=== PATIENT | female | born 1955 | race Caucasian/White ===

== ENCOUNTER 2023-12-05 14:00 | Inpatient (IN) | payer MEDICARE, MEDICAID ==
[~2023-12-05] VITALS: Ht 149.9 cm; Wt 54.0 kg
[~2023-12-05 14:00] MED LIST: ALBUAER3 IN; APIX5TAB4 PO; CHOL500023 PO; FLUC200T50 PO; MET25T PO; PANT40TA2 PO
[2023-12-05] MEDS ORDERED: DexAMETHasone SOD PHOS 10MG/1ML VIAL INJ IM ONE (14:30)
[2023-12-05] MEDS ORDERED: ALBUTEROL SULF 2.5 MG/0.5ML(0.5%) NEB SOLN NEB ONE (14:30)
[2023-12-05] MEDS ORDERED: IPRATROPIUM BROM 0.5 MG/2.5ML INH SOL NEB ONE (14:30)
[2023-12-05 14:49] VITALS: RESP 16; O2SAT 96
[2023-12-05 14:54] LABS: Basophils # (auto) 0.1 10 ^3/uL (0-0.2); Basophils % (auto) 1.4 % (0.0-2.0); Eosinophils # (auto) 0 10 ^3/uL (0-0.8); Eosinophils % (auto) 0.5 % (0.0-7.0); Hematocrit 49.9 % (36.0-46.0); Hemoglobin 16.2 g/dL (12.2-16.2); Lymphocytes # (auto) 1.2 10 ^3/uL (0.4-5.4); Mean Corpuscular Hemoglobin 30.7 pg (28.0-32.0); Mean Corpuscular Hgb Conc. 32.4 g/dL (32.0-36.0); Mean Corpuscular Volume 94.7 fL (80.0-100.0); Monocytes # (auto) 1.4 10 ^3/uL (0-1.3); Monocytes % (auto) 16.9 % (0.0-12.0); Neutrophils # (auto) 5.3 10 ^3/uL (1.6-8.6); Neutrophils % (auto) 66.2 % (37.0-80.0); Red Blood Cells 5.27 10^6/uL (4.0-5.20); Red Cell Distribution Width 13.5 % (11.8-14.3)
[2023-12-05 15:26] LABS: Alanine Aminotransferase 27 U/L (7-40); Albumin 4.6 g/dL (3.2-4.8); Alkaline Phosphatase 77 U/L (46-116); Anion Gap 8 (5-15); Aspartate Aminotransferase 40 U/L (13-40); Bilirubin, Total 0.2 mg/dL (0.2-1.0); Blood Urea Nitrogen 15 mg/dL (9-23); Calcium 9.2 mg/dL (8.7-10.4); Carbon Dioxide 27 mmol/L (20-30); Chloride 102 mmol/L (98-107); Glucose 114 mg/dL (74-106); Lipase 55 U/L (12-53); Potassium 4.3 mmol/L (3.5-5.1); Sodium 137 mmol/L (136-145); Total Protein 7.3 g/dL (5.7-8.2)
[2023-12-05 15:27] LABS: Urine Bacteria FEW /hpf (None Seen); Urine Blood 1+ /uL (Negative); Urine Clarity Clear (Clear); Urine Color Yellow (Yellow); Urine Protein, UAD 1+ (Negative); Urine Specific Gravity 1.023 (1.001-1.035); Urine Urobilinogen Normal (Negative); Urine WBC 2 /hpf (0 - 5); Urine pH 5.5 (5.0-8.0)
[2023-12-05 15:37] LABS: Rapid Influenza A Negative (Negative); Rapid Influenza B Negative (Negative)
[2023-12-05 15:40] LABS: COVID19 ANTIGEN SOFIA FIA POSITIVE (NEGATIVE)
[2023-12-05] MEDS ORDERED: ACETAMINOPHEN 325 MG TAB PO PRN (16:15)
[2023-12-05] MEDS ORDERED: ALBUTEROL SULF 2.5 MG/0.5ML(0.5%) NEB SOLN NEB PRN (16:15)
[2023-12-05] MEDS ORDERED: ACETAMINOPHEN 500 MG TAB PO PRN (16:30)
[2023-12-05 16:36] VITALS: BP 122/48; PULSE 102; RESP 26; TEMP 98
[2023-12-05 16:58] LABS: Magnesium 1.9 mg/dL (1.6-2.6)
[2023-12-05 17:25] LABS: Thyroid Stimulating Hormone 0.44 uIU/mL (0.55-4.78)
[2023-12-05 17:29] LABS: CRP High Sensitivity 3.31 mg/dL (<1.0)
[2023-12-05] MEDS ORDERED: IPRATROPIUM BROM 0.5 MG/2.5ML INH SOL NEB SCH (18:00)
[2023-12-05] MEDS ORDERED: ALBUTEROL SULF 2.5 MG/0.5ML(0.5%) NEB SOLN NEB SCH (18:00)
[2023-12-05] MEDS: SODIUM CHLORIDE 0.9% 1,000 ML IV SCH (20:10)
[2023-12-05] MEDS: BUDESONIDE (INHALATION) 180 MCG IH IN SCH (22:00)
[2023-12-05] MEDS ORDERED: methylPREDNISolone SOD SUCC 40 MG/ML VL IV SCH (22:00)
[2023-12-05] MEDS: ACETAMINOPHEN 325 MG TAB PO PRN (22:11)
[2023-12-05] MEDS: METOPROLOL TARTRATE 25 MG TAB PO SCH (22:12)
[2023-12-05 22:18] VITALS: O2SAT 94
[2023-12-05] MEDS: ALBUTEROL SULF HFA 90MCG INH 200DOSE IN PRN (22:34)
[2023-12-06 00:44] VITALS: PULSE 69; RESP 18; O2SAT 93
[2023-12-06 04:56] LABS: Basophils # (auto) 0 10 ^3/uL (0-0.2); Basophils % (auto) 0.3 % (0.0-2.0); Eosinophils # (auto) 0 10 ^3/uL (0-0.8); Hematocrit 46.9 % (36.0-46.0); Hemoglobin 15.3 g/dL (12.2-16.2); Lymphocytes # (auto) 0.9 10 ^3/uL (0.4-5.4); Lymphocytes % (auto) 17.8 % (10.0-50.0); Mean Corpuscular Hemoglobin 31.1 pg (28.0-32.0); Mean Corpuscular Hgb Conc. 32.7 g/dL (32.0-36.0); Mean Corpuscular Volume 95.3 fL (80.0-100.0); Monocytes # (auto) 0.6 10 ^3/uL (0-1.3); Monocytes % (auto) 11.8 % (0.0-12.0); Neutrophils # (auto) 3.7 10 ^3/uL (1.6-8.6); Neutrophils % (auto) 70.1 % (37.0-80.0); Nucleated Red Blood Cells % 0.1 %; Red Blood Cells 4.93 10^6/uL (4.0-5.20); Red Cell Distribution Width 13.6 % (11.8-14.3); White Blood Cell 5.3 10^3/uL (4.4-10.8)
[2023-12-06 05:15] LABS: Alanine Aminotransferase 28 U/L (7-40); Albumin 4.1 g/dL (3.2-4.8); Alkaline Phosphatase 79 U/L (46-116); Anion Gap 8 (5-15); Aspartate Aminotransferase 31 U/L (13-40); BUN/Creatinine Ratio 18.2 (10.0-20.0); Blood Urea Nitrogen 20 mg/dL (9-23); Calcium 8.7 mg/dL (8.7-10.4); Carbon Dioxide 25 mmol/L (20-30); Chloride 104 mmol/L (98-107); Glucose 315 mg/dL (74-106); Potassium 3.9 mmol/L (3.5-5.1); Sodium 137 mmol/L (136-145)
[2023-12-06 05:16] LABS: Bilirubin, Total < 0.2 mg/dL (0.2-1.0); Total Protein 6.6 g/dL (5.7-8.2)
[2023-12-06 05:31] VITALS: PULSE 67; RESP 18; O2SAT 95
[2023-12-06] MEDS: BUDESONIDE (INHALATION) 180 MCG IH IN SCH ×2 (05:31→22:28)
[2023-12-06] MEDS: ALBUTEROL SULF HFA 90MCG INH 200DOSE IN PRN ×2 (05:31→22:28)
[2023-12-06 06:00] VITALS: PULSE 67
[2023-12-06] MEDS: SODIUM CHLORIDE 0.9% 1,000 ML IV SCH ×2 (06:03→19:47)
[2023-12-06 08:00] VITALS: PULSE 68; RESP 18; O2SAT 91
[2023-12-06] MEDS: DexAMETHasone SOD PHOS 10MG/1ML VIAL INJ IV SCH (10:04)
[2023-12-06] MEDS: ENOXAPARIN SOD 40 MG/0.4 ML SYRINGE SC SCH (10:04)
[2023-12-06] MEDS: PANTOPRAZOLE 40 MG TAB PO SCH (10:04)
[2023-12-06] MEDS: METOPROLOL TARTRATE 25 MG TAB PO SCH ×2 (10:04→22:20)
[2023-12-06] MEDS: CHOLECALCIFEROL (VITD3) 2,000 UNIT CAP/TAB PO SCH (10:05)
[2023-12-06] MEDS: ZINC SULFATE 220mg CAP or TAB PO SCH (10:05)
[2023-12-06] MEDS: AZITHROMYCIN 500MG/ 250ML 250 ML IV SCH (10:05)
[2023-12-06] MEDS: ASCORBIC ACID 1,000 MG TAB PO SCH (10:05)
[2023-12-06] MEDS ORDERED: NICOTINE 21MG/24 HR TOPICAL PATCH TD ONE (13:00)
[2023-12-06 19:25] VITALS: PULSE 81; RESP 24; O2SAT 93
[2023-12-06 22:28] VITALS: O2SAT 94
[2023-12-07] VITALS (9 sets, daily range): BP systolic 111–142; BP diastolic 58–85; PULSE 72–80; RESP 16–20; TEMP 37; O2SAT 92–95
[2023-12-07] MEDS ORDERED: HYDROcodone-ACET 5/325MG TAB PO PRN (04:00)
[2023-12-07] MEDS: SODIUM CHLORIDE 0.9% 1,000 ML IV SCH ×2 (09:03→22:05)
[2023-12-07] MEDS: DexAMETHasone SOD PHOS 10MG/1ML VIAL INJ IV SCH (10:15)
[2023-12-07] MEDS: ASCORBIC ACID 1,000 MG TAB PO SCH (10:15)
[2023-12-07] MEDS: CHOLECALCIFEROL (VITD3) 2,000 UNIT CAP/TAB PO SCH (10:15)
[2023-12-07] MEDS: AZITHROMYCIN 500MG/ 250ML 250 ML IV SCH (10:15)
[2023-12-07] MEDS: PANTOPRAZOLE 40 MG TAB PO SCH (10:15)
[2023-12-07] MEDS: METOPROLOL TARTRATE 25 MG TAB PO SCH ×2 (10:16→22:49)
[2023-12-07] MEDS: ZINC SULFATE 220mg CAP or TAB PO SCH (10:16)
[2023-12-07] MEDS: NICOTINE 21MG/24 HR TOPICAL PATCH TD SCH (10:18)
[2023-12-07] MEDS: ENOXAPARIN SOD 40 MG/0.4 ML SYRINGE SC SCH (10:18)
[2023-12-07] MEDS ORDERED: ONDANSETRON HCL 4 MG/2 ML VIAL IV PRN (11:45)
[2023-12-07] MEDS: LORazepam 0.5 MG TAB PO PRN ×2 (14:09→22:49)
[2023-12-07] MEDS: BUDESONIDE (INHALATION) 180 MCG IH IN SCH (22:30)
[2023-12-08] VITALS (10 sets, daily range): BP systolic 147–151; BP diastolic 73–87; PULSE 75–86; RESP 17–22; TEMP 97.4–98.8; O2SAT 90–95
[2023-12-08] MEDS: BUDESONIDE (INHALATION) 180 MCG IH IN SCH ×3 (00:28→21:41)
[2023-12-08] MEDS: ALBUTEROL SULF HFA 90MCG INH 200DOSE IN PRN ×2 (07:56→21:44)
[2023-12-08] MEDS: ASCORBIC ACID 1,000 MG TAB PO SCH (10:15)
[2023-12-08] MEDS: PANTOPRAZOLE 40 MG TAB PO SCH (10:15)
[2023-12-08] MEDS: AZITHROMYCIN 500MG/ 250ML 250 ML IV SCH (10:15)
[2023-12-08] MEDS: ZINC SULFATE 220mg CAP or TAB PO SCH (10:15)
[2023-12-08] MEDS: DexAMETHasone SOD PHOS 10MG/1ML VIAL INJ IV SCH (10:15)
[2023-12-08] MEDS: CHOLECALCIFEROL (VITD3) 2,000 UNIT CAP/TAB PO SCH (10:16)
[2023-12-08] MEDS: ENOXAPARIN SOD 40 MG/0.4 ML SYRINGE SC SCH (10:17)
[2023-12-08] MEDS: NICOTINE 21MG/24 HR TOPICAL PATCH TD SCH (10:17)
[2023-12-08] MEDS: SODIUM CHLORIDE 0.9% 1,000 ML IV SCH (10:19)
[2023-12-08] MEDS: METOPROLOL TARTRATE 25 MG TAB PO SCH ×2 (10:19→21:35)
[2023-12-08] MEDS: LORazepam 0.5 MG TAB PO PRN (21:28)
[2023-12-09] VITALS (9 sets, daily range): BP systolic 102–174; BP diastolic 56–92; PULSE 63–88; RESP 17–24; TEMP 98–98.5; O2SAT 93–100
[2023-12-09] MEDS: SODIUM CHLORIDE 0.9% 1,000 ML IV SCH ×2 (01:02→14:05)
[2023-12-09] MEDS ORDERED: hydrALAZINE HCL 20 MG/ML VL IV ONE (07:30)
[2023-12-09] MEDS: BUDESONIDE (INHALATION) 180 MCG IH IN SCH ×2 (07:41→22:00)
[2023-12-09] MEDS: ALBUTEROL SULF HFA 90MCG INH 200DOSE IN PRN ×2 (07:41→23:25)
[2023-12-09] MEDS: NICOTINE 21MG/24 HR TOPICAL PATCH TD SCH (10:31)
[2023-12-09] MEDS: DexAMETHasone SOD PHOS 10MG/1ML VIAL INJ IV SCH (10:31)
[2023-12-09] MEDS: PANTOPRAZOLE 40 MG TAB PO SCH (10:31)
[2023-12-09] MEDS: ZINC SULFATE 220mg CAP or TAB PO SCH (10:31)
[2023-12-09] MEDS: CHOLECALCIFEROL (VITD3) 2,000 UNIT CAP/TAB PO SCH (10:32)
[2023-12-09] MEDS: ENOXAPARIN SOD 40 MG/0.4 ML SYRINGE SC SCH (10:32)
[2023-12-09] MEDS: ASCORBIC ACID 1,000 MG TAB PO SCH (10:32)
[2023-12-09] MEDS: AZITHROMYCIN 250 MG TAB PO SCH (10:32)
[2023-12-09] MEDS: METOPROLOL TARTRATE 25 MG TAB PO SCH ×2 (11:00→21:34)
[2023-12-09] MEDS: ACETAMINOPHEN 325 MG TAB PO PRN (18:15)
[2023-12-09] MEDS: LORazepam 0.5 MG TAB PO PRN (21:29)
[2023-12-10] VITALS (8 sets, daily range): BP systolic 137–157; BP diastolic 71–80; PULSE 72–85; RESP 16–18; TEMP 98–98.5; O2SAT 92–100
[2023-12-10] MEDS: SODIUM CHLORIDE 0.9% 1,000 ML IV SCH ×2 (03:25→16:45)
[2023-12-10] MEDS: ASCORBIC ACID 1,000 MG TAB PO SCH (09:08)
[2023-12-10] MEDS: PANTOPRAZOLE 40 MG TAB PO SCH (09:08)
[2023-12-10] MEDS: AZITHROMYCIN 250 MG TAB PO SCH (09:08)
[2023-12-10] MEDS: ZINC SULFATE 220mg CAP or TAB PO SCH (09:08)
[2023-12-10] MEDS: DexAMETHasone SOD PHOS 10MG/1ML VIAL INJ IV SCH (09:09)
[2023-12-10] MEDS: ENOXAPARIN SOD 40 MG/0.4 ML SYRINGE SC SCH (09:09)
[2023-12-10] MEDS: CHOLECALCIFEROL (VITD3) 2,000 UNIT CAP/TAB PO SCH (09:09)
[2023-12-10] MEDS: NICOTINE 21MG/24 HR TOPICAL PATCH TD SCH (09:10)
[2023-12-10] MEDS: METOPROLOL TARTRATE 25 MG TAB PO SCH ×2 (09:34→21:40)
[2023-12-10] MEDS: BUDESONIDE (INHALATION) 180 MCG IH IN SCH ×2 (09:42→21:44)
[2023-12-10 16:39] LABS: COVID19 ANTIGEN SOFIA FIA POSITIVE (NEGATIVE)
[2023-12-10] MEDS: ACETAMINOPHEN 325 MG TAB PO PRN (18:26)
[2023-12-10] MEDS: LORazepam 0.5 MG TAB PO PRN (21:34)
[2023-12-10] MEDS: ALBUTEROL SULF HFA 90MCG INH 200DOSE IN PRN (21:44)
[2023-12-11 05:00] VITALS: BP 158/77; PULSE 89; RESP 18; TEMP 98; O2SAT 92
[2023-12-11] MEDS: SODIUM CHLORIDE 0.9% 1,000 ML IV SCH (05:26)
[2023-12-11 05:49] VITALS: PULSE 77; RESP 16; O2SAT 95
[2023-12-11] MEDS: BUDESONIDE (INHALATION) 180 MCG IH IN SCH (05:49)
[2023-12-11] MEDS: ALBUTEROL SULF HFA 90MCG INH 200DOSE IN PRN (05:49)
[2023-12-11 08:05] VITALS: PULSE 74; RESP 17; O2SAT 96
[2023-12-11 09:00] VITALS: BP 143/70; PULSE 74; RESP 17; TEMP 97.9; O2SAT 96
[2023-12-11] MEDS: PANTOPRAZOLE 40 MG TAB PO SCH (09:15)
[2023-12-11] MEDS: ASCORBIC ACID 1,000 MG TAB PO SCH (09:15)
[2023-12-11] MEDS: ENOXAPARIN SOD 40 MG/0.4 ML SYRINGE SC SCH (09:15)
[2023-12-11] MEDS: ZINC SULFATE 220mg CAP or TAB PO SCH (09:15)
[2023-12-11] MEDS: CHOLECALCIFEROL (VITD3) 2,000 UNIT CAP/TAB PO SCH (09:15)
[2023-12-11] MEDS: NICOTINE 21MG/24 HR TOPICAL PATCH TD SCH (09:16)
[2023-12-11] MEDS: DexAMETHasone SOD PHOS 10MG/1ML VIAL INJ IV SCH (09:16)
[2023-12-11] MEDS: METOPROLOL TARTRATE 25 MG TAB PO SCH (09:17)
[2023-12-11] MEDS ORDERED: AZITHROMYCIN 500MG/ 250ML 250 ML IV SCH (10:00)
[2023-12-11 11:28] VITALS: BP 127/77; PULSE 77; RESP 16; O2SAT 96
[2023-12-11] MEDS: ACETAMINOPHEN 325 MG TAB PO PRN (12:19)
[2023-12-11] MEDS: LORazepam 0.5 MG TAB PO PRN (12:19)
[2023-12-11 13:00] VITALS: BP 127/77; PULSE 65; RESP 18; TEMP 98.1; O2SAT 96
== END 2023-12-11 18:20 | DRG 137 ==
LOC: ER 14:00 → OVERFLOW 16:41 → CENTRAL 12-06 22:29
PROVIDERS: ADMIT Nurse Practitioner Family; ATTEND Family Medicine
DX: U07.1 COVID-19 (principal); J96.01 Acute respiratory failure with hypoxia; J12.82 Pneumonia due to coronavirus disease 2019; J44.0 Chronic obstructive pulmonary disease with (acute) lower respiratory infection; F17.210 Nicotine dependence, cigarettes, uncomplicated; E11.9 Type 2 diabetes mellitus without complications; Z20.822 Contact with and (suspected) exposure to COVID-19; F41.9 Anxiety disorder, unspecified; Z71.6 Tobacco abuse counseling; Z88.0 Allergy status to penicillin; Z98.51 Tubal ligation status
CPT/HCPCS: 36415; 71045; 80053; 81001; 82306; 82728; 83036; 83605; 83615; 83690; 83735; 83880; 84443; 84484; 85025; 85379; 86141; 87426; 87804; 93005; 94640; 97110; 97116; 97163; 97530; G0378; J1100; J2405

== ENCOUNTER 2024-01-18 11:13 | Inpatient (IN) | payer MEDICARE, MEDICAID ==
[~2024-01-18] VITALS: Ht 149.9 cm; Wt 56.3 kg
[2024-01-18] MEDS: ALBUTEROL SULF 2.5 MG/0.5ML(0.5%) NEB SOLN HHN ONE (12:03)
[2024-01-18] MEDS: IPRATROPIUM BROM 0.5 MG/2.5ML INH SOL HHN ONE (12:05)
[2024-01-18 12:15] LABS: Chloride 109 mmol/L (98-107); Potassium 4.2 mmol/L (3.5-5.1); Sodium 142 mmol/L (136-145)
[2024-01-18 12:16] LABS: Anion Gap 6 (5-15); Carbon Dioxide 27 mmol/L (20-30)
[2024-01-18 12:17] LABS: Calcium 9.7 mg/dL (8.5-10.1)
[2024-01-18 12:19] LABS: Basophils # (auto) 0.1 10 ^3/uL (0-0.2); Basophils % (auto) 0.8 % (0.0-2.0); Eosinophils # (auto) 0.1 10 ^3/uL (0-0.8); Eosinophils % (auto) 1.7 % (0.0-7.0); Hematocrit 47.5 % (36.0-46.0); Hemoglobin 15.6 g/dL (12.2-16.2); Lymphocytes # (auto) 2.1 10 ^3/uL (0.4-5.4); Mean Corpuscular Hemoglobin 30.8 pg (28.0-32.0); Mean Corpuscular Hgb Conc. 32.9 g/dL (32.0-36.0); Mean Corpuscular Volume 93.6 fL (80.0-100.0); Monocytes # (auto) 0.4 10 ^3/uL (0-1.3); Monocytes % (auto) 5.2 % (0.0-12.0); Neutrophils # (auto) 4.8 10 ^3/uL (1.6-8.6); Neutrophils % (auto) 64.3 % (37.0-80.0); Nucleated Red Blood Cells % 0.1 %; Red Blood Cells 5.07 10^6/uL (4.0-5.20); White Blood Cell 7.4 10^3/uL (4.4-10.8)
[2024-01-18 12:22] LABS: BUN/Creatinine Ratio 14.6 (10.0-20.0); Blood Urea Nitrogen 12 mg/dL (9-23); Glucose 103 mg/dL (74-106)
[2024-01-18] MEDS: methylPREDNISolone SOD SUCC 125 MG/2 ML VL IV ONE (12:52)
[2024-01-18] MEDS: LORazepam 2MG/ML-1ML VIAL IV ONE (12:53)
[2024-01-18 13:05] VITALS: PULSE 123; RESP 29; O2SAT 94
[2024-01-18] MEDS ORDERED: guaiFENesin 200 MG/10 ML UD GT PRN (16:00)
[2024-01-18] MEDS ORDERED: DOCUSATE SOD 100 MG CAP PO PRN (16:00)
[2024-01-18] MEDS ORDERED: DEXTROSE (50%) 50ML SYRG IV PRN (16:00)
[2024-01-18] MEDS ORDERED: ONDANSETRON HCL 4 MG/2 ML VIAL IV PRN (16:00)
[2024-01-18] MEDS: LEVALBUTEROL HCL 1.25 MG/3 ML NEB NEB SCH (18:00)
[2024-01-18] MEDS: IPRATROPIUM BROM 0.5 MG/2.5ML INH SOL NEB SCH (18:00)
[2024-01-18] MEDS: InsuLIN REG 1unit/0.01ml Soln (100units/ml) SC SCH (20:40)
[2024-01-18] MEDS: ACCU-CHEK COMFORT CURVE STRIP VI SCH (20:41)
[2024-01-19] VITALS (15 sets, daily range): BP systolic 165; BP diastolic 74; PULSE 82–102; RESP 14–24; TEMP 97.4; O2SAT 91–99
[2024-01-19 07:05] LABS: Basophils # (auto) 0 10 ^3/uL (0-0.2); Basophils % (auto) 0.2 % (0.0-2.0); Eosinophils # (auto) 0 10 ^3/uL (0-0.8); Hematocrit 44.3 % (36.0-46.0); Hemoglobin 14.5 g/dL (12.2-16.2); Lymphocytes # (auto) 1.6 10 ^3/uL (0.4-5.4); Lymphocytes % (auto) 9.9 % (10.0-50.0); Mean Corpuscular Hemoglobin 30.6 pg (28.0-32.0); Mean Corpuscular Hgb Conc. 32.8 g/dL (32.0-36.0); Mean Corpuscular Volume 93.2 fL (80.0-100.0); Monocytes % (auto) 6.1 % (0.0-12.0); Neutrophils # (auto) 13.6 10 ^3/uL (1.6-8.6); Neutrophils % (auto) 83.8 % (37.0-80.0); Red Blood Cells 4.75 10^6/uL (4.0-5.20); Red Cell Distribution Width 13.2 % (11.8-14.3); White Blood Cell 16.2 10^3/uL (4.4-10.8)
[2024-01-19 07:18] LABS: Alanine Aminotransferase 16 U/L (7-40); Albumin 4.4 g/dL (3.2-4.8); Alkaline Phosphatase 76 U/L (46-116); Anion Gap 7 (5-15); Aspartate Aminotransferase 19 U/L (13-40); BUN/Creatinine Ratio 20.7 (10.0-20.0); Blood Urea Nitrogen 18 mg/dL (9-23); Calcium 9.6 mg/dL (8.7-10.4); Carbon Dioxide 26 mmol/L (20-30); Chloride 108 mmol/L (98-107); Glucose 125 mg/dL (74-106); Potassium 4.1 mmol/L (3.5-5.1); Sodium 141 mmol/L (136-145)
[2024-01-19 07:19] LABS: Bilirubin, Total 0.2 mg/dL (0.2-1.0)
[2024-01-19] MEDS: LORazepam 0.5 MG TAB PO PRN (11:41)
[2024-01-19] MEDS: LEVALBUTEROL HCL 1.25 MG/3 ML NEB NEB SCH (18:37)
[2024-01-19] MEDS: HYDROcodone-ACET 5/325MG TAB PO PRN (19:04)
[2024-01-20] VITALS (15 sets, daily range): BP systolic 123–152; BP diastolic 54–82; PULSE 82–99; RESP 16–22; TEMP 97.5–98.3; O2SAT 90–100
[2024-01-20 08:44] LABS: Basophils # (auto) 0.1 10 ^3/uL (0-0.2); Basophils % (auto) 0.5 % (0.0-2.0); Eosinophils # (auto) 0.2 10 ^3/uL (0-0.8); Eosinophils % (auto) 1.2 % (0.0-7.0); Hematocrit 42.4 % (36.0-46.0); Hemoglobin 13.9 g/dL (12.2-16.2); Lymphocytes # (auto) 2.3 10 ^3/uL (0.4-5.4); Lymphocytes % (auto) 15.2 % (10.0-50.0); Mean Corpuscular Hemoglobin 30.8 pg (28.0-32.0); Mean Corpuscular Hgb Conc. 32.7 g/dL (32.0-36.0); Mean Corpuscular Volume 94.2 fL (80.0-100.0); Monocytes # (auto) 0.8 10 ^3/uL (0-1.3); Monocytes % (auto) 5.3 % (0.0-12.0); Neutrophils # (auto) 11.7 10 ^3/uL (1.6-8.6); Neutrophils % (auto) 77.8 % (37.0-80.0); Red Cell Distribution Width 13.4 % (11.8-14.3)
[2024-01-20 08:50] LABS: Chloride 107 mmol/L (98-107); Potassium 4.2 mmol/L (3.5-5.1); Sodium 141 mmol/L (136-145)
[2024-01-20 08:51] LABS: Anion Gap 5 (5-15); Carbon Dioxide 29 mmol/L (20-30)
[2024-01-20 08:52] LABS: Calcium 9.1 mg/dL (8.5-10.1)
[2024-01-20 08:56] LABS: BUN/Creatinine Ratio 19.8 (10.0-20.0); Blood Urea Nitrogen 16 mg/dL (9-23); Glucose 108 mg/dL (74-106)
[2024-01-20] MEDS: AZITHROMYCIN 500MG/ 250ML 250 ML IV SCH (08:57)
[2024-01-21] VITALS (15 sets, daily range): BP systolic 136–150; BP diastolic 64–89; PULSE 77–94; RESP 17–20; TEMP 97.6–98.3; O2SAT 91–100
[2024-01-21 06:08] LABS: Basophils # (auto) 0 10 ^3/uL (0-0.2); Basophils % (auto) 0.3 % (0.0-2.0); Eosinophils # (auto) 0.2 10 ^3/uL (0-0.8); Eosinophils % (auto) 1.8 % (0.0-7.0); Hematocrit 42.4 % (36.0-46.0); Hemoglobin 13.9 g/dL (12.2-16.2); Lymphocytes % (auto) 18.3 % (10.0-50.0); Mean Corpuscular Hemoglobin 30.8 pg (28.0-32.0); Mean Corpuscular Hgb Conc. 32.8 g/dL (32.0-36.0); Mean Corpuscular Volume 94.1 fL (80.0-100.0); Monocytes # (auto) 0.7 10 ^3/uL (0-1.3); Monocytes % (auto) 6.4 % (0.0-12.0); Neutrophils # (auto) 7.9 10 ^3/uL (1.6-8.6); Neutrophils % (auto) 73.2 % (37.0-80.0); Red Cell Distribution Width 13.3 % (11.8-14.3); White Blood Cell 10.8 10^3/uL (4.4-10.8)
[2024-01-21 06:22] LABS: Calcium 9.1 mg/dL (8.5-10.1); Chloride 106 mmol/L (98-107); Potassium 3.8 mmol/L (3.5-5.1); Sodium 141 mmol/L (136-145)
[2024-01-21 06:23] LABS: Anion Gap 4 (5-15); Carbon Dioxide 31 mmol/L (20-30)
[2024-01-21 06:28] LABS: BUN/Creatinine Ratio 19.4 (10.0-20.0); Blood Urea Nitrogen 14 mg/dL (9-23); Glucose 129 mg/dL (74-106)
[2024-01-22] VITALS (17 sets, daily range): BP systolic 125–161; BP diastolic 55–92; PULSE 65–91; RESP 16–20; TEMP 97.6–98.4; O2SAT 91–98
[2024-01-22 05:23] LABS: Basophils # (auto) 0 10 ^3/uL (0-0.2); Basophils % (auto) 0.4 % (0.0-2.0); Eosinophils # (auto) 0.2 10 ^3/uL (0-0.8); Eosinophils % (auto) 2.8 % (0.0-7.0); Hematocrit 42.2 % (36.0-46.0); Hemoglobin 13.8 g/dL (12.2-16.2); Lymphocytes # (auto) 2.3 10 ^3/uL (0.4-5.4); Lymphocytes % (auto) 26.2 % (10.0-50.0); Mean Corpuscular Hemoglobin 30.9 pg (28.0-32.0); Mean Corpuscular Hgb Conc. 32.8 g/dL (32.0-36.0); Mean Corpuscular Volume 94.3 fL (80.0-100.0); Monocytes # (auto) 0.6 10 ^3/uL (0-1.3); Monocytes % (auto) 6.4 % (0.0-12.0); Neutrophils # (auto) 5.5 10 ^3/uL (1.6-8.6); Neutrophils % (auto) 64.2 % (37.0-80.0); Red Blood Cells 4.47 10^6/uL (4.0-5.20); Red Cell Distribution Width 13.4 % (11.8-14.3); White Blood Cell 8.6 10^3/uL (4.4-10.8)
[2024-01-22 05:34] LABS: Chloride 108 mmol/L (98-107); Potassium 3.7 mmol/L (3.5-5.1); Sodium 142 mmol/L (136-145)
[2024-01-22 05:35] LABS: Anion Gap 4 (5-15); Calcium 8.5 mg/dL (8.7-10.4); Carbon Dioxide 30 mmol/L (20-30)
[2024-01-22 05:40] LABS: BUN/Creatinine Ratio 20.6 (10.0-20.0); Blood Urea Nitrogen 13 mg/dL (9-23); Glucose 105 mg/dL (74-106)
[2024-01-23] VITALS (18 sets, daily range): BP systolic 138–190; BP diastolic 68–87; PULSE 70–108; RESP 16–20; TEMP 97.7–98.6; O2SAT 90–100
[2024-01-23 06:47] LABS: Basophils # (auto) 0.1 10 ^3/uL (0-0.2); Basophils % (auto) 0.7 % (0.0-2.0); Eosinophils # (auto) 0.3 10 ^3/uL (0-0.8); Eosinophils % (auto) 3.3 % (0.0-7.0); Hematocrit 40.2 % (36.0-46.0); Hemoglobin 13.4 g/dL (12.2-16.2); Lymphocytes % (auto) 24.5 % (10.0-50.0); Mean Corpuscular Hgb Conc. 33.3 g/dL (32.0-36.0); Mean Corpuscular Volume 93.1 fL (80.0-100.0); Monocytes # (auto) 0.5 10 ^3/uL (0-1.3); Monocytes % (auto) 6.4 % (0.0-12.0); Neutrophils # (auto) 5.4 10 ^3/uL (1.6-8.6); Neutrophils % (auto) 65.1 % (37.0-80.0); Red Blood Cells 4.32 10^6/uL (4.0-5.20); Red Cell Distribution Width 13.2 % (11.8-14.3); White Blood Cell 8.3 10^3/uL (4.4-10.8)
[2024-01-23 06:48] LABS: Chloride 106 mmol/L (98-107); Potassium 3.7 mmol/L (3.5-5.1); Sodium 141 mmol/L (136-145)
[2024-01-23 06:49] LABS: Anion Gap 4 (5-15); Calcium 8.5 mg/dL (8.7-10.4); Carbon Dioxide 31 mmol/L (20-30)
[2024-01-23 06:54] LABS: BUN/Creatinine Ratio 21.2 (10.0-20.0); Blood Urea Nitrogen 14 mg/dL (9-23); Glucose 104 mg/dL (74-106)
[2024-01-23] MEDS: NICOTINE 21MG/24 HR TOPICAL PATCH TD SCH (09:04)
[2024-01-23] MEDS: ENOXAPARIN SOD 60 MG/0.6 ML SYRINGE SC ONE (10:00)
[2024-01-23] MEDS: methylPREDNISolone SOD SUCC 125 MG/2 ML VL IV ONE (11:30)
[2024-01-23] MEDS: PANTOPRAZOLE 40 MG TAB PO ONE (11:31)
[2024-01-23] MEDS: IOHEXOL 350 MG/ML 100ML IJ ONE (11:31)
[2024-01-23] MEDS: methylPREDNISolone SOD SUCC 40 MG/ML VL IV SCH (13:05)
[2024-01-23] MEDS: dilTIAZem HCL 60 MG TAB GT SCH (13:34)
[2024-01-23 17:34] LABS: COVID19 ANTIGEN SOFIA FIA NEGATIVE (NEGATIVE)
[2024-01-23] MEDS: ACETAMINOPHEN 325 MG TAB PO PRN (21:42)
[2024-01-23] MEDS: levoFLOXacin 500MG 100 ML IV SCH (23:35)
[2024-01-24] VITALS (16 sets, daily range): BP systolic 132–150; BP diastolic 60–79; PULSE 80–98; RESP 14–20; TEMP 97.1–98.6; O2SAT 92–99
[2024-01-24 07:14] LABS: Calcium 9.3 mg/dL (8.5-10.1); Chloride 105 mmol/L (98-107); Potassium 4.2 mmol/L (3.5-5.1); Sodium 137 mmol/L (136-145)
[2024-01-24 07:15] LABS: Anion Gap 4 (5-15); Carbon Dioxide 28 mmol/L (20-30)
[2024-01-24 07:20] LABS: BUN/Creatinine Ratio 21.3 (10.0-20.0); Blood Urea Nitrogen 16 mg/dL (9-23); Glucose 175 mg/dL (74-106)
[2024-01-24 08:00] LABS: Basophils # (auto) 0 10 ^3/uL (0-0.2); Eosinophils # (auto) 0 10 ^3/uL (0-0.8); Hematocrit 43.4 % (36.0-46.0); Hemoglobin 14.3 g/dL (12.2-16.2); Lymphocytes % (auto) 7.9 % (10.0-50.0); Mean Corpuscular Hemoglobin 30.9 pg (28.0-32.0); Mean Corpuscular Volume 93.5 fL (80.0-100.0); Monocytes # (auto) 0.2 10 ^3/uL (0-1.3); Monocytes % (auto) 1.2 % (0.0-12.0); Neutrophils # (auto) 11.3 10 ^3/uL (1.6-8.6); Neutrophils % (auto) 90.9 % (37.0-80.0); Red Blood Cells 4.64 10^6/uL (4.0-5.20); Red Cell Distribution Width 13.5 % (11.8-14.3); White Blood Cell 12.4 10^3/uL (4.4-10.8)
[2024-01-24] MEDS: PANTOPRAZOLE 40 MG TAB PO SCH (08:15)
[2024-01-24] MEDS: ENOXAPARIN SOD 30 MG/0.3 ML SYRINGE SC SCH (08:15)
[2024-01-24] MEDS: levoFLOXacin 250MG 50 ML IV SCH (20:14)
[2024-01-25] VITALS (15 sets, daily range): BP systolic 140–169; BP diastolic 65–92; PULSE 73–97; RESP 12–22; TEMP 97.5–98.6; O2SAT 92–100
[2024-01-25 06:21] LABS: Basophils # (auto) 0 10 ^3/uL (0-0.2); Eosinophils # (auto) 0 10 ^3/uL (0-0.8); Hematocrit 43.5 % (36.0-46.0); Hemoglobin 14.2 g/dL (12.2-16.2); Lymphocytes # (auto) 1.1 10 ^3/uL (0.4-5.4); Mean Corpuscular Hemoglobin 30.4 pg (28.0-32.0); Mean Corpuscular Hgb Conc. 32.6 g/dL (32.0-36.0); Mean Corpuscular Volume 93.3 fL (80.0-100.0); Monocytes # (auto) 0.5 10 ^3/uL (0-1.3); Monocytes % (auto) 2.8 % (0.0-12.0); Neutrophils # (auto) 17.1 10 ^3/uL (1.6-8.6); Neutrophils % (auto) 91.2 % (37.0-80.0); Red Blood Cells 4.66 10^6/uL (4.0-5.20); Red Cell Distribution Width 13.3 % (11.8-14.3); White Blood Cell 18.7 10^3/uL (4.4-10.8)
[2024-01-25 06:35] LABS: Chloride 105 mmol/L (98-107); Potassium 4.5 mmol/L (3.5-5.1); Sodium 138 mmol/L (136-145)
[2024-01-25 06:36] LABS: Anion Gap 4 (5-15); Carbon Dioxide 29 mmol/L (20-30)
[2024-01-25 06:37] LABS: Calcium 9.5 mg/dL (8.5-10.1)
[2024-01-25 06:41] LABS: BUN/Creatinine Ratio 24.4 (10.0-20.0); Blood Urea Nitrogen 22 mg/dL (9-23); Glucose 194 mg/dL (74-106)
[2024-01-25] MEDS: methylPREDNISolone SOD SUCC 40 MG/ML VL IV SCH (15:15)
[2024-01-25] MEDS ORDERED: dilTIAZem HCL 60 MG TAB GT SCH (22:00)
[2024-01-26] VITALS (10 sets, daily range): BP systolic 141–167; BP diastolic 65–97; PULSE 74–91; RESP 16–20; TEMP 97.1–98.9; O2SAT 91–98
[2024-01-26] LABS: Urine Bacteria NONE SEEN /hpf (None Seen); Urine Blood Negative /uL (Negative); Urine Clarity Clear (Clear); Urine Color Yellow (Yellow); Urine Protein, UAD TRACE (Negative); Urine Specific Gravity 1.021 (1.001-1.035); Urine Urobilinogen Normal (Negative); Urine WBC 1 /hpf (0 - 5); Urine pH 5.5 (5.0-8.0)
[2024-01-26 00:09] LABS: Amphetamine Screen, Urine Neg (NEGATIVE)
[2024-01-26 00:10] LABS: Barbiturate Scree,Urine Neg (NEGATIVE); Benzodiazephine Screen, Urine Neg (NEGATIVE); Cannabinoid Screen, Urine Neg (NEGATIVE); Cocaine Screen, Urine Neg (NEGATIVE); Opiate Scree,Urine Neg (NEGATIVE); Phencyclidine Screen, Urine Neg (NEGATIVE)
[2024-01-26] MEDS: KETOROLAC TROMETH 30 MG/ML 1ML VIAL IV ONE (03:23)
[2024-01-26 05:31] LABS: Basophils # (auto) 0.1 10 ^3/uL (0-0.2); Basophils % (auto) 0.3 % (0.0-2.0); Eosinophils # (auto) 0 10 ^3/uL (0-0.8); Hematocrit 42.3 % (36.0-46.0); Hemoglobin 13.9 g/dL (12.2-16.2); Lymphocytes % (auto) 5.3 % (10.0-50.0); Mean Corpuscular Hemoglobin 30.4 pg (28.0-32.0); Mean Corpuscular Hgb Conc. 32.9 g/dL (32.0-36.0); Mean Corpuscular Volume 92.2 fL (80.0-100.0); Monocytes # (auto) 1.1 10 ^3/uL (0-1.3); Monocytes % (auto) 5.7 % (0.0-12.0); Neutrophils # (auto) 17.2 10 ^3/uL (1.6-8.6); Neutrophils % (auto) 88.7 % (37.0-80.0); Red Blood Cells 4.58 10^6/uL (4.0-5.20); Red Cell Distribution Width 13.1 % (11.8-14.3); White Blood Cell 19.4 10^3/uL (4.4-10.8)
[2024-01-26 05:47] LABS: Alanine Aminotransferase 21 U/L (7-40); Albumin 3.7 g/dL (3.2-4.8); Alkaline Phosphatase 62 U/L (46-116); Anion Gap 4 (5-15); Aspartate Aminotransferase 19 U/L (13-40); BUN/Creatinine Ratio 32.9 (10.0-20.0); Bilirubin, Total 0.3 mg/dL (0.2-1.0); Blood Urea Nitrogen 27 mg/dL (9-23); Carbon Dioxide 29 mmol/L (20-30); Chloride 103 mmol/L (98-107); Glucose 199 mg/dL (74-106); Potassium 4.6 mmol/L (3.5-5.1); Sodium 136 mmol/L (136-145); Total Protein 5.2 g/dL (5.7-8.2)
[2024-01-26] MEDS: ENOXAPARIN SOD 40 MG/0.4 ML SYRINGE SC SCH (11:11)
[2024-01-26] MEDS: dilTIAZem HCL 60 MG TAB PO SCH (11:12)
[2024-01-26] MEDS ORDERED: LEVO750T8 PO (11:12)
[2024-01-26] MEDS ORDERED: PRED20TA2 PO (11:12)
== END 2024-01-26 17:40 | disposition home or self-care (01) | DRG 140 ==
LOC: ER 11:13 → OVERFLOW 15:50 → CENTRAL 01-20 02:55
PROVIDERS: ADMIT Nurse Practitioner Family; ATTEND Internal Medicine Pulmonary Disease
DX: J44.1 Chronic obstructive pulmonary disease with (acute) exacerbation (principal); J96.21 Acute and chronic respiratory failure with hypoxia; C34.90 Malignant neoplasm of unspecified part of unspecified bronchus or lung; F41.9 Anxiety disorder, unspecified; F17.210 Nicotine dependence, cigarettes, uncomplicated; Z20.822 Contact with and (suspected) exposure to COVID-19; R91.8 Other nonspecific abnormal finding of lung field; E11.65 Type 2 diabetes mellitus with hyperglycemia; Z82.49 Family history of ischemic heart disease and other diseases of the circulatory system; Z82.5 Family history of asthma and other chronic lower respiratory diseases; Z88.0 Allergy status to penicillin; Z86.19 Personal history of other infectious and parasitic diseases; Z86.718 Personal history of other venous thrombosis and embolism
CPT/HCPCS: 36415; 71045; 71046; 71275; 74176; 80048; 80053; 80307; 81001; 82962; 85025; 87081; 87426; 93005; 94640; G0378; J1815; J1885; J1956

== ENCOUNTER 2024-01-31 07:47 | Inpatient (IN) | payer MEDICARE, MEDICAID ==
[~2024-01-31] VITALS: Ht 149.9 cm; Wt 55.8 kg
[2024-01-31] VITALS (42 sets, daily range): BP systolic 78–177; BP diastolic 40–93; PULSE 94–131; RESP 12–37; TEMP 98.5–99.9; O2SAT 95–100
[~2024-01-31 07:47] MED LIST changes: -FLUC200T50 PO; +LEVO750T8 PO; +PRED20TA2 PO
[2024-01-31 08:42] LABS: Hematocrit 44.9 % (36.0-46.0); Hemoglobin 14.2 g/dL (12.2-16.2); Mean Corpuscular Hemoglobin 29.5 pg (28.0-32.0); Mean Corpuscular Hgb Conc. 31.6 g/dL (32.0-36.0); Mean Corpuscular Volume 93.3 fL (80.0-100.0); Red Blood Cells 4.81 10^6/uL (4.0-5.20); Red Cell Distribution Width 13.8 % (11.8-14.3); White Blood Cell 24.4 10^3/uL (4.4-10.8)
[2024-01-31 08:46] LABS: Basophils % (manual) 0 (0.0-2.0); Blast Cells 0; Eosinophils % (manual) 0 (0-7); Metamyelocytes % 0; Myelocytes % 0; Promyelocytes % 0; Reactive Lymphocytes 0
[2024-01-31] MEDS: ONDANSETRON HCL 4 MG/2 ML VIAL IV ONE (08:58)
[2024-01-31] MEDS: SODIUM CHLORIDE 0.9% 500 ML IVB ONE (08:58)
[2024-01-31 08:59] LABS: Band Neutrophils % (manual) 12; Monocytes % (manual) 6 (0-12)
[2024-01-31 09:00] LABS: Lymphocytes % (manual) 7 (10.0-50.0)
[2024-01-31 09:01] LABS: Hypochromia Slight; Platelet Estimate Adequate
[2024-01-31] MEDS: MORPHINE SULFATE 4 MG/ML SYR/VIAL IV ONE (09:03)
[2024-01-31 10:04] LABS: INR 1.16 (0.9-1.15); Partial Thromboplastin Time 27.1 SEC (24.5-34.5); Prothrombin Time 12.1 sec (9.3-11.8)
[2024-01-31] MEDS: SODIUM CHLORIDE 0.9% 500 ML IV ONE ×2 (10:12→23:00)
[2024-01-31] MEDS: cefTRIAXone 1GM/50ML D5W 50 ML IV ONE (10:12)
[2024-01-31] MEDS ORDERED: HYDROcodone-ACET 5/325MG TAB PO PRN (10:15)
[2024-01-31] MEDS ORDERED: ALBUTEROL SULF 2.5 MG/0.5ML(0.5%) NEB SOLN NEB PRN (10:15)
[2024-01-31] MEDS ORDERED: NITROGLYCERIN 0.4 MG SL TAB SL PRN (10:15)
[2024-01-31] MEDS: PIPERACILLIN-TAZOB 3.375GM 100 ML IV ONE (10:15)
[2024-01-31] MEDS ORDERED: MORPHINE SULFATE INJ 2 MG/ml SYRG IV PRN (10:15)
[2024-01-31] MEDS ORDERED: DEXTROSE (50%) 50ML SYRG IV PRN (10:15)
[2024-01-31] MEDS ORDERED: MIDAZOLAM HCL 2MG/2ML 2ml VIAL (1mg/ml) ONE (10:23)
[2024-01-31] MEDS ORDERED: fentaNYL CITRATE 5 ML ONE (10:25)
[2024-01-31 10:29] LABS: Alanine Aminotransferase 19 U/L (7-40); Albumin 3.5 g/dL (3.2-4.8); Alkaline Phosphatase 99 U/L (46-116); Anion Gap 8 (5-15); Aspartate Aminotransferase 22 U/L (13-40); BUN/Creatinine Ratio 17.3 (10.0-20.0); Blood Urea Nitrogen 17 mg/dL (9-23); Calcium 9.4 mg/dL (8.7-10.4); Carbon Dioxide 27 mmol/L (20-30); Chloride 101 mmol/L (98-107); Glucose 200 mg/dL (74-106); Lipase 24 U/L (12-53); Potassium 3.3 mmol/L (3.5-5.1); Sodium 136 mmol/L (136-145)
[2024-01-31 10:30] LABS: Bilirubin, Total 0.5 mg/dL (0.2-1.0); Total Protein 5.9 g/dL (5.7-8.2)
[2024-01-31] MEDS: PANTOPRAZOLE 40 MG/10 ML VIAL INJ IV ONE (10:30)
[2024-01-31] MEDS ORDERED: ROCURONIUM 10MG/ML 10ML VIAL IV ONE (13:58)
[2024-01-31] MEDS ORDERED: ETOMIDATE (2MG/ML) 20ML VIAL IV ONE (13:58)
[2024-01-31] MEDS ORDERED: ONDANSETRON HCL 4 MG/2 ML VIAL ONE (13:58)
[2024-01-31] MEDS ORDERED: PIPERACILLIN-TAZOB 3.375GM 100 ML IV SCH (14:00)
[2024-01-31] MEDS ORDERED: HYDROmorphone HCL 2 MG/ML VL/or syr IV PRN ×2 (14:15)
[2024-01-31] MEDS ORDERED: ONDANSETRON HCL 4 MG/2 ML VIAL IV PRN (14:15)
[2024-01-31] MEDS: fentaNYL Drip 2500mCg/250mlNS 250 ML IV SCH (14:31)
[2024-01-31] MEDS: IPRATROPIUM BROM 0.5 MG/2.5ML INH SOL NEB SCH (14:50)
[2024-01-31] MEDS: ALBUTEROL SULF 2.5 MG/0.5ML(0.5%) NEB SOLN NEB SCH (14:50)
[2024-01-31] MEDS: D5W/SOD CHL 0.45% 1,000 ML IV SCH (15:15)
[2024-01-31 15:27] LABS: Base Excess -2.4 mmol/L (-2.0-2.0)
[2024-01-31] MEDS: InsuLIN REG 1unit/0.01ml Soln (100units/ml) SC SCH (17:00)
[2024-01-31] MEDS: ACCU-CHEK COMFORT CURVE STRIP VI SCH (17:00)
[2024-01-31] MEDS: MIDAZOLAM DRIP 50 mg/50mL 50 ML IV SCH (17:18)
[2024-01-31] MEDS: SODIUM CHLORIDE 0.9% 1,000 ML IV SCH (17:21)
[2024-01-31] MEDS: ACCU-CHEK COMFORT CURVE STRIP VI ONE (20:02)
[2024-01-31] MEDS: ONDANSETRON HCL 4 MG/2 ML VIAL IV PRN (21:44)
[2024-01-31] MEDS: METOPROLOL TARTRATE 25 MG TAB PO SCH (22:00)
[2024-02-01] VITALS (106 sets, daily range): BP systolic 78–143; BP diastolic 37–62; PULSE 71–99; RESP 13–24; TEMP 98.6–99.1; O2SAT 91–100
[2024-02-01] MEDS: PHENYLEPHRINE IV 250 ML IV ONE (00:49)
[2024-02-01] MEDS: PHENYLEPHRINE IV 250 ML IV SCH (00:59)
[2024-02-01 04:22] LABS: Basophils # (auto) 0 10 ^3/uL (0-0.2); Eosinophils # (auto) 0 10 ^3/uL (0-0.8); Eosinophils % (auto) 0.2 % (0.0-7.0); Hematocrit 36.1 % (36.0-46.0); Hemoglobin 11.7 g/dL (12.2-16.2); Lymphocytes # (auto) 1.8 10 ^3/uL (0.4-5.4); Lymphocytes % (auto) 9.9 % (10.0-50.0); Mean Corpuscular Hemoglobin 30.5 pg (28.0-32.0); Mean Corpuscular Hgb Conc. 32.5 g/dL (32.0-36.0); Mean Corpuscular Volume 93.7 fL (80.0-100.0); Monocytes # (auto) 0.7 10 ^3/uL (0-1.3); Monocytes % (auto) 3.6 % (0.0-12.0); Neutrophils # (auto) 15.8 10 ^3/uL (1.6-8.6); Neutrophils % (auto) 86.3 % (37.0-80.0); Red Blood Cells 3.85 10^6/uL (4.0-5.20); Red Cell Distribution Width 14.1 % (11.8-14.3); White Blood Cell 18.4 10^3/uL (4.4-10.8)
[2024-02-01 04:35] LABS: Alanine Aminotransferase 13 U/L (7-40); Albumin 2.6 g/dL (3.2-4.8); Alkaline Phosphatase 65 U/L (46-116); Anion Gap 6 (5-15); Aspartate Aminotransferase 16 U/L (13-40); Bilirubin, Total 0.2 mg/dL (0.2-1.0); Blood Urea Nitrogen 18 mg/dL (9-23); Calcium 7.2 mg/dL (8.7-10.4); Carbon Dioxide 24 mmol/L (20-30); Chloride 107 mmol/L (98-107); Glucose 203 mg/dL (74-106); Potassium 3.3 mmol/L (3.5-5.1); Sodium 137 mmol/L (136-145); Total Protein 4.5 g/dL (5.7-8.2)
[2024-02-01 07:12] LABS: Base Excess -1.6 mmol/L (-2.0-2.0)
[2024-02-01] MEDS: CHOLECALCIFEROL (VITD3) 1,000UNIT=25mCg TAB PO SCH (10:37)
[2024-02-01] MEDS: PANTOPRAZOLE 40 MG/10 ML VIAL INJ IV SCH (10:37)
[2024-02-01] MEDS: SODIUM CHLORIDE 0.9% 1,000 ML IV SCH (12:53)
[2024-02-01] MEDS: MEROPENEM 1GM IVPB 50 ML IV ONE (13:00)
[2024-02-01] MEDS: POTASSIUM CHLORIDE 40 MEQ, LIDOCAINE 1% (LOCAL ANESTH.) 4 ML in SODIUM CHL 0.9% 250 ML IV ONE (13:14)
[2024-02-01] MEDS ORDERED: MEROPENEM 1GM IVPB 50 ML IV SCH (14:00)
[2024-02-01 14:10] LABS: Urine Bacteria NONE SEEN /hpf (None Seen); Urine Blood TRACE /uL (Negative); Urine Clarity Clear (Clear); Urine Color Yellow (Yellow); Urine Protein, UAD 1+ (Negative); Urine Specific Gravity 1.016 (1.001-1.035); Urine Urobilinogen Normal (Negative); Urine WBC 4 /hpf (0 - 5)
[2024-02-01] MEDS: LIDOCAINE 1% (LOCAL ANESTH.) PF 5ml SDV ID ONE (14:54)
[2024-02-01] MEDS: MEROPENEM 1GM IVPB 50 ML IV SCH (20:07)
[2024-02-01] MEDS: SODIUM CHLOR 0.9% PF (SALINE LOCK) 10ML VIAL/SYR IV SCH (22:15)
[2024-02-02] VITALS (70 sets, daily range): BP systolic 89–154; BP diastolic 45–107; PULSE 82–119; RESP 12–47; TEMP 98.2–99.9; O2SAT 75–100
[2024-02-02 05:18] LABS: Basophils # (auto) 0 10 ^3/uL (0-0.2); Basophils % (auto) 0.1 % (0.0-2.0); Eosinophils # (auto) 0.1 10 ^3/uL (0-0.8); Eosinophils % (auto) 0.4 % (0.0-7.0); Hematocrit 32.7 % (36.0-46.0); Hemoglobin 10.6 g/dL (12.2-16.2); Lymphocytes # (auto) 1.1 10 ^3/uL (0.4-5.4); Lymphocytes % (auto) 6.6 % (10.0-50.0); Mean Corpuscular Hemoglobin 30.5 pg (28.0-32.0); Mean Corpuscular Hgb Conc. 32.4 g/dL (32.0-36.0); Monocytes # (auto) 0.7 10 ^3/uL (0-1.3); Monocytes % (auto) 4.6 % (0.0-12.0); Neutrophils # (auto) 14.2 10 ^3/uL (1.6-8.6); Neutrophils % (auto) 88.3 % (37.0-80.0); Red Blood Cells 3.48 10^6/uL (4.0-5.20); Red Cell Distribution Width 14.2 % (11.8-14.3); White Blood Cell 16.1 10^3/uL (4.4-10.8)
[2024-02-02 05:35] LABS: Alanine Aminotransferase 11 U/L (7-40); Albumin 2.7 g/dL (3.2-4.8); Alkaline Phosphatase 69 U/L (46-116); Anion Gap 7 (5-15); Aspartate Aminotransferase 18 U/L (13-40); Bilirubin, Total 0.3 mg/dL (0.2-1.0); Blood Urea Nitrogen 13 mg/dL (9-23); Calcium 7.5 mg/dL (8.5-10.1); Carbon Dioxide 24 mmol/L (20-30); Chloride 109 mmol/L (98-107); Glucose 101 mg/dL (74-106); Potassium 3.8 mmol/L (3.5-5.1); Sodium 140 mmol/L (136-145); Total Protein 4.7 g/dL (5.7-8.2)
[2024-02-02] MEDS: MORPHINE SULFATE INJ 2 MG/ml SYRG IV PRN (09:38)
[2024-02-02 09:40] LABS: Base Excess -3.2 mmol/L (-2.0-2.0)
[2024-02-02] MEDS: D5W/SOD CHL 0.45% 1,000 ML IV SCH (19:09)
[2024-02-03] VITALS (37 sets, daily range): BP systolic 127–165; BP diastolic 59–85; PULSE 77–105; RESP 16–31; TEMP 97.7–99.6; O2SAT 91–100
[2024-02-03 05:03] LABS: Basophils # (auto) 0 10 ^3/uL (0-0.2); Basophils % (auto) 0.2 % (0.0-2.0); Eosinophils # (auto) 0.1 10 ^3/uL (0-0.8); Eosinophils % (auto) 0.7 % (0.0-7.0); Hemoglobin 11.3 g/dL (12.2-16.2); Lymphocytes # (auto) 1.1 10 ^3/uL (0.4-5.4); Lymphocytes % (auto) 7.6 % (10.0-50.0); Mean Corpuscular Hemoglobin 30.7 pg (28.0-32.0); Mean Corpuscular Hgb Conc. 32.4 g/dL (32.0-36.0); Mean Corpuscular Volume 94.6 fL (80.0-100.0); Monocytes # (auto) 0.8 10 ^3/uL (0-1.3); Neutrophils % (auto) 85.5 % (37.0-80.0); Red Cell Distribution Width 14.2 % (11.8-14.3); White Blood Cell 14.1 10^3/uL (4.4-10.8)
[2024-02-03 05:22] LABS: Anion Gap 6 (5-15); Carbon Dioxide 26 mmol/L (20-30); Chloride 107 mmol/L (98-107); Potassium 3.1 mmol/L (3.5-5.1); Sodium 139 mmol/L (136-145)
[2024-02-03 05:23] LABS: Calcium 7.7 mg/dL (8.5-10.1)
[2024-02-03 05:28] LABS: BUN/Creatinine Ratio 18.5 (10.0-20.0); Blood Urea Nitrogen 10 mg/dL (9-23); Glucose 143 mg/dL (74-106)
[2024-02-03] MEDS: POTASSIUM CHL 20MEQ/100ML 100 ML IV ONE (06:49)
[2024-02-03] MEDS ORDERED: CLINIMIX PER PHARMACY 0 ML IV SCH (08:15)
[2024-02-03] MEDS: POTASSIUM CHLORIDE 20 MEQ, LIDOCAINE 1% (LOCAL ANESTH.) 2 ML in SODIUM CHL 0.9% 100 ML IV ONE (09:15)
[2024-02-03] MEDS: KETOROLAC TROMETH 30 MG/ML 1ML VIAL IV PRN (09:40)
[2024-02-03] MEDS: D5W/SOD CHL 0.45% 1,000 ML IV SCH (12:00)
[2024-02-03] MEDS: SODIUM PHOSPHATES 20 MEQ in SODIUM CHL 0.9% 100 ML IV ONE (12:04)
[2024-02-03] MEDS: METOCLOPRAMIDE HCL 5MG/ml INJ 2ml VIAL IV SCH (14:24)
[2024-02-03] MEDS: LORazepam 2MG/ML-1ML VIAL IV PRN (14:58)
[2024-02-03] MEDS ORDERED: AMINO ACID INFUSION IN D10W 1,000 ML IV SCH (20:00)
[2024-02-03] MEDS: HYDROmorphone HCL 2 MG/ML VL/or syr IV PRN (20:00)
[2024-02-03] MEDS: NICOTINE 14 MG/24HR TOPICAL PATCH TD ONE (22:15)
[2024-02-04] VITALS (16 sets, daily range): BP systolic 158–199; BP diastolic 69–97; PULSE 78–104; RESP 16–81; TEMP 97.7–98.6; O2SAT 92–99
[2024-02-04] MEDS: MEROPENEM 1GM IVPB 50 ML IV SCH (00:06)
[2024-02-04] MEDS: dilTIAZem 25 MG/5 ML VIAL IV ONE (02:07)
[2024-02-04 04:56] LABS: Basophils # (auto) 0 10 ^3/uL (0-0.2); Basophils % (auto) 0.4 % (0.0-2.0); Eosinophils # (auto) 0.1 10 ^3/uL (0-0.8); Eosinophils % (auto) 0.8 % (0.0-7.0); Hematocrit 36.2 % (36.0-46.0); Lymphocytes # (auto) 0.8 10 ^3/uL (0.4-5.4); Lymphocytes % (auto) 6.6 % (10.0-50.0); Mean Corpuscular Hemoglobin 30.6 pg (28.0-32.0); Mean Corpuscular Volume 92.7 fL (80.0-100.0); Monocytes # (auto) 0.8 10 ^3/uL (0-1.3); Monocytes % (auto) 6.9 % (0.0-12.0); Neutrophils # (auto) 10.1 10 ^3/uL (1.6-8.6); Neutrophils % (auto) 85.3 % (37.0-80.0); Red Blood Cells 3.91 10^6/uL (4.0-5.20); White Blood Cell 11.9 10^3/uL (4.4-10.8)
[2024-02-04 05:08] LABS: Alanine Aminotransferase 11 U/L (7-40); Albumin 2.7 g/dL (3.2-4.8); Alkaline Phosphatase 67 U/L (46-116); Anion Gap 6 (5-15); Aspartate Aminotransferase 18 U/L (13-40); Blood Urea Nitrogen 8 mg/dL (9-23); Calcium 8.2 mg/dL (8.7-10.4); Carbon Dioxide 29 mmol/L (20-30); Chloride 104 mmol/L (98-107); Glucose 129 mg/dL (74-106); Potassium 3.4 mmol/L (3.5-5.1); Sodium 139 mmol/L (136-145)
[2024-02-04 05:09] LABS: Bilirubin, Total 0.5 mg/dL (0.2-1.0); Total Protein 4.9 g/dL (5.7-8.2)
[2024-02-04] MEDS: LISINOPRIL 5 MG TAB PO SCH (10:33)
[2024-02-04] MEDS: POTASSIUM EFFERVESENT TAB 25 MEQ PO ONE (10:33)
[2024-02-04] MEDS: NICOTINE 14 MG/24HR TOPICAL PATCH TD SCH (10:38)
[2024-02-04] MEDS: NICOTINE 21MG/24 HR TOPICAL PATCH TD ONE (15:15)
[2024-02-04] MEDS: hydrALAZINE HCL 20 MG/ML VL IV ONE (19:31)
[2024-02-04] MEDS: LORazepam 2MG/ML-1ML VIAL IV PRN (21:05)
[2024-02-05] VITALS (17 sets, daily range): BP systolic 118–180; BP diastolic 44–89; PULSE 78–112; RESP 16–20; TEMP 97.7–98.9; O2SAT 89–100
[2024-02-05] MEDS: dilTIAZem 25 MG/5 ML VIAL IV ONE (02:07)
[2024-02-05 06:37] LABS: Basophils # (auto) 0 10 ^3/uL (0-0.2); Basophils % (auto) 0.2 % (0.0-2.0); Eosinophils # (auto) 0 10 ^3/uL (0-0.8); Hematocrit 36.8 % (36.0-46.0); Hemoglobin 12.2 g/dL (12.2-16.2); Lymphocytes # (auto) 1.2 10 ^3/uL (0.4-5.4); Lymphocytes % (auto) 8.1 % (10.0-50.0); Mean Corpuscular Hemoglobin 30.6 pg (28.0-32.0); Mean Corpuscular Volume 92.5 fL (80.0-100.0); Monocytes # (auto) 0.8 10 ^3/uL (0-1.3); Monocytes % (auto) 5.5 % (0.0-12.0); Neutrophils # (auto) 12.8 10 ^3/uL (1.6-8.6); Neutrophils % (auto) 86.2 % (37.0-80.0); Red Blood Cells 3.98 10^6/uL (4.0-5.20); White Blood Cell 14.8 10^3/uL (4.4-10.8)
[2024-02-05 06:56] LABS: Alanine Aminotransferase 10 U/L (7-40); Albumin 2.7 g/dL (3.2-4.8); Alkaline Phosphatase 61 U/L (46-116); Anion Gap 8 (5-15); Aspartate Aminotransferase 16 U/L (13-40); Blood Urea Nitrogen 9 mg/dL (9-23); Calcium 8.2 mg/dL (8.7-10.4); Carbon Dioxide 28 mmol/L (20-30); Chloride 103 mmol/L (98-107); Glucose 121 mg/dL (74-106); Potassium 3.1 mmol/L (3.5-5.1); Sodium 139 mmol/L (136-145)
[2024-02-05 06:57] LABS: Bilirubin, Total 0.5 mg/dL (0.2-1.0); Phosphorus 2.1 mg/dL (2.4-5.1); Total Protein 4.7 g/dL (5.7-8.2)
[2024-02-05 07:00] LABS: Magnesium 1.6 mg/dL (1.6-2.6)
[2024-02-05] MEDS: VALSARTAN 80 MG TAB PO SCH (08:48)
[2024-02-05] MEDS: NICOTINE 21MG/24 HR TOPICAL PATCH TD SCH (08:49)
[2024-02-05] MEDS: POTASSIUM CHLORIDE 60 MEQ, LIDOCAINE 1% (LOCAL ANESTH.) 6 ML in SODIUM CHL 0.9% 500 ML IV ONE (09:16)
[2024-02-05] MEDS: POTASSIUM PHOSPHATE 22 MEQ in SODIUM CHL 0.9% 100 ML IV ONE (09:19)
[2024-02-05] MEDS ORDERED: IPRATROPIUM BROM 0.5 MG/2.5ML INH SOL NEB SCH (10:00)
[2024-02-05] MEDS ORDERED: LISINOPRIL 5 MG TAB PO SCH (10:00)
[2024-02-05] MEDS: BUDESONIDE (INHALATION) 0.5 MG/2 ML NEB NEB SCH (11:03)
[2024-02-05] MEDS: amLODIPine BESYLATE 5 MG TAB PO SCH (11:47)
[2024-02-05] MEDS: LEVALBUTEROL HCL 1.25 MG/3 ML NEB NEB SCH (12:23)
[2024-02-05] MEDS: IPRATROPIUM BROM 0.5 MG/2.5ML INH SOL NEB SCH (12:24)
[2024-02-05] MEDS: FUROSEMIDE 20 MG/2 ML VIAL IV SCH (17:19)
[2024-02-05] MEDS: hydrALAZINE HCL 20 MG/ML VL IV PRN (18:48)
[2024-02-06] VITALS (19 sets, daily range): BP systolic 124–157; BP diastolic 64–84; PULSE 5–91; RESP 15–22; TEMP 97.5–98.5; O2SAT 92–100
[2024-02-06 05:26] LABS: Basophils # (auto) 0.1 10 ^3/uL (0-0.2); Basophils % (auto) 0.4 % (0.0-2.0); Eosinophils # (auto) 0.1 10 ^3/uL (0-0.8); Hematocrit 35.9 % (36.0-46.0); Hemoglobin 11.9 g/dL (12.2-16.2); Lymphocytes % (auto) 14.2 % (10.0-50.0); Mean Corpuscular Hemoglobin 30.8 pg (28.0-32.0); Mean Corpuscular Hgb Conc. 33.1 g/dL (32.0-36.0); Mean Corpuscular Volume 92.8 fL (80.0-100.0); Monocytes # (auto) 0.9 10 ^3/uL (0-1.3); Monocytes % (auto) 6.6 % (0.0-12.0); Neutrophils # (auto) 10.8 10 ^3/uL (1.6-8.6); Neutrophils % (auto) 77.8 % (37.0-80.0); Red Blood Cells 3.86 10^6/uL (4.0-5.20); Red Cell Distribution Width 13.7 % (11.8-14.3); White Blood Cell 13.9 10^3/uL (4.4-10.8)
[2024-02-06 05:45] LABS: Albumin 2.6 g/dL (3.2-4.8); Alkaline Phosphatase 57 U/L (46-116); Anion Gap 4 (5-15); Aspartate Aminotransferase 16 U/L (13-40); BUN/Creatinine Ratio 23.9 (10.0-20.0); Blood Urea Nitrogen 11 mg/dL (9-23); Carbon Dioxide 34 mmol/L (20-30); Chloride 103 mmol/L (98-107); Glucose 89 mg/dL (74-106); Magnesium 1.6 mg/dL (1.6-2.6); Potassium 3.3 mmol/L (3.5-5.1); Sodium 141 mmol/L (136-145)
[2024-02-06 05:46] LABS: Bilirubin, Total 0.6 mg/dL (0.2-1.0); Total Protein 4.7 g/dL (5.7-8.2)
[2024-02-06 05:56] LABS: Alanine Aminotransferase < 9 U/L (7-40)
[2024-02-06] MEDS: ACETAMINOPHEN 325 MG TAB PO PRN (11:34)
[2024-02-06] MEDS: POTASSIUM EFFERVESENT TAB 25 MEQ PO ONE (13:41)
[2024-02-07] VITALS (14 sets, daily range): BP systolic 115–140; BP diastolic 60–74; PULSE 76–92; RESP 16–20; TEMP 97.8–98.2; O2SAT 91–100
[2024-02-07 06:14] LABS: Basophils # (auto) 0.1 10 ^3/uL (0-0.2); Basophils % (auto) 0.5 % (0.0-2.0); Eosinophils # (auto) 0.2 10 ^3/uL (0-0.8); Eosinophils % (auto) 1.3 % (0.0-7.0); Hematocrit 40.2 % (36.0-46.0); Hemoglobin 12.8 g/dL (12.2-16.2); Lymphocytes # (auto) 1.9 10 ^3/uL (0.4-5.4); Lymphocytes % (auto) 12.4 % (10.0-50.0); Mean Corpuscular Hemoglobin 30.2 pg (28.0-32.0); Mean Corpuscular Hgb Conc. 31.9 g/dL (32.0-36.0); Mean Corpuscular Volume 94.9 fL (80.0-100.0); Monocytes # (auto) 0.7 10 ^3/uL (0-1.3); Monocytes % (auto) 4.4 % (0.0-12.0); Neutrophils # (auto) 12.8 10 ^3/uL (1.6-8.6); Neutrophils % (auto) 81.4 % (37.0-80.0); Red Blood Cells 4.23 10^6/uL (4.0-5.20); Red Cell Distribution Width 14.4 % (11.8-14.3); White Blood Cell 15.7 10^3/uL (4.4-10.8)
[2024-02-07 07:12] LABS: Alanine Aminotransferase 12 U/L (7-40); Albumin 2.9 g/dL (3.2-4.8); Alkaline Phosphatase 67 U/L (46-116); Anion Gap 3 (5-15); Aspartate Aminotransferase 19 U/L (13-40); BUN/Creatinine Ratio 20.4 (10.0-20.0); Blood Urea Nitrogen 11 mg/dL (9-23); Calcium 8.7 mg/dL (8.5-10.1); Carbon Dioxide 36 mmol/L (20-30); Chloride 101 mmol/L (98-107); Glucose 106 mg/dL (74-106); Potassium 3.5 mmol/L (3.5-5.1); Sodium 140 mmol/L (136-145)
[2024-02-07 07:13] LABS: Bilirubin, Total 0.5 mg/dL (0.2-1.0)
[2024-02-07] MEDS: levoFLOXacin 500MG 100 ML IV ONE (15:23)
[2024-02-07] MEDS: CLINDAMYCIN 300MG IV 50 ML IV ONE (16:39)
[2024-02-07 20:08] LABS: Amphetamine Screen, Urine Neg (NEGATIVE); Barbiturate Scree,Urine Neg (NEGATIVE); Benzodiazephine Screen, Urine Pos (NEGATIVE); Cocaine Screen, Urine Neg (NEGATIVE)
[2024-02-07 20:09] LABS: Cannabinoid Screen, Urine Neg (NEGATIVE); Opiate Scree,Urine Neg (NEGATIVE); Phencyclidine Screen, Urine Neg (NEGATIVE)
[2024-02-07] MEDS: CLINDAMYCIN 300MG IV 50 ML IV SCH (21:03)
[2024-02-08] VITALS (16 sets, daily range): BP systolic 97–152; BP diastolic 59–77; PULSE 76–98; RESP 14–19; TEMP 98–98.5; O2SAT 72–100
[2024-02-08 05:24] LABS: Basophils # (auto) 0.1 10 ^3/uL (0-0.2); Basophils % (auto) 0.7 % (0.0-2.0); Eosinophils # (auto) 0.3 10 ^3/uL (0-0.8); Eosinophils % (auto) 2.4 % (0.0-7.0); Hematocrit 35.6 % (36.0-46.0); Hemoglobin 11.8 g/dL (12.2-16.2); Lymphocytes # (auto) 2.1 10 ^3/uL (0.4-5.4); Lymphocytes % (auto) 17.6 % (10.0-50.0); Mean Corpuscular Hemoglobin 30.9 pg (28.0-32.0); Mean Corpuscular Volume 93.6 fL (80.0-100.0); Monocytes # (auto) 0.7 10 ^3/uL (0-1.3); Monocytes % (auto) 5.6 % (0.0-12.0); Neutrophils # (auto) 8.7 10 ^3/uL (1.6-8.6); Neutrophils % (auto) 73.7 % (37.0-80.0); Nucleated Red Blood Cells % 0.1 %; White Blood Cell 11.9 10^3/uL (4.4-10.8)
[2024-02-08] MEDS: levoFLOXacin 500MG 100 ML IV SCH (09:45)
[2024-02-08] MEDS: METOPROLOL TARTRATE 25 MG TAB PO SCH (09:57)
[2024-02-08 13:56] LABS: Base Excess 11.8 mmol/L (-2.0-2.0)
[2024-02-08] MEDS: LACTULOSE 20Gm/30ML SOLN PO SCH (21:53)
[2024-02-09] VITALS (19 sets, daily range): BP systolic 104–124; BP diastolic 37–61; PULSE 76–106; RESP 12–20; TEMP 96–98.5; O2SAT 91–100
[2024-02-09 06:03] LABS: Basophils # (auto) 0.1 10 ^3/uL (0-0.2); Basophils % (auto) 0.9 % (0.0-2.0); Eosinophils # (auto) 0.2 10 ^3/uL (0-0.8); Eosinophils % (auto) 2.2 % (0.0-7.0); Hemoglobin 11.5 g/dL (12.2-16.2); Lymphocytes # (auto) 1.9 10 ^3/uL (0.4-5.4); Lymphocytes % (auto) 18.4 % (10.0-50.0); Mean Corpuscular Hemoglobin 30.4 pg (28.0-32.0); Mean Corpuscular Hgb Conc. 32.9 g/dL (32.0-36.0); Mean Corpuscular Volume 92.1 fL (80.0-100.0); Monocytes # (auto) 0.6 10 ^3/uL (0-1.3); Monocytes % (auto) 6.2 % (0.0-12.0); Neutrophils # (auto) 7.3 10 ^3/uL (1.6-8.6); Neutrophils % (auto) 72.3 % (37.0-80.0); Red Cell Distribution Width 13.6 % (11.8-14.3); White Blood Cell 10.1 10^3/uL (4.4-10.8)
[2024-02-09 06:11] LABS: Alanine Aminotransferase 13 U/L (7-40); Albumin 2.7 g/dL (3.2-4.8); Alkaline Phosphatase 64 U/L (46-116); Anion Gap 5 (5-15); Aspartate Aminotransferase 22 U/L (13-40); Bilirubin, Total 0.4 mg/dL (0.2-1.0); Blood Urea Nitrogen 12 mg/dL (9-23); Calcium 8.5 mg/dL (8.7-10.4); Carbon Dioxide 38 mmol/L (20-30); Chloride 96 mmol/L (98-107); Glucose 126 mg/dL (74-106); Potassium 2.9 mmol/L (3.5-5.1); Sodium 139 mmol/L (136-145)
[2024-02-09] MEDS: POTASSIUM CHL 10 Meq TABLET PO ONE (10:09)
[2024-02-09] MEDS: POTASSIUM CHLORIDE 40 MEQ, LIDOCAINE 1% (LOCAL ANESTH.) 4 ML in SODIUM CHL 0.9% 250 ML IV ONE (11:51)
[2024-02-09] MEDS: POTASSIUM CHLORIDE 20 MEQ, LIDOCAINE 1% (LOCAL ANESTH.) 2 ML in SODIUM CHL 0.9% 100 ML IV ONE (18:13)
[2024-02-10] VITALS (11 sets, daily range): BP systolic 101–123; BP diastolic 41–63; PULSE 71–103; RESP 14–20; TEMP 36.7; O2SAT 20–99
[2024-02-10 05:44] LABS: Basophils # (auto) 0.1 10 ^3/uL (0-0.2); Basophils % (auto) 0.9 % (0.0-2.0); Eosinophils # (auto) 0.2 10 ^3/uL (0-0.8); Eosinophils % (auto) 2.7 % (0.0-7.0); Hemoglobin 11.4 g/dL (12.2-16.2); Lymphocytes # (auto) 1.6 10 ^3/uL (0.4-5.4); Lymphocytes % (auto) 17.7 % (10.0-50.0); Mean Corpuscular Hemoglobin 30.3 pg (28.0-32.0); Mean Corpuscular Hgb Conc. 32.5 g/dL (32.0-36.0); Mean Corpuscular Volume 93.2 fL (80.0-100.0); Monocytes # (auto) 0.7 10 ^3/uL (0-1.3); Monocytes % (auto) 7.5 % (0.0-12.0); Neutrophils # (auto) 6.5 10 ^3/uL (1.6-8.6); Neutrophils % (auto) 71.2 % (37.0-80.0); Red Blood Cells 3.76 10^6/uL (4.0-5.20); Red Cell Distribution Width 13.9 % (11.8-14.3); White Blood Cell 9.1 10^3/uL (4.4-10.8)
[2024-02-10 06:12] LABS: Alanine Aminotransferase 15 U/L (7-40); Albumin 2.8 g/dL (3.2-4.8); Alkaline Phosphatase 64 U/L (46-116); Anion Gap 5 (5-15); Aspartate Aminotransferase 20 U/L (13-40); Bilirubin, Total 0.3 mg/dL (0.2-1.0); Blood Urea Nitrogen 11 mg/dL (9-23); Calcium 8.8 mg/dL (8.7-10.4); Carbon Dioxide 34 mmol/L (20-30); Chloride 99 mmol/L (98-107); Glucose 159 mg/dL (74-106); Magnesium 1.4 mg/dL (1.6-2.6); Potassium 3.6 mmol/L (3.5-5.1); Sodium 138 mmol/L (136-145)
[2024-02-10 06:13] LABS: Total Protein 4.9 g/dL (5.7-8.2)
[2024-02-10] MEDS ORDERED: AML5T PO (10:04)
[2024-02-10] MEDS ORDERED: NIC21P TD (10:04)
[2024-02-10] MEDS ORDERED: ACET-1882 PO (10:04)
[2024-02-10] MEDS ORDERED: VALS1TAB57 PO (10:04)
[2024-02-10] MEDS ORDERED: MET25T PO (10:04)
[2024-02-10] MEDS: levoFLOXacin 500 MG TAB PO SCH (11:13)
[2024-02-10] MEDS: POTASSIUM EFFERVESENT TAB 25 MEQ PO SCH (11:13)
[2024-02-10] MEDS: PANTOPRAZOLE 40 MG TAB PO SCH (11:14)
[2024-02-10] MEDS ORDERED: CLIN300C70 PO (11:19)
[2024-02-10] MEDS ORDERED: MET500T PO (11:58)
[2024-02-10] MEDS: MAGNESIUM SULFATE 1GM/100ML 100 ML IV ONE (12:17)
[2024-02-10] MEDS ORDERED: FLUC100T34 PO (13:19)
== END 2024-02-10 18:00 | disposition home or self-care (01) | DRG 710 ==
LOC: ER 07:47 → TELE 10:09 → ICU WEST 16:04 → DOU IN ICU 02-02 18:40 → EAST 02-03 17:00 → TELE-EAST 02-04 04:23
PROVIDERS: ADMIT Internal Medicine; ATTEND Internal Medicine
PROC: 5A1945Z Respiratory Ventilation, 24-96 Consecutive Hours (ICD-10-PCS; 2024-01-31)
PROC: 0DBN0ZZ Excision of Sigmoid Colon, Open Approach (ICD-10-PCS; 2024-01-31)
PROC: 0BH17EZ Insertion of Endotracheal Airway into Trachea, Via Natural or Artificial Opening (ICD-10-PCS; 2024-01-31)
PROC: 0W9G0ZZ Drainage of Peritoneal Cavity, Open Approach (ICD-10-PCS; 2024-01-31)
PROC: 0D1N0Z4 Bypass Sigmoid Colon to Cutaneous, Open Approach (ICD-10-PCS; principal; 2024-01-31 11:08)
PROC: 02HV33Z Insertion of Infusion Device into Superior Vena Cava, Percutaneous Approach (ICD-10-PCS; 2024-02-01)
PROC: B548ZZA Ultrasonography of Superior Vena Cava, Guidance (ICD-10-PCS; 2024-02-01)
DX: A41.9 Sepsis, unspecified organism (principal); R65.21 Severe sepsis with septic shock; J96.01 Acute respiratory failure with hypoxia; K65.1 Peritoneal abscess; J18.9 Pneumonia, unspecified organism; E46 Unspecified protein-calorie malnutrition; J44.0 Chronic obstructive pulmonary disease with (acute) lower respiratory infection; K57.20 Diverticulitis of large intestine with perforation and abscess without bleeding; N13.30 Unspecified hydronephrosis; E11.9 Type 2 diabetes mellitus without complications; I10 Essential (primary) hypertension; F17.210 Nicotine dependence, cigarettes, uncomplicated; F41.9 Anxiety disorder, unspecified; K59.00 Constipation, unspecified; N73.9 Female pelvic inflammatory disease, unspecified; R91.1 Solitary pulmonary nodule; Z88.0 Allergy status to penicillin; Z82.5 Family history of asthma and other chronic lower respiratory diseases; Z83.3 Family history of diabetes mellitus; Z82.49 Family history of ischemic heart disease and other diseases of the circulatory system; Z68.24 Body mass index [BMI] 24.0-24.9, adult; Z79.4 Long term (current) use of insulin
CPT/HCPCS: 36415; 36569; 36600; 71045; 71046; 74176; 80048; 80053; 80307; 81001; 82805; 82962; 83036; 83605; 83690; 83735; 84100; 85007; 85025; 85027; 85610; 85730; 86850; 86900; 86901; 87040; 87070; 87075; 87081; 87086; 87088; 87186; 87205; 92610; 94002; 94003; 94640; 96365; 96375; 97110; 97116; 97163; 97530; 99291; C9113; G0378; J1815; J1885; J1956; J2001; J2185; J2250; J2405; J3480; J3490

== ENCOUNTER 2024-03-07 18:06 | Inpatient (IN) | payer MEDICARE, MEDICAID ==
[~2024-03-07] VITALS: Ht 157.5 cm; Wt 50.1 kg
[~2024-03-07 18:06] MED LIST changes: +ACET-1882 PO; +AML5T PO; -APIX5TAB4 PO; +FLUC100T34 PO; +MET500T PO; +NIC21P TD; -PRED20TA2 PO; +VALS1TAB57 PO
[2024-03-07 20:28] VITALS: PULSE 85; RESP 20; O2SAT 93
[2024-03-07] MEDS: ONDANSETRON HCL 4 MG/2 ML VIAL IV ONE (20:34)
[2024-03-07] MEDS ORDERED: methylPREDNISolone SOD SUCC 125 MG/2 ML VL IV ONE (20:45)
[2024-03-07] MEDS: IPRATROPIUM BROM 0.5 MG/2.5ML INH SOL HHN ONE (21:27)
[2024-03-07] MEDS: ALBUTEROL SULF 2.5 MG/0.5ML(0.5%) NEB SOLN HHN ONE (21:28)
[2024-03-07 21:36] LABS: Basophils # (auto) 0.1 10 ^3/uL (0-0.2); Basophils % (auto) 0.5 % (0.0-2.0); Eosinophils # (auto) 0.2 10 ^3/uL (0-0.8); Eosinophils % (auto) 1.4 % (0.0-7.0); Hematocrit 41.4 % (36.0-46.0); Hemoglobin 13.5 g/dL (12.2-16.2); Lymphocytes # (auto) 1.8 10 ^3/uL (0.4-5.4); Mean Corpuscular Hemoglobin 30.2 pg (28.0-32.0); Mean Corpuscular Hgb Conc. 32.6 g/dL (32.0-36.0); Mean Corpuscular Volume 92.5 fL (80.0-100.0); Monocytes # (auto) 0.5 10 ^3/uL (0-1.3); Neutrophils % (auto) 80.1 % (37.0-80.0); Red Blood Cells 4.48 10^6/uL (4.0-5.20); Red Cell Distribution Width 14.6 % (11.8-14.3); White Blood Cell 12.5 10^3/uL (4.4-10.8)
[2024-03-07 21:54] LABS: Alanine Aminotransferase 15 U/L (7-40); Albumin 4.1 g/dL (3.2-4.8); Alkaline Phosphatase 72 U/L (46-116); Anion Gap 4 (5-15); Aspartate Aminotransferase 21 U/L (13-40); BUN/Creatinine Ratio 12.9 (10.0-20.0); Blood Urea Nitrogen 8 mg/dL (9-23); Calcium 9.5 mg/dL (8.7-10.4); Carbon Dioxide 29 mmol/L (20-30); Chloride 103 mmol/L (98-107); Glucose 132 mg/dL (74-106); INR 1.14 (0.9-1.15); Lipase 32 U/L (12-53); Magnesium 1.8 mg/dL (1.6-2.6); Potassium 3.6 mmol/L (3.5-5.1); Prothrombin Time 11.9 sec (9.3-11.8); Sodium 136 mmol/L (136-145)
[2024-03-07 21:55] LABS: Bilirubin, Total 0.5 mg/dL (0.2-1.0); Total Protein 7.1 g/dL (5.7-8.2)
[2024-03-07] MEDS: IOHEXOL 350 MG/ML 100ML IJ ONE (22:50)
[2024-03-08] VITALS (10 sets, daily range): BP systolic 140–180; BP diastolic 66–83; PULSE 81–104; RESP 16–22; TEMP 98–98.9; O2SAT 87–98
[2024-03-08] MEDS ORDERED: DEXTROSE (50%) 50ML SYRG IV PRN (00:30)
[2024-03-08] MEDS: METOCLOPRAMIDE HCL 5MG/ml INJ 2ml VIAL IV ONE (01:37)
[2024-03-08] MEDS: HYDROmorphone HCL 2 MG/ML VL/or syr IV ONE ×2 (01:38→01:58)
[2024-03-08] MEDS: IPRATROPIUM BROM 0.5 MG/2.5ML INH SOL NEB ONE (01:44)
[2024-03-08] MEDS: ALBUTEROL SULF 2.5 MG/0.5ML(0.5%) NEB SOLN NEB ONE (01:44)
[2024-03-08] MEDS: ONDANSETRON HCL 4 MG/2 ML VIAL IV ONE (01:58)
[2024-03-08] MEDS: levoFLOXacin 500MG 100 ML IV ONE (02:00)
[2024-03-08] MEDS: SODIUM CHLORIDE 0.9% 1,000 ML IV ONE (02:02)
[2024-03-08] MEDS: SODIUM CHLORIDE 0.9% 1,000 ML IVB ONE (02:02)
[2024-03-08] MEDS: SODIUM CHLORIDE 0.9% 1,000 ML IV SCH (02:05)
[2024-03-08] MEDS: PANTOPRAZOLE 40 MG/10 ML VIAL INJ IV ONE (02:21)
[2024-03-08] MEDS: metroNIDAZOLE 500MG/100ML 100 ML IV ONE (02:21)
[2024-03-08] MEDS: metroNIDAZOLE 500MG/100ML 100 ML IV SCH (05:45)
[2024-03-08] MEDS: InsuLIN REG 1unit/0.01ml Soln (100units/ml) SC SCH (06:00)
[2024-03-08] MEDS: ACCU-CHEK COMFORT CURVE STRIP VI SCH (06:14)
[2024-03-08 07:31] LABS: Urine Bacteria None Seen /hpf (None Seen)
[2024-03-08 07:56] LABS: Urine Blood Negative /uL (Negative); Urine Clarity Clear (Clear); Urine Color Light-Yellow (Yellow); Urine Protein, UAD 1+ (Negative); Urine Specific Gravity 1.047 (1.001-1.035); Urine Urobilinogen Normal (Negative); Urine WBC 1 /hpf (0 - 5)
[2024-03-08] MEDS: GASTROGRAFIN 120 ML SOL ONE (08:09)
[2024-03-08] MEDS: MORPHINE SULFATE INJ 2 MG/ml SYRG IV PRN ×2 (09:24→14:42)
[2024-03-08] MEDS: ONDANSETRON HCL 4 MG/2 ML VIAL IV PRN (09:25)
[2024-03-08] MEDS: PANTOPRAZOLE 40 MG/10 ML VIAL INJ IV SCH (12:26)
[2024-03-08] MEDS: hydrALAZINE HCL 20 MG/ML VL IV PRN (12:27)
[2024-03-08] MEDS: levoFLOXacin 500MG 100 ML IV SCH (21:42)
[2024-03-09] VITALS (9 sets, daily range): BP systolic 145–184; BP diastolic 64–99; PULSE 87–101; RESP 16–20; TEMP 97.8–99; O2SAT 90–95
[2024-03-09 07:07] LABS: Basophils # (auto) 0 10 ^3/uL (0-0.2); Basophils % (auto) 0.3 % (0.0-2.0); Eosinophils # (auto) 0 10 ^3/uL (0-0.8); Eosinophils % (auto) 0.2 % (0.0-7.0); Hematocrit 37.6 % (36.0-46.0); Hemoglobin 12.3 g/dL (12.2-16.2); Lymphocytes # (auto) 2.4 10 ^3/uL (0.4-5.4); Lymphocytes % (auto) 20.1 % (10.0-50.0); Mean Corpuscular Hemoglobin 30.4 pg (28.0-32.0); Mean Corpuscular Hgb Conc. 32.8 g/dL (32.0-36.0); Mean Corpuscular Volume 92.7 fL (80.0-100.0); Monocytes # (auto) 0.8 10 ^3/uL (0-1.3); Monocytes % (auto) 6.9 % (0.0-12.0); Neutrophils # (auto) 8.5 10 ^3/uL (1.6-8.6); Neutrophils % (auto) 72.5 % (37.0-80.0); Red Blood Cells 4.06 10^6/uL (4.0-5.20); Red Cell Distribution Width 14.4 % (11.8-14.3); White Blood Cell 11.8 10^3/uL (4.4-10.8)
[2024-03-09 07:14] LABS: Alanine Aminotransferase 13 U/L (7-40); Albumin 3.8 g/dL (3.2-4.8); Alkaline Phosphatase 61 U/L (46-116); Anion Gap 8 (5-15); Aspartate Aminotransferase 16 U/L (13-40); BUN/Creatinine Ratio 15.9 (10.0-20.0); Bilirubin, Total 0.5 mg/dL (0.2-1.0); Blood Urea Nitrogen 10 mg/dL (9-23); Calcium 9.7 mg/dL (8.7-10.4); Carbon Dioxide 28 mmol/L (20-30); Chloride 105 mmol/L (98-107); Glucose 91 mg/dL (74-106); Magnesium 1.8 mg/dL (1.6-2.6); Potassium 2.9 mmol/L (3.5-5.1); Sodium 141 mmol/L (136-145); Total Protein 6.4 g/dL (5.7-8.2)
[2024-03-09] MEDS ORDERED: METO25TA5 PO (13:54)
[2024-03-09] MEDS ORDERED: GABA-1250 PO (14:01)
[2024-03-09] MEDS: LORazepam 2MG/ML-1ML VIAL IV PRN (14:07)
[2024-03-09] MEDS: POTASSIUM CHL 20MEQ/100ML 100 ML IV ONE (14:33)
[2024-03-09] MEDS: D5W/ SOD CHL 0.9%/KCL 20MEQ 1,000 ML IV SCH (14:34)
[2024-03-09] MEDS: MAGNESIUM SULFATE 1GM/100ML 100 ML IV ONE (16:54)
[2024-03-09] MEDS: MAGNESIUM SULFATE 1GM/100ML 100 ML IV SCH (16:59)
[2024-03-10] VITALS (11 sets, daily range): BP systolic 162–195; BP diastolic 79–89; PULSE 74–104; RESP 16–20; TEMP 97.6–98.4; O2SAT 92–98
[2024-03-10 06:18] LABS: Basophils # (auto) 0.1 10 ^3/uL (0-0.2); Basophils % (auto) 0.6 % (0.0-2.0); Eosinophils # (auto) 0.1 10 ^3/uL (0-0.8); Eosinophils % (auto) 0.8 % (0.0-7.0); Hematocrit 36.8 % (36.0-46.0); Hemoglobin 12.3 g/dL (12.2-16.2); Lymphocytes # (auto) 2.1 10 ^3/uL (0.4-5.4); Lymphocytes % (auto) 19.7 % (10.0-50.0); Mean Corpuscular Hemoglobin 30.9 pg (28.0-32.0); Mean Corpuscular Hgb Conc. 33.5 g/dL (32.0-36.0); Mean Corpuscular Volume 92.1 fL (80.0-100.0); Monocytes # (auto) 0.8 10 ^3/uL (0-1.3); Monocytes % (auto) 7.1 % (0.0-12.0); Neutrophils # (auto) 7.8 10 ^3/uL (1.6-8.6); Neutrophils % (auto) 71.8 % (37.0-80.0); Red Blood Cells 3.99 10^6/uL (4.0-5.20); Red Cell Distribution Width 14.5 % (11.8-14.3); White Blood Cell 10.9 10^3/uL (4.4-10.8)
[2024-03-10 06:29] LABS: Alanine Aminotransferase 11 U/L (7-40); Alkaline Phosphatase 54 U/L (46-116); Anion Gap 5 (5-15); BUN/Creatinine Ratio 16.7 (10.0-20.0); Blood Urea Nitrogen 10 mg/dL (9-23); Calcium 8.7 mg/dL (8.7-10.4); Carbon Dioxide 29 mmol/L (20-30); Chloride 106 mmol/L (98-107); Glucose 135 mg/dL (74-106); Magnesium 2.1 mg/dL (1.6-2.6); Potassium 2.9 mmol/L (3.5-5.1); Sodium 140 mmol/L (136-145)
[2024-03-10 06:30] LABS: Albumin 3.5 g/dL (3.2-4.8); Aspartate Aminotransferase 15 U/L (13-40); Bilirubin, Total 0.5 mg/dL (0.2-1.0); Total Protein 5.8 g/dL (5.7-8.2)
[2024-03-10] MEDS: POTASSIUM CHL 20 Meq TABLET PO ONE (09:00)
[2024-03-10] MEDS: LORazepam 0.5 MG TAB PO PRN (14:29)
[2024-03-11] VITALS (11 sets, daily range): BP systolic 117–167; BP diastolic 58–94; PULSE 80–103; RESP 16–20; TEMP 36.7; O2SAT 93–98
[2024-03-11 06:31] LABS: Basophils # (auto) 0.1 10 ^3/uL (0-0.2); Basophils % (auto) 0.6 % (0.0-2.0); Eosinophils # (auto) 0.2 10 ^3/uL (0-0.8); Eosinophils % (auto) 1.9 % (0.0-7.0); Hematocrit 36.2 % (36.0-46.0); Hemoglobin 11.7 g/dL (12.2-16.2); Lymphocytes # (auto) 2.3 10 ^3/uL (0.4-5.4); Lymphocytes % (auto) 25.8 % (10.0-50.0); Mean Corpuscular Hgb Conc. 32.4 g/dL (32.0-36.0); Mean Corpuscular Volume 92.5 fL (80.0-100.0); Monocytes # (auto) 0.7 10 ^3/uL (0-1.3); Monocytes % (auto) 8.4 % (0.0-12.0); Neutrophils # (auto) 5.5 10 ^3/uL (1.6-8.6); Neutrophils % (auto) 63.3 % (37.0-80.0); Nucleated Red Blood Cells % 0.1 %; Red Blood Cells 3.91 10^6/uL (4.0-5.20); Red Cell Distribution Width 14.6 % (11.8-14.3); White Blood Cell 8.8 10^3/uL (4.4-10.8)
[2024-03-11 06:39] LABS: Chloride 106 mmol/L (98-107); Potassium 2.9 mmol/L (3.5-5.1); Sodium 139 mmol/L (136-145)
[2024-03-11 06:40] LABS: Anion Gap 6 (5-15); Calcium 8.6 mg/dL (8.7-10.4); Carbon Dioxide 27 mmol/L (20-30)
[2024-03-11 06:45] LABS: BUN/Creatinine Ratio 10.2 (10.0-20.0); Blood Urea Nitrogen 6 mg/dL (9-23); Glucose 108 mg/dL (74-106); Magnesium 1.7 mg/dL (1.6-2.6)
[2024-03-11] MEDS: MAGNESIUM SULFATE 1GM/100ML 100 ML IV SCH (09:00)
[2024-03-11] MEDS: POTASSIUM CHL 20 Meq TABLET PO ONE ×2 (09:38→12:25)
[2024-03-11] MEDS: MAGNESIUM OXIDE 400 MG TAB PO SCH (21:08)
[2024-03-11] MEDS: POTASSIUM CHL 20 Meq TABLET PO SCH (21:08)
[2024-03-12] VITALS (12 sets, daily range): BP systolic 144–166; BP diastolic 57–87; PULSE 72–93; RESP 17–22; TEMP 36.6; O2SAT 93–97
[2024-03-12] MEDS: ALBUTEROL SULF 2.5 MG/0.5ML(0.5%) NEB SOLN NEB PRN (02:58)
[2024-03-12] MEDS: IPRATROPIUM BROM 0.5 MG/2.5ML INH SOL NEB PRN (02:58)
[2024-03-12 05:14] LABS: Anion Gap 4 (5-15); Carbon Dioxide 27 mmol/L (20-30); Chloride 109 mmol/L (98-107); Potassium 4.1 mmol/L (3.5-5.1); Sodium 140 mmol/L (136-145)
[2024-03-12 05:15] LABS: Calcium 9.1 mg/dL (8.7-10.4)
[2024-03-12 05:20] LABS: Blood Urea Nitrogen 6 mg/dL (9-23); Glucose 127 mg/dL (74-106); Magnesium 1.9 mg/dL (1.6-2.6)
[2024-03-13 06:00] VITALS: BP 134/68; PULSE 85; RESP 19; TEMP 97.9; O2SAT 92
[2024-03-13 06:15] LABS: Basophils # (auto) 0 10 ^3/uL (0-0.2); Basophils % (auto) 0.6 % (0.0-2.0); Eosinophils # (auto) 0.3 10 ^3/uL (0-0.8); Eosinophils % (auto) 4.1 % (0.0-7.0); Hematocrit 33.5 % (36.0-46.0); Lymphocytes # (auto) 2.2 10 ^3/uL (0.4-5.4); Lymphocytes % (auto) 27.3 % (10.0-50.0); Mean Corpuscular Hemoglobin 30.6 pg (28.0-32.0); Mean Corpuscular Hgb Conc. 32.7 g/dL (32.0-36.0); Mean Corpuscular Volume 93.5 fL (80.0-100.0); Monocytes # (auto) 0.8 10 ^3/uL (0-1.3); Monocytes % (auto) 9.6 % (0.0-12.0); Neutrophils # (auto) 4.7 10 ^3/uL (1.6-8.6); Neutrophils % (auto) 58.4 % (37.0-80.0); Red Blood Cells 3.59 10^6/uL (4.0-5.20); Red Cell Distribution Width 14.8 % (11.8-14.3)
[2024-03-13 06:32] LABS: Chloride 109 mmol/L (98-107); Potassium 4.2 mmol/L (3.5-5.1); Sodium 141 mmol/L (136-145)
[2024-03-13 06:33] LABS: Anion Gap 7 (5-15); Carbon Dioxide 25 mmol/L (20-30)
[2024-03-13 06:34] LABS: Calcium 8.4 mg/dL (8.5-10.1)
[2024-03-13 06:39] LABS: BUN/Creatinine Ratio 8.3 (10.0-20.0); Blood Urea Nitrogen 5 mg/dL (9-23); Glucose 106 mg/dL (74-106)
[2024-03-13 06:58] LABS: Magnesium 1.7 mg/dL (1.6-2.6)
[2024-03-13 08:00] VITALS: PULSE 94; RESP 18; O2SAT 94
[2024-03-13 09:00] VITALS: BP 165/74; PULSE 94; RESP 18; TEMP 98.1; O2SAT 92
[2024-03-13 12:05] VITALS: O2SAT 98
[2024-03-14] MEDS ORDERED: LORA-1121 PO (17:39)
== END 2024-03-13 14:50 | disposition home or self-care (01) | DRG 243 ==
LOC: ER 18:06 → EDBD 18:06 → EDSEX 18:06 → OVERFLOW 03-08 00:34 → WEST WING 03-08 10:14
PROVIDERS: ADMIT Nurse Practitioner; ATTEND Internal Medicine Geriatric Medicine
DX: K21.9 Gastro-esophageal reflux disease without esophagitis (principal); R18.8 Other ascites; I10 Essential (primary) hypertension; J44.9 Chronic obstructive pulmonary disease, unspecified; E11.9 Type 2 diabetes mellitus without complications; F41.9 Anxiety disorder, unspecified; E87.6 Hypokalemia; E83.42 Hypomagnesemia; Z93.3 Colostomy status; Z82.5 Family history of asthma and other chronic lower respiratory diseases; Z90.49 Acquired absence of other specified parts of digestive tract; Z88.8 Allergy status to other drugs, medicaments and biological substances; Z79.899 Other long term (current) drug therapy; Z88.0 Allergy status to penicillin; Z91.018 Allergy to other foods; Z82.49 Family history of ischemic heart disease and other diseases of the circulatory system
CPT/HCPCS: 36415; 71045; 74018; 74177; 74250; 80048; 80053; 81001; 82962; 83605; 83690; 83735; 83880; 84484; 85025; 85610; 85730; 87040; 87081; 87086; 93005; 94640; 96365; 96368; 96375; 96376; C9113; G0378; J1815; J1956; J2405; J3480; J3490

== ENCOUNTER 2024-03-14 04:29 | Inpatient (IN) | payer MEDICARE, MEDICAID ==
[~2024-03-14] VITALS: Ht 149.9 cm; Wt 50.4 kg
[~2024-03-14 04:29] MED LIST changes: -FLUC100T34 PO; +GABA-1250 PO; -LEVO750T8 PO; -MET25T PO; +METO25TA5 PO; -NIC21P TD; -PANT40TA2 PO; -VALS1TAB57 PO
[2024-03-14] MEDS: MORPHINE SULFATE 4 MG/ML SYR/VIAL IM ONE (05:27)
[2024-03-14 06:08] LABS: Basophils # (auto) 0.1 10 ^3/uL (0-0.2); Basophils % (auto) 0.5 % (0.0-2.0); Eosinophils # (auto) 0.1 10 ^3/uL (0-0.8); Eosinophils % (auto) 0.7 % (0.0-7.0); Hematocrit 42.3 % (36.0-46.0); Hemoglobin 13.8 g/dL (12.2-16.2); Lymphocytes # (auto) 1.9 10 ^3/uL (0.4-5.4); Lymphocytes % (auto) 15.9 % (10.0-50.0); Mean Corpuscular Hemoglobin 30.1 pg (28.0-32.0); Mean Corpuscular Hgb Conc. 32.6 g/dL (32.0-36.0); Mean Corpuscular Volume 92.3 fL (80.0-100.0); Monocytes # (auto) 0.6 10 ^3/uL (0-1.3); Monocytes % (auto) 5.1 % (0.0-12.0); Neutrophils # (auto) 9.1 10 ^3/uL (1.6-8.6); Neutrophils % (auto) 77.8 % (37.0-80.0); Nucleated Red Blood Cells % 0.1 %; Red Blood Cells 4.58 10^6/uL (4.0-5.20); Red Cell Distribution Width 14.7 % (11.8-14.3); White Blood Cell 11.7 10^3/uL (4.4-10.8)
[2024-03-14 06:19] LABS: Alkaline Phosphatase 59 U/L (46-116); Anion Gap 6 (5-15); Aspartate Aminotransferase 17 U/L (13-40); Calcium 9.6 mg/dL (8.7-10.4); Carbon Dioxide 29 mmol/L (20-30); Chloride 104 mmol/L (98-107); Glucose 167 mg/dL (74-106); Lipase 40 U/L (12-53); Potassium 3.4 mmol/L (3.5-5.1); Sodium 139 mmol/L (136-145)
[2024-03-14 06:20] LABS: Bilirubin, Total 0.5 mg/dL (0.2-1.0); Total Protein 6.4 g/dL (5.7-8.2)
[2024-03-14 06:21] LABS: Alanine Aminotransferase 9 U/L (7-40); BUN/Creatinine Ratio 8.2 (10.0-20.0); Blood Urea Nitrogen < 5 mg/dL (9-23)
[2024-03-14] MEDS: SODIUM CHLORIDE 0.9% 1,000 ML IV ONE ×2 (07:30)
[2024-03-14] MEDS ORDERED: DOCUSATE SOD 100 MG CAP PO PRN (10:45)
[2024-03-14] MEDS ORDERED: ACETAMINOPHEN 325 MG TAB PO PRN (10:45)
[2024-03-14] MEDS ORDERED: DEXTROSE (50%) 50ML SYRG IV PRN (10:45)
[2024-03-14] MEDS: levoFLOXacin 500MG 100 ML IV ONE ×2 (11:15→11:34)
[2024-03-14] MEDS: ACCU-CHEK COMFORT CURVE STRIP VI SCH (11:30)
[2024-03-14] MEDS: SODIUM CHLORIDE 0.9% 1,000 ML IV SCH (11:30)
[2024-03-14] MEDS: KETOROLAC TROMETH 30 MG/ML 1ML VIAL IV ONE (11:33)
[2024-03-14] MEDS: POTASSIUM EFFERVESENT TAB 25 MEQ PO ONE (11:33)
[2024-03-14] MEDS: InsuLIN REG 1unit/0.01ml Soln (100units/ml) SC SCH (12:00)
[2024-03-14] MEDS: MORPHINE SULFATE INJ 2 MG/ml SYRG IV ONE (12:32)
[2024-03-14] MEDS: GABAPENTIN 300 MG CAP PO SCH ×2 (14:00→22:33)
[2024-03-14] MEDS: ALPRAZolam 0.5 MG TAB PO PRN (14:48)
[2024-03-14 17:20] VITALS: BP 186/89; PULSE 93; RESP 15; TEMP 98.2; O2SAT 89
[2024-03-14] MEDS ORDERED: LORA-1121 PO (17:39)
[2024-03-14] MEDS: hydrALAZINE HCL 20 MG/ML VL IV PRN (18:02)
[2024-03-14 21:00] VITALS: BP 160/70; PULSE 95; RESP 14; TEMP 98.1; O2SAT 94
[2024-03-14] MEDS: METOPROLOL TARTRATE 25 MG TAB PO SCH (21:49)
[2024-03-15 01:00] VITALS: BP 151/72; PULSE 90; RESP 18; TEMP 97.9; O2SAT 92
[2024-03-15] MEDS: HYDROcodone-ACET 5/325MG TAB PO PRN (02:03)
[2024-03-15 05:00] VITALS: BP 117/76; PULSE 74; RESP 18; TEMP 97.9; O2SAT 97
[2024-03-15] MEDS: KETOROLAC TROMETH 30 MG/ML 1ML VIAL IV PRN (05:37)
[2024-03-15 07:32] LABS: Basophils # (auto) 0.1 10 ^3/uL (0-0.2); Basophils % (auto) 0.7 % (0.0-2.0); Eosinophils # (auto) 0.4 10 ^3/uL (0-0.8); Eosinophils % (auto) 5.4 % (0.0-7.0); Hematocrit 35.7 % (36.0-46.0); Hemoglobin 11.7 g/dL (12.2-16.2); Lymphocytes # (auto) 2.3 10 ^3/uL (0.4-5.4); Lymphocytes % (auto) 30.8 % (10.0-50.0); Mean Corpuscular Hemoglobin 30.4 pg (28.0-32.0); Mean Corpuscular Hgb Conc. 32.7 g/dL (32.0-36.0); Monocytes # (auto) 0.7 10 ^3/uL (0-1.3); Monocytes % (auto) 8.7 % (0.0-12.0); Neutrophils # (auto) 4.1 10 ^3/uL (1.6-8.6); Neutrophils % (auto) 54.4 % (37.0-80.0); Red Blood Cells 3.84 10^6/uL (4.0-5.20); Red Cell Distribution Width 14.7 % (11.8-14.3); White Blood Cell 7.5 10^3/uL (4.4-10.8)
[2024-03-15 07:43] LABS: Albumin 3.1 g/dL (3.2-4.8); Alkaline Phosphatase 41 U/L (46-116); Anion Gap 4 (5-15); BUN/Creatinine Ratio 9.8 (10.0-20.0); Blood Urea Nitrogen 6 mg/dL (9-23); Calcium 8.7 mg/dL (8.5-10.1); Carbon Dioxide 31 mmol/L (20-30); Chloride 106 mmol/L (98-107); Glucose 97 mg/dL (74-106); Potassium 3.5 mmol/L (3.5-5.1); Sodium 141 mmol/L (136-145)
[2024-03-15 07:44] LABS: Aspartate Aminotransferase 19 U/L (13-40); Bilirubin, Total 0.4 mg/dL (0.2-1.0); Total Protein 5.2 g/dL (5.7-8.2)
[2024-03-15 07:51] LABS: Alanine Aminotransferase < 9 U/L (7-40)
[2024-03-15 08:00] VITALS: PULSE 74; RESP 17
[2024-03-15 09:00] VITALS: BP 132/63; PULSE 68; RESP 18; TEMP 97.9; O2SAT 97
[2024-03-15] MEDS ORDERED: levoFLOXacin 500MG 100 ML IV SCH (10:00)
[2024-03-15] MEDS: Cholecalciferol (Vitamin D3) 5,000 UNIT PO SCH (10:00)
[2024-03-15] MEDS: amLODIPine BESYLATE 5 MG TAB PO SCH (10:25)
[2024-03-15] MEDS: ENOXAPARIN SOD 40 MG/0.4 ML SYRINGE SC SCH (10:26)
[2024-03-15] MEDS: levoFLOXacin 250MG 50 ML IV SCH (13:49)
[2024-03-15] MEDS ORDERED: METO5TAB67 PO (15:26)
[2024-03-15] MEDS ORDERED: ALPR0.5T PO (15:26)
[2024-03-15] MEDS ORDERED: AML5T PO (15:26)
[2024-03-15] MEDS ORDERED: METO25TA5 PO (15:26)
[2024-03-15 16:11] VITALS: BP 111/70; PULSE 76
[2024-03-16] MEDS ORDERED: PANTOPRAZOLE 40 MG TAB PO SCH (10:00)
== END 2024-03-15 17:00 | disposition home or self-care (01) | DRG 247 ==
LOC: ER 04:29 → OVERFLOW 10:36 → WEST WING 16:50
PROVIDERS: ADMIT Nurse Practitioner Family; ATTEND Nurse Practitioner Acute Care
DX: K56.609 Unspecified intestinal obstruction, unspecified as to partial versus complete obstruction (principal); I27.20 Pulmonary hypertension, unspecified; R65.10 Systemic inflammatory response syndrome (SIRS) of non-infectious origin without acute organ dysfunction; K52.9 Noninfective gastroenteritis and colitis, unspecified; I10 Essential (primary) hypertension; J44.9 Chronic obstructive pulmonary disease, unspecified; F17.210 Nicotine dependence, cigarettes, uncomplicated; F41.9 Anxiety disorder, unspecified; K57.92 Diverticulitis of intestine, part unspecified, without perforation or abscess without bleeding; Z88.0 Allergy status to penicillin; Z88.8 Allergy status to other drugs, medicaments and biological substances; Z82.49 Family history of ischemic heart disease and other diseases of the circulatory system; Z83.3 Family history of diabetes mellitus; Z93.3 Colostomy status; Z91.018 Allergy to other foods
CPT/HCPCS: 36415; 80053; 82962; 83690; 85025; 87040; 87081; G0378; J1815; J1885; J1956

== ENCOUNTER 2024-03-24 13:46 | Emergency (ER) | payer MEDICARE, MEDICAID ==
[~2024-03-24] VITALS: Ht 149.9 cm; Wt 45.9 kg
[~2024-03-24 13:46] MED LIST changes: +ALPR0.5T PO; -MET500T PO; +METO5TAB67 PO
[2024-03-24 15:11] VITALS: BP 140/60; PULSE 98; RESP 18; TEMP 98.7; O2SAT 98
[2024-03-24] MEDS ORDERED: ALPR0.5T PO (15:24)
== END 2024-03-24 15:34 | disposition home or self-care (01) ==
LOC: ER 13:46
DX: F41.9 Anxiety disorder, unspecified (principal); J44.9 Chronic obstructive pulmonary disease, unspecified; E11.9 Type 2 diabetes mellitus without complications; I10 Essential (primary) hypertension; F17.210 Nicotine dependence, cigarettes, uncomplicated; Z76.0 Encounter for issue of repeat prescription; Z98.51 Tubal ligation status; Z88.0 Allergy status to penicillin; Z88.8 Allergy status to other drugs, medicaments and biological substances; Z91.018 Allergy to other foods

== ENCOUNTER 2024-11-01 17:03 | Inpatient (IN) | payer MEDICARE, MEDICAID ==
[~2024-11-01] VITALS: Ht 152.4 cm; Wt 46.9 kg
[~2024-11-01 17:03] MED LIST changes: +ALBU108A5 IN; +ATOR20TA PO; +MELO7.5T7 PO; +METF-370 PO; +OMEP-448 PO
--- NOTE | 2024-11-01 18:20 | ED.PDOC ---
HPI Comments HPI: Poor Historian. 69 y/o F c/o shortness of breath for 4 days, chest pain for 1 week, and back pain s/p mechanical fall and injury 3 weeks ago Reports falling backwards at tripping on the doorstep in front of her house. No head injury or loss of consciousness. Patient was seen by her PCP for the a fall. States difficulty breathing worsening with exertion Patient was noted to be hypoxic pulse ox in the 80s on room air. She does not use oxygen at home. Patient was placed on supplemental oxygen which improved her saturation. Initial Vital Signs: Temp: 98.0F HR: 109 RR: 19 BP: 105/48 SpO2: 93% PMHx: HTN, DM, anxiety PSHx: tubal ligation, colon resection, colostomy bag placement REVIEW OF SYSTEMS: CONSTITUTIONAL: Denies acute: fever, diaphoresis, chills, HEAD: Denies acute: headache, photophobia Eyes: Denies acute: Double vision, vision loss, eye pain, eye discharge. EARS: Denies acute: tinnitus, hearing loss, ear discharge, ear pain, THROAT: Denies acute: sore throat, swelling, difficulty swallowing , pain with swallowing, change in voice. NECK: Denies acute: neck pain, neck swelling, stiff neck. HEART: Denies acute : palpitations, LUNGS: Denies acute: wheezing, cough, hemoptysis ABDOMEN: Denies acute: abdominal pain, Nausea, Vomiting, diarrhea, melena , hematemesis, hematochezia SKIN: Denies acute: rash, redness, lesions, itchiness. EXTREMITIES: Denies acute: calf pain, numbness, tingling, weakness, denies pain in extremity. Denies acute: Low back pain. Neuro: Denies acute: focal neurological deficit, motor or sensory focal neurological deficit, tremors, seizure like activity, confusion, dizziness, change in mental status, loss of bowel or bladder function, cauda equina like symptoms. : Denies acute: dysuria, hematuria, flank pain, increase in urinary frequency. PSYCH: Denies acute: hallucination, suicidal ideation, homicidal ideation. FEMALE: Denies acute: abnormal vaginal bleeding, foul odor, unusual discharge. PHYSICAL EXAM: General: Mild acute distress, awake and alert. Head: normocephalic, atraumatic. Neck: supple, trachea is midline, no swelling. Throat: Normal phonation. Eyes:, no erythema, no purulent discharge, no proptosis, no icterus. Heart: regular rate, regular rhythm, no significant murmur appreciated. Lungs: no apparent respiratory distress, Able to speak in full sentences. No wheezing, no rhonchi, no crackles. No stridors Clear to auscultation bilaterally. Abdomen: non tender to palpation, non distended, soft, no guarding, no rebound, + bowel sounds. Noted colostomy pouch. Neuro: Awake, Alert, oriented to name, self, situation, follows commands GCS=15. Speech is normal. Skin: no petechia, no purpura, no cyanosis, non-pale, not jaundice. Lower extremities: --no - Pitting edema no deformity, no focal swelling, no calf TTP. Makes eye contact. moves all four extremities. Face: no apparent facial droop. Time Seen by MD: 06:00 Primary Care Provider: BRYSON Reviewed Notes: Nurses Notes, Medications, Allergies Allergies: Coded Allergies: [place] (Verified Allergy, Severe, 02/06/24) swells throat Naproxen (Verified Allergy, Unknown, 03/07/24) Penicillins (Verified Allergy, Unknown, 08/21/21) Home Meds Active Scripts Metoclopramide Hcl (Reglan) 5 Mg Tab, 5 MG PO BID for 14 Days, #28 TAB Prov:AMBER PERLATA [facility] 03/15/24 Metoprolol Tartrate (Metoprolol Tartrate) 25 Mg Tab, 1 TAB PO BID for 60 Days, #120 TAB Prov:AMBER PERALTA [facility] 03/15/24 Amlodipine Besylate (NORVASC TABLET) 5 Mg Tb, 5 MG PO DAILY for 60 Days, #60 TAB Prov:AMBER PER[facility] 03/15/24 Acetaminophen (Acetaminophen) 325 Mg Tab, 650 MG PO Q6HP PRN for 30 Days, #240 TAB Prov:DIEGO WASHINGTON 02/10/24 Cholecalciferol (VITAMIN D3) 5,000 Unit Tab, 5000 UNIT PO DAILY for 30 Days, #30 TAB Prov:EDA MCCOY MD 08/28/21 Reported Medications Albuterol Sulfate (Albuterol Sulfate Hfa) 108 Mcg/Act Aer, 108 MCG IN UD for 16 Days, #18 11/02/24 Atorvastatin Calcium (Lipitor) 20 Mg Tab, 1 TAB PO DAILY for 90 Days, #90 11/02/24 Metformin Hydrochloride (Metformin Hcl) 500 Mg Tab, 1 TAB PO BID for 90 Days, #180 11/02/24 Omeprazole (Omeprazole Dr) 40 Mg Cap, 1 CAP PO DAILY for 30 Days, #30 11/02/24 Meloxicam (Meloxicam) 7.5 Mg Tab, 1 TAB PO BID for 30 Days, #60 11/02/24 Lorazepam (ATIVAN TABLET) 0.5 Mg Tb, 1 TAB PO TID, #90 TAB 11/02/24 Gabapentin (Gabapentin) 300 Mg Cap, 1 MG PO TID 03/09/24 Information Source: Patient Was a procedure done? Was a procedure done?: No CP Differential Dx Differential Diagnosis: N/A Differential Diagnosis: Other (DDx include ACS, unstable angina, anxiety, PE, pneumothroax, neoplasm, cardiac ischemia, COPD, asthma, CHF, pleural effusion, tobacco abuse, pneumonia, hypoxia, hypercapnia, anemia., infection/sepsis., pulmonary edema. Asthma, Cardiac tamponade, infection.) Differential Diagnosis: Other (Ddx include but not limitied to gastritis, musculoskeletal pain, radiculopathy, atypical chest pain, dissection, aneurysm, ACS, unstable angina, hiatal hernia, GERD, anxiety, costochondritis, PE, pneum othroax, neoplasm, cardiac ischemia, drug abuse, anemia.) X-Ray, Labs, Meds, VS Vital Signs Date Time Temp Pulse Resp B/P (MAP) Pulse Ox O2 Delivery O2 Flow Rate FiO2 11/01/24 18:57 98.0 109 19 105/48 (67) 93 Lab Test 11/01/24 19:17 11/01/24 18:17 Range/Units Troponin I High Sensitivity 8 7 </=34 ng/L White Blood Count 12.0 H 4.4-10.8 10^3/uL Red Blood Count 5.06 4.0-5.20 10^6/uL Hemoglobin 16.0 12.2-16.2 g/dL Hematocrit 48.1 H 36.0-46.0 % Mean Corpuscular Volume 94.9 80.0-100.0 fL Mean Corpuscular Hemoglobin 31.6 28.0-32.0 pg Mean Corpuscular Hemoglobin Concent 33.3 32.0-36.0 g/dL Red Cell Distribution Width 13.4 11.8-14.3 % Platelet Count 365 140-450 10^3/uL Mean Platelet Volume 8.6 6.9-10.8 fL Neutrophils (%) (Auto) 76.6 37.0-80.0 % Lymphocytes (%) (Auto) 13.1 10.0-50.0 % Monocytes (%) (Auto) 6.6 0.0-12.0 % Eosinophils (%) (Auto) 3.2 0.0-7.0 % Basophils (%) (Auto) 0.5 0.0-2.0 % Neutrophils # (Auto) 9.2 H 1.6-8.6 10 ^3/uL Lymphocytes # (Auto) 1.6 0.4-5.4 10 ^3/uL Monocytes # (Auto) 0.8 0-1.3 10 ^3/uL Eosinophils # (Auto) 0.4 0-0.8 10 ^3/uL Basophils # (Auto) 0.1 0-0.2 10 ^3/uL Nucleated Red Blood Cells 0.0 % D-Dimer, Quantitative 0.84 H 0.0-0.49 mg/L FEU Sodium Level 143 136-145 mmol/L Potassium Level 4.8 3.5-5.1 mmol/L Chloride Level 104 98-107 mmol/L Carbon Dioxide Level 27 20-31 mmol/L Anion Gap 12 5-15 Blood Urea Nitrogen 40 H 9-23 mg/dL Creatinine 0.92 0.550-1.02 mg/dL Glomerular Filtration Rate Calc 67 >90 mL/min BUN/Creatinine Ratio 43.5 H 10.0-20.0 Serum Glucose 159 H 74-106 mg/dL Lactic Acid Level 1.9 0.4-2.0 mmol/L Calcium Level 10.8 H 8.7-10.4 mg/dL Total Bilirubin 0.2 0.2-1.0 mg/dL Aspartate Amino Transferase (AST) 27 13-40 U/L Alanine Aminotransferase (ALT) 16 7-40 U/L Alkaline Phosphatase 141 H 46-116 U/L B-Type Natriuretic Peptide 29.85 0-100 pg/mL Total Protein 7.0 5.7-8.2 g/dL Albumin 4.5 3.2-4.8 g/dL Time of 1ST Reevaluation: 06:00 Reevaluation 1ST: Unchanged Patient Education/Counseling: Diagnosis, Treatment Family Education/Counseling: Diagnosis, Treatment Comments Patient presented with the above HPI.--dyspnea/chest pain----workup was initiated. patient was found with the above mentioned diagnosis. the following medications were ordered: Aspirin, DuoNeb treatment, Decadron, the following tests were ordered: Labs, CT head, CT cervical, CT angiogram of the chest, EKG, chest x-ray, UA, COVID, Patient ED course and VS have been stabilized. Patient has been reassessed in the ED and remained in a stable condition. Pertinent incidental findings were discussed with the patient and/or family. Patient/family voices understanding and is agreeable with plan. Patient has been observed in the ED adequate length of time to insure improvement/stability. Escalation of care considered: Consideration of escalation to observation or admission Patient was ADMITTED to the medicine team for further evaluation and treatment of their presentation. All the reports of any imaging studies that were ordered by myself were reviewed by myself. Departure 1 Departure Time of Disposition: 19:12 Impression: Primary Impression: Hypoxemia Additional Impressions: Dyspnea Pneumonia Malignancy Disposition: ADMITTED INPATIENT Admit to: Tele Condition: Guarded Discharged With: Self Critical Care Note Critical Care Time?: Yes (35 min-critical care time only) Heart Score Heart Score: Heart Score Response (Comments) Value History Moderate Suspicious 1 EKG Normal 0 Age >65 2 Risk Factors >3 or Hx ASHD 2 Troponin Normal limit 0 Total 5 I personally scribed for CHIN ZAFAR DO ([email or web address]) on 11/01/24 at 18:20. Electronically submitted by William Toussaint ([email or web address]). I personally scribed for CHIN ZAFAR DO ([email or web address]) on 11/01/24 at 19:44. Electronically submitted by Aristeo Shah ([email or web address]). CHIN ZAFAR DO Nov 01, 2024 18:20
[2024-11-01 19:00] LABS: Basophils # (auto) 0.1 10 ^3/uL (0-0.2); Basophils % (auto) 0.5 % (0.0-2.0); Eosinophils # (auto) 0.4 10 ^3/uL (0-0.8); Eosinophils % (auto) 3.2 % (0.0-7.0); Hematocrit 48.1 % (36.0-46.0); Lymphocytes # (auto) 1.6 10 ^3/uL (0.4-5.4); Lymphocytes % (auto) 13.1 % (10.0-50.0); Mean Corpuscular Hemoglobin 31.6 pg (28.0-32.0); Mean Corpuscular Hgb Conc. 33.3 g/dL (32.0-36.0); Mean Corpuscular Volume 94.9 fL (80.0-100.0); Monocytes # (auto) 0.8 10 ^3/uL (0-1.3); Monocytes % (auto) 6.6 % (0.0-12.0); Neutrophils # (auto) 9.2 10 ^3/uL (1.6-8.6); Neutrophils % (auto) 76.6 % (37.0-80.0); Platelet Count (auto) 365 10^3/uL (140-450); Red Blood Cells 5.06 10^6/uL (4.0-5.20); Red Cell Distribution Width 13.4 % (11.8-14.3)
[2024-11-01 19:01] LABS: Alanine Aminotransferase 16 U/L (7-40); Albumin 4.5 g/dL (3.2-4.8); Anion Gap 12 (5-15); BUN/Creatinine Ratio 43.5 (10.0-20.0); Carbon Dioxide 27 mmol/L (20-31); Chloride 104 mmol/L (98-107); Potassium 4.8 mmol/L (3.5-5.1); Sodium 143 mmol/L (136-145)
[2024-11-01 19:02] LABS: Bilirubin, Total 0.2 mg/dL (0.2-1.0)
[2024-11-01 19:11] LABS: Aspartate Aminotransferase 27 U/L (13-40)
[2024-11-01] MEDS: ASPirin 325 MG TAB PO ONE (19:15)
[2024-11-01] MEDS: DexAMETHasone INJECTION 10 MG in D5W 5% 50 ML IV ONE (19:15)
[2024-11-01 19:18] LABS: Alkaline Phosphatase 141 U/L (46-116); Blood Urea Nitrogen 40 mg/dL (9-23); Calcium 10.8 mg/dL (8.7-10.4); Glucose 159 mg/dL (74-106)
[2024-11-01] MEDS ORDERED: DOCUSATE SOD 100 MG CAP PO PRN (19:30)
[2024-11-01] MEDS ORDERED: MAALOX PLUS or MAALOX 30 ML PO PRN (19:30)
[2024-11-01] MEDS ORDERED: ONDANSETRON HCL 4 MG/2 ML VIAL IV PRN (19:30)
[2024-11-01] MEDS ORDERED: LORazepam 0.5 MG TAB PO PRN (19:30)
[2024-11-01] MEDS ORDERED: DEXTROSE (50%) 50ML SYRG IV PRN (19:30)
[2024-11-01] MEDS ORDERED: ACETAMINOPHEN 325 MG TAB PO PRN (19:30)
[2024-11-01] MEDS: ACCU-CHEK COMFORT CURVE STRIP VI SCH (20:00)
[2024-11-01] MEDS: InsuLIN REG 1unit/0.01ml Soln (100units/ml) SC SCH (20:00)
--- NOTE | 2024-11-01 20:01 | DVH ---
CHEST RADIOGRAPH Indication: sob Technique: Single frontal view of the chest was obtained Comparison: XY CHEST PORTABLE on DOS: 03/07/24, XY CHEST PORTABLE on DOS: 02/05/24, XY CHEST PORTABLE o n DOS: 02/02/24 Findings / IMPRESSION: Left upper lung zone opacification concerning for pneumonia. Small left-sided pleural effusion. 1.
--- NOTE | 2024-11-01 20:03 | DVHHP2 ---
History of Present Illness Reason for Visit: Shortness of breaths History of Present Illness 69-year-old with a past medical history of hypertension diabetes anxiety comes to the ED for shortness of breath and chest pain patient has been having chest pain and shortness of breath for the last few days states that it is not impro ving patient also reports having a mechanical fall where his led to a lot of back pain patient was recommended for ED evaluation and admission to the hospital for continuous care Cardiovascular: HTN Endocrine: Diabetes Review of Systems Constitutional: No: Fever, Chills, Sweats, Weakness, Malaise, Other Eyes: No: Pain, Vision change, Conjunctivae inflammation, Eyelid inflammation, Other, Redness ENT: No: Ear pain, Ear discharge, Nose pain, Nose discharge, Nose congestion, Mouth pain, Mouth swelling, Throat pain, Throat swelling, Other Respiratory: Cough, Dry, Shortness of breath, SOB with excertion; No: Wheezing, Hemoptysis, Pleuritic Pain, Sputum, Wheezing, Other Cardiovascular: No: Chest Pain, Palpitations, Orthopnea, Paroxysmal Noc. Dyspnea, Edema, Lt Headedness, Other Gastrointestinal: No: Nausea, Vomiting, Abdominal Pain, Diarrhea, Constipation, Melena, Hematochezia, Other Genitourinary: Dysuria; No Frequency, No Incontinence, No Hematuria, No Retention, No Other Musculoskeletal: No: other, neck pain, shoulder pain, arm pain, back pain, hand pain, leg pain, foot pain Skin: No: Rash, Lesions, Jaundice, Bruising, Other Neurological: No: Weakness, Numbness, Incoordination, Change in speech, Confusion, Seizures, Other Allergies: Coded Allergies: [place] (Verified Allergy, Severe, 02/06/24) swells throat Naproxen (Verified Allergy, Unknown, 03/07/24) Penicillins (Verified Allergy, Unknown, 08/21/21) Medications Current Medications Medications Dose Ordered Sig/Natacha Route Start Time Stop Time Status Last Admin Dose Admin Dexamethasone 6 mg DAILY PO 11/02/24 10:00 UNV Albuterol 2.5 mg Q4HPRN PRN NEB 11/01/24 19:30 UNV Ipratropium [place] 0.5 mg Q4HPRN PRN NEB 11/01/24 19:30 UNV Ceftriaxone Sodium 50 ml @ 100 mls/hr DAILY IV 11/01/24 19:30 UNV Diagnostic Test (Pha) 1 strip IQ4HR 11/01/24 20:00 UNV Insulin Human Regular IQ4HR SC 11/01/24 20:00 UNV Dextrose 50 ml UD PRN IV 11/01/24 19:30 UNV Alprazolam 0.5 mg TID PRN PO 11/01/24 19:30 UNV Amlodipine Besylate 5 mg DAILY PO 11/02/24 10:00 UNV Gabapentin 1 mg TID PO 11/01/24 22:00 UNV Metoprolol Tartrate 25 mg BID PO 11/01/24 22:00 UNV Patient Own Medication 5,000 unit DAILY PO 11/02/24 10:00 UNV Patient Own Medication 5 mg BID PO 11/01/24 22:00 UNV Sodium Chloride 1,000 ml @ 100 mls/hr Q10H IV 11/01/24 19:30 UNV Lorazepam 0.5 mg Q6HP PRN PO 11/01/24 19:30 UNV Al Hydrox/Mg Hydrox/Simethicone 30 ml Q6HP PRN PO 11/01/24 19:30 UNV Docusate Sodium 100 mg BIDPRN PRN PO 11/01/24 19:30 UNV Acetaminophen 650 mg Q6HP PRN PO 11/01/24 19:30 UNV Temazepam 15 mg QHSP PRN PO 11/01/24 19:30 UNV Acetaminophen/ Hydrocodone Bitart 1 tab Q4HP PRN PO 11/01/24 19:30 UNV Ondansetron HCl 4 mg Q4HP PRN IV 11/01/24 19:30 UNV Morphine Sulfate 2 mg Q4HPRN PRN IV 11/01/24 19:30 UNV Exam Vital Signs Vital Signs Date Time Temp Pulse Resp B/P (MAP) Pulse Ox O2 Delivery O2 Flow Rate FiO2 11/01/24 19:41 107 11/01/24 18:57 98.0 19 105/48 (67) 93 General Appearance: Alert, Oriented X3, moderate distress HEENT: Atraumatic, PERRLA Respiratory: Clear to auscultation, Normal air movement Cardiovascular: Regular rate, Normal S1, Normal S2 Abdominal: Normal bowel sounds, Soft Extremities: No clubbing, No cyanosis Skin: No rashes, No breakdown Neuro: Normal gait, Normal speech Psych/Mental Status: Mood NL Labs/Xrays Labs Test 11/01/24 19:17 11/01/24 18:17 Range/Units Troponin I High Sensitivity 8 </=34 ng/L White Blood Count 12.0 H 4.4-10.8 10^3/uL Red Blood Count 5.06 4.0-5.20 10^6/uL Hemoglobin 16.0 12.2-16.2 g/dL Hematocrit 48.1 H 36.0-46.0 % Mean Corpuscular Volume 94.9 80.0-100.0 fL Mean Corpuscular Hemoglobin 31.6 28.0-32.0 pg Mean Corpuscular Hemoglobin Concent 33.3 32.0-36.0 g/dL Red Cell Distribution Width 13.4 11.8-14.3 % Platelet Count 365 140-450 10^3/uL Mean Platelet Volume 8.6 6.9-10.8 fL Neutrophils (%) (Auto) 76.6 37.0-80.0 % Lymphocytes (%) (Auto) 13.1 10.0-50.0 % Monocytes (%) (Auto) 6.6 0.0-12.0 % Eosinophils (%) (Auto) 3.2 0.0-7.0 % Basophils (%) (Auto) 0.5 0.0-2.0 % Neutrophils # (Auto) 9.2 H 1.6-8.6 10 ^3/uL Lymphocytes # (Auto) 1.6 0.4-5.4 10 ^3/uL Monocytes # (Auto) 0.8 0-1.3 10 ^3/uL Eosinophils # (Auto) 0.4 0-0.8 10 ^3/uL Basophils # (Auto) 0.1 0-0.2 10 ^3/uL Nucleated Red Blood Cells 0.0 % Sodium Level 143 136-145 mmol/L Potassium Level 4.8 3.5-5.1 mmol/L Chloride Level 104 98-107 mmol/L Carbon Dioxide Level 27 20-31 mmol/L Anion Gap 12 5-15 Blood Urea Nitrogen 40 H 9-23 mg/dL Creatinine 0.92 0.550-1.02 mg/dL Glomerular Filtration Rate Calc 67 >90 mL/min BUN/Creatinine Ratio 43.5 H 10.0-20.0 Serum Glucose 159 H 74-106 mg/dL Lactic Acid Level 1.9 0.4-2.0 mmol/L Calcium Level 10.8 H 8.7-10.4 mg/dL Total Bilirubin 0.2 0.2-1.0 mg/dL Aspartate Amino Transferase (AST) 27 13-40 U/L Alanine Aminotransferase (ALT) 16 7-40 U/L Alkaline Phosphatase 141 H 46-116 U/L B-Type Natriuretic Peptide 29.85 0-100 pg/mL Total Protein 7.0 5.7-8.2 g/dL Albumin 4.5 3.2-4.8 g/dL Assessment/Plan Assessment/Plan Admit to [facility] Acute hypoxia Suspected acute bronchitis P.r.n. breathing treatments IV antibiotics P.o. antibiotics UA rule out acute infection COVID screening pending Decadron started in the ED we will continue Elevated glucose Moderate sliding scale as steroids are being started Plan discussed with: Patient My Orders Orders - NESHA QUACH MD Procedure Category Date Status Time Dexamethasone Tablet PHA 11/02/24 Logged (Decadron Tablet) 10:00 Albuterol Medneb PHA 11/01/24 Logged (Ventolin Medneb) 19:30 Ipratropium Medneb PHA 11/01/24 Logged (Atrovent Medneb) 19:30 Med Neb Initial RT 11/01/24 Logged Treatment 19:23 Ceftriaxone 1gm/50ml PHA 11/01/24 Logged D5w (Rocephin) 19:30 Glucose Blood PHA 11/01/24 Logged (Accu-Chek Comfort 20:00 Insulin R (Human) PHA 11/01/24 Logged (Insulin R) 20:00 Dextrose 50% Syringe PHA 11/01/24 Logged 19:30 Alprazolam Tablet PHA 11/01/24 Logged (Xanax Tablet) 19:30 Amlodipine Tablet PHA 11/02/24 Logged (Norvasc Tablet) 10:00 Gabapentin Capsule PHA 11/01/24 Logged (Neurontin Capsule) 22:00 Metoprolol Tartrate PHA 11/01/24 Logged Tablet (Lopressor Ta 22:00 (Nf) Cholecalciferol PHA 11/02/24 Logged (Vitamin D3) 10:00 (Nf) Metoclopramide PHA 12/10/24 Logged Hcl (Reglan) 22:00 Admit ADMIT 11/01/24 Transmitted 19:23 Code Status CODE 11/01/24 Transmitted 19:23 Vital Signs [facility] 11/01/24 In Process 19:23 Review Orders With [facility] 11/01/24 In Process Adm.Md 19:23 Regular Diet DIET 11/02/24 Transmitted Breakfast Sodium Chloride 0.9% PHA 11/01/24 Logged 19:30 Lorazepam Tablet PHA 11/01/24 Logged (Ativan Tablet) 19:30 Alum & Mag PHA 11/01/24 Logged Hydrox-Simethicone 19:30 Docusate Sodium [facility] 11/01/24 Logged Capsule (Colace 19:30 Acetaminophen Tablet [facility] 11/01/24 Logged (Tylenol Tablet) 19:30 Temazepam (Restoril) [facility] 11/01/24 Logged 19:30 Notify Md Of Changes [facility] 11/01/24 In Process From Base 19:23 Advance Directive [facility] 11/01/24 In Process 19:23 Basic Metabolic Panel LAB 11/02/24 Verified 04:00 Urinalysis LAB 11/01/24 Logged 19:23 Complete Blood Count LAB 11/02/24 Verified 04:00 Patient Condition ORDERS 11/01/24 Transmitted 19:23 Allergies [facility] 11/01/24 In Process 19:23 Hydrocodone-Acet [facility] 11/01/24 Logged 5/325mg Tab ([place] 19:30 Ondansetron Hcl [facility] 11/01/24 Logged (Zofran) 19:30 Morphine Sulfate PHA 11/01/24 Logged Injection 19:30 Notify Md Of Changes [facility] 11/01/24 In Process From Base 19:23 Oxygen By Nasal RT 11/01/24 Transmitted [place] 19:23 Problem List: (1) Dyspnea (2) Hypoxemia (3) Acute anxiety (4) COPD exacerbation Date of Service: Nov 01, 2024 Billing Provider: NESHA QUACH MD Common Visit Codes: [id number] INP/OBS CARE (HIGH) NESHA QUACH MD Nov 01, 2024 20:03
[2024-11-01 20:10] VITALS: BP 105/48; PULSE 107; RESP 20; O2SAT 93
[2024-11-01] MEDS: ALBUTEROL SULF 2.5 MG/0.5ML(0.5%) NEB SOLN NEB ONE (20:19)
[2024-11-01] MEDS: IPRATROPIUM BROM 0.5 MG/2.5ML INH SOL NEB ONE (20:19)
--- NOTE | 2024-11-01 21:03 | DVH ---
EXAM: CT HEAD WITHOUT CONTRAST INDICATION: FALL TECHNIQUE: CT of the head without intravenous contrast. Radiation Dose Information: CT Dose: CTDI volume is 51.44 mGy. Dose-length product is 1100.97 mGy*cm The dose indicators for CT are the volume Computed Tomography (CT) Dose Index (CTDIvol) and the Dose Length Product (DLP), and are measured in units of mGy and mGy-cm, respectively. These indicators are not patient dose, but values generated from the CT scanner acquisition factors. The report includes radiation exposure data for exposures received during this examination. COMPARISON: CT ANGIO CHEST CONTRAST on DOS: 08/26/21, CHEST WITHOUT CONTRAST on DOS: 08/22/21 FINDINGS: There is no evidence of acute intracranial hemorrhage, extra-axial collection, mass effect, midline s hift, herniation or hydrocephalus. The ventricles, sulci and cisterns are age appropriate. The umaña-white differentiation is intact. Patchy periventricular and subcortical white matter hypoattenuation is nonspecific but may be related to small vessel ischemic disease. The visualized paranasal sinuses and mastoid air cells are clear. The surrounding soft tissues and osseous structures are unremarkable. IMPRESSION: 1. No acute intracranial hemorrhage. 2. No CT findings of territorial ischemia. 3. No CT findings of displaced skull fracture.
--- NOTE | 2024-11-01 21:08 | DVH ---
EXAM: CT CERVICAL WITHOUT CONTRAST INDICATION: FALL EXAM DATE: 11/01/2024 08:16 PM COMPARISON: CHEST WITHOUT CONTRAST on DOS: 08/22/21 TECHNIQUE: Multiple axial CT images of the cervical spine were obtained using bone algorithm. Axial a nd coronal reformatting was done. Bone and soft tissue windows were reviewed. Radiation Dose Information: CT Dose: CTDI volume is 11.39 mGy. Dose-length product is 273 mGy*cm FINDINGS: The cervical alignment is intact. No acute cervical spine fracture is identified. The vertebral body heights are intact. No suspicious osseous lesions are identified. Mild bony spondylosis and degenerative disc changes are noted from C5 C6 and C7 There is no prevertebral soft tissue swelling. IMPRESSION: 1. No evidence of acute cervical spine fracture or traumatic malalignment. 2. Mild bony spondylosis and degenerative disc changes at C5-[address] scans at this medical facility are performed using dose modulation techniques as appropriate t o a performed exam including the following: Automated exposure control was utilized; adjustment of th e MA and/or KV according to patient size; and use of iterative reconstruction technique.
[2024-11-01] MEDS: METOPROLOL TARTRATE 25 MG TAB PO SCH (22:00)
[2024-11-01] MEDS: IOHEXOL 350 MG/ML 100ML IJ ONE (22:49)
[2024-11-01] MEDS: cefTRIAXone 1GM/50ML D5W 50 ML IV SCH (23:26)
[2024-11-01] MEDS: MORPHINE SULFATE INJ 2 MG/ml SYRG IV PRN (23:52)
[2024-11-02] VITALS (12 sets, daily range): BP systolic 99–139; BP diastolic 36–77; PULSE 72–101; RESP 18–22; TEMP 98–98.3; O2SAT 91–99
[2024-11-02] MEDS: GABAPENTIN 300 MG CAP PO SCH (00:24)
[2024-11-02 01:33] LABS: COVID19 ANTIGEN SOFIA FIA NEGATIVE (NEGATIVE)
[2024-11-02] MEDS ORDERED: LORA-1121 PO (03:20)
[2024-11-02] MEDS: HYDROcodone-ACET 5/325MG TAB PO PRN (03:28)
[2024-11-02] MEDS: SODIUM CHLORIDE 0.9% 1,000 ML IV SCH (04:37)
[2024-11-02] MEDS: IPRATROPIUM BROM 0.5 MG/2.5ML INH SOL NEB PRN ×2 (04:53→23:26)
[2024-11-02] MEDS: ALBUTEROL SULF 2.5 MG/0.5ML(0.5%) NEB SOLN NEB PRN (04:53)
[2024-11-02 05:57] LABS: Basophils # (auto) 0.1 10 ^3/uL (0-0.2); Basophils % (auto) 0.8 % (0.0-2.0); Eosinophils # (auto) 0.6 10 ^3/uL (0-0.8); Eosinophils % (auto) 5.2 % (0.0-7.0); Hematocrit 45.3 % (36.0-46.0); Hemoglobin 15.1 g/dL (12.2-16.2); Lymphocytes # (auto) 2.1 10 ^3/uL (0.4-5.4); Mean Corpuscular Hemoglobin 31.4 pg (28.0-32.0); Mean Corpuscular Hgb Conc. 33.3 g/dL (32.0-36.0); Mean Corpuscular Volume 94.2 fL (80.0-100.0); Monocytes # (auto) 1.1 10 ^3/uL (0-1.3); Monocytes % (auto) 9.9 % (0.0-12.0); Neutrophils # (auto) 7.2 10 ^3/uL (1.6-8.6); Neutrophils % (auto) 65.1 % (37.0-80.0); Platelet Count (auto) 346 10^3/uL (140-450); Red Cell Distribution Width 13.7 % (11.8-14.3)
[2024-11-02 06:08] LABS: Anion Gap 9 (5-15); Carbon Dioxide 29 mmol/L (20-31); Chloride 103 mmol/L (98-107); Potassium 4.4 mmol/L (3.5-5.1); Sodium 141 mmol/L (136-145)
[2024-11-02 06:15] LABS: BUN/Creatinine Ratio 39.5 (10.0-20.0); Glucose 105 mg/dL (74-106)
[2024-11-02 06:33] LABS: Blood Urea Nitrogen 32 mg/dL (9-23); Calcium 10.7 mg/dL (8.7-10.4)
--- NOTE | 2024-11-02 06:43 | ECG ---
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
--- NOTE | 2024-11-02 06:44 | ECG ---
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
[2024-11-02] MEDS: IOHEXOL 350 MG/ML 100ML IJ ONE (09:17)
--- NOTE | 2024-11-02 10:10 | DVH ---
CTA Chest with intravenous contrast INDICATION: sob, fall back pain COMPARISON: CT CT ANGIO CHEST CONTRAST on DOS: 01/23/24, CT ANGIO CHEST CONTRAST on DOS: 08/26/21 TECHNIQUE: Multidetector spiral CTA of the chest was performed of the chest with intravenous contrast . PULMONARY ANGIOGRAPHY PROTOCOL was utilized using a bolus-tracking technique centered on the main p ulmonary artery. Axial, coronal and sagittal multiplanar and MIP reformats were performed. CONTRAST: Type of contrast: Omni 350 Contrast injected: 100 ml Radiation dose : Chest: CTDI volume is 20 mGy. Dose-length product is 172.5 mGy*cm The dose indicators for CT are the volume computed Tomography (CT) dose Index (CTDIvol) and the dose Length product (DLP), and are measured in units of mGy and mGy-cm, respectively. These indicators are not patient dose, but values generated from the CT scanner acquisition factors. The report includes radiation exposure data for exposures received during this examination. Findings: Pulmonary artery: No pulmonary embolism Lower neck: Normal thyroid. Lungs: Masslike consolidation left upper lobe. Other bilateral areas of nodular consolidation in both lungs. Mild ground-glass opacity right lower lung. Small left pleural effusion with left basilar ate lectasis and consolidation. Heart/Vascular Structures: Normal heart size. No pericardial effusion. Lymph Nodes: Mediastinal lymphadenopathy measuring up to 15 mm in short axis. Pleura: Small left pleural effusion as above. Musculoskeletal: Lytic lesions in the sternum and left anterior 2nd rib. Soft tissues: Normal. Upper abdomen: Multiple hypodense liver masses, largest measuring up to 35 mm. Nodular enlargement of the left adrenal gland. IMPRESSION: 1. No pulmonary embolism. 2. Findings concerning for malignancy. Superimposed infection is not excluded. Masslike consolidation in the left upper lung. Patchy nodular consolidation in both lungs. Mediastinal lymphadenopathy. Sm all left pleural effusion with associated left basilar atelectasis and consolidation. Multiple osseo us metastatic lesions. Multiple liver metastases. Left adrenal nodularity. Clinical correlation and continued follow-up is recommended. Consider further evaluation with PET-CT. Multiple lesions would be amenable to CT-guided biopsy depending on clinical scenario. HS:Y
[2024-11-02] MEDS: DexAMETHasone 4 MG TAB PO SCH (10:34)
[2024-11-02] MEDS: METOCLOPRAMIDE HCL 10 MG TAB PO SCH (10:35)
[2024-11-02] MEDS: CHOLECALCIFEROL (VITD3) 1,000UNIT=25mCg TAB PO SCH (10:35)
[2024-11-02] MEDS: amLODIPine BESYLATE 5 MG TAB PO SCH (10:36)
--- NOTE | 2024-11-02 11:33 | DVHPNRES ---
Progress Note Date Seen: Nov 02, 2024 Resident Creating Document: MERVAT YARBROUGH RESIDENT Medical Necessity Reason Pt with a Central, PICC or Fol: No Medical Necessity Reason Present with shortness of breath Subjective Review of Systems This is a 69-year-old with a past medical history of hypertension, diabetes, anxiety who presented to the ED with a chief complaints of shortness of breath and chest pain with cough for the pat 3 weeks. According to the patient she has been using her nebulizer at home but she did not really receive any relief from that and she continued to have shortness of breath. Thus, she presented to the ED for evaluation. Patient also mentioned having cough with the yellowish sputum production. however, she denies any fever or chills just headache. Constitutional: Denies fever no chills no feeling of malaise HEENT: Headache; Denied ear pain, ear discharges, conjunctivitis, nasal discharge throat pain Cardiovascular: Chest pain with coughing; Denies palpitation, orthopnea, PND, or pedal edema Respiratory: Denies shortness of breath, cough cough, sputum production, hemoptysis, GI: Denies abdominal pain, nausea, vomiting, diarrhea, hematemesis, hematochezia, : Denies frequency, urgency, hematuria, Endocrine: Denies unintentional weight gain or weight loss, feeling of hot flashes, Ortega: Denies easy bruising, bleeding disorders, epistaxis Musculoskeletal: Denies joint pains, muscle aches Psych: No evidence of depression, erika, suicidal ideation Past medical history: hypertension, diabetes, anxiety, perforated diverticulitis Past surgical history: S/p colectomy Family history: Noncontributory Social history: 26 pack years, retired, lives with in a home. Review of Systems: RESPIRATORY:Abnormal Objective vital signs Vital Sign Date Time Temp Pulse Resp B/P (MAP) Pulse Ox O2 Delivery O2 Flow Rate FiO2 11/02/24 10:36 93 126/49 11/02/24 09:00 98.2 20 91 98.2 11/02/24 05:57 Nasal Cannula* 2 28 Total Intake and Output 11/01/24 11/01/24 11/02/24 15:00 23:00 07:00 Intake Total 440 ml Balance 440 ml medications Current Medications Medications Dose Ordered Sig/Natacha Route Start Time Stop Time Status Last Admin Dose Admin Albuterol 2.5 mg Q4HPRN PRN NEB 11/01/24 19:30 11/02/24 05:57 2.5 MG Ceftriaxone Sodium 50 ml @ 100 mls/hr DAILY IV 11/01/24 19:30 11/02/24 10:31 100 MLS/HR Diagnostic Test (Pha) 1 strip IQ4HR 11/01/24 20:00 11/02/24 07:52 1 STRIP Insulin Human Regular IQ4HR SC 11/01/24 20:00 11/02/24 04:35 2 UNITS Dextrose 50 ml UD PRN IV 11/01/24 19:30 Alprazolam 0.5 mg TID PRN PO 11/01/24 19:30 Amlodipine Besylate 5 mg DAILY PO 11/02/24 10:00 11/02/24 10:36 5 MG Gabapentin 300 mg TID PO 11/01/24 22:00 11/02/24 06:22 300 MG Metoprolol Tartrate 25 mg BID PO 11/01/24 22:00 11/02/24 10:36 25 MG Cholecalciferol 5,000 unit DAILY PO 11/02/24 10:00 11/02/24 10:35 5,000 UNIT Al Hydrox/Mg Hydrox/Simethicone 30 ml Q6HP PRN PO 11/01/24 19:30 Docusate Sodium 100 mg BIDPRN PRN PO 11/01/24 19:30 Acetaminophen 650 mg Q6HP PRN PO 11/01/24 19:30 Temazepam 15 mg QHSP PRN PO 11/01/24 19:30 Acetaminophen/ Hydrocodone Bitart 1 tab Q4HP PRN PO 11/01/24 19:30 11/02/24 03:28 1 TAB Ondansetron HCl 4 mg Q4HP PRN IV 11/01/24 19:30 Morphine Sulfate 2 mg Q4HPRN PRN IV 11/01/24 19:30 11/01/24 23:52 2 MG Azithromycin 250 ml @ 125 mls/hr DAILY IV 11/03/24 10:00 UNV Examination General examination- In acute distress, cachectic HEENT: PEERLA, no acute nasal discharge Chest: S1-S2 audible, rate and rhythm regular, no murmur Lung: crackles present L> R, no whizzing Abdomen: nondistend, colostomy bag present, BS+, nontenderness, no organomegaly Musculoskeletal: no acute joint swelling or tenderness Lower extremity: No leg edema, Sensation, motor function intact Neurological: cranial nerves intact, no acute dysarthria or dysphagia, No evidence of neurological deficit Psychiatry-- Normal mood and affect Skin- no acute rash or purpura laboratory and microbiology Laboratory Tests 11/02/24 04:44 Test 11/02/24 04:44 Range/Units Serum Glucose 105 74-106 mg/dL Problem List/Assessment/Plan Problem List/Assessment/Plan Sepsis due to pneumonia --> Ceftriaxone --> Azithromycin --> Maintenance fluid 100ml/hr Pneumonia Gram negative vs gram positive --> Pending sputum culture --> Ceftriaxone --> Azithromycin Acute hypoxic respiratory failure --> COVID, influenza A and B: Negative --> Breathing treatment prn --> On 2 L of oxygen --> monitor sp02 regularly PE ruled out Possible metastatic lung disease --> CT Angiogram: pleural effusion with associated left basilar atelectasis and consolidation. Multiple osseous metastatic lesions. Multiple liver metastases. Left adrenal nodularity --> Optimize patient -->Consult oncology--> cancer management --> Consult IR-> for biopsy Malnutrition -->Ensure high protein -->measure weight daily Left pleural effusion --> CT angiogram Lymphadenopathy Bone metastasis likely COPD --> 26 smoking pack years --> nebulizing treatment at home History of perforated sigmoid diverticulosis diverticulitis status post colectomy in January, Goal of care discussed for more than 35 minute Case and plan discussed with Dr. Fox Plan discussed with: Patient, Spouse My Orders My Orders Orders - MERVAT YARBROUGH Procedure Category Date Status Time Azithromycin 500mg/ PHA 11/03/24 Logged 250ml (Zithromax 50 10:00 Azithromycin 500mg/ PHA 11/02/24 Logged 250ml (Zithromax 50 11:30 * Hematology/Oncology CONS 11/02/24 Transmitted Consult 11:27 * Radiologist Consult CONS 11/02/24 Transmitted 11:27 Date of Service: Nov 02, 2024 Billing Provider: SANTANA NAVA MD Common Visit Codes: [id number] INP/OBS CARE(HIGH) MERVAT YARBROUGH Nov 02, 2024 11:33 SANTANA NAVA MD Nov 03, 2024 09:16
[2024-11-02] MEDS: AZITHROMYCIN 500MG/ 250ML 250 ML IV ONE (11:46)
[2024-11-02 12:11] LABS: INR 1.13 (0.9-1.15); Partial Thromboplastin Time 27.5 SEC (24.5-34.5); Prothrombin Time 11.9 sec (9.3-11.8)
--- NOTE | 2024-11-02 12:20 | DVH ---
BILATERAL LOWER EXTREMITY VENOUS DOPPLER CLINICAL HISTORY: elevated ddimer Technique: Duplex Doppler evaluation of the deep venous systems of both lower extremities from the co mmon femoral veins to the popliteal veins including color Doppler and spectral/pulsed waveform analys is was performed. COMPARISON: BI LOWER DVT on DOS: 08/23/21 FINDINGS: The right and left common femoral, superficial femoral, popliteal, posterior tibial and peroneal vei ns appear patent with normal augmentation, phasicity, compressibility and color-flow. IMPRESSION: 1. There is no sonographic evidence for DVT in the lower extremities. HS:Y
[2024-11-02 12:57] LABS: Rapid Influenza A Negative (Negative); Rapid Influenza B Negative (Negative)
[2024-11-02 15:33] LABS: Urine Bacteria None Seen /hpf (None Seen)
[2024-11-02] MEDS: ALPRAZolam 0.5 MG TAB PO PRN (15:34)
[2024-11-02 16:25] LABS: Urine Blood Negative /uL (Negative); Urine Clarity Clear (Clear); Urine Color Light-Yellow (Yellow); Urine Protein, UAD TRACE (Negative); Urine Squamous Epithelial Cell FEW /hpf (<5); Urine Urobilinogen Normal (Negative); Urine WBC 1 /hpf (0 - 5); Urine pH 5.5 (5.0-9.0)
[2024-11-02 16:26] LABS: Urine Specific Gravity > 1.050 (1.001-1.035)
[2024-11-03] VITALS (12 sets, daily range): BP systolic 97–150; BP diastolic 48–74; PULSE 73–94; RESP 17–19; TEMP 97.6–98.6; O2SAT 90–99
[2024-11-03 07:04] LABS: Chloride 103 mmol/L (98-107); Potassium 4.3 mmol/L (3.5-5.1); Sodium 140 mmol/L (136-145)
[2024-11-03 07:06] LABS: Calcium 10.3 mg/dL (8.7-10.4)
[2024-11-03 07:11] LABS: BUN/Creatinine Ratio 33.8 (10.0-20.0)
[2024-11-03 07:14] LABS: Anion Gap 4 (5-15); Blood Urea Nitrogen 26 mg/dL (9-23); Carbon Dioxide 33 mmol/L (20-31); Glucose 148 mg/dL (74-106)
[2024-11-03 07:23] LABS: Basophils # (auto) 0 10 ^3/uL (0-0.2); Basophils % (auto) 0.3 % (0.0-2.0); Eosinophils # (auto) 0.1 10 ^3/uL (0-0.8); Eosinophils % (auto) 1.2 % (0.0-7.0); Hemoglobin 15.2 g/dL (12.2-16.2); Lymphocytes # (auto) 1.5 10 ^3/uL (0.4-5.4); Lymphocytes % (auto) 14.5 % (10.0-50.0); Mean Corpuscular Hemoglobin 31.9 pg (28.0-32.0); Mean Corpuscular Hgb Conc. 33.8 g/dL (32.0-36.0); Mean Corpuscular Volume 94.5 fL (80.0-100.0); Monocytes # (auto) 0.8 10 ^3/uL (0-1.3); Monocytes % (auto) 7.3 % (0.0-12.0); Neutrophils % (auto) 76.7 % (37.0-80.0); Platelet Count (auto) 373 10^3/uL (140-450); Red Blood Cells 4.76 10^6/uL (4.0-5.20); Red Cell Distribution Width 13.3 % (11.8-14.3); White Blood Cell 10.5 10^3/uL (4.4-10.8)
[2024-11-03] MEDS: Ensure HIGH Protein Chocolate 8oz Bottle PO SCH (08:00)
--- NOTE | 2024-11-03 09:55 | DVHPNRES ---
Progress Note Date Seen: Nov 03, 2024 Resident Creating Document: MERVAT YARBROUGH RESIDENT Medical Necessity Reason Pt with a Central, PICC or Fol: No Medical Necessity Reason pneumonia Masslike consolidation in the left upper lung. Patchy nodular consolidation in both lungs. Mediastinal lymphadenopathy. Subjective Review of Systems Patient is seen and examined today. She is lying in bed sleeping but arousable. Patient complain of chest tenderness across the chest No breathing difficulties. She remains on 2 L of oxygen no new complaints noted. Seen by IR, they recommended bronchoscopy for biopsy Brochoscopy in the morning Objective vital signs Vital Sign Date Time Temp Pulse Resp B/P (MAP) Pulse Ox O2 Delivery O2 Flow Rate FiO2 11/03/24 08:47 98.1 78 17 97/48 (64) 91 98.1 11/03/24 05:54 Nasal Cannula* 2 28 Total Intake and Output 11/02/24 11/02/24 11/03/24 15:00 23:00 07:00 Intake Total 50 ml 640 ml 100 ml Output Total 450 ml Balance 50 ml 640 ml -350 ml medications Current Medications Medications Dose Ordered Sig/Natacha Route Start Time Stop Time Status Last Admin Dose Admin Albuterol 2.5 mg Q4HPRN PRN NEB 11/01/24 19:30 11/03/24 05:54 2.5 MG Ceftriaxone Sodium 50 ml @ 100 mls/hr DAILY IV 11/01/24 19:30 11/02/24 10:31 100 MLS/HR Diagnostic Test (Pha) 1 strip IQ4HR 11/01/24 20:00 11/03/24 08:56 1 STRIP Insulin Human Regular IQ4HR SC 11/01/24 20:00 11/03/24 08:57 4 UNITS Dextrose 50 ml UD PRN IV 11/01/24 19:30 Alprazolam 0.5 mg TID PRN PO 11/01/24 19:30 11/02/24 15:34 0.5 MG Amlodipine Besylate 5 mg DAILY PO 11/02/24 10:00 11/02/24 10:36 5 MG Gabapentin 300 mg TID PO 11/01/24 22:00 11/03/24 05:42 300 MG Metoprolol Tartrate 25 mg BID PO 11/01/24 22:00 11/02/24 21:24 25 MG Cholecalciferol 5,000 unit DAILY PO 11/02/24 10:00 11/02/24 10:35 5,000 UNIT Al Hydrox/Mg Hydrox/Simethicone 30 ml Q6HP PRN PO 11/01/24 19:30 Docusate Sodium 100 mg BIDPRN PRN PO 11/01/24 19:30 Acetaminophen 650 mg Q6HP PRN PO 11/01/24 19:30 Temazepam 15 mg QHSP PRN PO 11/01/24 19:30 Acetaminophen/ Hydrocodone Bitart 1 tab Q4HP PRN PO 11/01/24 19:30 11/03/24 06:06 1 TAB Ondansetron HCl 4 mg Q4HP PRN IV 11/01/24 19:30 Morphine Sulfate 2 mg Q4HPRN PRN IV 11/01/24 19:30 11/01/24 23:52 2 MG Azithromycin 250 ml @ 125 mls/hr DAILY IV 11/03/24 10:00 Ipratropium [place] 0.5 mg Q4HPRN PRN NEB 11/02/24 19:00 11/03/24 05:54 0.5 MG Enteral Nutritional Formula 240 ml BIDWM PO 11/03/24 08:00 11/03/24 08:00 240 ML Examination General examination- Lycing in bed, Impressed distressed, cachectic HEENT: PEERLA, no acute nasal discharge Chest: S1-S2 audible, rate and rhythm regular, no murmur Lung: crackles present L> R improved , No whizzing Abdomen: nondistend, colostomy bag present, BS+, nontenderness, no organomegaly Musculoskeletal: no acute joint swelling or tenderness Lower extremity: No leg edema, Sensation, motor function intact Neurological: cranial nerves intact, no acute dysarthria or dysphagia, No evidence of neurological deficit Psychiatry-- Normal mood and affect Skin- no acute rash or purpura laboratory and microbiology Laboratory Tests 11/03/24 06:12 Test 11/03/24 06:12 Range/Units Serum Glucose 148 H 74-106 mg/dL Problem List/Assessment/Plan Problem List/Assessment/Plan Sepsis due to pneumonia --> Ceftriaxone --> Azithromycin --> Maintenance fluid 100ml/hr Pneumonia Gram negative vs gram positive --> Pending sputum culture --> Ceftriaxone --> Azithromycin --> incentive spirometry Acute hypoxic respiratory failure --> COVID, influenza A and B: Negative --> Breathing treatment prn --> On 2 L of oxygen --> monitor sp02 regularly PE ruled out Left upper lobe lung mass Possible metastatic lung disease --> CT Angiogram: pleural effusion with associated left basilar atelectasis and consolidation. Multiple osseous metastatic lesions. Multiple liver metastases. Left adrenal nodularity --> Optimize patient -->Consult oncology--> cancer management --> Consult pulmonology for biopsy Severe Malnutrition -->Ensure high protein -->measure weight daily Left pleural effusion --> CT angiogram Lymphadenopathy Possible Bone metastasis likely COPD --> 26 smoking pack years --> nebulizing treatment at home History of perforated sigmoid diverticulosis diverticulitis status post colectomy in January, Goal of care discussed for more than 35 minute Case and plan discussed with Dr. Fox Plan discussed with: Patient My Orders My Orders Orders - MERVAT YARBROUGH Procedure Category Date Status Time Azithromycin 500mg/ PHA 11/03/24 In Process 250ml (Zithromax 50 10:00 * Hematology/Oncology CONS 11/02/24 Transmitted Consult 11:27 Ipratropium Medneb PHA 11/02/24 In Process (Atrovent Medneb) 19:00 Nutritional PHA 11/03/24 In Process Supplements (Ensure 08:00 Communication Order ORDERS 11/02/24 Transmitted 18:[address] 11/03/24 Logged Needle Placeme 09:[address] 11/03/24 Logged 09:28 Date of Service: Nov 03, 2024 Billing Provider: SANTANA NAVA MD Common Visit Codes: [id number] INP/OBS CARE(HIGH) MERVAT YARBROUGH Nov 03, 2024 09:55 SANTANA NAVA MD Nov 07, 2024 09:20
--- NOTE | 2024-11-03 11:21 | DVHINCON2 ---
Date of service: Nov 03, [address] Margi Ambrosio Reason for Consultation Clinically suspicious metastatic lung cancer History of Present Illness 69 years old female with a history of 50+ pack year smoking. Has a history of diabetes, hypertension, COPD. She had colostomy for some bowel obstruction recently but no malignancy. She says she was told to have perforation in the colon She is admitted with the shortness of breath And some chest discomfort CT chest angiogram showed findings concerning for malignancy. Superimposed infection is not excluded. There is a masslike consolidation in the left upper lung, patchy nodular consolidation in both lungs. Mediastinal lymphadenopathy. Small left pleural effusion with associated left basilar atelectasis and consolidation. Multiple osseous metastatic lesions. Multiple liver mets. Left adrenal nodularity. CT of the brain without IV contrast was unremarkable Venous Doppler on the lower extremities was unremarkable Her breathing is better. She does complain of low back pain for the last couple of months. Past Medical History Diabetes Hypertension COPD Tubal ligation Colostomy for perforation of the bowel Family History: Chronic obstructive pulmonary disease G8 MOTHER FH: CAD (coronary artery disease) G8 FATHER FH: myocardial infarction G8 FATHER Hypertension G8 FATHER Family History Unremarkable for any malignancy or hematological disorders Social History 50+ pack year smoking still smokes half a pack of cigarettes a day. No alcohol or illicit drugs Allergies: Coded Allergies: [place] (Verified Allergy, Severe, 02/06/24) swells throat Naproxen (Verified Allergy, Unknown, 03/07/24) Penicillins (Verified Allergy, Unknown, 08/21/21) Home Meds Active Scripts Metoclopramide Hcl (Reglan) 5 Mg Tab, 5 MG PO BID for 14 Days, #28 TAB Prov:AMBER PERALTA DIORAMA [employer]ER 03/15/24 Metoprolol Tartrate (Metoprolol Tartrate) 25 Mg Tab, 1 TAB PO BID for 60 Days, #120 TAB Prov:AMBER PERALTA DIORAMA [employer]DEL [employer] 03/15/24 Amlodipine Besylate (NORVASC TABLET) 5 Mg Tb, 5 MG PO DAILY for 60 Days, #60 TAB Prov:AMBER PERALTA DIORAMA [employer]DEL [employer]KER 03/15/24 Acetaminophen (Acetaminophen) 325 Mg Tab, 650 MG PO Q6HP PRN for 30 Days, #240 TAB Prov:DIEGO WASHINGTON 02/10/24 Cholecalciferol (VITAMIN D3) 5,000 Unit Tab, 5000 UNIT PO DAILY for 30 Days, #30 TAB Prov:EDA MCCOY MD 08/28/21 Reported Medications Albuterol Sulfate (Albuterol Sulfate Hfa) 108 Mcg/Act Aer, 108 MCG IN UD for 16 Days, #18 11/02/24 Atorvastatin Calcium (Lipitor) 20 Mg Tab, 1 TAB PO DAILY for 90 Days, #90 11/02/24 Metformin Hydrochloride (Metformin Hcl) 500 Mg Tab, 1 TAB PO BID for 90 Days, #180 11/02/24 Omeprazole (Omeprazole Dr) 40 Mg Cap, 1 CAP PO DAILY for 30 Days, #30 24 Meloxicam (Meloxicam) 7.5 Mg Tab, 1 TAB PO BID for 30 Days, #60 11/02/24 Lorazepam (ATIVAN TABLET) 0.5 Mg Tb, 1 TAB PO TID, #90 TAB 11/02/24 Gabapentin (Gabapentin) 300 Mg Cap, 1 MG PO TID 03/09/24 Current Medications Current Medications Medications (Trade) Dose Ordered Sig/Natacha Route PRN Reason Start Time Stop Time Status Last Admin Azithromycin 250 ml @ 125 mls/hr DAILY IV 11/03/24 10:00 Ipratropium [place] (Atrovent Medneb) 0.5 mg Q4HPRN PRN NEB SHORTNESS OF BREATH 11/02/24 19:00 11/03/24 05:54 Enteral Nutritional Formula (Ensure High Protein) 240 ml BIDWM PO 11/03/24 08:00 11/03/24 08:00 Vital Signs Vital Signs Date Time Temp Pulse Resp B/P (MAP) Pulse Ox O2 Delivery O2 Flow Rate FiO2 11/03/24 10:00 91 Nasal Cannula* 2 28 11/03/24 08:47 98.1 78 17 97/48 (64) 98.1 Physical Exam GENERAL: The patient is a moderately built and nourished ,in no distress, alert and oriented. HEAD AND NECK: Unremarkable. No neck nodes or masses. Conjunctivae: Unremarkable for any mucosal hemorrhage or inflammation. Thyroid is nonpalpable. Throat is unremarkable. SPINE: No deformities or tenderness. CHEST: Chest wall, no tenderness. LUNGS: Clear. CARDIOVASCULAR: Regular sinus rhythm. No murmurs or gallops. ABDOMEN: No organomegaly, tenderness or ascites. Bowel sounds present. EXTREMITIES: No clubbing, edema or cyanosis. Peripheral pulses palpable. No calf tenderness. LYMPHATICS: No significant lymphadenopathy. NEUROLOGIC: No focal neurological deficits. SKIN: Unremarkable for any petechiae, purpura, or ecchymosis. Psych: No abnormalities Available data reviewed Labs/Diagnostic Data Labs Test 11/03/24 08:51 11/03/24 06:12 11/02/24 15:24 11/02/24 11:37 Range/Units POC Glucose 168 H 70-106 mg/dl White Blood Count 10.5 4.4-10.8 10^3/uL Red Blood Count 4.76 4.0-5.20 10^6/uL Hemoglobin 15.2 12.2-16.2 g/dL Hematocrit 45.0 36.0-46.0 % Mean Corpuscular Volume 94.5 80.0-100.0 fL Mean Corpuscular Hemoglobin 31.9 28.0-32.0 pg Mean Corpuscular Hemoglobin Concent 33.8 32.0-36.0 g/dL Red Cell Distribution Width 13.3 11.8-14.3 % Platelet Count 373 140-450 10^3/uL Mean Platelet Volume 8.2 6.9-10.8 fL Neutrophils (%) (Auto) 76.7 37.0-80.0 % Lymphocytes (%) (Auto) 14.5 10.0-50.0 % Monocytes (%) (Auto) 7.3 0.0-12.0 % Eosinophils (%) (Auto) 1.2 0.0-7.0 % Basophils (%) (Auto) 0.3 0.0-2.0 % Neutrophils # (Auto) 8.0 1.6-8.6 10 ^3/uL Lymphocytes # (Auto) 1.5 0.4-5.4 10 ^3/uL Monocytes # (Auto) 0.8 0-1.3 10 ^3/uL Eosinophils # (Auto) 0.1 0-0.8 10 ^3/uL Basophils # (Auto) 0 0-0.2 10 ^3/uL Nucleated Red Blood Cells 0.0 % Sodium Level 140 136-145 mmol/L Potassium Level 4.3 3.5-5.1 mmol/L Chloride Level 103 98-107 mmol/L Carbon Dioxide Level 33 H 20-31 mmol/L Anion Gap 4 L 5-15 Blood Urea Nitrogen 26 H 9-23 mg/dL Creatinine 0.77 0.550-1.02 mg/dL Glomerular Filtration Rate Calc 83 >90 mL/min BUN/Creatinine Ratio 33.8 H 10.0-20.0 Serum Glucose 148 H 74-106 mg/dL Calcium Level 10.3 8.7-10.4 mg/dL Urine Color Light-yellow Yellow Urine Clarity Clear Clear Urine pH 5.5 5.0-9.0 Urine Specific [place] > 1.050 H 1.001-1.035 Urine Protein Trace H Negative Urine Ketones Negative Negative Urine Blood Negative Negative /uL Urine Nitrite Negative Negative Urine Bilirubin Negative Negative Urine Urobilinogen Normal Negative mg/dL Urine Leukocyte Esterase Negative Negative /uL Urine RBC 1 0 - 4 /hpf Urine WBC 1 0 - 5 /hpf Urine Squamous Epithelial Cells Few <5 /hpf Urine Calcium Oxalate Crystals Few None Seen Urine Bacteria None seen None Seen /hpf Urine Glucose Normal Normal mg/dL Prothrombin Time 11.9 H 9.3-11.8 sec Prothrombin Time INR 1.13 0.9-1.15 Activated Partial Thromboplast Time 27.5 24.5-34.5 SEC Test 11/02/24 11:29 11/02/24 04:44 11/02/24 00:35 11/01/24 20:58 Range/Units Influenza Type A Antigen Negative Negative Influenza Type B Antigen Negative Negative Hemoglobin A1c 7.1 H <5.7 % A1C SARS-CoV-2 Antigen (Rapid) Negative NEGATIVE Troponin I High Sensitivity 8 </=34 ng/L Test 11/01/24 18:17 Range/Units D-Dimer, Quantitative 0.84 H 0.0-0.49 mg/L FEU Lactic Acid Level 1.9 0.4-2.0 mmol/L Total Bilirubin 0.2 0.2-1.0 mg/dL Aspartate Amino Transferase (AST) 27 13-40 U/L Alanine Aminotransferase (ALT) 16 7-40 U/L Alkaline Phosphatase 141 H 46-116 U/L B-Type Natriuretic Peptide 29.85 0-100 pg/mL Total Protein 7.0 5.7-8.2 g/dL Albumin 4.5 3.2-4.8 g/dL Assessment 1. Possible lung cancer with mediastinal lymphadenopathy multiple osseous metastatic lesions and multiple liver mets and left adrenal nodularity, diagnosis to be confirmed 2. Diabetes 3. Hypertension 4. COPD 5. Colostomy after perforation of the colon and had surgery recently Plan/Recommendation Will do a bone scan CT-guided needle biopsy of the liver lesion MRI of the brain with and without contrast Will follow her as an outpatient after the biopsy Plan discussed with: Patient ANUSHA CALABRESE MD Nov 03, 2024 11:21
[2024-11-03] MEDS: AZITHROMYCIN 500MG/ 250ML 250 ML IV SCH (13:39)
--- NOTE | 2024-11-03 16:08 | DVH ---
CLINICAL INFORMATION: 69 years old, Female; mets. TECHNIQUE: Following the intravenous administration of 27.8 mCi technetium 99m-MDP, anterior and pos terior whole-body planar imaging was performed. Spot views of the chest and pelvis were also obtained . COMPARISON: CTA chest dated 11/02/2024. Correlation also made to CT of the abdomen and pelvis dated 0 03/07/2024. FINDINGS: Areas of focal uptake are seen along the left side of the manubrium near the sternomanubria l junction. Small focal uptake is seen in a lower thoracic vertebra, appears to be T11. Ill-defined n onspecific uptake seen in an upper thoracic vertebra, possibly T2 or T3. There is also asymmetric inc reased uptake in the right proximal femur. Nonspecific uptake in the sacrum and adjacent portions of the iliac bones may be due to arthritic changes. IMPRESSION: 1. Focal areas of increased uptake in the manubrium, sternum, thoracic vertebrae, may be due to metas tatic disease. 2. Additional lytic lesions seen on recent CTA chest exam are not correlated on bone scan, likely due to their lytic nature. Lytic lesions may not be visible on bone scan.
--- NOTE | 2024-11-03 19:55 | DVHINCON2 ---
Date of service: Nov 03, [address] Ambrosio Reason for Consultation KEY consolidation r/o malignancy History of Present Illness 69-year-old woman history of hypertension, diabetes mellitus type 2, anxiety who presented with a chief complaint of shortness of breath for the last four days. She also noted chest pain for the last seven days. She notes back pain status post mechanical fall and injury three weeks ago. She states she fell backwards stripping on the doorstep in front of her house. No loss of consciousness. No head injury. She was seen by her PCP status post fall. Pulmonary consultation is called due to left upper lobe consolidation, acute hypoxic respiratory failure and extensive history of smoking. Review of systems: 14 point review of systems is negative unless otherwise noted above. Past medical history: Hypertension, diabetes mellitus type 2, anxiety Past surgical history: Tubal ligation, colon resection, colostomy bag placement Medications: Reviewed Allergies: Naprosyn, penicillins, strawberry Family history: No family history of premature CAD. No family history of lung disease. Family history notable for CAD in father. COPD in mother. Father with MD. Father with hypertension. Social history: Extensive 50 pack-year smoking history. Still smokes half a pack per day. No alcohol or illicit drug use. Lives with family. Family History: Chronic obstructive pulmonary disease G8 MOTHER FH: CAD (coronary artery disease) G8 FATHER FH: myocardial infarction G8 FATHER Hypertension G8 FATHER Allergies: Coded Allergies: [place] (Verified Allergy, Severe, 02/06/24) swells throat Naproxen (Verified Allergy, Unknown, 03/07/24) Penicillins (Verified Allergy, Unknown, 08/21/21) Home Meds Active Scripts Metoclopramide Hcl (Reglan) 5 Mg Tab, 5 MG PO BID for 14 Days, #28 TAB Prov:SALKAUR CERONPH FIELD CROP II FARMWORKER 03/15/24 Metoprolol Tartrate (Metoprolol Tartrate) 25 Mg Tab, 1 TAB PO BID for 60 Days, #120 TAB Prov:SALBINTRAN De LeonCLARK FIELD CROP II FARMWORKER 03/15/24 Amlodipine Besylate (NORVASC TABLET) 5 Mg Tb, 5 MG PO DAILY for 60 Days, #60 TAB Prov:SALNETTIEOTRANCLARK FIELD CROP II FARMWORKER 03/15/24 Acetaminophen (Acetaminophen) 325 Mg Tab, 650 MG PO Q6HP PRN for 30 Days, #240 TAB Prov:ETCHEGOYENDIEGO RESIDENT 02/10/24 Cholecalciferol (VITAMIN D3) 5,000 Unit Tab, 5000 UNIT PO DAILY for 30 Days, #30 TAB Prov:EDA MCCOY MD 08/28/21 Reported Medications Albuterol Sulfate (Albuterol Sulfate Hfa) 108 Mcg/Act Aer, 108 MCG IN UD for 16 Days, #18 11/02/24 Atorvastatin Calcium (Lipitor) 20 Mg Tab, 1 TAB PO DAILY for 90 Days, #90 11/02/24 Metformin Hydrochloride (Metformin Hcl) 500 Mg Tab, 1 TAB PO BID for 90 Days, #180 11/02/24 Omeprazole (Omeprazole Dr) 40 Mg Cap, 1 CAP PO DAILY for 30 Days, #30 11/02/24 Meloxicam (Meloxicam) 7.5 Mg Tab, 1 TAB PO BID for 30 Days, #60 11/02/24 Lorazepam (ATIVAN TABLET) 0.5 Mg Tb, 1 TAB PO TID, #90 TAB 11/02/24 Gabapentin (Gabapentin) 300 Mg Cap, 1 MG PO TID 03/09/24 Current Medications Current Medications Medications (Trade) Dose Ordered Sig/Natacha Route PRN Reason Start Time Stop Time Status Last Admin Azithromycin 250 ml @ 125 mls/hr DAILY IV 11/03/24 10:00 11/03/24 13:39 Enteral Nutritional Formula (Ensure High Protein) 240 ml BIDWM PO 11/03/24 08:00 11/03/24 18:07 Vital Signs Vital Signs Date Time Temp Pulse Resp B/P (MAP) Pulse Ox O2 Delivery O2 Flow Rate FiO2 11/03/24 17:52 88 18 133/57 11/03/24 16:48 97.8 90 97.8 11/03/24 10:00 Nasal Cannula* 2 28 Physical Exam Gen.: Patient lying in bed in no apparent distress. On supplemental oxygen. He is breathing comfortably on room air. Head: Normocephalic, atraumatic Eyes: EOMI/PERRLA. Ears: Normal hearing. Normal anatomy. Neck/trachea: Trachea midline, supple. Nose: Normal external anatomy. Mouth: Moist mucous membranes. Chest: Decreased air entry bilaterally. No wheezing . Left upper lobe rhonchi. Cardio vascular: Positive S1, positive S2. Regular rate and rhythm. Abdomen: Positive bowel sounds in all 4 quadrants. Soft, non-tender, non- distended. : Deferred. Rectal: Deferred Skin: Warm, dry. Extremities: 2+ radial pulses bilaterally. No lower extremity edema. Neuro: Awake, alert, oriented x3. No gross motor or sensory deficits. Cranial nerves II through XII intact. Gait not assessed. Labs/Diagnostic Data Labs Test 11/03/24 15:44 11/03/24 06:12 11/02/24 15:24 11/02/24 11:37 Range/Units POC Glucose 219 H 70-106 mg/dl White Blood Count 10.5 4.4-10.8 10^3/uL Red Blood Count 4.76 4.0-5.20 10^6/uL Hemoglobin 15.2 12.2-16.2 g/dL Hematocrit 45.0 36.0-46.0 % Mean Corpuscular Volume 94.5 80.0-100.0 fL Mean Corpuscular Hemoglobin 31.9 28.0-32.0 pg Mean Corpuscular Hemoglobin Concent 33.8 32.0-36.0 g/dL Red Cell Distribution Width 13.3 11.8-14.3 % Platelet Count 373 140-450 10^3/uL Mean Platelet Volume 8.2 6.9-10.8 fL Neutrophils (%) (Auto) 76.7 37.0-80.0 % Lymphocytes (%) (Auto) 14.5 10.0-50.0 % Monocytes (%) (Auto) 7.3 0.0-12.0 % Eosinophils (%) (Auto) 1.2 0.0-7.0 % Basophils (%) (Auto) 0.3 0.0-2.0 % Neutrophils # (Auto) 8.0 1.6-8.6 10 ^3/uL Lymphocytes # (Auto) 1.5 0.4-5.4 10 ^3/uL Monocytes # (Auto) 0.8 0-1.3 10 ^3/uL Eosinophils # (Auto) 0.1 0-0.8 10 ^3/uL Basophils # (Auto) 0 0-0.2 10 ^3/uL Nucleated Red Blood Cells 0.0 % Sodium Level 140 136-145 mmol/L Potassium Level 4.3 3.5-5.1 mmol/L Chloride Level 103 98-107 mmol/L Carbon Dioxide Level 33 H 20-31 mmol/L Anion Gap 4 L 5-15 Blood Urea Nitrogen 26 H 9-23 mg/dL Creatinine 0.77 0.550-1.02 mg/dL Glomerular Filtration Rate Calc 83 >90 mL/min BUN/Creatinine Ratio 33.8 H 10.0-20.0 Serum Glucose 148 H 74-106 mg/dL Calcium Level 10.3 8.7-10.4 mg/dL Urine Color Light-yellow Yellow Urine Clarity Clear Clear Urine pH 5.5 5.0-9.0 Urine Specific [place] > 1.050 H 1.001-1.035 Urine Protein Trace H Negative Urine Ketones Negative Negative Urine Blood Negative Negative /uL Urine Nitrite Negative Negative Urine Bilirubin Negative Negative Urine Urobilinogen Normal Negative mg/dL Urine Leukocyte Esterase Negative Negative /uL Urine RBC 1 0 - 4 /hpf Urine WBC 1 0 - 5 /hpf Urine Squamous Epithelial Cells Few <5 /hpf Urine Calcium Oxalate Crystals Few None Seen Urine Bacteria None seen None Seen /hpf Urine Glucose Normal Normal mg/dL Prothrombin Time 11.9 H 9.3-11.8 sec Prothrombin Time INR 1.13 0.9-1.15 Activated Partial Thromboplast Time 27.5 24.5-34.5 SEC Test 11/02/24 11:29 11/02/24 04:44 11/02/24 00:35 11/01/24 20:58 Range/Units Influenza Type A Antigen Negative Negative Influenza Type B Antigen Negative Negative Hemoglobin A1c 7.1 H <5.7 % A1C SARS-CoV-2 Antigen (Rapid) Negative NEGATIVE Troponin I High Sensitivity 8 </=34 ng/L Test 11/01/24 18:17 Range/Units D-Dimer, Quantitative 0.84 H 0.0-0.49 mg/L FEU Lactic Acid Level 1.9 0.4-2.0 mmol/L Total Bilirubin 0.2 0.2-1.0 mg/dL Aspartate Amino Transferase (AST) 27 13-40 U/L Alanine Aminotransferase (ALT) 16 7-40 U/L Alkaline Phosphatase 141 H 46-116 U/L B-Type Natriuretic Peptide 29.85 0-100 pg/mL Total Protein 7.0 5.7-8.2 g/dL Albumin 4.5 3.2-4.8 g/dL Microbiology Date/Time Source Procedure Growth Status 11/02/24 11:44 Nose MRSA Screen - Final Complete Assessment Impression: Acute hypoxic respiratory failure Pneumonia likely Gram-negative Possible metastatic lung disease Multiple osseous metastatic lesions Rule out lung malignancy Multiple liver metastasis Nicotine dependence Atelectasis Sepsis secondary to pneumonia COPD Plan: CT chest report and images reviewed. Left upper lobe consolidation suggestive of malignancy versus pneumonia. Patient was consented for bronchoscopy with bronchoalveolar lavage, possible brushings, possible biopsy. We will plan for procedure on November 04, 2024. With full knowledge of the risks and benefits, patient agreed for procedure. Supplemental oxygen Keep O2 saturation above 92%. On 2 liters/minute via nasal cannula Bronchodilators Continue antibiotics. Follow up cultures. Oncology recommendations appreciated. Bone scan. Suggestive of osseous metastasis. DVT prophylaxis Prognosis: Poor given multiple comorbidities. Rest of plan per hospitalist and other consultants. Thank you Dr. Ambrosio/Dr Fox for allowing me to participate in this patient's care. Further recommendations will depend on patient's clinical course. Please do not hesitate to contact me if you have any questions or concerns. This medical document was created using an electronic medical record system with [employer] dictation system. Although this document has been carefully reviewed, there may still be some phonetic and typographical errors. These areas are purely typographical due to imperfections of the software programs, and do not reflect any compromise in the patient's medical care. Plan discussed with: Patient, Other (Dr CRISTIAN Pagan MD) NIKO GUERRA MD Nov 03, 2024 19:55
[2024-11-03] MEDS: TEMAZEPAM 15 MG CAP PO PRN (21:21)
[2024-11-04] VITALS (61 sets, daily range): BP systolic 75–142; BP diastolic 39–79; PULSE 77–103; RESP 15–32; TEMP 98–100.3; O2SAT 91–100
[2024-11-04] MEDS ORDERED: SODIUM CHLORIDE LOCK 0 ML ONE (07:55)
[2024-11-04] MEDS ORDERED: FLUMAZENIL 0.1 MG/ML INJ 10ML MDV IV ONE (07:55)
[2024-11-04] MEDS ORDERED: LIDOCAINE 2% JELLY 11ml (GLYDO) ONE ×2 (07:55→12:33)
[2024-11-04] MEDS ORDERED: NALOXONE HCL 0.4 MG/ML VIAL ONE (07:55)
[2024-11-04] MEDS ORDERED: LIDOCAINE 2%HCL (LOCAL ANESTH.) INJ 20ML MDV ONE (07:55)
[2024-11-04] MEDS ORDERED: GLYCOPYRROLATE 0.2 MG/ML 1ML VIAL ONE (07:56)
[2024-11-04] MEDS ORDERED: EPINEPHrine HCL 1 MG/1 ML AMP ONE (07:56)
[2024-11-04] MEDS ORDERED: diphenhdrAMINE HCL 50 MG/1 ML VL ONE (07:56)
[2024-11-04] MEDS ORDERED: fentaNYL CITRATE 100 MCG/2 ML VL ONE (07:56)
[2024-11-04] MEDS ORDERED: MIDAZOLAM HCL 5 MG/ML-1ML VIAL ONE (07:56)
[2024-11-04 08:36] LABS: Chloride 104 mmol/L (98-107); Potassium 4.4 mmol/L (3.5-5.1); Sodium 140 mmol/L (136-145)
[2024-11-04 08:37] LABS: Anion Gap 4 (5-15); Calcium 10.4 mg/dL (8.7-10.4)
[2024-11-04 08:42] LABS: BUN/Creatinine Ratio 28.6 (10.0-20.0)
[2024-11-04 08:49] LABS: Blood Urea Nitrogen 24 mg/dL (9-23); Carbon Dioxide 32 mmol/L (20-31); Glucose 120 mg/dL (74-106)
[2024-11-04] MEDS: GADOTERATE MEG 7.5 MMOL/15ml INJ (0.5MMOL/ml) IV ONE (09:02)
[2024-11-04] MEDS ORDERED: ALBUTEROL SULF 2.5 MG/0.5ML(0.5%) NEB SOLN NEB PRN (10:15)
--- NOTE | 2024-11-04 10:16 | DVH ---
MRI BRAIN WITH CONTRAST CLINICAL HISTORY: r/o mets TECHNIQUE: [Technique] Multiplanar multisequence images of the brain were obtained prior to and following intravenous admini stration of contrast. 10/10 cc of gadavist contrast from a prefilled syringe was administered intravenously. Comparison: CT HEAD WITHOUT CONTRAST on DOS: 11/01/24 FINDINGS: [Findings] There is no restricted diffusion. There are patchy hyperintense T2 signal changes in supratentorial w marylu matter compatible with [id number] chronic microvascular ischemic changes. There is no path ologic enhancement. There is no evidence of hemorrhage, mass, mass effect or midline shift. There is no hydrocephalus or extra-axial fluid collection. The visualized intracranial vasculature demonstrate s appropriate flow-voids. The midline structures appear unremarkable. The craniocervical junction is within normal limits. The calvarium demonstrates normal marrow signal. There is fluid in the left mas toid air cells. The paranasal sinuses are clear. IMPRESSION: 1. There is no acute intracranial process. There is no evidence of intracranial metastasis. 2. Gtbu-gg-bxklphxm chronic microvascular white matter ischemic changes. HS:Y
[2024-11-04 10:23] LABS: Base Excess 3.9 mmol/L (-2.0-3.0)
[2024-11-04] MEDS: methylPREDNISolone SOD SUCC 125 MG/2 ML VL IV ONE (10:46)
--- NOTE | 2024-11-04 11:16 | DVH ---
CHEST RADIOGRAPH Indication: sob Technique: Single frontal view of the chest was obtained Comparison: XY CHEST PORTABLE on DOS: 11/01/24, XY CHEST PORTABLE on DOS: 03/07/24, XY CHEST PORTABLE on DOS: 02/05/24, XY CHEST PORTABLE on DOS: 02/02/24, XY CHEST XRAY 1 VIEW on DOS: 01/31/24 FINDINGS: Lines and Tubes: None Lungs: Possible mucous plug causing volume loss in the left hemithorax. Left basilar opacity. Pleura: Small left pleural effusion. Left basilar opacity. No pneumothorax. Cardiomediastinal contours: Unremarkable Bones: No acute osseous abnormality. IMPRESSION: Possible mucous plug causing volume loss in the left hemithorax.
--- NOTE | 2024-11-04 11:16 | DVH ---
Bilateral Chest Sonogram Date: 11/04/2024 10:39 AM Clinical history: left pleural eff Technique: Limited sonographic evaluation of the bilateral chest was performed to evaluate for pleur al effusion. Finding/Impression: There is a trace left pleural effusion visualized which is insufficient fluid for performance of thor acentesis. No right pleural effusion. Incidentally seen is a liver mass measuring 4.1 cm. Recommend further evaluation with MRI liver phase protocol.
[2024-11-04] MEDS: diphenhdrAMINE HCL 50 MG/1 ML VL IV ONE (11:30)
[2024-11-04] MEDS: MAGNESIUM SULFATE 1GM/100ML 100 ML IV SCH (11:39)
[2024-11-04] MEDS: ROCURONIUM 10MG/ML 10ML VIAL IV ONE (11:53)
[2024-11-04] MEDS: ETOMIDATE (2MG/ML) 20ML VIAL IV ONE ×2 (11:53→11:54)
[2024-11-04] MEDS: MIDAZOLAM DRIP 50 mg/50mL 50 ML IV ONE (11:54)
[2024-11-04] MEDS: PROPOFOL 100 ML IV ONE (11:54)
[2024-11-04] MEDS: fentaNYL Drip 2500mCg/250mlNS 250 ML IV ONE (11:54)
[2024-11-04] MEDS: NOREPINEPHRINE 8 MG/250ML KIT 0 ML IV ONE (11:58)
--- NOTE | 2024-11-04 12:20 | DVHNC2 ---
Procedure - Procedure: Endotracheal Intubation INDICATION: Acute hypoxic respiratory failure, accessory muscle usage Physician: Niko Sim MD Biology Internship Dr Navas PGY2 CONSENT: The risks and benefits of the procedure and the sedation options and risk were discussed with the patient's healthcare proxy. All questions were answered and informed consent was obtained. Time out time: 1201 pm Patient medications and allergies reviewed. Patient identification and proposed procedure were verified prior to the procedure by the physician, and a nurse in the patient's room. The heart rate, respiratory rate, oxygen saturations, blood pressure, adequacy of pulmonary ventilation, and response to care were monitored throughout the procedure. The physical status of the patient was reassessed after the procedure. PROCEDURE SUMMARY: A time out was performed. My hands were washed immediately prior to the procedure. I wore a surgical cap, mask with protective eyewear, gown and gloves throughout the procedure. The patient was placed on a hospital monitor including continuous pulse oximetry. The patient received 16 mg Etomidate and 50 mg rocuronium for induction. Cricoid pressure was maintained from time induction agent was given to time of cuff balloon inflation. Using a MAC 4 GlideoScope and a size 8.0 endotracheal tube with stylet, the patient was intubated on the 1 attempt. The stylet was removed and cuff balloon was inflated. Appropriate endotracheal tube position was confirmed by direct visualization of vocal cord passage, fogging of the tube, CO2 colorimetric indicator and symmetric breath sounds. The tube was secured at 23 cm at the lips. Post intubation chest x-ray is pending. ET tube was confirmed with emergent therapeutic bronchoscopy to clear mucous plugging in left mainstem bronchus onward in L1-L10. See separate procedure note. CPT Code: 29520 NIKO SIM MD Nov 04, 2024 12:20
--- NOTE | 2024-11-04 12:23 | DVHNC2 ---
Procedure - Bronchoscopy procedure note: Indications: Left lung collapse atelectasis, Possible mucous plugging. Medicines: See RN notes. Complications: None Time out 1210 pm Procedure: Patient medications and allergies reviewed. The risks and benefits of the procedure and the sedation options and risk were discussed with the patient's healthcare proxy and patient prior to intubation. All questions were answered and informed consent was obtained. Patient identification and proposed procedure were verified prior to the procedure by the physician, and a nurse, an dioni the respiratory therapist in ICU room. The heart rate, respiratory rate, oxygen saturations, blood pressure, adequacy of pulmonary ventilation, and response to care were monitored throughout the procedure. The physical status of the patient was reassessed after the procedure. After obtaining informed consent, the bronchoscope was introduced through the endotracheal tube and advanced into the trachea bronchial tree of both lungs. The procedure was accomplished without difficulty. The patient tolerated the procedure well. Findings: The trachea is in normal caliber. The lori is sharp. The tracheobronchial tree of the right lung was examined to at least the first subsegmental level. The bronchial mucosa and anatomy in the right lung are normal. There are no endobronchial lesions. There were no secretions. The left upper lobe, lingula, and left lower lobe were examined to at least the first subsegmental level. Bronchial mucosa and anatomy in the left upper lobe and lingula are normal. There were no endobronchial lesions. There was copious whitish secretions from left main stem bronchus onward throughout L1-L10. Mucous plugging removed from L1-L10. There was no active bleeding at the completion of the procedure. Estimated blood loss: Less than 5 mL. Impression: Left upper, lingula and lower lobe atelectasis due to mucous plugging Mucous plugging from L1-L10 Recommendation: Pulmonary toileting Procedure codes: 73929, Therapeutic bronchoscopy, rigid and flexible, including fluoroscopic guidance, one performed; with bronchial endobronchial broncho- alveolar lavage, single or multiple sites NIKO GUERRA MD Nov 04, 2024 12:22
[2024-11-04] MEDS: PROPOFOL 100 ML IV SCH (12:30)
[2024-11-04] MEDS: fentaNYL Drip 2500mCg/250mlNS 250 ML IV SCH (12:30)
--- NOTE | 2024-11-04 13:02 | DVHNC2 ---
Procedure - ULTRASOUND-GUIDED RIGHT INTERNAL JUGULAR CENTRAL VENOUS CANNULATION CPT Codes: 19160 (ultrasound guidance) 27992 (insertion of non-tunneled centrally inserted central venous catheter) 41219 (CXR interpretation) Time out time:1235 pm Emergent procedure. Medically necessary for venous access. Patient medications and allergies reviewed. Patient identification and proposed procedure were verified prior to the procedure by the physician, and a nurse in the patient's room. The heart rate, respiratory rate, oxygen saturations, blood pressure, adequacy of pulmonary ventilation, and response to care were monitored throughout the procedure. The physical status of the patient was reassessed after the procedure. DATE: 11/04/2024 PHYSICIAN: Niko Sim Local Owner Operator Truck Driver: Dr Navas, PGY 2 PREOPERATIVE DIAGNOSIS: Hypotension, in need of venous access POSTOPERATIVE DIAGNOSIS: Same PROCEDURE PERFORMED: Limited Ultrasound-guided Right internal jugular central line placement. ANESTHESIA: 2 mL of 1% lidocaine plain. ESTIMATED BLOOD LOSS: less than 5 mL. SPECIMENS: None. COMPLICATIONS: None. INDICATIONS FOR PROCEDURE: The patient is in need of large bore IV access for administration of fluids, including blood products and vasoactive drugs, possible transvenous cardiac pacing and CVP monitoring for hemodynamic instability. DESCRIPTION OF PROCEDURE IN DETAIL: The patient was lying in the Trendelenburg position with head turned 30 degrees away from the insertion site. The skin was thoroughly sponged with chlorhexidine and allowed to dry. All persons involved were shielded with hair nets, face masks and sterile gowns. With sterile-gloved hands the right neck area was draped with the large disposable sterile field provided in the pre-manufactured kit. The skin and subcutaneous tissues superficial to the RIGHT internal jugular vein were anesthetized with 2 mL of 1% lidocaine. The RIGHT internal jugular vein was identified on ultrasound from the angle of the mandible down into the supraclavicular fossa using the linear ultrasound probe in the transverse orientation. The carotid artery was identified and avoided utilizing color-flow. The internal jugular vein was then placed in the center of the ultrasound field and compressed for patency. A movement artifact was identified as the needle was advanced through the skin and advanced toward the vessel. A real time hyperechoic signal revealed visualization of vascular needle entry into the lumen as blood was noted to flashback in the syringe. The needle was then held in place while the guide wire was advanced. The needle was then removed. Direct visualization of guide wire location within the vein was noted on ultrasound indicating proper placement and was document in the electronic medical record chart. A skin dilator was advanced over the guidewire and removed, and the triple-lumen catheter was then advanced over the guide wire into proper position. The guide wire was removed and discarded. The ports were aspirated which showed good blood return and then carefully flushed with normal saline. The catheter was stabilized and sutured to the skin with 2-0 silk at 2 anchor points. A sterile bio-patch and dressing was placed over the catheter, including the insertion site. The patient tolerated the procedure well. A chest x-ray was ordered for position confirmation. Awaiting post-procedure CXR for confirmation of placement NIKO SIM MD Nov 04, 2024 13:02
--- NOTE | 2024-11-04 13:33 | DVH ---
CHEST RADIOGRAPH Indication: intubated Technique: Single frontal view of the chest was obtained COMPARISON: XY CHEST PORTABLE on DOS: 11/04/24, XY CHEST PORTABLE on DOS: 11/01/24, XY CHEST PORTABLE on DOS: 03/07/24 FINDINGS: Lines and Tubes: Endotracheal tube and right central venous catheter in satisfactory position. Enteri c catheter side port at the GE junction. Lungs: Left lung volume loss. Pleura: No effusion. No pneumothorax. Cardiomediastinal contours: Unremarkable Bones: Unremarkable IMPRESSION: Recommend advancement of enteric catheter by 3 cm.
[2024-11-04 13:45] LABS: Basophils # (auto) 0.1 10 ^3/uL (0-0.2); Basophils % (auto) 0.5 % (0.0-2.0); Eosinophils # (auto) 0.4 10 ^3/uL (0-0.8); Eosinophils % (auto) 3.5 % (0.0-7.0); Hematocrit 50.2 % (36.0-46.0); Hemoglobin 16.4 g/dL (12.2-16.2); Lymphocytes # (auto) 1.5 10 ^3/uL (0.4-5.4); Lymphocytes % (auto) 11.8 % (10.0-50.0); Mean Corpuscular Hemoglobin 31.3 pg (28.0-32.0); Mean Corpuscular Hgb Conc. 32.6 g/dL (32.0-36.0); Monocytes # (auto) 0.2 10 ^3/uL (0-1.3); Monocytes % (auto) 1.9 % (0.0-12.0); Neutrophils # (auto) 10.4 10 ^3/uL (1.6-8.6); Neutrophils % (auto) 82.3 % (37.0-80.0); Platelet Count (auto) 441 10^3/uL (140-450); Red Blood Cells 5.23 10^6/uL (4.0-5.20); Red Cell Distribution Width 14.1 % (11.8-14.3); White Blood Cell 12.6 10^3/uL (4.4-10.8)
--- NOTE | 2024-11-04 14:05 | DVHPNRES ---
Progress Note Date Seen: Nov 04, 2024 Resident Creating Document: MERVAT YARBROUGH RESIDENT Medical Necessity Reason Pt with a Central, PICC or Fol: No Medical Necessity Reason hypoxic respiratory distress Subjective Review of Systems Patient is seen and examined today She was lying in bed seemed to be in respiratory distress and on 2 L of oxygen,.She was scheduled to have bronchoscopy this morning however patient refused Later in the morning we were called in because patient was having difficulties in breathing ABG stat was done patient was intubated and transferred to ICU. Patient will later biopsy via bronchoscopy. Objective vital signs Vital Sign Date Time Temp Pulse Resp B/P (MAP) Pulse Ox O2 Delivery O2 Flow Rate FiO2 11/04/24 11:19 81 123/70 11/04/24 10:00 96 Simple Mask* 10 99 11/04/24 09:00 99.0 20 99.0 Total Intake and Output 11/03/24 11/03/24 11/04/24 15:00 23:00 07:00 Intake Total 50 ml 910 ml 300 ml Balance 50 ml 910 ml 300 ml medications Current Medications Medications Dose Ordered Sig/Natacha Route Start Time Stop Time Status Last Admin Dose Admin Ceftriaxone Sodium 50 ml @ 100 mls/hr DAILY IV 11/01/24 19:30 11/04/24 10:19 100 MLS/HR Diagnostic Test (Pha) 1 strip IQ4HR 11/01/24 20:00 11/04/24 08:00 1 STRIP Insulin Human Regular IQ4HR SC 11/01/24 20:00 11/03/24 20:00 8 UNITS Dextrose 50 ml UD PRN IV 11/01/24 19:30 Alprazolam 0.5 mg TID PRN PO 11/01/24 19:30 11/03/24 18:54 0.5 MG Amlodipine Besylate 5 mg DAILY PO 11/02/24 10:00 11/04/24 10:20 5 MG Gabapentin 300 mg TID PO 11/01/24 22:00 11/03/24 21:00 300 MG Metoprolol Tartrate 25 mg BID PO 11/01/24 22:00 11/04/24 10:19 25 MG Cholecalciferol 5,000 unit DAILY PO 11/02/24 10:00 11/04/24 10:21 5,000 UNIT Al Hydrox/Mg Hydrox/Simethicone 30 ml Q6HP PRN PO 11/01/24 19:30 Docusate Sodium 100 mg BIDPRN PRN PO 11/01/24 19:30 Acetaminophen 650 mg Q6HP PRN PO 11/01/24 19:30 Temazepam 15 mg QHSP PRN PO 11/01/24 19:30 11/03/24 21:21 15 MG Acetaminophen/ Hydrocodone Bitart 1 tab Q4HP PRN PO 11/01/24 19:30 11/03/24 20:45 1 TAB Ondansetron HCl 4 mg Q4HP PRN IV 11/01/24 19:30 Morphine Sulfate 2 mg Q4HPRN PRN IV 11/01/24 19:30 11/03/24 17:02 2 MG Azithromycin 250 ml @ 125 mls/hr DAILY IV 11/03/24 10:00 11/03/24 13:39 125 MLS/HR Enteral Nutritional Formula 240 ml BIDWM PO 11/03/24 08:00 11/03/24 18:07 240 ML Albuterol 2.5 mg Q2HPRN PRN NEB 11/04/24 10:15 Ipratropium [place] 0.5 mg Q4HWA NEB 11/04/24 14:00 Albuterol 2.5 mg Q4HWA NEB 11/04/24 14:00 Methylprednisolone Sodium Succinate 40 mg BID IV 11/04/24 22:00 Nicotine 1 patch DAILY TD 11/05/24 10:00 Examination General examination- acute distress, hypoxic HEENT: PEERLA, no acute nasal discharge Chest: S1-S2 audible, rate and rhythm regular, no murmur Lung: Silent chest on left side; Right side clear Abdomen: Nondistend, BS+, nontenderness, no organomegaly Musculoskeletal: no acute joint swelling or tenderness Lower extremity: no leg edema Neurological: cranial nerves intact, no acute dysarthria or dysphagia Psychiatry-- Normal mood and affect Skin- no acute rash or purpura laboratory and microbiology Test 11/04/24 13:30 Range/Units Serum Glucose Pending Microbiology Date/Time Source Procedure Growth Status 11/02/24 11:44 Nose MRSA Screen - Final Complete Problem List/Assessment/Plan Problem List/Assessment/Plan Sepsis due to pneumonia --> Ceftriaxone --> Azithromycin --> Maintenance fluid 100ml/hr Pneumonia Gram negative vs gram positive --> Pending sputum culture --> Ceftriaxone --> Azithromycin --> incentive spirometry Acute hypoxic respiratory failure --> COVID, influenza A and B: Negative --> Breathing treatment prn --> On 2 L of oxygen --> monitor sp02 regularly --> intubated today 11/04/2024 --> S/P brochoscopy with alveoli lavage and biopsy --> Now in ICU Left upper lobe lung mass Possible lung cancer with mediastinal lymphadenopathy multiple osseous metastatic lesions and multiple liver mets and left adrenal nodularity, diagnosis to be confirmed --> CT Angiogram: pleural effusion with associated left basilar atelectasis and consolidation. Multiple osseous metastatic lesions. Multiple liver metastases. Left adrenal nodularity --> Optimize patient -->Consult oncology--> cancer management --> Consult pulmonology for biopsy Severe Malnutrition -->Ensure high protein -->measure weight daily Left pleural effusion --> CT angiogram Lymphadenopathy Possible Bone metastasis likely COPD --> 560 pack years --> nebulizing treatment at home PE ruled out Pulmonology and oncology following History of perforated sigmoid diverticulitis status post colectomy in January, Goal of care discussed for more than 35 minute Case and plan discussed with Dr. Fox Plan discussed with: Patient My Orders My Orders Orders - MERVAT YARBROUGH Procedure Category Date Status Time Communication Order ORDERS 11/03/24 Transmitted 15:45 Transfer Orders XFER 11/04/24 Transmitted 11:23 Nicotine 14mg/24hr PHA 11/05/24 In Process (Nicoderm 14mg/24hr) 10:00 Date of Service: Nov 04, 2024 Billing Provider: SANTANA NAVA MD Common Visit Codes: [id number] INP/OBS CARE(HIGH) MERVAT YARBROUGH Nov 04, 2024 14:05 SANTANA NAVA MD Nov 07, 2024 09:07
[2024-11-04 14:06] LABS: INR 1.09 (0.9-1.15); Partial Thromboplastin Time 26.5 SEC (24.5-34.5); Prothrombin Time 11.5 sec (9.3-11.8)
[2024-11-04 14:25] LABS: Alanine Aminotransferase 13 U/L (7-40); Albumin 4.2 g/dL (3.2-4.8); Anion Gap 7 (5-15); Aspartate Aminotransferase 32 U/L (13-40); BUN/Creatinine Ratio 33.3 (10.0-20.0); Carbon Dioxide 30 mmol/L (20-31); Chloride 101 mmol/L (98-107); Potassium 4.8 mmol/L (3.5-5.1); Sodium 138 mmol/L (136-145)
[2024-11-04 14:26] LABS: Total Protein 7.2 g/dL (5.7-8.2)
[2024-11-04 14:42] LABS: Alkaline Phosphatase 142 U/L (46-116); Blood Urea Nitrogen 24 mg/dL (9-23); Calcium 10.8 mg/dL (8.7-10.4); Glucose 179 mg/dL (74-106)
[2024-11-04] MEDS: ALBUTEROL SULF 2.5 MG/0.5ML(0.5%) NEB SOLN NEB SCH (14:53)
[2024-11-04] MEDS: IPRATROPIUM BROM 0.5 MG/2.5ML INH SOL NEB SCH (14:53)
[2024-11-04] MEDS: NOREPINEPHRINE 8 MG/250ML KIT 250 ML IV SCH (15:00)
[2024-11-04] MEDS: ENOXAPARIN SOD 40 MG/0.4 ML SYRINGE SC ONE (15:00)
[2024-11-04] MEDS: NICOTINE 14 MG/24HR TOPICAL PATCH TD ONE (15:03)
[2024-11-04] MEDS: FUROSEMIDE 40 MG/4 ML VIAL IV ONE (15:03)
[2024-11-04 15:08] LABS: Bilirubin, Total 0.4 mg/dL (0.2-1.0)
[2024-11-04 15:09] LABS: Base Excess 2.5 mmol/L (-2.0-3.0)
--- NOTE | 2024-11-04 16:22 | DVHPN2 ---
Progress Note - Dictate Date Seen: Nov 04, 2024 Medical Necessity Reason Pt with a Central, PICC or Fol: No Subjective Patient seen and examined at bedside. Remains on supplemental oxygen Overnight events reviewed. vital signs Vital Sign Date Time Temp Pulse Resp B/P (MAP) Pulse Ox O2 Delivery O2 Flow Rate FiO2 11/04/24 16:13 98 16 95/56 (69) 100 80 11/04/24 14:17 Mechanical Ventilator+ 11/04/24 13:00 99.7 99.7 11/04/24 10:00 10 Total Intake and Output 11/03/24 11/03/24 11/04/24 15:00 23:00 07:00 Intake Total 50 ml 910 ml 300 ml Balance 50 ml 910 ml 300 ml medications Current Medications Medications Dose Ordered Sig/Natacha Route Start Time Stop Time Status Last Admin Dose Admin Ceftriaxone Sodium 50 ml @ 100 mls/hr DAILY IV 11/01/24 19:30 11/04/24 10:19 100 MLS/HR Diagnostic Test (Pha) 1 strip IQ4HR 11/01/24 20:00 11/04/24 15:11 1 STRIP Insulin Human Regular IQ4HR SC 11/01/24 20:00 11/04/24 12:00 8 UNITS Dextrose 50 ml UD PRN IV 11/01/24 19:30 Gabapentin 300 mg TID PO 11/01/24 22:00 11/04/24 14:00 300 MG Metoprolol Tartrate 25 mg BID PO 11/01/24 22:00 11/04/24 10:19 25 MG Docusate Sodium 100 mg BIDPRN PRN PO 11/01/24 19:30 Acetaminophen 650 mg Q6HP PRN PO 11/01/24 19:30 Ondansetron HCl 4 mg Q4HP PRN IV 11/01/24 19:30 Azithromycin 250 ml @ 125 mls/hr DAILY IV 11/03/24 10:00 11/04/24 15:02 125 MLS/HR Albuterol 2.5 mg Q2HPRN PRN NEB 11/04/24 10:15 Ipratropium [place] 0.5 mg Q4HWA NEB 11/04/24 14:00 11/04/24 14:53 0.5 MG Albuterol 2.5 mg Q4HWA NEB 11/04/24 14:00 11/04/24 14:53 2.5 MG Methylprednisolone Sodium Succinate 40 mg BID IV 11/04/24 22:00 Nicotine 1 patch DAILY TD 11/05/24 10:00 Norepinephrine Bitartrate 250 ml @ 3.75 mls/hr Q24H IV 11/04/24 15:00 Hold Pantoprazole Sodium 40 mg DAILY IV 11/05/24 10:00 Enoxaparin Sodium 40 mg DAILY SC 11/05/24 10:00 Propofol 100 ml @ 1.425 mls/ hr Q24H IV 11/04/24 12:30 Fentanyl Citrate 250 ml @ 2.5 mls/hr Q24H IV 11/04/24 12:30 objective Gen.: Patient lying in bed in no apparent distress. On supplemental oxygen. Head: Normocephalic, atraumatic Eyes: EOMI/PERRLA. Ears: Normal hearing. Normal anatomy. Neck/trachea: Trachea midline, supple. Nose: Normal external anatomy. Mouth: Moist mucous membranes. Chest: Decreased air entry bilaterally. No wheezing . Left upper lobe rhonchi. Cardio vascular: Positive S1, positive S2. Regular rate and rhythm. Abdomen: Positive bowel sounds in all 4 quadrants. Soft, non-tender, non- distended. : Deferred. Rectal: Deferred Skin: Warm, dry. Extremities: 2+ radial pulses bilaterally. No lower extremity edema. Neuro: Awake, alert, oriented x3. No gross motor or sensory deficits. Cranial nerves II through XII intact. Gait not assessed. laboratory and microbiology Laboratory Tests 11/04/24 13:30 Test 11/04/24 13:30 Range/Units Serum Glucose 179 H 74-106 mg/dL Assessment/Plan Impression: Acute hypoxic respiratory failure Pneumonia likely Gram-negative Possible metastatic lung disease Multiple osseous metastatic lesions Rule out lung malignancy Multiple liver metastasis Nicotine dependence Atelectasis Sepsis secondary to pneumonia COPD Events: Remains on supplemental oxygen, 2 LPM NC Taper O2 as tolerated BiPAP PRN. Patient refused bronchoscopy. Abdominal ultrasound this AM. Continue bronchodilators Continue antibiotics Incentive spirometry Labs and imaging reviewed. Rest of plan as noted below. Plan: CT chest report and images reviewed. Left upper lobe consolidation suggestive of malignancy versus pneumonia. Patient was consented yesterday for bronchoscopy with bronchoalveolar lavage, possible brushings, possible biopsy. With full knowledge of the risks and benefits, patient agreed for procedure. Plan for procedure today, November 04, 2024. Supplemental oxygen Keep O2 saturation above 92%. On 2 liters/minute via nasal cannula Bronchodilators Continue antibiotics. Follow up cultures. Oncology recommendations appreciated. Bone scan. Suggestive of osseous metastasis. DVT prophylaxis Prognosis: Poor given multiple comorbidities. Rest of plan per hospitalist and other consultants. Thank you Dr. Ambrosio/Dr Fox for allowing me to participate in this patient's care. Further recommendations will depend on patient's clinical course. Please do not hesitate to contact me if you have any questions or concerns. This medical document was created using an electronic medical record system with [employer] dictation system. Although this document has been carefully reviewed, there may still be some phonetic and typographical errors. These areas are purely typographical due to imperfections of the software programs, and do not reflect any compromise in the patient's medical care. Plan discussed with: Patient, Other (CRISTIAN Mireles) NIKO GUERRA MD Nov 04, 2024 16:22
[2024-11-04] MEDS: NOREPINEPHRINE 8 MG/250ML KIT 250 ML IV ONE (17:43)
[2024-11-04] MEDS: PANTOPRAZOLE 40 MG/10 ML VIAL INJ IV ONE (17:53)
--- NOTE | 2024-11-04 18:01 | DVHNC2 ---
Procedure - Bronchoscopy procedure note: Indications: Left upper lobe mass/consolidation, Possible mucous plugging. 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 Complications: None Time out 1715 pm Procedure: Patient medications and allergies reviewed. The risks and benefits of the procedure and the sedation options and risk were discussed with the patient's healthcare proxy. All questions were answered and informed consent was obtained. Patient identification and proposed procedure were verified prior to the procedure by the physician, and a nurse, and the respiratory therapist in ICU room. The heart rate, respiratory rate, oxygen saturations, blood pressure, adequacy of pulmonary ventilation, and response to care were monitored throughout the procedure. The physical status of the patient was reassessed after the procedure. After obtaining informed consent, the bronchoscope was introduced through the endotracheal tube and advanced into the trachea bronchial tree of both lungs. The procedure was accomplished without difficulty. The patient tolerated the procedure well. Findings: The trachea is in normal caliber. The lori is sharp. The tracheobronchial tree of the right lung was examined to at least the first subsegmental level. The bronchial mucosa and anatomy in the right lung are normal. There are no endobronchial lesions. There was copious whitish secretions from right main stem bronchus onward throughout R1-R10. The left upper lobe, lingula, and left lower lobe were examined to at least the first subsegmental level. Bronchial mucosa and anatomy in the left upper lobe and lingula are normal. There were no endobronchial lesions. There was copious whitish secretions from left main stem bronchus onward throughout L1-L3. Mucous plugging removed from L1-L3. LEFT UPPER lobe (KEY) Bronchoalveolar lavage (BAL) obtained. KEY BAL sent for gram stain and culture, viral culture, fungal culture. KEY Brushings and biopsy were also obtained. There was no active bleeding at the completion of the procedure. Estimated blood loss: Less than 5 mL. Impression: Left upper lobe atelectasis due to mucous plugging Mucous plugging from L1-L3 KEY BAL performed KEY brushings and biopsy Recommendation: Follow-up KEY BAL results. Procedure codes: 90173, bronchoscopy, rigid and flexible, including fluoroscopic guidance, one performed; with bronchial endobronchial biopsy, single or multiple sites NIKO GUERRA MD Nov 04, 2024 18:01
--- NOTE | 2024-11-04 18:40 | DVH ---
CHEST RADIOGRAPH Indication: s/p KEY biopsy of lung Technique: Single frontal view of the chest was obtained Comparison: XY CHEST PORTABLE on DOS: 11/04/24, XY CHEST PORTABLE on DOS: 11/04/24, XY CHEST PORTABLE on DOS: 11/01/24 Findings/ IMPRESSION: Endotracheal tube and right IJ CVC appear in proper position. Enteric tube side port projects at the level of the GE junction. Recommend advancing 5 cm and obtaining follow-up imaging. Left upper lung zone predominant interstitial and alveolar opacities which may be reactive from recent biopsy however difficult to exclude superimposed airspace disease. No obvious pneumothorax.
[2024-11-04] MEDS: MIDAZOLAM DRIP 50 mg/50mL 50 ML IV SCH (18:50)
[2024-11-04] MEDS: methylPREDNISolone SOD SUCC 40 MG/ML VL IV SCH (21:50)
[2024-11-05] VITALS (106 sets, daily range): BP systolic 85–135; BP diastolic 35–74; PULSE 75–95; RESP 15–16; TEMP 97.8–98.9; O2SAT 94–100
[2024-11-05 04:08] LABS: Basophils # (auto) 0 10 ^3/uL (0-0.2); Basophils % (auto) 0.1 % (0.0-2.0); Eosinophils # (auto) 0 10 ^3/uL (0-0.8); Eosinophils % (auto) 0.1 % (0.0-7.0); Hemoglobin 15.1 g/dL (12.2-16.2); Lymphocytes # (auto) 1.5 10 ^3/uL (0.4-5.4); Lymphocytes % (auto) 11.2 % (10.0-50.0); Mean Corpuscular Hemoglobin 31.5 pg (28.0-32.0); Mean Corpuscular Hgb Conc. 33.6 g/dL (32.0-36.0); Mean Corpuscular Volume 93.8 fL (80.0-100.0); Monocytes # (auto) 0.4 10 ^3/uL (0-1.3); Monocytes % (auto) 2.6 % (0.0-12.0); Neutrophils # (auto) 11.7 10 ^3/uL (1.6-8.6); Nucleated Red Blood Cells % 0.1 %; Platelet Count (auto) 560 10^3/uL (140-450); Red Cell Distribution Width 13.4 % (11.8-14.3); White Blood Cell 13.6 10^3/uL (4.4-10.8)
[2024-11-05 04:24] LABS: Alanine Aminotransferase 12 U/L (7-40); Albumin 3.9 g/dL (3.2-4.8); Anion Gap 11 (5-15); Aspartate Aminotransferase 23 U/L (13-40); BUN/Creatinine Ratio 24.8 (10.0-20.0); Calcium 10.3 mg/dL (8.7-10.4); Carbon Dioxide 26 mmol/L (20-31); Potassium 4.5 mmol/L (3.5-5.1)
[2024-11-05 04:25] LABS: Total Protein 6.8 g/dL (5.7-8.2)
[2024-11-05 04:26] LABS: Alkaline Phosphatase 126 U/L (46-116); Bilirubin, Total 0.2 mg/dL (0.2-1.0); Blood Urea Nitrogen 36 mg/dL (9-23); Chloride 98 mmol/L (98-107); Glucose 183 mg/dL (74-106); Magnesium 2.7 mg/dL (1.6-2.6); Sodium 135 mmol/L (136-145)
--- NOTE | 2024-11-05 05:41 | DVH ---
CHEST RADIOGRAPH Indication: sob Technique: Single frontal view of the chest was obtained Comparison: XY CHEST XRAY 1 VIEW on DOS: 11/04/24, XY CHEST PORTABLE on DOS: 11/04/24, XY CHEST RAUL BLE on DOS: 11/04/24 IMPRESSION: Patient is rotated to the right. The heart appears relatively normal in size. Support lines and tu bes appear unchanged in satisfactory in position. No pneumothorax. Increased opacity in the left uppe r lung appear similar to prior examination.
[2024-11-05 07:11] LABS: Base Excess -0.2 mmol/L (-2.0-3.0)
[2024-11-05] MEDS: SODIUM CHLORIDE 0.9% 250 ML IV ONE (08:45)
[2024-11-05] MEDS: methylPREDNISolone SOD SUCC 40 MG/ML VL IV SCH (09:08)
[2024-11-05] MEDS: PANTOPRAZOLE 40 MG/10 ML VIAL INJ IV SCH (09:08)
[2024-11-05] MEDS: ENOXAPARIN SOD 40 MG/0.4 ML SYRINGE SC SCH (09:08)
[2024-11-05] MEDS ORDERED: INSULIN LANTUS (GLARGINE) 1 /0.01ml (100units/ml) SC SCH (10:00)
[2024-11-05] MEDS ORDERED: NICOTINE 14 MG/24HR TOPICAL PATCH TD SCH (10:00)
[2024-11-05] MEDS: INSULIN LANTUS (GLARGINE) 1 /0.01ml (100units/ml) SC SCH (10:45)
[2024-11-05] MEDS: ACETYLCYSTEINE 20%(200MG/ML) SOL 4ML NEB SCH (13:41)
--- NOTE | 2024-11-05 13:54 | DVHPNRES ---
Progress Note Date Seen: Nov 05, 2024 Resident Creating Document: SANA DUARTE RESIDENT Medical Necessity Reason Pt with a Central, PICC or Fol: No Subjective Review of Systems Patient was seen and examined at bedside. She remains on mechanical ventilator, minimal vent settings, off vasopressors, currently on propofol and fentanyl. Chest x-ray shows significant improvement from yesterday, no significant secretions on suctioning, we will place the patient on Mucomyst and chest percussions. Current ABG is respiratory acidosis compensated. Continue broad-spectrum antibiotics, pending biopsy results. We will reassess tomorrow for CPAP trial. Objective vital signs Vital Sign Date Time Temp Pulse Resp B/P (MAP) Pulse Ox O2 Delivery O2 Flow Rate FiO2 11/05/24 13:07 83/40 11/05/24 12:15 80 16 96 30 11/05/24 12:00 Mechanical Ventilator+ 11/05/24 08:00 98.4 98.4 11/04/24 10:00 10 Total Intake and Output 11/04/24 11/04/24 11/05/24 15:00 23:00 07:00 Intake Total 78.75 ml 334.00 ml 366.90 ml Output Total 600 ml 150 ml Balance 78.75 ml -266.00 ml 216.90 ml medications Current Medications Medications Dose Ordered Sig/Natacha Route Start Time Stop Time Status Last Admin Dose Admin Ceftriaxone Sodium 50 ml @ 100 mls/hr DAILY IV 11/01/24 19:30 11/05/24 09:05 100 MLS/HR Diagnostic Test (Pha) 1 strip IQ4HR 11/01/24 20:00 11/05/24 12:00 1 STRIP Insulin Human Regular IQ4HR SC 11/01/24 20:00 11/05/24 12:00 4 UNITS Dextrose 50 ml UD PRN IV 11/01/24 19:30 Gabapentin 300 mg TID PO 11/01/24 22:00 11/05/24 05:58 300 MG Docusate Sodium 100 mg BIDPRN PRN PO 11/01/24 19:30 Acetaminophen 650 mg Q6HP PRN PO 11/01/24 19:30 Ondansetron HCl 4 mg Q4HP PRN IV 11/01/24 19:30 Azithromycin 250 ml @ 125 mls/hr DAILY IV 11/03/24 10:00 11/05/24 09:05 125 MLS/HR Albuterol 2.5 mg Q2HPRN PRN [facility] 11/04/24 10:15 Ipratropium [place] 0.5 mg Q4HWA [facility] 11/04/24 14:00 11/05/24 13:40 0.5 MG Albuterol 2.5 mg Q4HWA [facility] 11/04/24 14:00 11/05/24 13:40 2.5 MG Norepinephrine Bitartrate 250 ml @ 3.75 mls/hr Q24H IV 11/04/24 15:00 11/04/24 15:00 3.75 MLS/HR Pantoprazole Sodium 40 mg DAILY IV 11/05/24 10:00 11/05/24 09:08 40 MG Enoxaparin Sodium 40 mg DAILY SC 11/05/24 10:00 11/05/24 09:08 40 MG Propofol 100 ml @ 1.425 mls/ hr Q24H IV 11/04/24 12:30 11/05/24 07:27 8.55 MLS/HR Fentanyl Citrate 250 ml @ 2.5 mls/hr Q24H IV 11/04/24 12:30 11/05/24 07:29 12.5 MLS/HR Midazolam HCl 50 ml @ 1 mls/hr Q24H IV 11/04/24 18:45 11/05/24 06:57 2 MLS/HR Methylprednisolone Sodium Succinate 40 mg DAILY IV 11/05/24 10:00 11/05/24 09:08 40 MG Acetylcysteine 200 mg Q8HR [facility] 11/05/24 14:00 11/05/24 13:41 200 MG Insulin Glargine 10 units DAILY@1000 SC 11/05/24 10:45 11/05/24 10:45 10 UNITS Examination General: Intubated HEENT: Head is normocephalic and atraumatic. Pupils are equal, round, and reactive to light. Neck: Supple with no cervical lymphadenopathy No meningismus. No goiter. Heart: Regular rate without murmur, rub, or gallop. Lungs: Scattered crackles, scattered wheezing Abdomen: No external sign of injury. Bowel sounds are present. Abdomen is soft, nontender. No rebound, no guarding, no rigidity. There are no palpable masses. There is no flank pain on exam. Extremities: Strong peripheral pulses. There is no clubbing, no cyanosis, and no edema. Skin: No rash. Neurologic: Sedated laboratory and microbiology Laboratory Tests 11/05/24 03:02 Test 11/05/24 03:02 Range/Units Serum Glucose 183 H 74-106 mg/dL Microbiology Date/Time Source Procedure Growth Status 11/04/24 17:25 Lung Pending Resulted 11/04/24 17: Lung Pending Resulted 11/04/24 17: Lung Pending Resulted 11/04/24 17: Lung Pending Resulted 11/04/24 17: Lung - Final See Separate Report... Resulted 11/04/24 12: Sputum Gram Stain Pending Resulted 11/04/24: Sputum Respiratory Culture - Preliminary Resulted Labs and/or images reviewed: Labs reviewed by me, Image(s) reviewed by me Problem List/Assessment/Plan Problem List/Assessment/Plan Sepsis due to pneumonia --> cefepime --> Azithromycin Pneumonia Gram negative vs gram positive --> Pending sputum culture --> Ceftriaxone --> Azithromycin Acute hypoxic respiratory failure --> COVID, influenza A and B: Negative --> Breathing treatment prn On mechanical ventilator --> monitor sp02 regularly --> intubated 11/04/2024 --> S/P brochoscopy with alveoli lavage and biopsy Continue ICU status Left upper lobe lung mass Possible lung cancer with mediastinal lymphadenopathy multiple osseous metastatic lesions and multiple liver mets and left adrenal nodularity, diagnosis to be confirmed --> CT Angiogram: pleural effusion with associated left basilar atelectasis and consolidation. Multiple osseous metastatic lesions. Multiple liver metastases. Left adrenal nodularity --> Optimize patient -->Consult oncology--> cancer management --> Consult pulmonology for biopsy Severe Malnutrition -->Ensure high protein -->measure weight daily Left pleural effusion --> CT angiogram Lymphadenopathy Possible Bone metastasis COPD exacerbation Continue DuoNebs Solu-Medrol 40 mg IV q.d. PE ruled out Pulmonology and oncology following History of perforated sigmoid diverticulitis status post colectomy in January, Goal of care discussed for more than 23 minutes Case and plan discussed with Dr. Rivera Plan discussed with: Spouse, Other (RN) My Orders My Orders Orders - SANA DUARTE RESIDENT Procedure Category Date Status Time Norepinephrine 8 PHA 11/04/24 In Process Mg/250ml Kit 15:00 Pantoprazole PHA 11/05/24 In Process (Protonix) 10:00 Enoxaparin Sodium PHA 11/05/24 In Process (Lovenox) 10:00 Propofol (Diprivan) PHA 11/04/24 In Process 12:30 Fentanyl Drip PHA 11/04/24 In Process 2500mcg/250mlns 12:30 Communication Order ORDERS 11/04/24 Transmitted 12:45 Chest Portable XY 11/05/24 Resulted 04:00 Abg W/ Co-Ox RT 11/05/24 Logged 04:00 Npo (Nothing By DIET 11/04/24 Transmitted Mouth) Diet Dinner Midazolam Drip 50 PHA 11/04/24 In Process Mg/50ml (Versed Drip 5 18:45 Methylprednisolone PHA 11/05/24 In Process Sod Succ (Solu Medrol 10:00 Acetylcysteine PHA 11/05/24 In Process Inhalation 20% 14:00 Chest Percussion Tx RT 11/05/24 Logged Initi 09:09 Insulin Lantus PHA 11/05/24 In Process (Glargine) (Lantus) 10:45 Complete Blood Count LAB 11/06/24 Verified 04:00 Basic Metabolic Panel LAB 11/06/24 Verified 04:00 Chest Portable XY 11/06/24 Logged 04:00 Abg W/ Co-Ox RT 11/06/24 Logged 04:00 Date of Service: Nov 05, 2024 Billing Provider: THERESA RIVERA MD Common Visit Codes: [id number] CARE 30-74 MIN SANA DUARTE RESIDENT Nov 05, 2024 13:54 THERESA RIVERA MD Nov 05, 2024 19:58
--- NOTE | 2024-11-05 19:08 | DVHPN ---
DATE: 11/05/2024 PULMONARY FOLLOWUP PRIMARY PHYSICIAN: Dr. Elizabet Ambrosio I am covering for Dr. Sim. SUBJECTIVE: The patient is ____ on current vent settings. The patient has a history of acute respiratory failure, pneumonia, history of possible metastasis and COPD. The patient underwent a bronchoscopy. The patient apparently is sedated with fentanyl, Diprivan. The patient is also on low dose Levophed at 2 mcg. PHYSICAL EXAMINATION: VITAL SIGNS: Afebrile, heart rate 75, respiratory rate 16, blood pressure 96/50, saturations were 96% on 30%. HEENT: Unremarkable. NECK: Supple. No lymphadenopathy. CHEST: Reveals right-sided rales, no wheezing. Air entry is fair. ABDOMEN: Soft, nontender. Bowel sounds are present. EXTREMITIES: No edema or clubbing was noted. LABORATORY DATA: WBC 13, hemoglobin 15, hematocrit 45, platelet count 560. Blood gases; pH 7.34, pCO2 48, pO2 74, saturation 93 on assist control, tidal volume 450, PEEP of 5, FiO2 35% and a rate of 16. Influenza A and B and COVID rapid antigen tests were negative. Chest x-ray shows opacity in the right upper lobe. IMPRESSION: Acute respiratory failure, pneumonia, possible metastatic lung disease with multiple osseous metastases as well, right upper lobe infiltrate. Liver metastasis, sepsis. PLAN: At this time, we will continue current sedation. Keep the patient comfortable. Titrate to keep RASS -1 to -2. Continue antibiotics. The patient is on Zithromax. Continue Lovenox for DVT prophylaxis and Protonix for GI prophylaxis. The patient remains also on acetylcysteine and med nebs as well as Solu-Medrol. The patient is also on cefepime. Prognosis is guarded, especially with underlying possible metastasis disease. If patient remains stable, we will try to wean her over next few days. Awaiting oncology, biopsy was done by Dr. Sim. MD MAMI Nelson/JUDI/REYNALDO TID: [id number] RECEIPT: [id number] cc: Dr. Navas
[2024-11-05] MEDS ORDERED: CEFEPIME 1GM/ 50ML 50 ML IV SCH (22:00)
[2024-11-05] MEDS: CEFEPIME 1GM/ 50ML 50 ML IV SCH (22:20)
[2024-11-06] VITALS (107 sets, daily range): BP systolic 93–154; BP diastolic 37–70; PULSE 72–100; RESP 16–26; TEMP 97.8–99.1; O2SAT 94–100
[2024-11-06 03:21] LABS: Basophils # (auto) 0 10 ^3/uL (0-0.2); Basophils % (auto) 0.1 % (0.0-2.0); Eosinophils # (auto) 0 10 ^3/uL (0-0.8); Eosinophils % (auto) 0.2 % (0.0-7.0); Hematocrit 40.1 % (36.0-46.0); Hemoglobin 13.4 g/dL (12.2-16.2); Lymphocytes # (auto) 1.7 10 ^3/uL (0.4-5.4); Lymphocytes % (auto) 8.9 % (10.0-50.0); Mean Corpuscular Hemoglobin 31.3 pg (28.0-32.0); Mean Corpuscular Hgb Conc. 33.4 g/dL (32.0-36.0); Mean Corpuscular Volume 93.8 fL (80.0-100.0); Monocytes # (auto) 2.2 10 ^3/uL (0-1.3); Monocytes % (auto) 11.8 % (0.0-12.0); Neutrophils # (auto) 14.7 10 ^3/uL (1.6-8.6); Platelet Count (auto) 411 10^3/uL (140-450); Red Blood Cells 4.28 10^6/uL (4.0-5.20); Red Cell Distribution Width 13.1 % (11.8-14.3); White Blood Cell 18.7 10^3/uL (4.4-10.8)
[2024-11-06 03:31] LABS: Chloride 100 mmol/L (98-107)
[2024-11-06 03:33] LABS: Anion Gap 8 (5-15); Calcium 9.9 mg/dL (8.7-10.4); Carbon Dioxide 27 mmol/L (20-31)
[2024-11-06 03:38] LABS: BUN/Creatinine Ratio 37.3 (10.0-20.0)
[2024-11-06 03:43] LABS: Blood Urea Nitrogen 53 mg/dL (9-23); Glucose 110 mg/dL (74-106); Sodium 135 mmol/L (136-145)
--- NOTE | 2024-11-06 05:58 | DVH ---
CHEST RADIOGRAPH Indication: sob Technique: Single frontal view of the chest was obtained COMPARISON: XY CHEST PORTABLE on DOS: 11/05/24, XY CHEST XRAY 1 VIEW on DOS: 11/04/24, XY CHEST RAUL BLE on DOS: 11/04/24 FINDINGS: Lines and Tubes: Endotracheal tube and right central venous catheter in satisfactory position. Lungs: Mild congestion Pleura: No effusion. No pneumothorax. Cardiomediastinal contours: Unremarkable Bones: Unremarkable IMPRESSION: Lines and tubes in satisfactory position. No significant interval change.
[2024-11-06 07:33] LABS: Base Excess -0.7 mmol/L (-2.0-3.0)
--- NOTE | 2024-11-06 12:52 | DVH ---
CHEST RADIOGRAPH Indication: ET PLACEMENT Technique: Single frontal view of the chest was obtained COMPARISON: XY CHEST PORTABLE on DOS: 11/06/24, XY CHEST PORTABLE on DOS: 11/05/24, XY CHEST XRAY 1 V IEW on DOS: 11/04/24 FINDINGS: Lines and Tubes: Endotracheal tube, enteric catheter and right central venous catheter in satisfactor y position. Lungs: Left upper lobe airspace disease. Pleura: No effusion. No pneumothorax. Cardiomediastinal contours: Unremarkable Bones: Unremarkable IMPRESSION: Lines and tubes in satisfactory position. No significant interval change.
[2024-11-06 12:59] LABS: Base Excess -1.8 mmol/L (-2.0-3.0)
[2024-11-06] MEDS: SODIUM CHLORIDE 0.9% 500 ML IV ONE (13:09)
--- NOTE | 2024-11-06 19:39 | DVHPNRES ---
Progress Note Date Seen: Nov 06, 2024 Resident Creating Document: MERVAT YARBROUGH RESIDENT Medical Necessity Reason Pt with a Central, PICC or Fol: No Medical Necessity Reason In ICU intubated arousable Subjective Review of Systems Patient was seen and examined at bedside. She remains on mechanical ventilator, minimal vent settings, off vasopressors, currently on propofol and fentanyl. Chest x-ray shows significant day by day. Current ABG is respiratory acidosis Vent setting on RR: 16 ABG: respiratory acidosis WBC; trending up On broad-spectrum antibiotics, pending biopsy results. Objective vital signs Vital Sign Date Time Temp Pulse Resp B/P (MAP) Pulse Ox O2 Delivery O2 Flow Rate FiO2 11/06/24 19:00 72 18 121/64 (83) 100 11/06/24 18:00 30 11/06/24 18:00 Mechanical Ventilator+ 11/06/24 16:00 98.8 98.8 11/04/24 10:00 10 Total Intake and Output 11/05/24 11/05/24 11/06/24 15:00 23:00 07:00 Intake Total 259.75 ml 274.2 ml 321.45 ml Output Total 50 ml 550 ml Balance 259.75 ml 224.2 ml -228.55 ml medications Current Medications Medications Dose Ordered Sig/Natacha Route Start Time Stop Time Status Last Admin Dose Admin Diagnostic Test (Pha) 1 strip IQ4HR 11/01/24 20:00 11/06/24 17:28 1 STRIP Insulin Human Regular IQ4HR SC 11/01/24 20:00 11/06/24 17:28 2 UNITS Dextrose 50 ml UD PRN IV 11/01/24 19:30 Gabapentin 300 mg TID PO 11/01/24 22:00 11/06/24 14:04 300 MG Docusate Sodium 100 mg BIDPRN PRN PO 11/01/24 19:30 Acetaminophen 650 mg Q6HP PRN PO 11/01/24 19:30 Ondansetron HCl 4 mg Q4HP PRN IV 11/01/24 19:30 Azithromycin 250 ml @ 125 mls/hr DAILY IV 11/03/24 10:00 11/06/24 10:08 125 MLS/HR Albuterol 2.5 mg Q2HPRN PRN NEB 11/04/24 10:15 Ipratropium [place] 0.5 mg Q4HWA NEB 11/04/24 14:00 11/06/24 14:24 0.5 MG Albuterol 2.5 mg Q4HWA [facility] 11/04/24 14:00 11/06/24 14:23 2.5 MG Norepinephrine Bitartrate 250 ml @ 3.75 mls/hr Q24H IV 11/04/24 15:00 11/05/24 20:20 7.5 MLS/HR Pantoprazole Sodium 40 mg DAILY IV 11/05/24 10:00 11/06/24 10:07 40 MG Enoxaparin Sodium 40 mg DAILY SC 11/05/24 10:00 11/06/24 10:08 40 MG Propofol 100 ml @ 1.425 mls/ hr Q24H IV 11/04/24 12:30 11/06/24 17:36 11.4 MLS/HR Fentanyl Citrate 250 ml @ 2.5 mls/hr Q24H IV 11/04/24 12:30 11/06/24 03:25 12.5 MLS/HR Midazolam HCl 50 ml @ 1 mls/hr Q24H IV 11/04/24 18:45 11/05/24 06:57 2 MLS/HR Methylprednisolone Sodium Succinate 40 mg DAILY IV 11/05/24 10:00 11/06/24 10:07 40 MG Acetylcysteine 200 mg Q8HR [facility] 11/05/24 14:00 11/06/24 14:24 200 MG Insulin Glargine 10 units DAILY@1000 SC 11/05/24 10:45 11/06/24 10:36 10 UNITS Cefepime HCl 50 ml @ 12.5 mls/hr DAILY@2200 IV 11/05/24 22:00 11/05/24 22:20 12.5 MLS/HR Examination HEENT: Head is normocephalic and atraumatic. Pupils are equal, round, and reactive to light. Neck: Supple with no cervical lymphadenopathy No meningismus. No goiter. Heart: Regular rate without murmur, rub, or gallop. Lungs: Scattered crackles, scattered wheezing Abdomen: No external sign of injury. Bowel sounds are present. Abdomen is soft, nontender. No rebound, no guarding, no rigidity. There are no palpable masses. There is no flank pain on exam. Extremities: Strong peripheral pulses. There is no clubbing, no cyanosis, and no edema. Skin: No rash. Neurologic: Sedated, but easily arousable laboratory and microbiology Laboratory Tests 11/06/24 03:00 Test 11/06/24 03:00 Range/Units Serum Glucose 110 H 74-106 mg/dL Microbiology Date/Time Source Procedure Growth Status 11/04/24 17:25 Lung Pending Resulted 11/04/24 17: Lung Pending Resulted 11/04/24 17:25 Lung Pending Resulted 11/04/24 17:25 Lung Pending Resulted 11/04/24 17: Lung - Final See Separate Report... Resulted 11/04/24: Sputum Gram Stain Pending Resulted 11/04/24: Sputum Respiratory Culture - Preliminary Resulted Problem List/Assessment/Plan Problem List/Assessment/Plan Sepsis due to pneumonia --> Cefepime --> Azithromycin --> Maintenance fluid 100ml/hr Pneumonia Gram negative vs gram positive --> Pending sputum culture --> Cefepime --> Azithromycin Acute hypoxic respiratory failure --> COVID, influenza A and B: Negative --> intubated on 11/04/2024 --> S/P brochoscopy with alveoli lavage and biopsy --> Now in ICU --> respiratory acidosis --> Increase RR to 18 Left upper lobe lung mass Possible lung cancer with mediastinal lymphadenopathy multiple osseous metastatic lesions and multiple liver mets and left adrenal nodularity, diagnosis to be confirmed --> CT Angiogram: pleural effusion with associated left basilar atelectasis and consolidation. Multiple osseous metastatic lesions. Multiple liver metastases. Left adrenal nodularity --> Optimize patient -->Consult oncology--> cancer management --> Consult pulmonology for biopsy Severe Malnutrition -->Ensure high protein -->measure weight daily Left pleural effusion --> CT angiogram Lymphadenopathy Possible Bone metastasis likely COPD --> 560 pack years --> nebulizing treatment at home Leukocytosis --> Blood culture ordered --> Urine culture ordered Diet: --> Start OG Tube feeding PETE due to VMN --> give bolus IV fluid --> Maintenance 100ml/r PE ruled out Pulmonology and oncology following In ICU and intubated History of perforated sigmoid diverticulitis status post colectomy in January, Goal of care discussed for more than 45 minute Case and plan discussed with Dr. Rivera Plan discussed with: Other (NURSE) My Orders My Orders Orders - MERVAT YARBROUGH RESIDENT Procedure Category Date Status Time Blood Culture LISS 11/06/24 In Process 18:00 Urine Bacterial LISS 11/06/24 In Process Culture 14:00 Chest Portable XY 11/06/24 Resulted 11:57 Dietary Evaluation Review Comments: 1) If GI is accessible consider Glucerna 1.2 @ 40 ml/hr x 24 hrs goal rate as tolerated 2) If pt remains NPO >7 days consider TPN to meet at least 75% of estimated needs 3) Advance pt diet when medically feasible [facility] 4) Continue current plan of care Expected Outcomes/Goals: 1) Pt to receive adequate nutrition support within 7 days of NPO status 2) Pt diet to advance 3) P labs to improve 4) F/U in 2-3 days Date of Service: Nov 06, 2024 Billing Provider: THERESA RIVERA MD Common Visit Codes: [id number] CARE 30-74 MIN MERVAT YARBROUGH RESIDENT Nov 06, 2024 19:39 THERESA RIVERA MD Nov 06, 2024 23:33
--- NOTE | 2024-11-06 20:23 | DVHPN ---
DATE: 11/06/2024 PULMONARY FOLLOWUP PRIMARY PHYSICIAN: Dr. Ambrosio. SUBJECTIVE: The patient is awaiting biopsy for bronchoscopy. No significant secretions, no hemoptysis. The patient remains comfortable on current vent settings. Ventilator patient synchrony is good synchrony. The patient has not been running any fevers. Patient still remains on Levophed. OBJECTIVE: VITAL SIGNS: Afebrile, respiratory rate 18 with the ventilator, blood pressure 120/64, saturation 98% to 99%. NECK: Supple. No JVD. CHEST: Reveals few rales on the right side. Prolonged exhalation. No wheezing. ABDOMEN: Soft, nontender. Bowel sounds normal. EXTREMITIES: 1+ edema. NEUROLOGIC: Sedated, comfortable. No distress. Lab work noted. WBC 18. Rest of CBC unremarkable. Blood gases are adequate on current vent settings of assist control, tidal volume of 450, rate of 18, peep of 5, 30% FiO2. Serum chemistries were reviewed. BUN 53, creatinine 1.42. Other lab work noted. Cultures all negative. Cytology and cultures from bronchoscopy are pending. Chest x-ray shows lines and tubes are in position. Left upper lobe airspace disease. Endotracheal tube in place. IMPRESSION: Acute respiratory failure, chronic obstructive pulmonary disease, underlying possible lung mass, possible metastatic disease with bone scan being positive. We will await the results of bronchoscopy cultures and pathology. Oncology evaluation is pending. Continue med nebs. The patient is on azithromycin. Continue Protonix for GI prophylaxis, Lovenox for DVT prophylaxis. Can change to p.o. steroids. Patient is also on cefepime. Dr. Sim will resume pulmonary care in the morning. Critical time was 38 minutes. MD MAMI Nelson/NORI TID: [id number] RECEIPT: [id number] cc: Elizabet Ambrosio
[2024-11-07] VITALS (109 sets, daily range): BP systolic 94–146; BP diastolic 43–74; PULSE 69–91; RESP 15–19; TEMP 98.3–99.7; O2SAT 92–100
[2024-11-07 03:52] LABS: Basophils # (auto) 0 10 ^3/uL (0-0.2); Basophils % (auto) 0.3 % (0.0-2.0); Eosinophils # (auto) 0 10 ^3/uL (0-0.8); Eosinophils % (auto) 0.3 % (0.0-7.0); Hemoglobin 12.9 g/dL (12.2-16.2); Lymphocytes # (auto) 1.3 10 ^3/uL (0.4-5.4); Lymphocytes % (auto) 8.7 % (10.0-50.0); Mean Corpuscular Hemoglobin 30.6 pg (28.0-32.0); Mean Corpuscular Hgb Conc. 32.9 g/dL (32.0-36.0); Mean Corpuscular Volume 92.9 fL (80.0-100.0); Monocytes # (auto) 1.8 10 ^3/uL (0-1.3); Monocytes % (auto) 11.7 % (0.0-12.0); Neutrophils # (auto) 12.1 10 ^3/uL (1.6-8.6); Platelet Count (auto) 357 10^3/uL (140-450); Red Cell Distribution Width 13.5 % (11.8-14.3); White Blood Cell 15.3 10^3/uL (4.4-10.8)
[2024-11-07 04:08] LABS: Alkaline Phosphatase 97 U/L (46-116)
[2024-11-07 04:09] LABS: Alanine Aminotransferase 11 U/L (7-40); Albumin 3.5 g/dL (3.2-4.8); Anion Gap 5 (5-15); BUN/Creatinine Ratio 56.1 (10.0-20.0); Calcium 9.6 mg/dL (8.7-10.4); Carbon Dioxide 29 mmol/L (20-31); Chloride 105 mmol/L (98-107); Glucose 98 mg/dL (74-106); Potassium 4.4 mmol/L (3.5-5.1); Sodium 139 mmol/L (136-145)
[2024-11-07 04:10] LABS: Blood Urea Nitrogen 46 mg/dL (9-23)
[2024-11-07 04:11] LABS: Aspartate Aminotransferase 46 U/L (13-40); Bilirubin, Total 0.3 mg/dL (0.2-1.0)
[2024-11-07 07:17] LABS: Base Excess -0.8 mmol/L (-2.0-3.0)
--- NOTE | 2024-11-07 12:28 | DVH ---
CHEST RADIOGRAPH Indication: intubated patient Technique: Single frontal view of the chest was obtained Comparison: XY CHEST PORTABLE on DOS: 11/06/24, XY CHEST PORTABLE on DOS: 11/06/24, XY CHEST PORTABLE on DOS: 11/05/24, XY CHEST XRAY 1 VIEW on DOS: 11/04/24, XY CHEST PORTABLE on DOS: 11/04/24, XY CHES T PORTABLE on DOS: 11/06/24 FINDINGS: Lines and Tubes: Endotracheal tube, enteric catheter and right central venous catheter in satisfactor y position. Lungs: Left upper lobe airspace disease. Pleura: No effusion. No pneumothorax. Cardiomediastinal contours: Unremarkable Bones: Unremarkable IMPRESSION: 1. Lines and tubes in satisfactory position. No significant interval change.
--- NOTE | 2024-11-07 14:39 | DVHPNRES ---
Progress Note Date Seen: Nov 07, 2024 Resident Creating Document: FRANCA BARBOZA RESIDENT Medical Necessity Reason Pt with a Central, PICC or Fol: No Subjective Review of Systems This is a 69-year-old with a past medical history of hypertension, diabetes, anxiety who presented to the ED with the chief complaint of shortness of breath and chest pain with cough for the pat 3 weeks. According to the patient she has been using her nebulizer at home but she did not really receive any relief from that and she continued to have shortness of breath. Thus, she presented to the ED for evaluation. Patient also mentioned having cough with the yellowish sputum production. however, she denies any fever or chills just headache. Patient seen and examined at bedside. She is intubated and mechanically ventilated. DC gabapentin, DC Zofran. Increased cefepime to 2 g b.i.d.. Objective vital signs Vital Sign Date Time Temp Pulse Resp B/P (MAP) Pulse Ox O2 Delivery O2 Flow Rate FiO2 11/07/24 14:15 77 18 114/58 (76) 97 11/07/24 14:00 30 11/07/24 14:00 Mechanical Ventilator+ 11/07/24 12:00 99.7 99.7 Total Intake and Output 11/06/24 11/06/24 11/07/24 15:00 23:00 07:00 Intake Total 967.45 ml 296.05 ml 370.85 ml Output Total 1300 ml 800 ml Balance 967.45 ml -1003.95 ml -429.15 ml medications Current Medications Medications Dose Ordered Sig/Natacha Route Start Time Stop Time Status Last Admin Dose Admin Diagnostic Test (Pha) 1 strip IQ4HR 11/01/24 20:00 11/07/24 12:49 1 STRIP Insulin Human Regular IQ4HR SC 11/01/24 20:00 11/07/24 13:09 2 UNITS Dextrose 50 ml UD PRN IV 11/01/24 19:30 Gabapentin 300 mg TID PO 11/01/24 22:00 11/07/24 06:01 300 MG Docusate Sodium 100 mg BIDPRN PRN PO 11/01/24 19:30 Acetaminophen 650 mg Q6HP PRN PO 11/01/24 19:30 Ondansetron HCl 4 mg Q4HP PRN IV 11/01/24 19:30 Azithromycin 250 ml @ 125 mls/hr DAILY IV 11/03/24 10:00 11/07/24 10:03 125 MLS/HR Albuterol 2.5 mg Q2HPRN PRN [facility] 11/04/24 10:15 Ipratropium [place] 0.5 mg Q4HWA [facility] 11/04/24 14:00 11/07/24 13:46 0.5 MG Albuterol 2.5 mg Q4HWA [facility] 11/04/24 14:00 11/07/24 13:46 2.5 MG Norepinephrine Bitartrate 250 ml @ 3.75 mls/hr Q24H IV 11/04/24 15:00 11/05/24 20:20 7.5 MLS/HR Pantoprazole Sodium 40 mg DAILY IV 11/05/24 10:00 11/07/24 10:53 40 MG Enoxaparin Sodium 40 mg DAILY SC 11/05/24 10:00 11/07/24 10:03 40 MG Propofol 100 ml @ 1.425 mls/ hr Q24H IV 11/04/24 12:30 11/07/24 07:46 11.4 MLS/HR Fentanyl Citrate 250 ml @ 2.5 mls/hr Q24H IV 11/04/24 12:30 11/06/24 23:31 12.5 MLS/HR Midazolam HCl 50 ml @ 1 mls/hr Q24H IV 11/04/24 18:45 11/05/24 06:57 2 MLS/HR Methylprednisolone Sodium Succinate 40 mg DAILY IV 11/05/24 10:00 11/07/24 10:02 40 MG Acetylcysteine 200 mg Q8HR [facility] 11/05/24 14:00 11/07/24 13:46 200 MG Insulin Glargine 10 units DAILY@1000 SC 11/05/24 10:45 11/07/24 10:53 10 UNITS Cefepime HCl 50 ml @ 12.5 mls/hr DAILY@2200 IV 11/05/24 22:00 11/06/24 22:42 12.5 MLS/HR Examination Patient lying in bed, in no acute distress General: afebrile, palor, mucosae are moist Cardiovascular: Regular S1 and S2. No murmurs, gallops or rubs. No JVD elevation. No pedal edema Respiratory: Bilateral wheezing heard on FiO2 30%. Abdomen: Soft, nontender, nondistended, normoactive bowel sounds, no rebound tenderness, no organomegaly, no masses Genitourinary: Deferred MSK/skin: Mobilizes 4 limbs. Skin is dry and warm Neurological: No motor, no sensitive deficits, normal speech. Pupils are isocoric and reactive. laboratory and microbiology Laboratory Tests 11/07/24 03:00 Test 11/07/24 03:00 Range/Units Serum Glucose 98 74-106 mg/dL Microbiology Date/Time Source Procedure Growth Status 11/06/24 14:00 Urine - Catheterized Urine Culture - Preliminary Resulted 11/04/24 17:25 Lung Pending Resulted 11/04/24 17: Lung Pending Resulted 11/04/24 17:25 Lung Pending Resulted 11/04/24 17:25 Lung Pending Resulted 11/04/24 17:25 Lung - Final See Separate Report... Resulted 11/04/24 12:25 Sputum Gram Stain Pending Resulted 11/04/24 12:25 Sputum Respiratory Culture - Preliminary Resulted Labs and/or images reviewed: Labs reviewed by me, Image(s) reviewed by me Problem List/Assessment/Plan Problem List/Assessment/Plan NEUROLOGY Acute hypoxic/metabolic encephalopathy likely due to sepsis/malignancy - patient is sedated and mechanically ventilated - CT head and MRI brain unremarkable for acute intracranial pathology CARDIOVASCULAR Septic shock secondary to probable metastatic lung cancer - blood culture prelim unremarkable - received Levophed 2 RESPIRATORY Sepsis due to probable Postobstructive pneumonia, Gram-positive and Gram- negative Acute hypoxic respiratory failure Left upper lobe mass Left-sided pleural effusion COPD Ruled out PE Mediastinal lymphadenopathy Basilar atelectasis and consolidation - CT angio chest completed 11/02 showed masslike consolidation in the left upper lung. Patchy nodular consolidation in both lungs,. Mediastinal lymphadenopathy. superimposed infection is not excluded. Small left pleural effusion with associated left basilar atelectasis and consolidation - respiratory culture shows rare growth of Gram-negative rods. - increased Solu-Medrol to 40 mg b.i.d. 11/07 - continue IV cefepime, increased to 2 g b.i.d. - continue acetylcysteine 200 mg Q 8 hour - continue albuterol and ipratropium q.4 hours - patient has a history of 50+ pack-year smoking - therapeutic bronchoscopy with bronchoalveolar lavage performed by Dr. Sim on November 04 - CPAP trial for a.m. - ventilator settings at tidal volume 450, FiO2 30%, peep 5, peak pressure 23 GI History of perforated sigmoid diverticulosis diverticulitis status post colectomy in January, Metastatic liver disease - CT angio shows multiple hypodense liver masses, largest measuring up to 35 mm. /KIDNEY PETE, likely VMN-creatinine trending down MUSCULOSKELETAL Bone metastasis Degenerative joint disease - Cervical spine CT completed 11/01 shows mild bony spondylosis and degenerative disc changes at C5-C6 and C7 - CT angio completed, shows multiple osseous metastatic lesions. - bone scan completed 11/03, shows focal areas of increased uptake in the manubrium, sternum, thoracic vertebra, may be due to metastatic disease. Additional lytic lesion seen on recent CTA chest exam are not correlated on wounds likely due to the lytic nature. ENDO Left adrenal nodularity Diabetes mellitus - hemoglobin A1c 7.1 - continue Lantus 10 units SC daily in the a.m. - target blood glucose 140-180 mg/dL ID Septic shock - Continue as above HEM-ONCO - Oncologist consulted, recommended bone scan and CT-guided needle biopsy of the liver LINES Intubated on 11/04 Right IJ central venous catheter placed on 11/04 till 11/07 Gomez catheter placed DRIPS Propofol 40 Levophed 2 Fentanyl 12.5 End of note Goals of care/advance care planning; FULL CODE; discussed on for 24 minutes. PUD prophylaxis: Pantoprazole 40 mg IV daily DVT prophylaxis: Lovenox 40 mg daily SC critical care time excluding procedures is 52 mins Case discussed with Dr Pop Plan discussed with: Patient, Other (nurse) Dietary Evaluation Review Comments: 1) If GI is accessible consider Glucerna 1.2 @ 40 ml/hr x 24 hrs goal rate as tolerated 2) If pt remains NPO >7 days consider TPN to meet at least 75% of estimated needs 3) Advance pt diet when medically feasible to a CCHO 45g diet 4) Continue current plan of care Expected Outcomes/Goals: 1) Pt to receive adequate nutrition support within 7 days of NPO status 2) Pt diet to advance 3) P labs to improve 4) F/U in 2-3 days Date of Service: Nov 07, 2024 Billing Provider: JACKELINE POP MD Common Visit Codes: [id number] CARE 30-74 MIN FRANCA BARBOZA RESIDENT Nov 07, 2024 14:39 JACKELINE POP MD Nov 08, 2024 16:13
[2024-11-07] MEDS ORDERED: DEXTROSE (50%) 50ML SYRG IV PRN (15:45)
[2024-11-07] MEDS: InsuLIN REG 1unit/0.01ml Soln (100units/ml) SC SCH (17:27)
[2024-11-07] MEDS: ACCU-CHEK COMFORT CURVE STRIP VI SCH (18:23)
[2024-11-07] MEDS: CEFEPIME 2GM/50ML NS 50 ML IV SCH (22:30)
[2024-11-07] MEDS: methylPREDNISolone SOD SUCC 40 MG/ML VL IV SCH (22:30)
[2024-11-08] VITALS (107 sets, daily range): BP systolic 81–157; BP diastolic 49–80; PULSE 64–101; RESP 12–32; TEMP 98.5–99.1; O2SAT 94–100
[2024-11-08 04:25] LABS: Basophils # (auto) 0 10 ^3/uL (0-0.2); Basophils % (auto) 0.1 % (0.0-2.0); Eosinophils # (auto) 0 10 ^3/uL (0-0.8); Eosinophils % (auto) 0.2 % (0.0-7.0); Hematocrit 37.8 % (36.0-46.0); Hemoglobin 12.7 g/dL (12.2-16.2); Lymphocytes # (auto) 0.6 10 ^3/uL (0.4-5.4); Lymphocytes % (auto) 4.7 % (10.0-50.0); Mean Corpuscular Hemoglobin 31.3 pg (28.0-32.0); Mean Corpuscular Hgb Conc. 33.6 g/dL (32.0-36.0); Mean Corpuscular Volume 93.3 fL (80.0-100.0); Monocytes # (auto) 0.5 10 ^3/uL (0-1.3); Monocytes % (auto) 3.6 % (0.0-12.0); Neutrophils # (auto) 11.9 10 ^3/uL (1.6-8.6); Neutrophils % (auto) 91.4 % (37.0-80.0); Platelet Count (auto) 284 10^3/uL (140-450); Red Blood Cells 4.05 10^6/uL (4.0-5.20); Red Cell Distribution Width 13.6 % (11.8-14.3)
[2024-11-08 04:44] LABS: Alanine Aminotransferase 17 U/L (7-40); Albumin 3.6 g/dL (3.2-4.8); Alkaline Phosphatase 97 U/L (46-116); Anion Gap 7 (5-15); Aspartate Aminotransferase 40 U/L (13-40); BUN/Creatinine Ratio 52.1 (10.0-20.0); Carbon Dioxide 28 mmol/L (20-31); Chloride 104 mmol/L (98-107); Potassium 4.7 mmol/L (3.5-5.1); Sodium 139 mmol/L (136-145); Total Protein 6.2 g/dL (5.7-8.2)
[2024-11-08 04:45] LABS: Bilirubin, Total 0.2 mg/dL (0.2-1.0); Blood Urea Nitrogen 38 mg/dL (9-23); Glucose 155 mg/dL (74-106)
[2024-11-08 07:29] LABS: Base Excess 2.3 mmol/L (-2.0-3.0)
--- NOTE | 2024-11-08 09:25 | DVH ---
EXAM: XY CHEST XRAY 1 VIEW Indication: follow-up Technique: Single frontal view of the chest was obtained Comparison: XY CHEST XRAY 1 VIEW on DOS: 11/07/24, XY CHEST PORTABLE on DOS: 11/06/24, XY CHEST RAUL BLE on DOS: 11/06/24, XY CHEST PORTABLE on DOS: 11/05/24, XY CHEST XRAY 1 VIEW on DOS: 11/04/24 FINDINGS: Lines and Tubes: Endotracheal tube projects 3 cm above level the lori. Right internal jugular centr al venous catheter tip projects over the cavoatrial junction. Lungs: Left upper lung consolidative opacity. Pleura: Trace left pleural effusion. No pneumothorax. Cardiomediastinal contours: Unremarkable Bones: No acute osseous abnormality. IMPRESSION: No significant change compared to prior exam.
--- NOTE | 2024-11-08 13:50 | MEDREC ---
[facility] ASP Intervention Section I [facility] ASP Intervention: Deescalate AB based on CS (FINAL SPUTUM CULTURE POSITIVE FOR E.COLI ESBL - URINE CULTURE PRELIMINARY >100,000 CFU/mL Yeast Identification to follow - PLEASE CONSIDER SWITCHING CEFEPIME TO A CARBAPENEM AND ADDING ANTIFUNGAL AGENT) ARNALDO TOMAS PHARMACIST Nov 08, 2024 13:50
[2024-11-08] MEDS: ERTAPENEM SOD INJ 1 GM in SODIUM CHL 0.9% 50 ML IV ONE (16:18)
[2024-11-08] MEDS ORDERED: ERTAPENEM SOD INJ 1 GM in SODIUM CHL 0.9% 50 ML IV SCH (17:00)
[2024-11-08] MEDS: Glucerna 1.2 Cal 1Liter BOTTLE GT SCH (19:07)
--- NOTE | 2024-11-08 19:13 | DVHPNRES ---
Progress Note Date Seen: Nov 08, 2024 Resident Creating Document: FRANCA BARBOZA RESIDENT Medical Necessity Reason Pt with a Central, PICC or Fol: Yes The following are medically ne: Central Line, Gomez Catheter Subjective Review of Systems This is a 69-year-old with a past medical history of left lower extremity DVT in 2020, COPD, GERD, history of methamphetamine use, chronic nicotine dependence, hypertension, type 2 diabetes mellitus, left lung nodule, anxiety who presented to the ED with the chief complaint of shortness of breath and chest pain with cough for the pat 3 weeks. According to the patient she has been using her nebulizer at home but she did not really receive any relief from that and she continued to have shortness of breath. Thus, she presented to the ED for evaluation. Patient also mentioned having cough with the yellowish sputum production. however, she denies any fever or chills just headache. Patient has been previously admitted in this facility over the period of 2016 to 2020 4 multiple acute hypoxic respiratory failure episode secondary due to COPD. Patient has been admitted in this hospital in January in February this year secondary to SBO and underwent sigmoid resection with a Doroteo's procedure and colostomy placement secondary to sigmoid diverticulosis vitals diverticulitis. 11/07-Patient seen and examined at bedside. She is intubated and mechanically ventilated. DC gabapentin, DC Zofran. Increased cefepime to 2 g b.i.d.. 11/08-overnight no events noted, patient is saturating 99 on 30% FiO2. He has been off Levophed since 11/07. On propofol 35 and fentanyl 25, sedation was turned on later this morning her CPAP trial. Patient tolerated CPAP trial from 11:00 a.m. to 2:00 p.m.. Sputum culture resulted as ESBL E coli. Sensitive to ertapenem, meropenem, Victoza, TMP SMX. Discontinued cefepime and started ertapenem IV. CPAP trial in AM Objective vital signs Vital Sign Date Time Temp Pulse Resp B/P (MAP) Pulse Ox O2 Delivery O2 Flow Rate FiO2 11/08/24 18:37 79 18 108/58 (75) 99 30 11/08/24 18:00 Mechanical Ventilator+ 11/08/24 16:30 99.1 99.1 Total Intake and Output 11/07/24 11/07/24 11/08/24 15:00 23:00 07:00 Intake Total 471.20 ml 388.7 ml 201.2 ml Output Total 800 ml 700 ml Balance 471.20 ml -411.3 ml -498.8 ml medications Current Medications Medications Dose Ordered Sig/Natacha Route Start Time Stop Time Status Last Admin Dose Admin Docusate Sodium 100 mg BIDPRN PRN PO 11/01/24 19:30 Acetaminophen 650 mg Q6HP PRN PO 11/01/24 19:30 Albuterol 2.5 mg Q2HPRN PRN NEB 11/04/24 10:15 Ipratropium [place] 0.5 mg Q4HWA [facility] 11/04/24 14:00 11/08/24 18:37 0.5 MG Albuterol 2.5 mg Q4HWA [facility] 11/04/24 14:00 11/08/24 18:37 2.5 MG Norepinephrine Bitartrate 250 ml @ 3.75 mls/hr Q24H IV 11/04/24 15:00 11/05/24 20:20 7.5 MLS/HR Pantoprazole Sodium 40 mg DAILY IV 11/05/24 10:00 11/08/24 11:06 40 MG Enoxaparin Sodium 40 mg DAILY SC 11/05/24 10:00 11/08/24 11:10 40 MG Propofol 100 ml @ 1.425 mls/ hr Q24H IV 11/04/24 12:30 11/08/24 08:33 9.975 MLS/HR Fentanyl Citrate 250 ml @ 2.5 mls/hr Q24H IV 11/04/24 12:30 11/07/24 19:34 12.5 MLS/HR Midazolam HCl 50 ml @ 1 mls/hr Q24H IV 11/04/24 18:45 11/05/24 06:57 2 MLS/HR Acetylcysteine 200 mg Q8HR [facility] 11/05/24 14:00 11/08/24 13:55 200 MG Insulin Glargine 10 units DAILY@1000 SC 11/05/24 10:45 11/07/24 10:53 10 UNITS Methylprednisolone Sodium Succinate 40 mg BID IV 11/07/24 22:00 11/08/24 11:09 40 MG Diagnostic Test (Pha) 1 strip Q6HR 11/07/24 18:00 11/08/24 17:41 1 STRIP Insulin Human Regular Q6HR SC 11/07/24 18:00 11/08/24 17:43 3 UNITS Dextrose 50 ml UD PRN IV 11/07/24 15:45 Dexmedetomidine HCl 400 mcg/ Dextrose 100 ml @ 2.375 mls/ hr Q24H IV 11/08/24 11:00 11/08/24 14:16 2.375 MLS/HR Ertapenem 1 gm/ Sodium Chloride 50 ml @ 100 mls/hr DAILY@1700 IV 11/09/24 17:00 Enteral Nutritional Formula 1,000 ml 30ML/HR GT 11/08/24 18:00 Examination Female patient lying in bed, in no acute distress General: Afebrile, palor, mucosae are moist, pupils are reactive Cardiovascular: Regular S1 and S2. No murmurs, gallops or rubs. No JVD elevation. No pedal edema Respiratory: Bilateral equal entry, no wheezing or crackles heard, saturating 99 on FiO2 of 30%. Abdomen: Soft, nontender, nondistended, normoactive bowel sounds, no rebound tenderness, no organomegaly, no masses. Colostomy bag seen which is empty. Stoma looks pink and moist. Genitourinary: Deferred MSK/skin: Skin is dry and warm Neurological: Pupils are isocoric and reactive. laboratory and microbiology Laboratory Tests 11/08/24 03:50 Test 11/08/24 03:50 Range/Units Serum Glucose 155 H 74-106 mg/dL Microbiology Date/Time Source Procedure Growth Status 11/06/24 18:32 Blood Blood Culture - Preliminary NO GROWTH AFTER 48 HOURS OF INCUBATION. Resulted 11/06/24 14:00 Urine - Catheterized Urine Culture - Preliminary Resulted 11/04/24 17:25 Lung Pending Resulted 11/04/24 17:25 Lung Pending Resulted 11/04/24 17:25 Lung Pending Resulted 11/04/24 17:25 Lung Pending Resulted 11/04/24 17:25 Lung - Final See Separate Report... Resulted 11/04/24 12:25 Sputum Gram Stain - Final Complete 11/04/24 12:25 Respiratory Culture - Final Escherichia coli - ESBL Complete Labs and/or images reviewed: Labs reviewed by me, Image(s) reviewed by me Problem List/Assessment/Plan Problem List/Assessment/Plan NEUROLOGY Acute hypoxic/metabolic encephalopathy likely due to sepsis/malignancy - patient is sedated and mechanically ventilated - CT head and MRI brain unremarkable for acute intracranial pathology CARDIOVASCULAR Septic shock secondary to probable metastatic lung cancer Prolonged QTC-resolved - blood culture prelim unremarkable - off Levophed since 11/07 RESPIRATORY Sepsis due to probable Postobstructive pneumonia, Gram-positive and Gram- negative probable metastatic lung cancer Acute hypoxic respiratory failure Left upper lobe mass Left-sided pleural effusion Likely underlying COPD Ruled out PE Mediastinal lymphadenopathy Basilar atelectasis and consolidation - CT angio chest completed 11/02 showed masslike consolidation in the left upper lung. Patchy nodular consolidation in both lungs,. Mediastinal lymphadenopathy. superimposed infection is not excluded. Small left pleural effusion with associated left basilar atelectasis and consolidation - respiratory culture shows ESBL E coli. G stain shows rare Gram-negative rods, Gram-positive cocci in pair, Gram-positive rods. - increased Solu-Medrol to 40 mg b.i.d. 11/07 - discontinued IV cefepime, increased to 2 g b.i.d on 11/08 -started IV Invanz 11/08 - continue acetylcysteine 200 mg Q 8 hour - continue albuterol and ipratropium q.4 hours - patient has a history of 50+ pack-year smoking - therapeutic bronchoscopy with bronchoalveolar lavage performed by Dr. Sim on November 04 - Patient tolerated CPAP trial from 11:00 a.m. to 2:00 p.m. - ventilator settings at tidal volume 450, FiO2 30%, peep 5, peak pressure 23 - pathology reports pending -CPAP trial in AM GI History of perforated sigmoid diverticulosis diverticulitis with Doroteo's procedure and sigmoid resection and colectomy in January, Metastatic liver disease - CT angio shows multiple hypodense liver masses, largest measuring up to 35 mm. /KIDNEY PETE, likely VMN-creatinine trending down MUSCULOSKELETAL Bone metastasis Degenerative joint disease - Cervical spine CT completed 11/01 shows mild bony spondylosis and degenerative disc changes at C5-C6 and C7 - CT angio completed, shows multiple osseous metastatic lesions. - bone scan completed 11/03, shows focal areas of increased uptake in the manubrium, sternum, thoracic vertebra, may be due to metastatic disease. Additional lytic lesion seen on recent CTA chest exam are not correlated on wounds likely due to the lytic nature. ENDO Left adrenal nodularity Diabetes mellitus - hemoglobin A1c 7.1 - continue Lantus 10 units SC daily in the a.m. - target blood glucose 140-180 mg/dL ID Septic shock - Continue as above HEM-ONCO - Oncologist consulted, recommended bone scan and CT-guided needle biopsy of the liver LINES Intubated on 11/04 Right IJ central venous catheter placed on 11/04 Gomez catheter placed DRIPS Propofol 35 Levophed off since 11/07 Fentanyl 25 Diet: Glucerna 1.2 at 30 mL/hour End of note Goals of care/advance care planning; FULL CODE; discussed on for 24 minutes. PUD prophylaxis: Pantoprazole 40 mg IV daily DVT prophylaxis: Lovenox 40 mg daily SC Case discussed with Dr Pop Plan discussed with granddaughter over the phone for over 30 minutes, code status full code Critical care time including chart review, discussion with the patient's family excluding procedures: 52 minutes Plan discussed with: Patient, Other (Granddaughter over the phone, nurse) My Orders My Orders Orders - FRANCA BARBOZA Procedure Category Date Status Time Chest Xray 1 View XY 11/08/24 Resulted 08:21 D5w 5% (Dextrose 5%) PHA 11/08/24 In Process W/Dexmedetomidine 11:00 Nutritional PHA 11/08/24 In Process Supplements (Glucerna 18:00 Dietary Evaluation Review Comments: 1) If GI is accessible consider Glucerna 1.2 @ 40 ml/hr x 24 hrs goal rate as tolerated 2) If pt remains NPO >7 days consider TPN to meet at least 75% of estimated needs 3) Advance pt diet when medically feasible to a CCHO 45g diet 4) Continue current plan of care Expected Outcomes/Goals: 1) Pt to receive adequate nutrition support within 7 days of NPO status 2) Pt diet to advance 3) P labs to improve 4) F/U in 2-3 days Date of Service: Nov 08, 2024 Billing Provider: JACKELINE POP MD Common Visit Codes: [id number] CARE 30-74 MIN FRANCA BARBOZA Nov 08, 2024 19:13 JACKELINE POP MD Nov 09, 2024 12:01
[2024-11-09] VITALS (104 sets, daily range): BP systolic 94–167; BP diastolic 49–95; PULSE 64–98; RESP 12–41; TEMP 97.3–99.8; O2SAT 81–100
[2024-11-09 04:15] LABS: Basophils # (auto) 0 10 ^3/uL (0-0.2); Basophils % (auto) 0.1 % (0.0-2.0); Eosinophils # (auto) 0 10 ^3/uL (0-0.8); Eosinophils % (auto) 0.1 % (0.0-7.0); Hematocrit 36.8 % (36.0-46.0); Lymphocytes # (auto) 0.9 10 ^3/uL (0.4-5.4); Mean Corpuscular Hemoglobin 30.6 pg (28.0-32.0); Mean Corpuscular Hgb Conc. 32.7 g/dL (32.0-36.0); Mean Corpuscular Volume 93.6 fL (80.0-100.0); Monocytes # (auto) 0.5 10 ^3/uL (0-1.3); Monocytes % (auto) 4.1 % (0.0-12.0); Neutrophils # (auto) 10.5 10 ^3/uL (1.6-8.6); Neutrophils % (auto) 87.7 % (37.0-80.0); Platelet Count (auto) 290 10^3/uL (140-450); Red Blood Cells 3.93 10^6/uL (4.0-5.20); Red Cell Distribution Width 13.5 % (11.8-14.3); White Blood Cell 11.9 10^3/uL (4.4-10.8)
--- NOTE | 2024-11-09 04:15 | DVH ---
CHEST RADIOGRAPH Indication: Follow up Technique: Single frontal view of the chest was obtained Comparison: XY CHEST XRAY 1 VIEW on DOS: 11/08/24, XY CHEST XRAY 1 VIEW on DOS: 11/07/24, XY CHEST PO RTABLE on DOS: 11/06/24, XY CHEST PORTABLE on DOS: 11/06/24, XY CHEST PORTABLE on DOS: 11/05/24, XY C HEST XRAY 1 VIEW on DOS: 11/08/24 FINDINGS: Lines and Tubes: Endotracheal tube projects 3 cm above level the lori. Right internal jugular centr al venous catheter tip projects over the cavoatrial junction. Lungs: Left upper lung consolidative opacity. Pleura: Trace left pleural effusion. No pneumothorax. Cardiomediastinal contours: Unremarkable Bones: No acute osseous abnormality. IMPRESSION: No significant change compared to prior exam.
[2024-11-09 04:28] LABS: Alanine Aminotransferase 15 U/L (7-40); Albumin 3.4 g/dL (3.2-4.8); Alkaline Phosphatase 87 U/L (46-116); Anion Gap 7 (5-15); Aspartate Aminotransferase 30 U/L (13-40); Calcium 9.7 mg/dL (8.7-10.4); Carbon Dioxide 27 mmol/L (20-31); Chloride 106 mmol/L (98-107); Sodium 140 mmol/L (136-145)
[2024-11-09 04:29] LABS: Total Protein 5.7 g/dL (5.7-8.2)
[2024-11-09 04:30] LABS: Bilirubin, Total 0.3 mg/dL (0.2-1.0); Blood Urea Nitrogen 35 mg/dL (9-23); Glucose 127 mg/dL (74-106)
[2024-11-09 10:20] LABS: Base Excess 2.6 mmol/L (-2.0-3.0)
[2024-11-09 10:47] LABS: Base Excess 1.6 mmol/L (-2.0-3.0)
--- NOTE | 2024-11-09 15:38 | DVHPNRES ---
Progress Note Date Seen: Nov 09, 2024 Resident Creating Document: FRACNA BARBOZA RESIDENT Medical Necessity Reason Pt with a Central, PICC or Fol: Yes The following are medically ne: Central Line, Gomez Catheter Subjective Review of Systems This is a 69-year-old with a past medical history of left lower extremity DVT in 2020, COPD, GERD, history of methamphetamine use, chronic nicotine dependence, hypertension, type 2 diabetes mellitus, left lung nodule, anxiety who presented to the ED with the chief complaint of shortness of breath and chest pain with cough for the pat 3 weeks. According to the patient she has been using her nebulizer at home but she did not really receive any relief from that and she continued to have shortness of breath. Thus, she presented to the ED for evaluation. Patient also mentioned having cough with the yellowish sputum production. however, she denies any fever or chills just headache. Patient has been previously admitted in this facility over the period of 2016 to 2020 4 multiple acute hypoxic respiratory failure episode secondary due to COPD. Patient has been admitted in this hospital in January in February this year secondary to SBO and underwent sigmoid resection with a Doroteo's procedure and colostomy placement secondary to sigmoid diverticulosis vitals diverticulitis. 11/07-Patient seen and examined at bedside. She is intubated and mechanically ventilated. DC gabapentin, DC Zofran. Increased cefepime to 2 g b.i.d.. 11/08-overnight no events noted, patient is saturating 99 on 30% FiO2. He has been off Levophed since 11/07. On propofol 35 and fentanyl 25, sedation was turned on later this morning her CPAP trial. Patient tolerated CPAP trial from 11:00 a.m. to 2:00 p.m.. Sputum culture resulted as ESBL E coli. Sensitive to ertapenem, meropenem, Victoza, TMP SMX. Discontinued cefepime and started ertapenem IV. CPAP trial in AM 11/09 - patient seen and examined at bedside. Overnight patient made 500 mL of urine and 675 mL in the daytime. She is saturating 98 and FiO2 of 30%. CPAP trial started at 9:30 a.m and patient continued it till 12:00 p.m.. CPAP ABG showed pH 7.39, pCO2 45, bicarb 27, PO2 83. Florian was 20, vital capacity 877. Consequently patient was extubated at 12:10 p.m. she is currently satting 91% on 6 L of oxygen supplementation. Patient complaining of back pain and moaning in pain therefore IV Dilaudid 0.5 mg q.4 p.r.n. along with lidocaine patch started. Creatinine clearance 60 mL/minute. Objective vital signs Vital Sign Date Time Temp Pulse Resp B/P (MAP) Pulse Ox O2 Delivery O2 Flow Rate FiO2 11/09/24 13:41 96 Mask 6.0 11/09/24 13:41 N/A 11/09/24 13:41 87 18 11/09/24 11:48 138/61 (86) 11/09/24 06:45 98.6 98.6 Total Intake and Output 11/08/24 11/08/24 11/09/24 15:00 23:00 07:00 Intake Total 64.338 ml 301.275 ml 370.1 ml Output Total 500 ml Balance 64.338 ml 301.275 ml -129.9 ml medications Current Medications Medications Dose Ordered Sig/Natacha Route Start Time Stop Time Status Last Admin Dose Admin Docusate Sodium 100 mg BIDPRN PRN PO 11/01/24 19:30 Acetaminophen 650 mg Q6HP PRN PO 11/01/24 19:30 Albuterol 2.5 mg Q2HPRN PRN NEB 11/04/24 10:15 Ipratropium [place] 0.5 mg Q4HWA [facility] 11/04/24 14:00 11/09/24 13:40 0.5 MG Albuterol 2.5 mg Q4HWA [facility] 11/04/24 14:00 11/09/24 13:40 2.5 MG Norepinephrine Bitartrate 250 ml @ 3.75 mls/hr Q24H IV 11/04/24 15:00 11/05/24 20:20 7.5 MLS/HR Pantoprazole Sodium 40 mg DAILY IV 11/05/24 10:00 11/09/24 10:14 40 MG Enoxaparin Sodium 40 mg DAILY SC 11/05/24 10:00 11/09/24 10:14 40 MG Propofol 100 ml @ 1.425 mls/ hr Q24H IV 11/04/24 12:30 11/09/24 05:44 11.4 MLS/HR Fentanyl Citrate 250 ml @ 2.5 mls/hr Q24H IV 11/04/24 12:30 11/09/24 00:44 15 MLS/HR Midazolam HCl 50 ml @ 1 mls/hr Q24H IV 11/04/24 18:45 11/05/24 06:57 2 MLS/HR Acetylcysteine 200 mg Q8HR NEB 11/05/24 14:00 11/09/24 13:40 200 MG Insulin Glargine 10 units DAILY@1000 SC 11/05/24 10:45 11/07/24 10:53 10 UNITS Methylprednisolone Sodium Succinate 40 mg BID IV 11/07/24 22:00 11/09/24 10:14 40 MG Diagnostic Test (Pha) 1 strip Q6HR 11/07/24 18:00 11/09/24 14:30 1 STRIP Insulin Human Regular Q6HR SC 11/07/24 18:00 11/09/24 05:48 2 UNITS Dextrose 50 ml UD PRN IV 11/07/24 15:45 Dexmedetomidine HCl 400 mcg/ Dextrose 100 ml @ 2.375 mls/ hr Q24H IV 11/08/24 11:00 11/08/24 14:16 2.375 MLS/HR Ertapenem 1 gm/ Sodium Chloride 50 ml @ 100 mls/hr DAILY@1700 IV 11/09/24 17:00 Enteral Nutritional Formula 1,000 ml 30ML/HR GT 11/08/24 18:00 11/08/24 19:07 1,000 ML Lidocaine 1 patch DAILY TOP 11/10/24 10:00 UNV Hydromorphone HCl 0.5 mg Q3HPRN PRN IV 11/09/24 15:45 UNV Examination Female patient lying in bed, in no acute distress General: Afebrile, palor, mucosae are moist, pupils are reactive Cardiovascular: Regular S1 and S2. No murmurs, gallops or rubs. No JVD elevation. No pedal edema Respiratory: Bilateral equal entry, no wheezing or crackles heard, saturating 99 on FiO2 of 30%. Abdomen: Soft, nontender, nondistended, hypoactive bowel sounds, no rebound tenderness, no organomegaly, no masses. Colostomy bag seen which is empty. Stoma looks pink and moist. Genitourinary: Deferred MSK/skin: Skin is dry and warm Neurological: Pupils are isocoric and reactive. laboratory and microbiology Laboratory Tests 11/09/24 03:52 Test 11/09/24 03:52 Range/Units Serum Glucose 127 H 74-106 mg/dL Microbiology Date/Time Source Procedure Growth Status 11/06/24 18:32 Blood Blood Culture - Preliminary NO GROWTH AFTER 48 HOURS OF INCUBATION. Resulted 11/06/24 14:00 Urine - Catheterized Urine Culture - Preliminary Resulted 11/04/24 17:25 Lung Pending Resulted 11/04/24 17:25 Lung Pending Resulted 11/04/24 17:25 Lung Pending Resulted 11/04/24 17:25 Lung Pending Resulted 11/04/24 17:25 Lung - Final See Separate Report... Resulted 11/04/24 12:25 Sputum Gram Stain - Final Complete 11/04/24: Respiratory Culture - Final Escherichia coli - ESBL Complete Labs and/or images reviewed: Labs reviewed by me, Image(s) reviewed by me Problem List/Assessment/Plan Problem List/Assessment/Plan NEUROLOGY Acute hypoxic/metabolic encephalopathy likely due to sepsis/malignancy - patient is sedated and mechanically ventilated - CT head and MRI brain unremarkable for acute intracranial pathology CARDIOVASCULAR Septic shock secondary to probable metastatic lung cancer Prolonged QTC-resolved - blood culture prelim unremarkable - off Levophed since 11/07 RESPIRATORY Sepsis due to probable Postobstructive pneumonia, Gram-positive and Gram- negative probable metastatic lung adenocarcinoma Acute hypoxic respiratory failure Left upper lobe mass Left-sided pleural effusion Likely underlying COPD Ruled out PE Mediastinal lymphadenopathy Basilar atelectasis and consolidation - CT angio chest completed 11/02 showed masslike consolidation in the left upper lung. Patchy nodular consolidation in both lungs,. Mediastinal lymphadenopathy. superimposed infection is not excluded. Small left pleural effusion with associated left basilar atelectasis and consolidation - respiratory culture shows ESBL E coli. G stain shows rare Gram-negative rods, Gram-positive cocci in pair, Gram-positive rods. - increased Solu-Medrol to 40 mg b.i.d. 11/07 - discontinued IV cefepime, increased to 2 g b.i.d on 11/08 -started IV Invanz 11/08 - continue acetylcysteine 200 mg Q 8 hour - continue albuterol and ipratropium q.4 hours - patient has a history of 50+ pack-year smoking - therapeutic bronchoscopy with bronchoalveolar lavage performed by Dr. Sim on November 04 - Patient tolerated CPAP trial from 11:00 a.m. to 2:00 p.m. - ventilator settings at tidal volume 450, FiO2 30%, peep 5, peak pressure 23 - pathology reports pending -CPAP trial in AM completed, patient extubated 12:10 p.m. on 11/09. Currently on 6 L O2 supplementation - lidocaine patch and IV Dilaudid 0.5 mg q.4 p.r.n. started GI History of perforated sigmoid diverticulosis diverticulitis with Doroteo's procedure and sigmoid resection and colectomy in January, Metastatic liver disease - CT angio shows multiple hypodense liver masses, largest measuring up to 35 mm. /KIDNEY PETE, likely VMN-creatinine trending down MUSCULOSKELETAL Bone metastasis Degenerative joint disease - Cervical spine CT completed 11/01 shows mild bony spondylosis and degenerative disc changes at C5-C6 and C7 - CT angio completed, shows multiple osseous metastatic lesions. - bone scan completed 11/03, shows focal areas of increased uptake in the manubrium, sternum, thoracic vertebra, may be due to metastatic disease. Additional lytic lesion seen on recent CTA chest exam are not correlated on wounds likely due to the lytic nature. ENDO Left adrenal nodularity Diabetes mellitus - hemoglobin A1c 7.1 - continue Lantus 10 units SC daily in the a.m. - target blood glucose 140-180 mg/dL ID Septic shock - Continue as above HEM-ONCO - Oncologist consulted, recommended bone scan and CT-guided needle biopsy of the liver LINES Intubated on 11/04 Right IJ central venous catheter placed on 11/04 Gomez catheter placed DRIPS Propofol 35 Levophed off since 11/07 Fentanyl 25 Diet: Glucerna 1.2 at 30 mL/hour End of note Goals of care/advance care planning; FULL CODE; discussed on for 24 minutes. PUD prophylaxis: Pantoprazole 40 mg IV daily DVT prophylaxis: Lovenox 40 mg daily SC Case discussed with Dr Pop Plan discussed with granddaughter over the phone for over 30 minutes, code status full code Critical care time including chart review, CPAP trial, discussion with the patient's family excluding procedures: 82 minutes Plan discussed with: Patient, Other (Granddaughter over the phone) My Orders My Orders Orders - FRANCA BARBOZA RESIDENT Procedure Category Date Status Time Nutritional PHA 11/08/24 In Process Supplements (Glucerna 18:00 Chest Xray 1 View XY 11/09/24 Resulted 04:00 Abg W/ Co-Ox RT 11/09/24 Logged 04:00 Cpap Trial For Am ORDERS 11/08/24 Transmitted 19:29 Hydromorphone PHA 11/09/24 Logged Injection (Dilaudid 15:45 Lidocaine 5% Topical PHA 11/09/24 Logged Patch (Lidoderm 5% 15:45 Lidocaine 5% Topical PHA 11/10/24 Logged Patch (Lidoderm 5% 10:00 Hydromorphone PHA 11/09/24 Logged Injection (Dilaudid 15:45 Dietary Evaluation Review Comments: 1) If GI is accessible consider Glucerna 1.2 @ 40 ml/hr x 24 hrs goal rate as tolerated 2) If pt remains NPO >7 days consider TPN to meet at least 75% of estimated needs 3) Advance pt diet when medically feasible to a CCHO 45g diet 4) Continue current plan of care Expected Outcomes/Goals: 1) Pt to receive adequate nutrition support within 7 days of NPO status 2) Pt diet to advance 3) P labs to improve 4) F/U in 2-3 days Date of Service: Nov 09, 2024 Billing Provider: JACKELINE POP MD Common Visit Codes: [id number] CARE 30-74 MIN, [id number] CARE-EACH +30MIN FRANCA BARBOZA RESIDENT Nov 09, 2024 15:38 JACKELINE POP MD Nov 10, 2024 11:57
[2024-11-09] MEDS ORDERED: HYDROmorphone HCL 2 MG/ML VL/or syr IV PRN (15:45)
[2024-11-09] MEDS: HYDROmorphone HCL 2 MG/ML VL/or syr IV ONE (16:20)
[2024-11-09] MEDS: ERTAPENEM SOD INJ 1 GM in SODIUM CHL 0.9% 50 ML IV SCH (16:30)
[2024-11-09] MEDS: LIDOCAINE 5% TOPICAL PATCH TOP ONE (18:15)
[2024-11-09] MEDS ORDERED: LORazepam 2MG/ML-1ML VIAL IV ONE (19:45)
[2024-11-09] MEDS ORDERED: LORazepam 2MG/ML-1ML VIAL IV PRN (19:45)
[2024-11-09] MEDS: HYDROmorphone HCL 2 MG/ML VL/or syr IV PRN (20:16)
[2024-11-10] VITALS (52 sets, daily range): BP systolic 112–148; BP diastolic 50–90; PULSE 67–90; RESP 14–27; TEMP 97.8–98.6; O2SAT 77–100
[2024-11-10 04:21] LABS: Basophils # (auto) 0 10 ^3/uL (0-0.2); Basophils % (auto) 0.2 % (0.0-2.0); Eosinophils # (auto) 0.1 10 ^3/uL (0-0.8); Eosinophils % (auto) 0.5 % (0.0-7.0); Hemoglobin 13.5 g/dL (12.2-16.2); Lymphocytes # (auto) 0.9 10 ^3/uL (0.4-5.4); Lymphocytes % (auto) 5.4 % (10.0-50.0); Mean Corpuscular Hemoglobin 31.1 pg (28.0-32.0); Mean Corpuscular Volume 94.2 fL (80.0-100.0); Monocytes # (auto) 0.3 10 ^3/uL (0-1.3); Monocytes % (auto) 1.9 % (0.0-12.0); Neutrophils # (auto) 14.9 10 ^3/uL (1.6-8.6); Platelet Count (auto) 328 10^3/uL (140-450); Red Blood Cells 4.35 10^6/uL (4.0-5.20); Red Cell Distribution Width 13.1 % (11.8-14.3); White Blood Cell 16.2 10^3/uL (4.4-10.8)
[2024-11-10 04:45] LABS: Alanine Aminotransferase 18 U/L (7-40); Albumin 3.5 g/dL (3.2-4.8); Alkaline Phosphatase 96 U/L (46-116); Anion Gap 9 (5-15); Aspartate Aminotransferase 32 U/L (13-40); Bilirubin, Total 0.3 mg/dL (0.2-1.0); Blood Urea Nitrogen 36 mg/dL (9-23); Carbon Dioxide 27 mmol/L (20-31); Chloride 105 mmol/L (98-107); Glucose 108 mg/dL (74-106); Magnesium 2.1 mg/dL (1.6-2.6); Potassium 4.5 mmol/L (3.5-5.1); Sodium 141 mmol/L (136-145); Total Protein 6.1 g/dL (5.7-8.2)
--- NOTE | 2024-11-10 06:53 | DVHPNRES ---
Progress Note Date Seen: Nov 10, 2024 Resident Creating Document: FRANCA BARBOZA RESIDENT Medical Necessity Reason Pt with a Central, PICC or Fol: Yes The following are medically ne: Gomez Catheter Subjective Review of Systems This is a 69-year-old with a past medical history of left lower extremity DVT in 2020, COPD, GERD, history of methamphetamine use, chronic nicotine dependence, hypertension, type 2 diabetes mellitus, left lung nodule, anxiety who presented to the ED with the chief complaint of shortness of breath and chest pain with cough for the pat 3 weeks. According to the patient she has been using her nebulizer at home but she did not really receive any relief from that and she continued to have shortness of breath. Thus, she presented to the ED for evaluation. Patient also mentioned having cough with the yellowish sputum production. however, she denies any fever or chills just headache. Patient has been previously admitted in this facility over the period of 2016 to 2020 4 multiple acute hypoxic respiratory failure episode secondary due to COPD. Patient has been admitted in this hospital in January in February this year secondary to SBO and underwent sigmoid resection with a Doroteo's procedure and colostomy placement secondary to sigmoid diverticulosis vitals diverticulitis. 11/07-Patient seen and examined at bedside. She is intubated and mechanically ventilated. DC gabapentin, DC Zofran. Increased cefepime to 2 g b.i.d.. 11/08-overnight no events noted, patient is saturating 99 on 30% FiO2. He has been off Levophed since 11/07. On propofol 35 and fentanyl 25, sedation was turned on later this morning her CPAP trial. Patient tolerated CPAP trial from 11:00 a.m. to 2:00 p.m.. Sputum culture resulted as ESBL E coli. Sensitive to ertapenem, meropenem, Victoza, TMP SMX. Discontinued cefepime and started ertapenem IV. CPAP trial in AM 11/09 - patient seen and examined at bedside. Overnight patient made 500 mL of urine and 675 mL in the daytime. She is saturating 98 and FiO2 of 30%. CPAP trial started at 9:30 a.m and patient continued it till 12:00 p.m.. CPAP ABG showed pH 7.39, pCO2 45, bicarb 27, PO2 83. Florian was 20, vital capacity 877. Consequently patient was extubated at 12:10 p.m. she is currently satting 91% on 6 L of oxygen supplementation. Patient complaining of back pain and moaning in pain therefore IV Dilaudid 0.5 mg q.4 p.r.n. along with lidocaine patch started. Creatinine clearance 60 mL/minute. 11/10-patient seen and examined at bedside. She is A&O x4, ran low-grade fever overnight 99.8 and intermittently tachypneic at 20, otherwise she is saturating 95 on 3 L NC. Overnight 700 mL of urine but no bowel movement, lactulose 30 mL p.o. started. Central line discontinued. Patient tolerated clear liquid diet well. Swallow eval completed, patient can tolerate pureed diet with thin liquids. Pureed Diet started. Chest x-ray completed shows left-sided opacity probably atelectasis. Mild ISS. Patient transferred to telemetry unit. Objective vital signs Vital Sign Date Time Temp Pulse Resp B/P (MAP) Pulse Ox O2 Delivery O2 Flow Rate FiO2 11/10/24 06:38 71 19 114/53 11/10/24 06:00 94 Nasal Cannula* 3 32 11/10/24 04:00 98.0 98.0 Total Intake and Output 11/09/24 11/09/24 11/10/24 15:00 23:00 07:00 Intake Total 20.664 ml 100 ml 0 ml Output Total 500 ml 700 ml Balance 20.664 ml -400 ml -700 ml medications Current Medications Medications Dose Ordered Sig/Natacha Route Start Time Stop Time Status Last Admin Dose Admin Docusate Sodium 100 mg BIDPRN PRN PO 11/01/24 19:30 Acetaminophen 650 mg Q6HP PRN PO 11/01/24 19:30 Albuterol 2.5 mg Q2HPRN PRN NEB 11/04/24 10:15 Ipratropium [place] 0.5 mg Q4HWA NEB 11/04/24 14:00 11/09/24 22:20 0.5 MG Albuterol 2.5 mg Q4HWA NEB 11/04/24 14:00 11/09/24 22:20 2.5 MG Norepinephrine Bitartrate 250 ml @ 3.75 mls/hr Q24H IV 11/04/24 15:00 11/05/24 20:20 7.5 MLS/HR Pantoprazole Sodium 40 mg DAILY IV 11/05/24 10:00 11/09/24 10:14 40 MG Enoxaparin Sodium 40 mg DAILY SC 11/05/24 10:00 11/09/24 10:14 40 MG Propofol 100 ml @ 1.425 mls/ hr Q24H IV 11/04/24 12:30 11/09/24 05:44 11.4 MLS/HR Fentanyl Citrate 250 ml @ 2.5 mls/hr Q24H IV 11/04/24 12:30 11/09/24 00:44 15 MLS/HR Midazolam HCl 50 ml @ 1 mls/hr Q24H IV 11/04/24 18:45 11/05/24 06:57 2 MLS/HR Acetylcysteine 200 mg Q8HR NEB 11/05/24 14:00 11/09/24 22:20 200 MG Insulin Glargine 10 units DAILY@1000 SC 11/05/24 10:45 11/07/24 10:53 10 UNITS Methylprednisolone Sodium Succinate 40 mg BID IV 11/07/24 22:00 11/09/24 21:24 40 MG Diagnostic Test (Pha) 1 strip Q6HR 11/07/24 18:00 11/09/24 23:34 1 STRIP Insulin Human Regular Q6HR SC 11/07/24 18:00 11/09/24 05:48 2 UNITS Dextrose 50 ml UD PRN IV 11/07/24 15:45 Dexmedetomidine HCl 400 mcg/ Dextrose 100 ml @ 2.375 mls/ hr Q24H IV 11/08/24 11:00 11/08/24 14:16 2.375 MLS/HR Ertapenem 1 gm/ Sodium Chloride 50 ml @ 100 mls/hr DAILY@1700 IV 11/09/24 17:00 11/09/24 16:30 100 MLS/HR Enteral Nutritional Formula 1,000 ml 30ML/HR GT 11/08/24 18:00 11/08/24 19:07 1,000 ML Lidocaine 1 patch DAILY TOP 11/10/24 10:00 Hydromorphone HCl 0.5 mg Q4HPRN PRN IV 11/09/24 16:45 11/10/24 06:38 0.5 MG Examination Female patient lying in bed, in no acute distress General: Afebrile, palor, mucosae are moist, pupils are reactive Cardiovascular: Regular S1 and S2. No murmurs, gallops or rubs. No JVD elevation. No pedal edema Respiratory: Bilateral equal entry, no wheezing or crackles heard, saturating 95 on 3 L NC Abdomen: Soft, nontender, nondistended, hypoactive bowel sounds, no rebound tenderness, no organomegaly, no masses. Colostomy bag seen which is empty. Stoma looks pink and moist. Genitourinary: Deferred MSK/skin: Skin is dry and warm Neurological: Pupils are isocoric and reactive. laboratory and microbiology Laboratory Tests 11/10/24 04:00 Test 11/10/24 04:00 Range/Units Serum Glucose 108 H 74-106 mg/dL Microbiology Date/Time Source Procedure Growth Status 11/06/24 18:32 Blood Blood Culture - Preliminary NO GROWTH AFTER 72 HOURS OF INCUBATION. Resulted 11/06/24 14:00 Urine - Catheterized Urine Culture - Preliminary Resulted 11/04/24 17:25 Lung Pending Resulted 11/04/24 17:25 Lung Pending Resulted 11/04/24 17:25 Lung Pending Resulted 11/04/24 17:25 Lung Pending Resulted 11/04/24 17:25 Lung - Final See Separate Report... Resulted 11/04/24 12:25 Sputum Gram Stain - Final Complete 11/04/24 12:25 Respiratory Culture - Final Escherichia coli - ESBL Complete Labs and/or images reviewed: Labs reviewed by me, Image(s) reviewed by me Problem List/Assessment/Plan Problem List/Assessment/Plan NEUROLOGY Acute hypoxic/metabolic encephalopathy likely due to sepsis/malignancy - patient is sedated and mechanically ventilated - CT head and MRI brain unremarkable for acute intracranial pathology CARDIOVASCULAR Septic shock secondary to probable metastatic lung cancer Prolonged QTC-resolved - blood culture prelim unremarkable - off Levophed since 11/07 RESPIRATORY Sepsis due to probable Postobstructive pneumonia, Gram-positive and Gram- negative Metastatic lung lung adenocarcinoma Acute hypoxic respiratory failure Left upper lobe mass Left-sided pleural effusion Likely underlying COPD Ruled out PE Mediastinal lymphadenopathy Basilar atelectasis and consolidation - CT angio chest completed 11/02 showed masslike consolidation in the left upper lung. Patchy nodular consolidation in both lungs,. Mediastinal lymphadenopathy. superimposed infection is not excluded. Small left pleural effusion with associated left basilar atelectasis and consolidation - respiratory culture shows ESBL E coli. G stain shows rare Gram-negative rods, Gram-positive cocci in pair, Gram-positive rods. - increased Solu-Medrol to 40 mg b.i.d. 11/07 - discontinued IV cefepime, increased to 2 g b.i.d on 11/08 -started IV Invanz 11/08 - continue acetylcysteine 200 mg Q 8 hour - continue albuterol and ipratropium q.4 hours - patient has a history of 50+ pack-year smoking - therapeutic bronchoscopy with bronchoalveolar lavage performed by Dr. Sim on November 04 - pathology reports confirm moderately differentiated adenocarcinoma of the lung -CPAP trial in AM completed, patient extubated 12:10 p.m. on 11/09. Currently on 3 L O2 supplementation - lidocaine patch and IV Dilaudid 0.5 mg q.4 p.r.n. started GI History of perforated sigmoid diverticulosis diverticulitis with Doroteo's procedure and sigmoid resection and colectomy in January, Metastatic liver disease - CT angio shows multiple hypodense liver masses, largest measuring up to 35 mm. - lactulose 30 mL p.o. daily starting 11/10 /KIDNEY PETE, likely VMN-creatinine trending down MUSCULOSKELETAL Bone metastasis Degenerative joint disease - Cervical spine CT completed 11/01 shows mild bony spondylosis and degenerative disc changes at C5-C6 and C7 - CT angio completed, shows multiple osseous metastatic lesions. - bone scan completed 11/03, shows focal areas of increased uptake in the manubrium, sternum, thoracic vertebra, may be due to metastatic disease. Additional lytic lesion seen on recent CTA chest exam are not correlated on wounds likely due to the lytic nature. ENDO Left adrenal nodularity Diabetes mellitus - hemoglobin A1c 7.1 - continue Lantus 10 units SC daily in the a.m. - target blood glucose 140-180 mg/dL - Mild sliding scale ID Septic shock - Continue as above HEM-ONCO - Oncologist consulted, recommended bone scan and CT-guided needle biopsy of the liver LINES Intubated on 11/04 till 11/09 Right IJ central venous catheter placed on 11/04 till 11/10 Gomez catheter placed DRIPS Propofol of since 11/09 Levophed off since 11/07 Fentanyl of since 11/09 Diet: Passed swallow eval. Pureed diet Physical therapy consulted Patient transferred to telemetry unit. End of note Goals of care/advance care planning; FULL CODE; discussed on for 24 minutes. PUD prophylaxis: Pantoprazole 40 mg IV daily DVT prophylaxis: Lovenox 40 mg daily SC Case discussed with Dr Pop Plan discussed with granddaughter over the phone for over 30 minutes, code status full code Critical care time including chart review, discussion with the patient's family excluding procedures: 52 minutes Plan discussed with: Patient, Other (Granddaughter over the phone) My Orders My Orders Orders - FRANCA BARBOZA Procedure Category Date Status Time Lidocaine 5% Topical PHA 11/10/24 In Process Patch (Lidoderm 5% 10:00 Hydromorphone PHA 11/09/24 In Process Injection (Dilaudid 16:45 * Swallow Request ST 11/09/24 Transmitted 18:20 Dietary Evaluation Review Comments: 1) If GI is accessible consider Glucerna 1.2 @ 40 ml/hr x 24 hrs goal rate as tolerated 2) If pt remains NPO >7 days consider TPN to meet at least 75% of estimated needs 3) Advance pt diet when medically feasible to a CCHO 45g diet 4) Continue current plan of care Expected Outcomes/Goals: 1) Pt to receive adequate nutrition support within 7 days of NPO status 2) Pt diet to advance 3) P labs to improve 4) F/U in 2-3 days Date of Service: Nov 10, 2024 Billing Provider: JACKELINE POP MD Common Visit Codes: 49125-[id number] CARE 30-74 MIN FRANCA BARBOZA Nov 10, 2024 06:53 JACKELINE POP MD Nov 12, 2024 16:41
[2024-11-10] MEDS: LIDOCAINE 5% TOPICAL PATCH TOP SCH (10:31)
[2024-11-10] MEDS ORDERED: DEXTROSE (50%) 50ML SYRG IV PRN (12:00)
[2024-11-10] MEDS: ACCU-CHEK COMFORT CURVE STRIP VI SCH (12:43)
[2024-11-10] MEDS: InsuLIN REG 1unit/0.01ml Soln (100units/ml) SC SCH (12:44)
--- NOTE | 2024-11-10 15:24 | DVH ---
CHEST RADIOGRAPH Indication: f/u Technique: Single frontal view of the chest was obtained Comparison: XY CHEST XRAY 1 VIEW on DOS: 11/09/24, XY CHEST XRAY 1 VIEW on DOS: 11/08/24, XY CHEST XR AY 1 VIEW on DOS: 11/07/24 FINDINGS: Lines and Tubes: Endotracheal tube and enteric tube have been removed. Right internal jugular cathete r is in place unchanged. Lungs: Appears to be consolidation in the retrocardiac area left lower lobe with poor visualization o f the left diaphragm. This may represent infiltrate or atelectasis. There is also persistent airspace disease in the left upper lobe. And left perihilar region. Pleura: No effusion. No pneumothorax. Cardiomediastinal contours: Unremarkable Bones: No acute osseous abnormality. IMPRESSION: 1. Interval removal of the endotracheal tube and enteric tube. 2. Development of infiltrate or atelectasis left lower lobe. 3. Left perihilar and left upper lobe airspace disease unimproved. 4. Central line from left internal jugular vein unchanged.
[2024-11-10] MEDS: MELATONIN 5 MG TAB PO SCH (22:09)
[2024-11-11] VITALS (19 sets, daily range): BP systolic 131–153; BP diastolic 67–96; PULSE 77–112; RESP 16–26; TEMP 98–98.6; O2SAT 90–100
[2024-11-11] MEDS: LORazepam 2MG/ML-1ML VIAL IV PRN ×2 (04:22→16:12)
[2024-11-11 05:31] LABS: Basophils # (auto) 0 10 ^3/uL (0-0.2); Basophils % (auto) 0.2 % (0.0-2.0); Eosinophils # (auto) 0.1 10 ^3/uL (0-0.8); Eosinophils % (auto) 0.4 % (0.0-7.0); Hematocrit 45.7 % (36.0-46.0); Hemoglobin 15.2 g/dL (12.2-16.2); Lymphocytes # (auto) 0.9 10 ^3/uL (0.4-5.4); Lymphocytes % (auto) 5.2 % (10.0-50.0); Mean Corpuscular Hemoglobin 31.2 pg (28.0-32.0); Mean Corpuscular Hgb Conc. 33.4 g/dL (32.0-36.0); Mean Corpuscular Volume 93.6 fL (80.0-100.0); Monocytes # (auto) 0.2 10 ^3/uL (0-1.3); Monocytes % (auto) 1.1 % (0.0-12.0); Neutrophils # (auto) 16.4 10 ^3/uL (1.6-8.6); Neutrophils % (auto) 93.1 % (37.0-80.0); Nucleated Red Blood Cells % 0.1 %; Platelet Count (auto) 322 10^3/uL (140-450); Red Blood Cells 4.88 10^6/uL (4.0-5.20); Red Cell Distribution Width 13.3 % (11.8-14.3); White Blood Cell 17.6 10^3/uL (4.4-10.8)
[2024-11-11 05:32] LABS: Alanine Aminotransferase 22 U/L (7-40); Albumin 3.6 g/dL (3.2-4.8); Alkaline Phosphatase 102 U/L (46-116); Anion Gap 5 (5-15); Aspartate Aminotransferase 32 U/L (13-40); BUN/Creatinine Ratio 41.1 (10.0-20.0); Calcium 9.9 mg/dL (8.7-10.4); Carbon Dioxide 31 mmol/L (20-31); Chloride 102 mmol/L (98-107); Magnesium 1.8 mg/dL (1.6-2.6); Potassium 4.2 mmol/L (3.5-5.1); Sodium 138 mmol/L (136-145)
[2024-11-11 05:33] LABS: Bilirubin, Total 0.5 mg/dL (0.2-1.0); Total Protein 6.2 g/dL (5.7-8.2)
[2024-11-11 05:47] LABS: Blood Urea Nitrogen 30 mg/dL (9-23); Glucose 153 mg/dL (74-106)
[2024-11-11] MEDS: LACTULOSE 20Gm/30ML SOLN PO ONE (06:06)
[2024-11-11] MEDS: LACTULOSE 20Gm/30ML SOLN PO SCH (10:00)
--- NOTE | 2024-11-11 11:25 | DVH ---
CHEST RADIOGRAPH Indication: f/u Technique: Single frontal view of the chest was obtained Comparison: XY CHEST XRAY 1 VIEW on DOS: 11/10/24, XY CHEST XRAY 1 VIEW on DOS: 11/09/24, XY CHEST XR AY 1 VIEW on DOS: 11/08/24, XY CHEST XRAY 1 VIEW on DOS: 11/07/24, XY CHEST PORTABLE on DOS: 11/06/24 , XY CHEST XRAY 1 VIEW on DOS: 11/09/24 FINDINGS: Lines and Tubes: Right central venous catheter has been removed. Lungs: Left upper lung consolidative opacity. Pleura: Moderate left pleural effusion. No pneumothorax. Cardiomediastinal contours: Unremarkable Bones: No acute osseous abnormality. IMPRESSION: Moderate left pleural effusion.
--- NOTE | 2024-11-11 15:01 | DVH ---
Bilateral Chest Sonogram Date: 11/11/2024 02:45 PM Clinical history: effussion Technique: Limited sonographic evaluation of the bilateral chest was performed to evaluate for pleur al effusion. Finding/Impression: A trace left-sided pleural effusion is present. No significant effusion on the right. Incidentally no elizabeth 4 cm liver mass. Recommend dedicated liver protocol MRI for further evaluation. HS:Y
--- NOTE | 2024-11-11 21:13 | DVHPNRES ---
Progress Note Date Seen: Nov 11, 2024 Resident Creating Document: FRANCA BARBOZA RESIDENT Medical Necessity Reason Pt with a Central, PICC or Fol: Yes The following are medically ne: Gomez Catheter Subjective Review of Systems This is a 69-year-old with a past medical history of left lower extremity DVT in 2020, COPD, GERD, history of methamphetamine use, chronic nicotine dependence, hypertension, type 2 diabetes mellitus, left lung nodule, anxiety who presented to the ED with the chief complaint of shortness of breath and chest pain with cough for the pat 3 weeks. According to the patient she has been using her nebulizer at home but she did not really receive any relief from that and she continued to have shortness of breath. Thus, she presented to the ED for evaluation. Patient also mentioned having cough with the yellowish sputum production. however, she denies any fever or chills just headache. Patient has been previously admitted in this facility over the period of 2016 to 2020 4 multiple acute hypoxic respiratory failure episode secondary due to COPD. Patient has been admitted in this hospital in January in February this year secondary to SBO and underwent sigmoid resection with a Doroteo's procedure and colostomy placement secondary to sigmoid diverticulosis vitals diverticulitis. 11/07-Patient seen and examined at bedside. She is intubated and mechanically ventilated. DC gabapentin, DC Zofran. Increased cefepime to 2 g b.i.d.. 11/08-overnight no events noted, patient is saturating 99 on 30% FiO2. He has been off Levophed since 11/07. On propofol 35 and fentanyl 25, sedation was turned on later this morning her CPAP trial. Patient tolerated CPAP trial from 11:00 a.m. to 2:00 p.m.. Sputum culture resulted as ESBL E coli. Sensitive to ertapenem, meropenem, Victoza, TMP SMX. Discontinued cefepime and started ertapenem IV. CPAP trial in AM 11/09 - patient seen and examined at bedside. Overnight patient made 500 mL of urine and 675 mL in the daytime. She is saturating 98 and FiO2 of 30%. CPAP trial started at 9:30 a.m and patient continued it till 12:00 p.m.. CPAP ABG showed pH 7.39, pCO2 45, bicarb 27, PO2 83. Florian was 20, vital capacity 877. Consequently patient was extubated at 12:10 p.m. she is currently satting 91% on 6 L of oxygen supplementation. Patient complaining of back pain and moaning in pain therefore IV Dilaudid 0.5 mg q.4 p.r.n. along with lidocaine patch started. Creatinine clearance 60 mL/minute. 11/10-patient seen and examined at bedside. She is A&O x4, ran low-grade fever overnight 99.8 and intermittently tachypneic at 20, otherwise she is saturating 95 on 3 L NC. Overnight 700 mL of urine but no bowel movement, lactulose 30 mL p.o. started. Central line discontinued. Patient tolerated clear liquid diet well. Swallow eval completed, patient can tolerate pureed diet with thin liquids. Pureed Diet started. Chest x-ray completed shows left-sided opacity probably atelectasis. Mild ISS. Patient transferred to telemetry unit. 11/11 - patient A&O x4 this morning. Overnight she complaint of pain and was agitated, Ativan started 0.5 IV changed to Q 8 p.r.n. chest x-ray shows worsening left-sided infiltrate. Ultrasound ordered shows trace pleural effusion. Objective vital signs Vital Sign Date Time Temp Pulse Resp B/P (MAP) Pulse Ox O2 Delivery O2 Flow Rate FiO2 11/11/24 20:00 26 90 Nasal Cannula* 3 32 11/11/24 19:38 96 11/11/24 19:22 145/76 11/11/24 16:52 98.0 98.0 Total Intake and Output 11/10/24 11/10/24 11/11/24 15:00 23:00 07:00 Intake Total 100 ml 400 ml Output Total 500 ml 550 ml Balance -400 ml -150 ml medications Current Medications Medications Dose Ordered Sig/Natacha Route Start Time Stop Time Status Last Admin Dose Admin Docusate Sodium 100 mg BIDPRN PRN PO 11/01/24 19:30 Acetaminophen 650 mg Q6HP PRN PO 11/01/24 19:30 Albuterol 2.5 mg Q2HPRN PRN NEB 11/04/24 10:15 Ipratropium [place] 0.5 mg Q4HWA NEB 11/04/24 14:00 11/11/24 19:35 0.5 MG Albuterol 2.5 mg Q4HWA NEB 11/04/24 14:00 11/11/24 19:35 2.5 MG Pantoprazole Sodium 40 mg DAILY IV 11/05/24 10:00 11/11/24 11:27 40 MG Enoxaparin Sodium 40 mg DAILY SC 11/05/24 10:00 11/11/24 11:30 40 MG Acetylcysteine 200 mg Q8HR NEB 11/05/24 14:00 11/11/24 15:25 200 MG Methylprednisolone Sodium Succinate 40 mg BID IV 11/07/24 22:00 11/11/24 11:27 40 MG Ertapenem 1 gm/ Sodium Chloride 50 ml @ 100 mls/hr DAILY@1700 IV 11/09/24 17:00 11/11/24 18:48 100 MLS/HR Lidocaine 1 patch DAILY TOP 11/10/24 10:00 11/11/24 11:26 1 PATCH Hydromorphone HCl 0.5 mg Q4HPRN PRN IV 11/09/24 16:45 11/11/24 18:52 0.5 MG Diagnostic Test (Pha) 1 strip Q6HR 11/10/24 12:00 11/11/24 18:56 1 STRIP Insulin Human Regular Q6HR SC 11/10/24 12:00 11/11/24 18:50 3 UNITS Dextrose 50 ml UD PRN IV 11/10/24 12:00 Lactulose 30 ml DAILY PO 11/11/24 10:00 Melatonin 10 mg HS PO 11/10/24 22:00 11/10/24 22:09 10 MG Lorazepam 0.5 mg Q8HP PRN IV 11/11/24 14:30 11/11/24 16:12 0.5 MG Examination Female patient lying in bed, in no acute distress General: Afebrile, palor, mucosae are moist, pupils are reactive Cardiovascular: Regular S1 and S2. No murmurs, gallops or rubs. No JVD elevation. No pedal edema Respiratory: Decreased breath sounds in the left lower lobe. no wheezing or crackles heard, saturating 95 on 3 L NC Abdomen: Soft, nontender, nondistended, hypoactive bowel sounds, no rebound tenderness, no organomegaly, no masses. Colostomy bag seen which is empty. Stoma looks pink and moist. Genitourinary: Deferred MSK/skin: Skin is dry and warm Neurological: Pupils are isocoric and reactive. laboratory and microbiology Laboratory Tests 11/11/24 04:51 Test 11/11/24 04:51 Range/Units Serum Glucose 153 H 74-106 mg/dL Microbiology Date/Time Source Procedure Growth Status 11/06/24 18:32 Blood Blood Culture - Final NO GROWTH AFTER 5 DAYS OF INCUBATION. Complete 11/06/24 14:00 Urine - Catheterized Urine Culture - Final Yeast, not Laura albicans Complete 11/04/24 17:25 Lung Pending Resulted 11/04/24 17: Lung Pending Resulted 11/04/24 17:25 Lung Pending Resulted 11/04/24 17:25 Lung Pending Resulted 11/04/24 17: Lung - Final See Separate Report... Resulted 11/04/24 12: Sputum Gram Stain - Final Complete 11/04/24 12:25 Respiratory Culture - Final Escherichia coli - ESBL Complete Labs and/or images reviewed: Labs reviewed by me, Image(s) reviewed by me Problem List/Assessment/Plan Problem List/Assessment/Plan NEUROLOGY Acute hypoxic/metabolic encephalopathy likely due to sepsis/malignancy - patient is sedated and mechanically ventilated - CT head and MRI brain unremarkable for acute intracranial pathology CARDIOVASCULAR Septic shock secondary to probable metastatic lung cancer Prolonged QTC-resolved - blood culture prelim unremarkable - off Levophed since 11/07 RESPIRATORY Sepsis due to probable Postobstructive pneumonia, Gram-positive and Gram- negative Metastatic lung lung adenocarcinoma Acute hypoxic respiratory failure Left upper lobe mass Left-sided pleural effusion Likely underlying COPD Ruled out PE Mediastinal lymphadenopathy Basilar atelectasis and consolidation - CT angio chest completed 11/02 showed masslike consolidation in the left upper lung. Patchy nodular consolidation in both lungs,. Mediastinal lymphadenopathy. superimposed infection is not excluded. Small left pleural effusion with associated left basilar atelectasis and consolidation - respiratory culture shows ESBL E coli. G stain shows rare Gram-negative rods, Gram-positive cocci in pair, Gram-positive rods. - increased Solu-Medrol to 40 mg b.i.d. 11/07 - discontinued IV cefepime, increased to 2 g b.i.d on 11/08 -started IV Invanz 11/08 - continue acetylcysteine 200 mg Q 8 hour - continue albuterol and ipratropium q.4 hours - patient has a history of 50+ pack-year smoking - therapeutic bronchoscopy with bronchoalveolar lavage performed by Dr. Sim on November 04 - pathology reports confirm moderately differentiated adenocarcinoma of the lung -CPAP trial in AM completed, patient extubated 12:10 p.m. on 11/09. Currently on 3 L O2 supplementation - lidocaine patch and IV Dilaudid 0.5 mg q.4 p.r.n. started - ultrasound chest completed, shows trace pleural effusion. - heme Onc consulted GI History of perforated sigmoid diverticulosis diverticulitis with Doroteo's procedure and sigmoid resection and colectomy in January, Metastatic liver disease - CT angio shows multiple hypodense liver masses, largest measuring up to 35 mm. - lactulose 30 mL p.o. daily starting 11/10 /KIDNEY PETE, likely VMN-creatinine trending down MUSCULOSKELETAL Bone metastasis Degenerative joint disease - Cervical spine CT completed 11/01 shows mild bony spondylosis and degenerative disc changes at C5-C6 and C7 - CT angio completed, shows multiple osseous metastatic lesions. - bone scan completed 11/03, shows focal areas of increased uptake in the manubrium, sternum, thoracic vertebra, may be due to metastatic disease. Additional lytic lesion seen on recent CTA chest exam are not correlated on wounds likely due to the lytic nature. ENDO Left adrenal nodularity Diabetes mellitus - hemoglobin A1c 7.1 - continue Lantus 10 units SC daily in the a.m. - target blood glucose 140-180 mg/dL - Mild sliding scale ID Septic shock - Continue as above HEM-ONCO - Oncologist consulted, recommended bone scan and CT-guided needle biopsy of the liver LINES Intubated on 11/04 till 11/09 Right IJ central venous catheter placed on 11/04 till 11/10 Gomez catheter placed DRIPS Propofol of since 11/09 Levophed off since 11/07 Fentanyl of since 11/09 Diet: Passed swallow eval. Pureed diet since 11/10 dinner Physical therapy consulted Patient transferred to telemetry unit. End of note Goals of care/advance care planning; FULL CODE; discussed on for 24 minutes. PUD prophylaxis: Pantoprazole 40 mg IV daily DVT prophylaxis: Lovenox 40 mg daily SC Case discussed with Dr Pandya. Heme oncology consulted. Plan discussed with granddaughter over the phone for over 30 minutes, code status full code Critical care time including chart review, discussion with the patient's family at the bedside with daughter, granddaughter, spouse excluding procedures: 56 minutes Plan discussed with: Patient, Spouse, Daughter (At the bedside) My Orders My Orders Orders - FRANCA BARBOZA Procedure Category Date Status Time Lorazepam 2mg/Ml Inj PHA 11/11/24 In Process (Ativan Inj) 14:30 Chest Ultrasound US 11/11/24 Resulted 14:26 * Hematology/Oncology CONS 11/11/24 Transmitted Consult 18:04 Dietary Evaluation Review Comments: 1) If GI is accessible consider Glucerna 1.2 @ 40 ml/hr x 24 hrs goal rate as tolerated 2) If pt remains NPO >7 days consider TPN to meet at least 75% of estimated needs 3) Advance pt diet when medically feasible to a CCHO 45g diet 4) Continue current plan of care Expected Outcomes/Goals: 1) Pt to receive adequate nutrition support within 7 days of NPO status 2) Pt diet to advance 3) P labs to improve 4) F/U in 2-3 days Date of Service: Nov 11, 2024 Billing Provider: RIGO PANDYA MD Common Visit Codes: [id number] CARE 30-74 MIN FRANCA BARBOZA Nov 11, 2024 21:13 RIGO PANDYA MD Nov 12, 2024 00:10
[2024-11-12] VITALS (18 sets, daily range): BP systolic 124–141; BP diastolic 68–93; PULSE 70–112; RESP 17–26; TEMP 98.6–98.8; O2SAT 90–99
[2024-11-12 07:02] LABS: Basophils # (auto) 0 10 ^3/uL (0-0.2); Eosinophils # (auto) 0.1 10 ^3/uL (0-0.8); Eosinophils % (auto) 0.3 % (0.0-7.0); Hematocrit 49.7 % (36.0-46.0); Hemoglobin 15.4 g/dL (12.2-16.2); Lymphocytes # (auto) 1.3 10 ^3/uL (0.4-5.4); Lymphocytes % (auto) 6.5 % (10.0-50.0); Mean Corpuscular Volume 99.9 fL (80.0-100.0); Monocytes # (auto) 0.8 10 ^3/uL (0-1.3); Monocytes % (auto) 4.2 % (0.0-12.0); Neutrophils # (auto) 17.6 10 ^3/uL (1.6-8.6); Platelet Count (auto) 302 10^3/uL (140-450); Red Blood Cells 4.97 10^6/uL (4.0-5.20); Red Cell Distribution Width 13.8 % (11.8-14.3); White Blood Cell 19.7 10^3/uL (4.4-10.8)
[2024-11-12 07:16] LABS: Alanine Aminotransferase 27 U/L (7-40); Albumin 3.3 g/dL (3.2-4.8); Alkaline Phosphatase 99 U/L (46-116); Anion Gap 6 (5-15); Aspartate Aminotransferase 33 U/L (13-40); Blood Urea Nitrogen 18 mg/dL (9-23); Calcium 9.5 mg/dL (8.7-10.4); Carbon Dioxide 25 mmol/L (20-31); Chloride 104 mmol/L (98-107); Magnesium 1.9 mg/dL (1.6-2.6); Potassium 4.3 mmol/L (3.5-5.1)
[2024-11-12 07:17] LABS: Bilirubin, Total 0.4 mg/dL (0.2-1.0); Total Protein 5.9 g/dL (5.7-8.2)
[2024-11-12 07:24] LABS: Glucose 143 mg/dL (74-106); Sodium 135 mmol/L (136-145)
--- NOTE | 2024-11-12 09:58 | DVHPN2 ---
Subjective The pain seen and examined at bedside. No change overnight. The patient was sitting on chair and confused, asking for her . Reviewed: Care Plan, H&P, Labs, Medications, Previous Orders, Radiology Changes from previous H/P or p: No Changes Eyes: No Pain, No Vision change, No Conjunctivae inflammation, No Eyelid inflammation, No Other, No Redness ENT: No Ear pain, No Ear discharge, No Nose pain, No Nose discharge, No Nose congestion, No Mouth pain, No Mouth swelling, No Throat pain, No Throat swelling, No Other Cardiovascular: No Chest Pain, No Palpitations, No Orthopnea, No Paroxysmal Noc. Dyspnea, No Edema, No Lt Headedness, No Other Respiratory: Cough, Dry, Shortness of breath, SOB with excertion; No Wheezing, No Hemoptysis, No Pleuritic Pain, No Sputum, No Other Gastrointestinal: No Nausea, No Vomiting, No Abdominal Pain, No Diarrhea, No Constipation, No Melena, No Hematochezia, No Other Genitourinary: Dysuria; No Frequency, No Incontinence, No Hematuria, No Retention, No Other Musculoskeletal: No other, No neck pain, No shoulder pain, No arm pain, No back pain, No hand pain, No leg pain, No foot pain Skin: No Rash, No Lesions, No Jaundice, No Bruising, No Other Objective Vitals Vital Signs Date Time Temp Pulse Resp B/P (MAP) Pulse Ox O2 Delivery O2 Flow Rate FiO2 11/12/24 09:42 86 20 98 11/12/24 09:30 Nasal Cannula* 4 36 11/12/24 09:00 98.6 124/70 (88) 98.6 Intake/Output Intake and Output 11/12/24 07:00 Intake Total 1000 ml Output Total 1750 ml Balance -750 ml Intake Oral 1000 ml Output Urine Total 1000 ml Stool Total 750 ml General Appearance: Alert, No acute distress HEENT: Atraumatic, PERRLA, EOMI, Mucous membr. moist/pink Neck: Supple Lungs: Clear to auscultation, Normal air movement Cardiovascular: Regular rate, Normal S1, Normal S2, No murmurs, Gallops, Rubs Abdomen: Normal bowel sounds, Soft, No tenderness, No hepatospenomegaly Neuro: Other (Confused) Psych/Mental Status: Mental status NL Medications Current Medications Medications Dose Ordered Sig/Natacha Route Start Time Stop Time Status Last Admin Dose Admin Docusate Sodium 100 mg BIDPRN PRN PO 11/01/24 19:30 Acetaminophen 650 mg Q6HP PRN PO 11/01/24 19:30 Albuterol 2.5 mg Q2HPRN PRN NEB 11/04/24 10:15 Ipratropium [place] 0.5 mg Q4HWA NEB 11/04/24 14:00 11/12/24 09:29 0.5 MG Albuterol 2.5 mg Q4HWA [facility] 11/04/24 14:00 11/12/24 09:29 2.5 MG Pantoprazole Sodium 40 mg DAILY IV 11/05/24 10:00 11/11/24 11:27 40 MG Enoxaparin Sodium 40 mg DAILY SC 11/05/24 10:00 11/11/24 11:30 40 MG Acetylcysteine 200 mg Q8HR NEB 11/05/24 14:00 11/12/24 06:19 200 MG Methylprednisolone Sodium Succinate 40 mg BID IV 11/07/24 22:00 11/11/24 21:27 40 MG Ertapenem 1 gm/ Sodium Chloride 50 ml @ 100 mls/hr DAILY@1700 IV 11/09/24 17:00 11/11/24 18:48 100 MLS/HR Lidocaine 1 patch DAILY TOP 11/10/24 10:00 11/11/24 11:26 1 PATCH Hydromorphone HCl 0.5 mg Q4HPRN PRN IV 11/09/24 16:45 11/12/24 03:21 0.5 MG Diagnostic Test (Pha) 1 strip Q6HR 11/10/24 12:00 11/12/24 06:00 1 STRIP Insulin Human Regular Q6HR SC 11/10/24 12:00 11/12/24 05:59 2 UNITS Dextrose 50 ml UD PRN IV 11/10/24 12:00 Lactulose 30 ml DAILY PO 11/11/24 10:00 Melatonin 10 mg HS PO 11/10/24 22:00 11/11/24 21:27 10 MG Lorazepam 0.5 mg Q8HP PRN IV 11/11/24 14:30 11/12/24 06:00 0.5 MG Laboratory Results Laboratory Tests 11/12/24 06:30 Chemistry Test 11/12/24 06:30 Albumin 3.3 g/dL (3.2-4.8) Calcium Level 9.5 mg/dL (8.7-10.4) Magnesium Level 1.9 mg/dL (1.6-2.6) Total Protein 5.9 g/dL (5.7-8.2) LFT Test 11/12/24 06:30 Alanine Aminotransferase (ALT) 27 U/L (7-40) Alkaline Phosphatase 99 U/L (46-116) Aspartate Amino Transferase (AST) 33 U/L (13-40) Total Bilirubin 0.4 mg/dL (0.2-1.0) Urinalysis Test 11/02/24 15:24 Urine Color Light-yellow (Yellow) Urine Clarity Clear (Clear) Urine pH 5.5 (5.0-9.0) Urine Specific [place] > 1.050 (1.001-1.035) Urine Protein Trace (Negative) H Urine Ketones Negative (Negative) Urine Blood Negative /uL (Negative) Urine Nitrite Negative (Negative) Urine Bilirubin Negative (Negative) Urine Urobilinogen Normal mg/dL (Negative) Urine Leukocyte Esterase Negative /uL (Negative) Urine RBC 1 /hpf (0 - 4) Urine WBC 1 /hpf (0 - 5) Urine Squamous Epithelial Cells Few /hpf (<5) Urine Calcium Oxalate Crystals Few (None Seen) Urine Bacteria None seen /hpf (None Seen) Urine Glucose Normal mg/dL (Normal) Microbiology Microbiology Date/Time Source Procedure Growth Status 11/06/24 18:32 Blood Blood Culture - Final NO GROWTH AFTER 5 DAYS OF INCUBATION. Complete 11/06/24 14:00 Urine - Catheterized Urine Culture - Final Yeast, not Laura albicans Complete 11/04/24 17:25 Lung Pending Resulted 11/04/24 17:25 Lung Pending Resulted 11/04/24 17:25 Lung Pending Resulted 11/04/24 17:25 Lung Pending Resulted 11/04/24 17:25 Lung - Final See Separate Report... Resulted 11/04/24 12:25 Sputum Gram Stain - Final Complete 11/04/24 12:25 Respiratory Culture - Final Escherichia coli - ESBL Complete Labs and/or images reviewed: Labs reviewed by me Assessment/Plan Assessment/Plan NEUROLOGY Acute hypoxic/metabolic encephalopathy likely due to sepsis/malignancy - patient is sedated and mechanically ventilated - CT head and MRI brain unremarkable for acute intracranial pathology CARDIOVASCULAR Septic shock secondary to probable metastatic lung cancer Prolonged QTC-resolved - blood culture prelim unremarkable - off Levophed since 11/07 RESPIRATORY Sepsis due to probable Postobstructive pneumonia, Gram-positive and Gram- negative Metastatic lung lung adenocarcinoma Acute hypoxic respiratory failure Left upper lobe mass Left-sided pleural effusion Likely underlying COPD Ruled out PE Mediastinal lymphadenopathy Basilar atelectasis and consolidation - CT angio chest completed 11/02 showed masslike consolidation in the left upper lung. Patchy nodular consolidation in both lungs,. Mediastinal lymphadenopathy. superimposed infection is not excluded. Small left pleural effusion with associated left basilar atelectasis and consolidation - respiratory culture shows ESBL E coli. G stain shows rare Gram-negative rods, Gram-positive cocci in pair, Gram-positive rods. - increased Solu-Medrol to 40 mg b.i.d. 11/07 - discontinued IV cefepime, increased to 2 g b.i.d on 11/08 -started IV Invanz 11/08 - continue acetylcysteine 200 mg Q 8 hour - continue albuterol and ipratropium q.4 hours - patient has a history of 50+ pack-year smoking - therapeutic bronchoscopy with bronchoalveolar lavage performed by Dr. Sim on November 04 - pathology reports confirm moderately differentiated adenocarcinoma of the lung -CPAP trial in AM completed, patient extubated 12:10 p.m. on 11/09. Currently on 3 L O2 supplementation - lidocaine patch and IV Dilaudid 0.5 mg q.4 p.r.n. started - ultrasound chest completed, shows trace pleural effusion. - heme Onc consulted GI History of perforated sigmoid diverticulosis diverticulitis with Doroteo's procedure and sigmoid resection and colectomy in January, Metastatic liver disease - CT angio shows multiple hypodense liver masses, largest measuring up to 35 mm. - lactulose 30 mL p.o. daily starting 11/10 /KIDNEY PETE, likely VMN-creatinine trending down MUSCULOSKELETAL Bone metastasis Degenerative joint disease - Cervical spine CT completed 11/01 shows mild bony spondylosis and degenerative disc changes at C5-C6 and C7 - CT angio completed, shows multiple osseous metastatic lesions. - bone scan completed 11/03, shows focal areas of increased uptake in the manubrium, sternum, thoracic vertebra, may be due to metastatic disease. Additional lytic lesion seen on recent CTA chest exam are not correlated on wounds likely due to the lytic nature. ENDO Left adrenal nodularity Diabetes mellitus - hemoglobin A1c 7.1 - continue Lantus 10 units SC daily in the a.m. - target blood glucose 140-180 mg/dL - Mild sliding scale ID Septic shock - Continue as above HEM-ONCO - Oncologist consulted, recommended bone scan and CT-guided needle biopsy of the liver LINES Intubated on 11/04 till 11/09 Right IJ central venous catheter placed on 11/04 till 11/10 Gomez catheter placed DRIPS Propofol off since 11/09 Levophed off since 11/07 Fentanyl of since 11/09 Diet: Passed swallow eval. Pureed diet since 11/10 dinner Physical therapy continue FULL CODE; discussed on for 24 minutes. PUD prophylaxis: Pantoprazole 40 mg IV daily DVT prophylaxis: Lovenox 40 mg daily SC Plan discussed with: Other (RN) Date of Service: Nov 12, 2024 Billing Provider: LEILA XIAO MD Common Visit Codes: [id number] INP/OBS CARE(HIGH) LEILA XIAO MD Nov 12, 2024 09:58
--- NOTE | 2024-11-12 16:35 | DVHPN2 ---
Progress Note - Dictate Date Seen: Nov 12, 2024 Medical Necessity Reason Pt with a Central, PICC or Fol: Yes The following are medically ne: Alonso Catheter Reason for alonso catheter: Strict I&O Subjective Patient seen and examined at bedside. Remains on supplemental oxygen Overnight events reviewed. vital signs Vital Sign Date Time Temp Pulse Resp B/P (MAP) Pulse Ox O2 Delivery O2 Flow Rate FiO2 11/12/24 16:32 98.7 108 20 131/93 (106) 90 98.7 11/12/24 13:29 Nasal Cannula* 4 36 Total Intake and Output 11/11/24 11/11/24 11/12/24 15:00 23:00 07:00 Intake Total 400 ml 600 ml Output Total 1000 ml 750 ml Balance -600 ml -150 ml medications Current Medications Medications Dose Ordered Sig/Natacha Route Start Time Stop Time Status Last Admin Dose Admin Docusate Sodium 100 mg BIDPRN PRN PO 11/01/24 19:30 Acetaminophen 650 mg Q6HP PRN PO 11/01/24 19:30 Albuterol 2.5 mg Q2HPRN PRN NEB 11/04/24 10:15 Ipratropium [place] 0.5 mg Q4HWA [facility] 11/04/24 14:00 11/12/24 13:29 0.5 MG Albuterol 2.5 mg Q4HWA [facility] 11/04/24 14:00 11/12/24 13:29 2.5 MG Pantoprazole Sodium 40 mg DAILY IV 11/05/24 10:00 11/12/24 10:06 40 MG Enoxaparin Sodium 40 mg DAILY SC 11/05/24 10:00 11/12/24 10:07 40 MG Acetylcysteine 200 mg Q8HR [facility] 11/05/24 14:00 11/12/24 13:33 200 MG Methylprednisolone Sodium Succinate 40 mg BID IV 11/07/24 22:00 11/12/24 10:07 40 MG Ertapenem 1 gm/ Sodium Chloride 50 ml @ 100 mls/hr DAILY@1700 IV 11/09/24 17:00 11/11/24 18:48 100 MLS/HR Lidocaine 1 patch DAILY TOP 11/10/24 10:00 11/12/24 10:07 1 PATCH Hydromorphone HCl 0.5 mg Q4HPRN PRN IV 11/09/24 16:45 12/21/24 11:35 0.5 MG Diagnostic Test (Pha) 1 strip Q6HR 11/10/24 12:00 11/12/24 11:33 1 STRIP Insulin Human Regular Q6HR SC 11/10/24 12:00 11/12/24 05:59 2 UNITS Dextrose 50 ml UD PRN IV 11/10/24 12:00 Lactulose 30 ml DAILY PO 11/11/24 10:00 Melatonin 10 mg HS PO 11/10/24 22:00 11/11/24 21:27 10 MG Lorazepam 0.5 mg Q8HP PRN IV 11/11/24 14:30 11/12/24 14:56 0.5 MG objective Gen.: Patient lying in bed in no apparent distress. On supplemental oxygen. Head: Normocephalic, atraumatic Eyes: EOMI/PERRLA. Ears: Normal hearing. Normal anatomy. Neck/trachea: Trachea midline, supple. Nose: Normal external anatomy. Mouth: Moist mucous membranes. Chest: Decreased air entry bilaterally. No wheezing . Left upper lobe rhonchi. Cardio vascular: Positive S1, positive S2. Regular rate and rhythm. Abdomen: Positive bowel sounds in all 4 quadrants. Soft, non-tender, non- distended. : Deferred. Rectal: Deferred Skin: Warm, dry. Extremities: 2+ radial pulses bilaterally. No lower extremity edema. Neuro: Awake, alert, oriented x3. No gross motor or sensory deficits. Cranial nerves II through XII intact. Gait not assessed. laboratory and microbiology Laboratory Tests 11/12/24 06:30 Test 11/12/24 06:30 Range/Units Serum Glucose 143 H 74-106 mg/dL Assessment/Plan Impression: Acute hypoxic respiratory failure Pneumonia likely Gram-negative Possible metastatic lung disease Multiple osseous metastatic lesions Rule out lung malignancy Multiple liver metastasis Nicotine dependence Atelectasis Sepsis secondary to pneumonia COPD Events: Remains on supplemental oxygen, 4 LPM NC Taper O2 as tolerated Limited chest ultrasound showed trace left-sided pleural effusion. Continue bronchodilators Continue antibiotics Incentive spirometry Pain control Avoid oversedation Physical therapy Follow up with Oncology as outpatient. Labs and imaging reviewed. Rest of plan as noted below. Plan: Supplemental oxygen Keep O2 saturation above 92%. Bronchodilators Continue antibiotics. Follow up cultures. Oncology recommendations appreciated. Bone scan. Suggestive of osseous metastasis. Pain control Avoid oversedation Physical therapy DVT prophylaxis Prognosis: Poor given multiple comorbidities. Rest of plan per hospitalist and other consultants. Thank you Dr. Ambrosio/Dr Fox for allowing me to participate in this patient's care. Further recommendations will depend on patient's clinical course. Please do not hesitate to contact me if you have any questions or concerns. This medical document was created using an electronic medical record system with [employer] dictation system. Although this document has been carefully reviewed, there may still be some phonetic and typographical errors. These areas are purely typographical due to imperfections of the software programs, and do not reflect any compromise in the patient's medical care. Dietary Evaluation Review Comments: 1) If GI is accessible consider Glucerna 1.2 @ 40 ml/hr x 24 hrs goal rate as tolerated 2) If pt remains NPO >7 days consider TPN to meet at least 75% of estimated needs 3) Advance pt diet when medically feasible to a CCHO 45g diet 4) Continue current plan of care Expected Outcomes/Goals: 1) Pt to receive adequate nutrition support within 7 days of NPO status 2) Pt diet to advance 3) P labs to improve 4) F/U in 2-3 days Plan discussed with: Patient, Other (CRISTIAN Ferrer) NIKO GUERRA MD Nov 12, 2024 16:34
[2024-11-13] VITALS (19 sets, daily range): BP systolic 123–138; BP diastolic 63–83; PULSE 54–111; RESP 17–24; TEMP 79–98.7; O2SAT 84–100
--- NOTE | 2024-11-13 07:38 | DVHPN2 ---
Subjective The pain seen and examined at bedside. No change overnight. The patient still confused Reviewed: Care Plan, H&P, Labs, Medications, Previous Orders, Radiology Changes from previous H/P or p: No Changes Eyes: No Pain, No Vision change, No Conjunctivae inflammation, No Eyelid inflammation, No Other, No Redness ENT: No Ear pain, No Ear discharge, No Nose pain, No Nose discharge, No Nose congestion, No Mouth pain, No Mouth swelling, No Throat pain, No Throat swelling, No Other Cardiovascular: No Chest Pain, No Palpitations, No Orthopnea, No Paroxysmal Noc. Dyspnea, No Edema, No Lt Headedness, No Other Respiratory: Cough, Dry, Shortness of breath, SOB with excertion; No Wheezing, No Hemoptysis, No Pleuritic Pain, No Sputum, No Other Gastrointestinal: No Nausea, No Vomiting, No Abdominal Pain, No Diarrhea, No Constipation, No Melena, No Hematochezia, No Other Genitourinary: Dysuria; No Frequency, No Incontinence, No Hematuria, No Retention, No Other Musculoskeletal: No other, No neck pain, No shoulder pain, No arm pain, No back pain, No hand pain, No leg pain, No foot pain Skin: No Rash, No Lesions, No Jaundice, No Bruising, No Other Objective Vitals Vital Signs Date Time Temp Pulse Resp B/P (MAP) Pulse Ox O2 Delivery O2 Flow Rate FiO2 11/13/24 06:34 79 16 127/69 11/13/24 06:26 84 Room Air* 0 21 11/13/24 05:00 79.0 79.0 Intake/Output Intake and Output 11/13/24 07:00 Intake Total 950 ml Output Total 1200 ml Balance -250 ml Intake Oral 900 ml IV Total 50 ml Output Urine Total 500 ml Stool Total 700 ml General Appearance: Alert, No acute distress HEENT: Atraumatic, PERRLA, EOMI, Mucous membr. moist/pink Neck: Supple Lungs: Clear to auscultation, Normal air movement Cardiovascular: Regular rate, Normal S1, Normal S2, No murmurs, Gallops, Rubs Abdomen: Normal bowel sounds, Soft, No tenderness, No hepatospenomegaly Neuro: Other (Confused) Psych/Mental Status: Mental status NL Medications Current Medications Medications Dose Ordered Sig/Natacha Route Start Time Stop Time Status Last Admin Dose Admin Docusate Sodium 100 mg BIDPRN PRN PO 11/01/24 19:30 Acetaminophen 650 mg Q6HP PRN PO 11/01/24 19:30 Albuterol 2.5 mg Q2HPRN PRN NEB 11/04/24 10:15 Ipratropium [place] 0.5 mg Q4HWA NEB 11/04/24 14:00 11/13/24 06:34 0.5 MG Albuterol 2.5 mg Q4HWA [facility] 11/04/24 14:00 11/13/24 06:34 2.5 MG Pantoprazole Sodium 40 mg DAILY IV 11/05/24 10:00 11/12/24 10:06 40 MG Enoxaparin Sodium 40 mg DAILY SC 11/05/24 10:00 11/12/24 10:07 40 MG Acetylcysteine 200 mg Q8HR NEB 11/05/24 14:00 11/13/24 06:35 200 MG Methylprednisolone Sodium Succinate 40 mg BID IV 11/07/24 22:00 11/12/24 22:06 40 MG Ertapenem 1 gm/ Sodium Chloride 50 ml @ 100 mls/hr DAILY@1700 IV 11/09/24 17:00 11/12/24 17:26 100 MLS/HR Lidocaine 1 patch DAILY TOP 11/10/24 10:00 11/12/24 10:07 1 PATCH Hydromorphone HCl 0.5 mg Q4HPRN PRN IV 11/09/24 16:45 11/13/24 06:34 0.5 MG Diagnostic Test (Pha) 1 strip Q6HR 11/10/24 12:00 11/13/24 06:00 1 STRIP Insulin Human Regular Q6HR SC 11/10/24 12:00 11/13/24 06:30 2 UNITS Dextrose 50 ml UD PRN IV 11/10/24 12:00 Lactulose 30 ml DAILY PO 11/11/24 10:00 Melatonin 10 mg HS PO 11/10/24 22:00 11/12/24 22:05 10 MG Lorazepam 0.5 mg Q8HP PRN IV 11/11/24 14:30 11/12/24 14:56 0.5 MG Laboratory Results Laboratory Tests 11/12/24 06:30 Urinalysis Test 11/02/24 15:24 Urine Color Light-yellow (Yellow) Urine Clarity Clear (Clear) Urine pH 5.5 (5.0-9.0) Urine Specific Walls > 1.050 (1.001-1.035) Urine Protein Trace (Negative) H Urine Ketones Negative (Negative) Urine Blood Negative /uL (Negative) Urine Nitrite Negative (Negative) Urine Bilirubin Negative (Negative) Urine Urobilinogen Normal mg/dL (Negative) Urine Leukocyte Esterase Negative /uL (Negative) Urine RBC 1 /hpf (0 - 4) Urine WBC 1 /hpf (0 - 5) Urine Squamous Epithelial Cells Few /hpf (<5) Urine Calcium Oxalate Crystals Few (None Seen) Urine Bacteria None seen /hpf (None Seen) Urine Glucose Normal mg/dL (Normal) Microbiology Microbiology Date/Time Source Procedure Growth Status 11/06/24 18:32 Blood Blood Culture - Final NO GROWTH AFTER 5 DAYS OF INCUBATION. Complete 11/06/24 14:00 Urine - Catheterized Urine Culture - Final Yeast, not Laura albicans Complete 11/04/24 17:25 Lung Pending Resulted 11/04/24 17:25 Lung Pending Resulted 11/04/24 17:25 Lung Pending Resulted 11/04/24 17:25 Lung Pending Resulted 11/04/24 17:25 Lung - Final See Separate Report... Resulted 11/04/24 12:25 Sputum Gram Stain - Final Complete 11/04/24 12:25 Respiratory Culture - Final Escherichia coli - ESBL Complete Labs and/or images reviewed: Labs reviewed by me Assessment/Plan Assessment/Plan NEUROLOGY Acute hypoxic/metabolic encephalopathy likely due to sepsis/malignancy - patient is sedated and mechanically ventilated - CT head and MRI brain unremarkable for acute intracranial pathology CARDIOVASCULAR Septic shock secondary to probable metastatic lung cancer Prolonged QTC-resolved - blood culture prelim unremarkable - off Levophed since 11/07 RESPIRATORY Sepsis due to probable Postobstructive pneumonia, Gram-positive and Gram- negative Metastatic lung lung adenocarcinoma Acute hypoxic respiratory failure Left upper lobe mass Left-sided pleural effusion Likely underlying COPD Ruled out PE Mediastinal lymphadenopathy Basilar atelectasis and consolidation - CT angio chest completed 11/02 showed masslike consolidation in the left upper lung. Patchy nodular consolidation in both lungs,. Mediastinal lymphadenopathy. superimposed infection is not excluded. Small left pleural effusion with associated left basilar atelectasis and consolidation - respiratory culture shows ESBL E coli. G stain shows rare Gram-negative rods, Gram-positive cocci in pair, Gram-positive rods. - increased Solu-Medrol to 40 mg b.i.d. 11/07 - discontinued IV cefepime, increased to 2 g b.i.d on 11/08 -started IV Invanz 11/08 - continue acetylcysteine 200 mg Q 8 hour - continue albuterol and ipratropium q.4 hours - patient has a history of 50+ pack-year smoking - therapeutic bronchoscopy with bronchoalveolar lavage performed by Dr. Sim on November 04 - pathology reports confirm moderately differentiated adenocarcinoma of the lung -CPAP trial in AM completed, patient extubated 12:10 p.m. on 11/09. Currently on 3 L O2 supplementation - lidocaine patch and IV Dilaudid 0.5 mg q.4 p.r.n. started - ultrasound chest completed, shows trace pleural effusion. - heme Onc consulted GI History of perforated sigmoid diverticulosis diverticulitis with Doroteo's procedure and sigmoid resection and colectomy in January, Metastatic liver disease - CT angio shows multiple hypodense liver masses, largest measuring up to 35 mm. - lactulose 30 mL p.o. daily starting 11/10 /KIDNEY PETE, likely VMN-creatinine trending down MUSCULOSKELETAL Bone metastasis Degenerative joint disease - Cervical spine CT completed 11/01 shows mild bony spondylosis and degenerative disc changes at C5-C6 and C7 - CT angio completed, shows multiple osseous metastatic lesions. - bone scan completed 11/03, shows focal areas of increased uptake in the manubrium, sternum, thoracic vertebra, may be due to metastatic disease. Additional lytic lesion seen on recent CTA chest exam are not correlated on wounds likely due to the lytic nature. ENDO Left adrenal nodularity Diabetes mellitus - hemoglobin A1c 7.1 - continue Lantus 10 units SC daily in the a.m. - target blood glucose 140-180 mg/dL - Mild sliding scale ID Septic shock - Continue as above HEM-ONCO - Oncologist consulted, recommended bone scan and CT-guided needle biopsy of the liver LINES Intubated on 11/04 till 11/09 Right IJ central venous catheter placed on 11/04 till 11/10 Gomez catheter placed DRIPS Propofol off since 11/09 Levophed off since 11/07 Fentanyl of since 11/09 Diet: Passed swallow eval. Pureed diet since 11/10 dinner Physical therapy continue FULL CODE; discussed on for 24 minutes. PUD prophylaxis: Pantoprazole 40 mg IV daily DVT prophylaxis: Lovenox 40 mg daily SC Plan discussed with: Other (RN) Date of Service: Nov 13, 2024 Billing Provider: LEILA XIAO MD Common Visit Codes: [id number] INP/OBS CARE(HIGH) LEILA XIAO MD Nov 13, 2024 07:38
--- NOTE | 2024-11-13 23:41 | DVHPN2 ---
Progress Note - Dictate Date Seen: Nov 13, 2024 Medical Necessity Reason Pt with a Central, PICC or Fol: Yes The following are medically ne: Alonso Catheter Reason for alonso catheter: Strict I&O Subjective Patient seen and examined at bedside. Remains on supplemental oxygen Overnight events reviewed. vital signs Vital Sign Date Time Temp Pulse Resp B/P (MAP) Pulse Ox O2 Delivery O2 Flow Rate FiO2 11/13/24 22:12 110 18 99 11/13/24 22:02 Nasal Cannula 2.0 11/13/24 22:02 28 11/13/24 21:00 98.4 125/83 (97) 98.4 Total Intake and Output 11/12/24 11/12/24 11/13/24 15:00 23:00 07:00 Intake Total 350 ml 600 ml Output Total 850 ml 350 ml Balance -500 ml 250 ml medications Current Medications Medications Dose Ordered Sig/Natacha Route Start Time Stop Time Status Last Admin Dose Admin Docusate Sodium 100 mg BIDPRN PRN PO 11/01/24 19:30 Acetaminophen 650 mg Q6HP PRN PO 11/01/24 19:30 Albuterol 2.5 mg Q2HPRN PRN NEB 11/04/24 10:15 Ipratropium [place] 0.5 mg Q4HWA [facility] 11/04/24 14:00 11/13/24 22:02 0.5 MG Albuterol 2.5 mg Q4HWA [facility] 11/04/24 14:00 11/13/24 22:02 2.5 MG Pantoprazole Sodium 40 mg DAILY IV 11/05/24 10:00 11/13/24 09:13 40 MG Enoxaparin Sodium 40 mg DAILY SC 11/05/24 10:00 11/13/24 09:14 40 MG Acetylcysteine 200 mg Q8HR [facility] 11/05/24 14:00 11/13/24 18:17 200 MG Methylprednisolone Sodium Succinate 40 mg BID IV 11/07/24 22:00 11/13/24 21:48 40 MG Ertapenem 1 gm/ Sodium Chloride 50 ml @ 100 mls/hr DAILY@1700 IV 11/09/24 17:00 11/13/24 17:51 100 MLS/HR Lidocaine 1 patch DAILY TOP 11/10/24 10:00 11/13/24 09:14 1 PATCH Hydromorphone HCl 0.5 mg Q4HPRN PRN IV 11/09/24 16:45 11/13/24 20:14 0.5 MG Diagnostic Test (Pha) 1 strip Q6HR 11/10/24 12:00 11/13/24 17:55 1 STRIP Insulin Human Regular Q6HR [facility] 11/10/24 12:00 11/13/24 17:52 4 UNITS Dextrose 50 ml UD PRN IV 11/10/24 12:00 Lactulose 30 ml DAILY PO 11/11/24 10:00 Melatonin 10 mg HS PO 11/10/24 22:00 11/13/24 21:48 10 MG Lorazepam 0.5 mg Q8HP PRN IV 11/11/24 14:30 11/13/24 18:52 0.5 MG objective Gen.: Patient lying in bed in no apparent distress. On supplemental oxygen. Head: Normocephalic, atraumatic Eyes: EOMI/PERRLA. Ears: Normal hearing. Normal anatomy. Neck/trachea: Trachea midline, supple. Nose: Normal external anatomy. Mouth: Moist mucous membranes. Chest: Decreased air entry bilaterally. No wheezing . Left upper lobe rhonchi. Cardio vascular: Positive S1, positive S2. Regular rate and rhythm. Abdomen: Positive bowel sounds in all 4 quadrants. Soft, non-tender, non- distended. : Deferred. Rectal: Deferred Skin: Warm, dry. Extremities: 2+ radial pulses bilaterally. No lower extremity edema. Neuro: Awake, alert, oriented x3. No gross motor or sensory deficits. Cranial nerves II through XII intact. Gait not assessed. laboratory and microbiology Laboratory Tests 11/12/24 06:30 Test 11/12/24 06:30 Range/Units Serum Glucose 143 H 74-106 mg/dL Assessment/Plan Impression: Acute hypoxic respiratory failure Pneumonia likely Gram-negative Possible metastatic lung disease Multiple osseous metastatic lesions Rule out lung malignancy Multiple liver metastasis Nicotine dependence Atelectasis Sepsis secondary to pneumonia COPD Events: Remains on supplemental oxygen, 4 LPM NC Taper O2 as tolerated Continue bronchodilators IV steroids Continue antibiotics Incentive spirometry Pain control Avoid oversedation Physical therapy Follow up with Oncology as outpatient. Poor prognosis Labs and imaging reviewed. Rest of plan as noted below. Plan: Supplemental oxygen Keep O2 saturation above 92%. Bronchodilators Continue antibiotics. Follow up cultures. Oncology recommendations appreciated. Bone scan. Suggestive of osseous metastasis. Pain control Avoid oversedation Physical therapy DVT prophylaxis Prognosis: Poor given multiple comorbidities. Rest of plan per hospitalist and other consultants. Thank you Dr. Ambrosio/Dr Fox for allowing me to participate in this patient's care. Further recommendations will depend on patient's clinical course. Please do not hesitate to contact me if you have any questions or concerns. This medical document was created using an electronic medical record system with [employer] dictation system. Although this document has been carefully reviewed, there may still be some phonetic and typographical errors. These areas are purely typographical due to imperfections of the software programs, and do not reflect any compromise in the patient's medical care. Dietary Evaluation Review Comments: 1) If GI is accessible consider Glucerna 1.2 @ 40 ml/hr x 24 hrs goal rate as tolerated 2) If pt remains NPO >7 days consider TPN to meet at least 75% of estimated needs 3) Advance pt diet when medically feasible to a CCHO 45g diet 4) Continue current plan of care Expected Outcomes/Goals: 1) Pt to receive adequate nutrition support within 7 days of NPO status 2) Pt diet to advance 3) P labs to improve 4) F/U in 2-3 days Plan discussed with: Patient, Other (CRISTIAN Liu) NIKO GUERRA MD Nov 13, 2024 23:41
[2024-11-14] VITALS (17 sets, daily range): BP systolic 121–144; BP diastolic 60–75; PULSE 81–103; RESP 16–24; TEMP 97.8–98.6; O2SAT 91–100
[2024-11-14 08:23] LABS: Basophils # (auto) 0.1 10 ^3/uL (0-0.2); Basophils % (auto) 0.5 % (0.0-2.0); Eosinophils # (auto) 0.2 10 ^3/uL (0-0.8); Eosinophils % (auto) 0.9 % (0.0-7.0); Hematocrit 43.5 % (36.0-46.0); Hemoglobin 14.5 g/dL (12.2-16.2); Lymphocytes # (auto) 1.3 10 ^3/uL (0.4-5.4); Lymphocytes % (auto) 6.4 % (10.0-50.0); Mean Corpuscular Hemoglobin 31.1 pg (28.0-32.0); Mean Corpuscular Hgb Conc. 33.3 g/dL (32.0-36.0); Mean Corpuscular Volume 93.2 fL (80.0-100.0); Monocytes # (auto) 0.9 10 ^3/uL (0-1.3); Monocytes % (auto) 4.5 % (0.0-12.0); Neutrophils # (auto) 17.8 10 ^3/uL (1.6-8.6); Neutrophils % (auto) 87.7 % (37.0-80.0); Platelet Count (auto) 319 10^3/uL (140-450); Red Blood Cells 4.67 10^6/uL (4.0-5.20); Red Cell Distribution Width 13.2 % (11.8-14.3); White Blood Cell 20.4 10^3/uL (4.4-10.8)
[2024-11-14 08:40] LABS: Chloride 101 mmol/L (98-107); Potassium 4.5 mmol/L (3.5-5.1); Sodium 139 mmol/L (136-145)
[2024-11-14 08:41] LABS: Anion Gap 4 (5-15); Calcium 9.5 mg/dL (8.7-10.4)
[2024-11-14 08:46] LABS: BUN/Creatinine Ratio 37.7 (10.0-20.0); Blood Urea Nitrogen 20 mg/dL (9-23); Carbon Dioxide 34 mmol/L (20-31); Glucose 114 mg/dL (74-106)
--- NOTE | 2024-11-14 18:35 | DVHPNRES ---
Progress Note Date Seen: Nov 14, 2024 Resident Creating Document: FRANCA BARBOZA RESIDENT Medical Necessity Reason Pt with a Central, PICC or Fol: Yes The following are medically ne: Alonso Catheter Reason for alonso catheter: Strict I&O Subjective Review of Systems This is a 69-year-old with a past medical history of left lower extremity DVT in 2020, COPD, GERD, history of methamphetamine use, chronic nicotine dependence, hypertension, type 2 diabetes mellitus, left lung nodule, anxiety who presented to the ED with the chief complaint of shortness of breath and chest pain with cough for the pat 3 weeks. According to the patient she has been using her nebulizer at home but she did not really receive any relief from that and she continued to have shortness of breath. Thus, she presented to the ED for evaluation. Patient also mentioned having cough with the yellowish sputum production. however, she denies any fever or chills just headache. Patient has been previously admitted in this facility over the period of 2016 to 2020 4 multiple acute hypoxic respiratory failure episode secondary due to COPD. Patient has been admitted in this hospital in January in February this year secondary to SBO and underwent sigmoid resection with a Doroteo's procedure and colostomy placement secondary to sigmoid diverticulosis vitals diverticulitis. 11/07-Patient seen and examined at bedside. She is intubated and mechanically ventilated. DC gabapentin, DC Zofran. Increased cefepime to 2 g b.i.d.. 11/08-overnight no events noted, patient is saturating 99 on 30% FiO2. He has been off Levophed since 11/07. On propofol 35 and fentanyl 25, sedation was turned on later this morning her CPAP trial. Patient tolerated CPAP trial from 11:00 a.m. to 2:00 p.m.. Sputum culture resulted as ESBL E coli. Sensitive to ertapenem, meropenem, Victoza, TMP SMX. Discontinued cefepime and started ertapenem IV. CPAP trial in AM 11/09 - patient seen and examined at bedside. Overnight patient made 500 mL of urine and 675 mL in the daytime. She is saturating 98 and FiO2 of 30%. CPAP trial started at 9:30 a.m and patient continued it till 12:00 p.m.. CPAP ABG showed pH 7.39, pCO2 45, bicarb 27, PO2 83. Florian was 20, vital capacity 877. Consequently patient was extubated at 12:10 p.m. she is currently satting 91% on 6 L of oxygen supplementation. Patient complaining of back pain and moaning in pain therefore IV Dilaudid 0.5 mg q.4 p.r.n. along with lidocaine patch started. Creatinine clearance 60 mL/minute. 11/10-patient seen and examined at bedside. She is A&O x4, ran low-grade fever overnight 99.8 and intermittently tachypneic at 20, otherwise she is saturating 95 on 3 L NC. Overnight 700 mL of urine but no bowel movement, lactulose 30 mL p.o. started. Central line discontinued. Patient tolerated clear liquid diet well. Swallow eval completed, patient can tolerate pureed diet with thin liquids. Pureed Diet started. Chest x-ray completed shows left-sided opacity probably atelectasis. Mild ISS. Patient transferred to telemetry unit. 11/11 - patient A&O x4 this morning. Overnight she complaint of pain and was agitated, Ativan started 0.5 IV changed to Q 8 p.r.n. chest x-ray shows worsening left-sided infiltrate. Ultrasound ordered shows trace pleural effusion. 11/14 -seen and examined at the bedside. She is A&O x4. . Recommended home health services. Methylprednisolone 40 mg b.i.d. switched to prednisolone 40 mg p.o. daily. Continue IV ertapenem. DC Dilaudid. Switch to p.o. morphine. WBC trending up. Chest x-ray in the a.m.. Chest percussions ordered. KYLAH Alonso. Objective vital signs Vital Sign Date Time Temp Pulse Resp B/P (MAP) Pulse Ox O2 Delivery O2 Flow Rate FiO2 11/14/24 18:21 85 18 100 11/14/24 18:09 Nasal Cannula* 2 28 11/14/24 17:00 98.6 121/65 (83) 98.6 Total Intake and Output 11/13/24 11/13/24 11/14/24 15:00 23:00 07:00 Intake Total 750 ml Output Total 600 ml Balance 150 ml medications Current Medications Medications Dose Ordered Sig/Natacha Route Start Time Stop Time Status Last Admin Dose Admin Docusate Sodium 100 mg BIDPRN PRN PO 11/01/24 19:30 Acetaminophen 650 mg Q6HP PRN PO 11/01/24 19:30 Albuterol 2.5 mg Q2HPRN PRN NEB 11/04/24 10:15 Ipratropium Lennox 0.5 mg Q4HWA NEB 11/04/24 14:00 11/14/24 18:09 0.5 MG Albuterol 2.5 mg Q4HWA [facility] 11/04/24 14:00 11/14/24 18:09 2.5 MG Enoxaparin Sodium 40 mg DAILY SC 11/05/24 10:00 11/14/24 10:05 40 MG Ertapenem 1 gm/ Sodium Chloride 50 ml @ 100 mls/hr DAILY@1700 IV 11/09/24 17:00 11/14/24 17:35 100 MLS/HR Lidocaine 1 patch DAILY TOP 11/10/24 10:00 11/14/24 10:06 1 PATCH Diagnostic Test (Pha) 1 strip Q6HR 11/10/24 12:00 11/14/24 18:07 1 STRIP Insulin Human Regular Q6HR SC 11/10/24 12:00 11/14/24 18:15 3 UNITS Dextrose 50 ml UD PRN IV 11/10/24 12:00 Lactulose 30 ml DAILY PO 11/11/24 10:00 11/14/24 10:05 30 ML Melatonin 10 mg HS PO 11/10/24 22:00 11/13/24 21:48 10 MG Lorazepam 0.5 mg Q8HP PRN IV 11/11/24 14:30 11/13/24 18:52 0.5 MG Prednisone 40 mg DAILY PO 11/15/24 10:00 Pantoprazole Sodium 40 mg DAILY@0600 PO 11/15/24 06:00 Morphine Sulfate 1 mg Q4HP PRN IV 11/14/24 16:00 Examination Female patient lying in bed, in no acute distress General: Afebrile, palor, mucosae are moist, pupils are reactive Cardiovascular: Regular S1 and S2. No murmurs, gallops or rubs. No JVD elevation. No pedal edema Respiratory: Decreased breath sounds in the left lower lobe. no wheezing or crackles heard, saturating 95 on 3 L NC Abdomen: Soft, nontender, nondistended, hypoactive bowel sounds, no rebound tenderness, no organomegaly, no masses. Colostomy bag seen which is empty. Stoma looks pink and moist. Genitourinary: Deferred MSK/skin: Skin is dry and warm Neurological: A&O x4. Patient is seen mobilizing her all 4 extremities. Pupils are isocoric and reactive. laboratory and microbiology Laboratory Tests 11/14/24 07:58 Test 11/14/24 07:58 Range/Units Serum Glucose 114 H 74-106 mg/dL Microbiology Date/Time Source Procedure Growth Status 11/06/24 18:32 Blood Blood Culture - Final NO GROWTH AFTER 5 DAYS OF INCUBATION. Complete 11/06/24 14:00 Urine - Catheterized Urine Culture - Final Yeast, not Laura albicans Complete 11/04/24 17:25 Lung Pending Resulted 11/04/24 17:25 Lung Pending Resulted 11/04/24 17:25 Lung Pending Resulted 11/04/24 17:25 Lung Pending Resulted 11/04/24 17:25 Lung - Final See Separate Report... Resulted 11/04/24 12:25 Sputum Gram Stain - Final Complete 11/04/24 12:25 Respiratory Culture - Final Escherichia coli - ESBL Complete Labs and/or images reviewed: Labs reviewed by me, Image(s) reviewed by me Problem List/Assessment/Plan Problem List/Assessment/Plan NEUROLOGY Acute hypoxic/metabolic encephalopathy likely due to sepsis/malignancy - patient is sedated and mechanically ventilated - CT head and MRI brain unremarkable for acute intracranial pathology CARDIOVASCULAR Septic shock secondary to probable metastatic lung cancer Prolonged QTC-resolved - blood culture prelim unremarkable - off Levophed since 11/07 RESPIRATORY Sepsis due to probable Postobstructive pneumonia, Gram-positive and Gram- negative Metastatic lung lung adenocarcinoma Acute hypoxic respiratory failure Left upper lobe mass Left-sided pleural effusion Likely underlying COPD Ruled out PE Mediastinal lymphadenopathy Basilar atelectasis and consolidation - CT angio chest completed 11/02 showed masslike consolidation in the left upper lung. Patchy nodular consolidation in both lungs,. Mediastinal lymphadenopathy. superimposed infection is not excluded. Small left pleural effusion with associated left basilar atelectasis and consolidation - respiratory culture shows ESBL E coli. G stain shows rare Gram-negative rods, Gram-positive cocci in pair, Gram-positive rods. - increased Solu-Medrol to 40 mg b.i.d. 11/07, switched to prednisolone 40 mg p.o. daily starting 11/14 - discontinued IV cefepime, increased to 2 g b.i.d on 11/08 -started IV Invanz 11/08 - continue acetylcysteine 200 mg Q 8 hour - continue albuterol and ipratropium q.4 hours - patient has a history of 50+ pack-year smoking - therapeutic bronchoscopy with bronchoalveolar lavage performed by Dr. Sim on November 04 - pathology reports confirm moderately differentiated adenocarcinoma of the lung -CPAP trial in AM completed, patient extubated 12:10 p.m. on 11/09. Currently on 3 L O2 supplementation - lidocaine patch and discontinued IV Dilaudid 0.5 mg q.4 p.r.n, switched to p.o. morphine - ultrasound chest completed, shows trace pleural effusion. - heme Onc consulted-outpatient workup - chest percussions ordered GI History of perforated sigmoid diverticulosis diverticulitis with Doroteo's procedure and sigmoid resection and colectomy in January, Metastatic liver disease - CT angio shows multiple hypodense liver masses, largest measuring up to 35 mm. - lactulose 30 mL p.o. daily starting 11/10 /KIDNEY PETE, likely VMN-creatinine trending down MUSCULOSKELETAL Bone metastasis Degenerative joint disease - Cervical spine CT completed 11/01 shows mild bony spondylosis and degenerative disc changes at C5-C6 and C7 - CT angio completed, shows multiple osseous metastatic lesions. - bone scan completed 11/03, shows focal areas of increased uptake in the manubrium, sternum, thoracic vertebra, may be due to metastatic disease. Additional lytic lesion seen on recent CTA chest exam are not correlated on wounds likely due to the lytic nature. ENDO Left adrenal nodularity Diabetes mellitus - hemoglobin A1c 7.1 - continue Lantus 10 units SC daily in the a.m. - target blood glucose 140-180 mg/dL - Mild sliding scale ID Septic shock - Continue as above HEM-ONCO - Oncologist consulted, recommended bone scan and CT-guided needle biopsy of the liver LINES Intubated on 11/04 till 11/09 Right IJ central venous catheter placed on 11/04 till 11/10 Alonso catheter discontinued on 11/14 DRIPS Propofol of since 11/09 Levophed off since 11/07 Fentanyl of since 11/09 Diet: Passed swallow eval. Pureed diet since 11/10 dinner Physical therapy consulted-home health services and DOMO Saldanaator requested Patient transferred to telemetry unit. End of note Goals of care/advance care planning; FULL CODE; discussed on for 24 minutes. PUD prophylaxis: Pantoprazole 40 mg p.o. daily DVT prophylaxis: Lovenox 40 mg daily SC Case discussed with Dr Pop Plan discussed with granddaughter over the phone for over 30 minutes, in which all questions have been answered code status full code Critical care time including chart review, discussion with the patient's family excluding procedures: 56 minutes Plan discussed with: Patient, Other (Granddaughter over the phone) My Orders My Orders Orders - FRANCA BARBOZA Procedure Category Date Status Time D/C Alonso JUJU 11/14/24 In Process 11:30 * Solar [employer] CONS 11/14/24 Transmitted Consult Chest Portable XY 11/15/24 Logged 07:00 Dietary Evaluation Review Comments: 1) If GI is accessible consider Glucerna 1.2 @ 40 ml/hr x 24 hrs goal rate as tolerated 2) If pt remains NPO >7 days consider TPN to meet at least 75% of estimated needs 3) Advance pt diet when medically feasible to a CCHO 45g diet 4) Continue current plan of care Expected Outcomes/Goals: 1) Pt to receive adequate nutrition support within 7 days of NPO status 2) Pt diet to advance 3) P labs to improve 4) F/U in 2-3 days Date of Service: Nov 14, 2024 Billing Provider: JACKELINE POP MD Common Visit Codes: [id number] CARE 30-74 MIN FRANCA BARBOZA Nov 14, 2024 18:35 JACKELINE POP MD Nov 15, 2024 13:34
[2024-11-14] MEDS: MORPHINE SULFATE INJ 2 MG/ml SYRG IV PRN (20:43)
[2024-11-15] VITALS (19 sets, daily range): BP systolic 112–133; BP diastolic 62–81; PULSE 83–116; RESP 18–20; TEMP 97.9–99; O2SAT 88–100
[2024-11-15 06:07] LABS: Basophils # (auto) 0.1 10 ^3/uL (0-0.2); Basophils % (auto) 0.5 % (0.0-2.0); Chloride 103 mmol/L (98-107); Eosinophils # (auto) 1.3 10 ^3/uL (0-0.8); Eosinophils % (auto) 6.2 % (0.0-7.0); Hematocrit 40.5 % (36.0-46.0); Hemoglobin 13.3 g/dL (12.2-16.2); Lymphocytes # (auto) 1.9 10 ^3/uL (0.4-5.4); Lymphocytes % (auto) 9.4 % (10.0-50.0); Mean Corpuscular Hemoglobin 30.9 pg (28.0-32.0); Mean Corpuscular Volume 93.8 fL (80.0-100.0); Monocytes # (auto) 1.6 10 ^3/uL (0-1.3); Monocytes % (auto) 7.8 % (0.0-12.0); Neutrophils # (auto) 15.8 10 ^3/uL (1.6-8.6); Neutrophils % (auto) 76.1 % (37.0-80.0); Platelet Count (auto) 327 10^3/uL (140-450); Potassium 3.5 mmol/L (3.5-5.1); Red Blood Cells 4.32 10^6/uL (4.0-5.20); Red Cell Distribution Width 13.2 % (11.8-14.3); Sodium 141 mmol/L (136-145); White Blood Cell 20.7 10^3/uL (4.4-10.8)
[2024-11-15 06:08] LABS: Anion Gap 5 (5-15)
[2024-11-15 06:13] LABS: BUN/Creatinine Ratio 28.6 (10.0-20.0); Blood Urea Nitrogen 16 mg/dL (9-23)
[2024-11-15 06:15] LABS: Carbon Dioxide 33 mmol/L (20-31); Glucose 118 mg/dL (74-106)
[2024-11-15 06:16] LABS: Magnesium 1.4 mg/dL (1.6-2.6)
[2024-11-15] MEDS: PANTOPRAZOLE 40 MG TAB PO SCH (06:48)
--- NOTE | 2024-11-15 07:49 | DVH ---
CHEST RADIOGRAPH Indication: f/u Technique: Single frontal view of the chest was obtained Comparison: XY CHEST XRAY 1 VIEW on DOS: 11/11/24 FINDINGS: Lines and Tubes: None Lungs: Left upper lobe consolidation. Pleura: Left pleural effusion noted. No pneumothorax. Cardiomediastinal contours: Stable. Bones: No acute osseous abnormality. IMPRESSION: 1. Left upper lobe consolidation. Left pleural effusion.
[2024-11-15] MEDS: predniSONE 20 MG TAB PO SCH (09:12)
[2024-11-15] MEDS ORDERED: methylPREDNISolone SOD SUCC 40 MG/ML VL IV SCH (10:00)
[2024-11-15] MEDS: POTASSIUM EFFERVESENT TAB 25 MEQ PO ONE (11:15)
[2024-11-15] MEDS: MAGNESIUM SULFATE 1GM/100ML 100 ML IV SCH (11:16)
[2024-11-15] MEDS: NICOTINE 21MG/24 HR TOPICAL PATCH TD ONE (15:38)
--- NOTE | 2024-11-15 15:50 | DVHPNRES ---
Progress Note Date Seen: Nov 15, 2024 Resident Creating Document: FRANCA BARBOZA RESIDENT Medical Necessity Reason Pt with a Central, PICC or Fol: Yes The following are medically ne: Alonso Catheter Reason for alonso catheter: Strict I&O Subjective Review of Systems This is a 69-year-old with a past medical history of left lower extremity DVT in 2020, COPD, GERD, history of methamphetamine use, chronic nicotine dependence, hypertension, type 2 diabetes mellitus, left lung nodule, anxiety who presented to the ED with the chief complaint of shortness of breath and chest pain with cough for the pat 3 weeks. According to the patient she has been using her nebulizer at home but she did not really receive any relief from that and she continued to have shortness of breath. Thus, she presented to the ED for evaluation. Patient also mentioned having cough with the yellowish sputum production. however, she denies any fever or chills just headache. Patient has been previously admitted in this facility over the period of 2016 to 2020 4 multiple acute hypoxic respiratory failure episode secondary due to COPD. Patient has been admitted in this hospital in January in February this year secondary to SBO and underwent sigmoid resection with a Doroteo's procedure and colostomy placement secondary to sigmoid diverticulosis vitals diverticulitis. 11/07-Patient seen and examined at bedside. She is intubated and mechanically ventilated. DC gabapentin, DC Zofran. Increased cefepime to 2 g b.i.d.. 11/08-overnight no events noted, patient is saturating 99 on 30% FiO2. He has been off Levophed since 11/07. On propofol 35 and fentanyl 25, sedation was turned on later this morning her CPAP trial. Patient tolerated CPAP trial from 11:00 a.m. to 2:00 p.m.. Sputum culture resulted as ESBL E coli. Sensitive to ertapenem, meropenem, Victoza, TMP SMX. Discontinued cefepime and started ertapenem IV. CPAP trial in AM 11/09 - patient seen and examined at bedside. Overnight patient made 500 mL of urine and 675 mL in the daytime. She is saturating 98 and FiO2 of 30%. CPAP trial started at 9:30 a.m and patient continued it till 12:00 p.m.. CPAP ABG showed pH 7.39, pCO2 45, bicarb 27, PO2 83. Florian was 20, vital capacity 877. Consequently patient was extubated at 12:10 p.m. she is currently satting 91% on 6 L of oxygen supplementation. Patient complaining of back pain and moaning in pain therefore IV Dilaudid 0.5 mg q.4 p.r.n. along with lidocaine patch started. Creatinine clearance 60 mL/minute. 11/10-patient seen and examined at bedside. She is A&O x4, ran low-grade fever overnight 99.8 and intermittently tachypneic at 20, otherwise she is saturating 95 on 3 L NC. Overnight 700 mL of urine but no bowel movement, lactulose 30 mL p.o. started. Central line discontinued. Patient tolerated clear liquid diet well. Swallow eval completed, patient can tolerate pureed diet with thin liquids. Pureed Diet started. Chest x-ray completed shows left-sided opacity probably atelectasis. Mild ISS. Patient transferred to telemetry unit. 11/11 - patient A&O x4 this morning. Overnight she complaint of pain and was agitated, Ativan started 0.5 IV changed to Q 8 p.r.n. chest x-ray shows worsening left-sided infiltrate. Ultrasound ordered shows trace pleural effusion. 11/14 -seen and examined at the bedside. She is A&O x4. . Recommended home health services. Methylprednisolone 40 mg b.i.d. switched to prednisolone 40 mg p.o. daily. Continue IV ertapenem. DC Dilaudid. Switch to IV morphine. WBC trending up. Chest x-ray in the a.m.. Chest percussions ordered. KYLAH Alonso. 11/15-overnight patient went to smoke. She had A&O x4. Ambulating in the room. Reports no acute complaint. Undergoing chest percussions. Started nicotine patch 21 mg daily. Chest x-ray shows left upper opacity and left lower atelectasis. Overnight 450 mL of urine. Flutter valve ordered. K and Mag replenished Objective vital signs Vital Sign Date Time Temp Pulse Resp B/P (MAP) Pulse Ox O2 Delivery O2 Flow Rate FiO2 11/15/24 15:31 86 16 126/82 11/15/24 13:36 96 11/15/24 13:30 Nasal Cannula 1.0 11/15/24 13:30 24 11/15/24 13:00 98.1 98.1 Total Intake and Output 11/14/24 11/14/24 11/15/24 15:00 23:00 07:00 Intake Total 50 ml 0 ml Output Total 100 ml 400 ml Balance -100 ml -350 ml 0 ml medications Current Medications Medications Dose Ordered Sig/Natacha Route Start Time Stop Time Status Last Admin Dose Admin Docusate Sodium 100 mg BIDPRN PRN PO 11/01/24 19:30 Acetaminophen 650 mg Q6HP PRN PO 11/01/24 19:30 Albuterol 2.5 mg Q2HPRN PRN NEB 11/04/24 10:15 Ipratropium [place] 0.5 mg Q4HWA [facility] 11/04/24 14:00 11/15/24 13:30 0.5 MG Albuterol 2.5 mg Q4HWA [facility] 11/04/24 14:00 11/15/24 13:30 2.5 MG Enoxaparin Sodium 40 mg DAILY SC 11/05/24 10:00 11/15/24 09:12 40 MG Ertapenem 1 gm/ Sodium Chloride 50 ml @ 100 mls/hr DAILY@1700 IV 11/09/24 17:00 11/14/24 17:35 100 MLS/HR Lidocaine 1 patch DAILY TOP 11/10/24 10:00 11/15/24 09:12 1 PATCH Diagnostic Test (Pha) 1 strip Q6HR 11/10/24 12:00 11/15/24 12:00 1 STRIP Insulin Human Regular Q6HR SC 11/10/24 12:00 11/14/24 23:20 6 UNITS Dextrose 50 ml UD PRN IV 11/10/24 12:00 Lactulose 30 ml DAILY PO 11/11/24 10:00 11/15/24 09:12 30 ML Melatonin 10 mg HS PO 11/10/24 22:00 11/14/24 21:57 10 MG Lorazepam 0.5 mg Q8HP PRN IV 11/11/24 14:30 11/15/24 09:27 0.5 MG Prednisone 40 mg DAILY PO 11/15/24 10:00 11/15/24 09:12 40 MG Pantoprazole Sodium 40 mg DAILY@0600 PO 11/15/24 06:00 11/15/24 06:48 40 MG Morphine Sulfate 1 mg Q4HP PRN IV 11/14/24 16:00 11/15/24 15:31 1 MG Nicotine 1 patch DAILY TD 11/16/24 10:00 Examination Female patient lying in bed, in no acute distress General: Afebrile, palor, mucosae are moist, pupils are reactive Cardiovascular: Regular S1 and S2. No murmurs, gallops or rubs. No JVD elevation. No pedal edema Respiratory: Decreased breath sounds in the left lower lobe. no wheezing or crackles heard, saturating 95 on 2 L NC Abdomen: Soft, nontender, nondistended, hypoactive bowel sounds, no rebound tenderness, no organomegaly, no masses. Colostomy bag seen full with dark brown soft stool. Stoma looks pink and moist. Genitourinary: Deferred MSK/skin: Skin is dry and warm Neurological: A&O x4. Patient is seen mobilizing her all 4 extremities. Pupils are isocoric and reactive. laboratory and microbiology Laboratory Tests 11/15/24 05:22 Test 11/15/24 05:22 Range/Units Serum Glucose 118 H 74-106 mg/dL Microbiology Date/Time Source Procedure Growth Status 11/06/24 18:32 Blood Blood Culture - Final NO GROWTH AFTER 5 DAYS OF INCUBATION. Complete 11/06/24 14:00 Urine - Catheterized Urine Culture - Final Yeast, not Laura albicans Complete 11/04/24 17:25 Lung Pending Resulted 11/04/24 17:25 Lung Pending Resulted 11/04/24 17:25 Lung Pending Resulted 11/04/24 17:25 Lung Pending Resulted 11/04/24 17:25 Lung - Final See Separate Report... Resulted 11/04/24 12:25 Sputum Gram Stain - Final Complete 11/04/24 12:25 Respiratory Culture - Final Escherichia coli - ESBL Complete Labs and/or images reviewed: Labs reviewed by me, Image(s) reviewed by me Problem List/Assessment/Plan Problem List/Assessment/Plan NEUROLOGY Acute hypoxic/metabolic encephalopathy likely due to sepsis/malignancy - patient is sedated and mechanically ventilated - CT head and MRI brain unremarkable for acute intracranial pathology CARDIOVASCULAR Septic shock secondary to probable metastatic lung cancer Prolonged QTC-resolved - blood culture prelim unremarkable - off Levophed since 11/07 RESPIRATORY Sepsis due to probable Postobstructive pneumonia, Gram-positive and Gram- negative Metastatic lung lung adenocarcinoma Acute hypoxic respiratory failure Left upper lobe mass Left-sided pleural effusion Likely underlying COPD Ruled out PE Mediastinal lymphadenopathy Basilar atelectasis and consolidation Chronic nicotine dependence - CT angio chest completed 11/02 showed masslike consolidation in the left upper lung. Patchy nodular consolidation in both lungs,. Mediastinal lymphadenopathy. superimposed infection is not excluded. Small left pleural effusion with associated left basilar atelectasis and consolidation - respiratory culture shows ESBL E coli. G stain shows rare Gram-negative rods, Gram-positive cocci in pair, Gram-positive rods. - increased Solu-Medrol to 40 mg b.i.d. 11/07, switched to prednisolone 40 mg p.o. daily starting 11/14 - discontinued IV cefepime, increased to 2 g b.i.d on 11/08 -started IV Invanz 11/08 - continue acetylcysteine 200 mg Q 8 hour - continue albuterol and ipratropium q.4 hours - patient has a history of 50+ pack-year smoking - therapeutic bronchoscopy with bronchoalveolar lavage performed by Dr. Sim on November 04 - pathology reports confirm moderately differentiated adenocarcinoma of the lung -CPAP trial in AM completed, patient extubated 12:10 p.m. on 11/09. Currently on 3 L O2 supplementation - lidocaine patch and discontinued IV Dilaudid 0.5 mg q.4 p.r.n, switched to p.o. morphine - ultrasound chest completed, shows trace pleural effusion. - heme Onc consulted-outpatient workup - chest percussions and flutter valve ordered - nicotine patch 21 mg daily GI History of perforated sigmoid diverticulosis diverticulitis with Doroteo's procedure and sigmoid resection and colectomy in January, Metastatic liver disease - CT angio shows multiple hypodense liver masses, largest measuring up to 35 mm. - lactulose 30 mL p.o. daily starting 11/10 /KIDNEY PETE, likely VMN-creatinine trending down MUSCULOSKELETAL Bone metastasis Degenerative joint disease - Cervical spine CT completed 11/01 shows mild bony spondylosis and degenerative disc changes at C5-C6 and C7 - CT angio completed, shows multiple osseous metastatic lesions. - bone scan completed 11/03, shows focal areas of increased uptake in the manubrium, sternum, thoracic vertebra, may be due to metastatic disease. Additional lytic lesion seen on recent CTA chest exam are not correlated on wounds likely due to the lytic nature. ID Septic shock - Continue as above HEM-ONCO - Oncologist consulted, recommended bone scan and CT-guided needle biopsy of the liver METABOLIC Hypokalemia Hypomagnesemia -keep Mag above 2 and K above 4 ENDO Left adrenal nodularity Diabetes mellitus - hemoglobin A1c 7.1 - continue Lantus 10 units SC daily in the a.m. - target blood glucose 140-180 mg/dL - Mild sliding scale LINES Intubated on 11/04 till 11/09 Right IJ central venous catheter placed on 11/04 till 11/10 Alonso catheter discontinued on 11/14 DRIPS Propofol of since 11/09 Levophed off since 11/07 Fentanyl of since 11/09 Diet: Passed swallow eval. Pureed diet since 11/10 dinner Physical therapy consulted-home health services and DME walker Rollator requested Patient transferred to telemetry unit. End of note Goals of care/advance care planning; FULL CODE; discussed on for 24 minutes. PUD prophylaxis: Pantoprazole 40 mg p.o. daily DVT prophylaxis: Lovenox 40 mg daily SC Case discussed with Dr Pop Plan discussed with granddaughter over the phone, in which all questions have been answered code status full code. family is considering hospice at this time. Critical care time including chart review, discussion with the patient's family excluding procedures: 41 minutes Plan discussed with: Patient, Other (Granddaughter over the phone) My Orders My Orders Orders - FRANCA BARBOZA Procedure Category Date Status Time Chest Portable XY 11/15/24 Resulted 07:00 Dietary Evaluation Review Comments: 1) If GI is accessible consider Glucerna 1.2 @ 40 ml/hr x 24 hrs goal rate as tolerated 2) If pt remains NPO >7 days consider TPN to meet at least 75% of estimated needs 3) Advance pt diet when medically feasible to a CCHO 45g diet 4) Continue current plan of care Expected Outcomes/Goals: 1) Pt to receive adequate nutrition support within 7 days of NPO status 2) Pt diet to advance 3) P labs to improve 4) F/U in 2-3 days Date of Service: Nov 15, 2024 Billing Provider: JACKELINE POP MD Common Visit Codes: [id number] CARE 30-74 MIN FRANCA BARBOZA Nov 15, 2024 15:50 JACKELINE POP MD Nov 16, 2024 15:13
[2024-11-16] VITALS (17 sets, daily range): BP systolic 130–161; BP diastolic 72–80; PULSE 60–115; RESP 16–21; TEMP 97.6–98.9; O2SAT 92–100
[2024-11-16 05:39] LABS: Basophils # (auto) 0.1 10 ^3/uL (0-0.2); Basophils % (auto) 0.4 % (0.0-2.0); Eosinophils # (auto) 0.9 10 ^3/uL (0-0.8); Eosinophils % (auto) 4.7 % (0.0-7.0); Hematocrit 42.4 % (36.0-46.0); Hemoglobin 13.9 g/dL (12.2-16.2); Lymphocytes # (auto) 2.3 10 ^3/uL (0.4-5.4); Lymphocytes % (auto) 11.8 % (10.0-50.0); Mean Corpuscular Hemoglobin 30.8 pg (28.0-32.0); Mean Corpuscular Hgb Conc. 32.8 g/dL (32.0-36.0); Mean Corpuscular Volume 93.9 fL (80.0-100.0); Monocytes # (auto) 1.7 10 ^3/uL (0-1.3); Monocytes % (auto) 8.7 % (0.0-12.0); Neutrophils # (auto) 14.7 10 ^3/uL (1.6-8.6); Neutrophils % (auto) 74.4 % (37.0-80.0); Platelet Count (auto) 364 10^3/uL (140-450); Red Blood Cells 4.52 10^6/uL (4.0-5.20); Red Cell Distribution Width 13.3 % (11.8-14.3); White Blood Cell 19.7 10^3/uL (4.4-10.8)
[2024-11-16 06:06] LABS: Anion Gap 7 (5-15); Calcium 9.2 mg/dL (8.7-10.4); Chloride 101 mmol/L (98-107); Potassium 4.3 mmol/L (3.5-5.1); Sodium 141 mmol/L (136-145)
[2024-11-16 06:11] LABS: Glucose 94 mg/dL (74-106)
[2024-11-16 06:12] LABS: BUN/Creatinine Ratio 28.1 (10.0-20.0); Blood Urea Nitrogen 16 mg/dL (9-23); Magnesium 1.9 mg/dL (1.6-2.6)
[2024-11-16 07:02] LABS: Carbon Dioxide 33 mmol/L (20-31)
[2024-11-16] MEDS: NICOTINE 21MG/24 HR TOPICAL PATCH TD SCH (10:02)
[2024-11-16] MEDS: FLUCONAZOLE 100 MG TAB PO ONE (12:00)
--- NOTE | 2024-11-16 13:39 | DVHPNRES ---
Progress Note Date Seen: Nov 16, 2024 Resident Creating Document: FRANCA BARBOZA RESIDENT Medical Necessity Reason Pt with a Central, PICC or Fol: No Reason for alonso catheter: Strict I&O Subjective Review of Systems This is a 69-year-old with a past medical history of left lower extremity DVT in 2020, COPD, GERD, history of methamphetamine use, chronic nicotine dependence, hypertension, type 2 diabetes mellitus, left lung nodule, anxiety who presented to the ED with the chief complaint of shortness of breath and chest pain with cough for the pat 3 weeks. According to the patient she has been using her nebulizer at home but she did not really receive any relief from that and she continued to have shortness of breath. Thus, she presented to the ED for evaluation. Patient also mentioned having cough with the yellowish sputum production. however, she denies any fever or chills just headache. Patient has been previously admitted in this facility over the period of 2016 to 2020 4 multiple acute hypoxic respiratory failure episode secondary due to COPD. Patient has been admitted in this hospital in January in February this year secondary to SBO and underwent sigmoid resection with a Doroteo's procedure and colostomy placement secondary to sigmoid diverticulosis vitals diverticulitis. 11/07-Patient seen and examined at bedside. She is intubated and mechanically ventilated. DC gabapentin, DC Zofran. Increased cefepime to 2 g b.i.d.. 11/08-overnight no events noted, patient is saturating 99 on 30% FiO2. He has been off Levophed since 11/07. On propofol 35 and fentanyl 25, sedation was turned on later this morning her CPAP trial. Patient tolerated CPAP trial from 11:00 a.m. to 2:00 p.m.. Sputum culture resulted as ESBL E coli. Sensitive to ertapenem, meropenem, Victoza, TMP SMX. Discontinued cefepime and started ertapenem IV. CPAP trial in AM 11/09 - patient seen and examined at bedside. Overnight patient made 500 mL of urine and 675 mL in the daytime. She is saturating 98 and FiO2 of 30%. CPAP trial started at 9:30 a.m and patient continued it till 12:00 p.m.. CPAP ABG showed pH 7.39, pCO2 45, bicarb 27, PO2 83. Florian was 20, vital capacity 877. Consequently patient was extubated at 12:10 p.m. she is currently satting 91% on 6 L of oxygen supplementation. Patient complaining of back pain and moaning in pain therefore IV Dilaudid 0.5 mg q.4 p.r.n. along with lidocaine patch started. Creatinine clearance 60 mL/minute. 11/10-patient seen and examined at bedside. She is A&O x4, ran low-grade fever overnight 99.8 and intermittently tachypneic at 20, otherwise she is saturating 95 on 3 L NC. Overnight 700 mL of urine but no bowel movement, lactulose 30 mL p.o. started. Central line discontinued. Patient tolerated clear liquid diet well. Swallow eval completed, patient can tolerate pureed diet with thin liquids. Pureed Diet started. Chest x-ray completed shows left-sided opacity probably atelectasis. Mild ISS. Patient transferred to telemetry unit. 11/11 - patient A&O x4 this morning. Overnight she complaint of pain and was agitated, Ativan started 0.5 IV changed to Q 8 p.r.n. chest x-ray shows worsening left-sided infiltrate. Ultrasound ordered shows trace pleural effusion. 11/14 -seen and examined at the bedside. She is A&O x4. . Recommended home health services. Methylprednisolone 40 mg b.i.d. switched to prednisolone 40 mg p.o. daily. Continue IV ertapenem. DC Dilaudid. Switch to IV morphine. WBC trending up. Chest x-ray in the a.m.. Chest percussions ordered. KYLAH Alonso. 11/15-overnight patient went to smoke. She had A&O x4. Ambulating in the room. Reports no acute complaint. Undergoing chest percussions. Started nicotine patch 21 mg daily. Chest x-ray shows left upper opacity and left lower atelectasis. Overnight 450 mL of urine. Flutter valve ordered. K and Mag replenished 11/15 -Patient seen and examined at the bedside. p.o. Diflucan 400 mg once and then 200 mg daily started. Downgraded to [facility] surge unit. Objective vital signs Vital Sign Date Time Temp Pulse Resp B/P (MAP) Pulse Ox O2 Delivery O2 Flow Rate FiO2 11/16/24 13:25 92 Nasal Cannula* 2 28 11/16/24 13:25 110 18 11/16/24 10:31 140/68 11/16/24 09:00 98.9 98.9 Total Intake and Output 11/15/24 11/15/24 11/16/24 15:00 23:00 07:00 Intake Total 200 ml 50 ml 550 ml Output Total 225 ml 405 ml Balance 200 ml -175 ml 145 ml medications Current Medications Medications Dose Ordered Sig/Natacha Route Start Time Stop Time Status Last Admin Dose Admin Docusate Sodium 100 mg BIDPRN PRN PO 11/01/24 19:30 Acetaminophen 650 mg Q6HP PRN PO 11/01/24 19:30 Albuterol 2.5 mg Q2HPRN PRN NEB 11/04/24 10:15 Ipratropium Jarrell 0.5 mg Q4HWA [facility] 11/04/24 14:00 11/16/24 13:25 0.5 MG Albuterol 2.5 mg Q4HWA [facility] 11/04/24 14:00 11/16/24 13:25 2.5 MG Enoxaparin Sodium 40 mg DAILY SC 11/05/24 10:00 11/16/24 09:58 40 MG Ertapenem 1 gm/ Sodium Chloride 50 ml @ 100 mls/hr DAILY@1700 IV 11/09/24 17:00 11/15/24 16:27 100 MLS/HR Lidocaine 1 patch DAILY TOP 11/10/24 10:00 11/16/24 10:00 1 PATCH Diagnostic Test (Pha) 1 strip Q6HR 11/10/24 12:00 11/16/24 12:06 1 STRIP Insulin Human Regular Q6HR SC 11/10/24 12:00 11/15/24 23:13 4 UNITS Dextrose 50 ml UD PRN IV 11/10/24 12:00 Lactulose 30 ml DAILY PO 11/11/24 10:00 11/15/24 09:12 30 ML Melatonin 10 mg HS PO 11/10/24 22:00 11/15/24 23:09 10 MG Lorazepam 0.5 mg Q8HP PRN IV 11/11/24 14:30 11/16/24 12:07 0.5 MG Prednisone 40 mg DAILY PO 11/15/24 10:00 11/16/24 10:03 40 MG Pantoprazole Sodium 40 mg DAILY@0600 PO 11/15/24 06:00 11/16/24 05:24 40 MG Morphine Sulfate 1 mg Q4HP PRN IV 11/14/24 16:00 11/16/24 10:01 1 MG Nicotine 1 patch DAILY TD 11/16/24 10:00 11/16/24 10:02 1 PATCH Fluconazole 200 mg DAILY PO 11/17/24 10:00 Examination Female patient lying in bed, in no acute distress General: Afebrile, palor, mucosae are moist, pupils are reactive Cardiovascular: Regular S1 and S2. No murmurs, gallops or rubs. No JVD elevation. No pedal edema Respiratory: Decreased breath sounds in the left lower lobe. no wheezing or crackles heard, saturating 95 on 2 L NC Abdomen: Soft, nontender, nondistended, hypoactive bowel sounds, no rebound tenderness, no organomegaly, no masses. Colostomy bag seen with 50ml dark brown soft stool. Stoma looks pink and moist. Genitourinary: Deferred MSK/skin: Skin is dry and warm Neurological: A&O x4. Patient is seen mobilizing her all 4 extremities. Pupils are isocoric and reactive. laboratory and microbiology Laboratory Tests 11/16/24 05:06 Test 11/16/24 05:06 Range/Units Serum Glucose 94 74-106 mg/dL Microbiology Date/Time Source Procedure Growth Status 11/06/24 18:32 Blood Blood Culture - Final NO GROWTH AFTER 5 DAYS OF INCUBATION. Complete 11/06/24 14:00 Urine - Catheterized Urine Culture - Final Yeast, not Laura albicans Complete 11/04/24 17:25 Lung Pending Resulted 11/04/24 17:25 Lung Pending Resulted 11/04/24 17:25 Lung Pending Resulted 11/04/24 17:25 Lung Pending Resulted 11/04/24 17:25 Lung - Final See Separate Report... Resulted 11/04/24 12:25 Sputum Gram Stain - Final Complete 11/04/24 12:25 Respiratory Culture - Final Escherichia coli - ESBL Complete Labs and/or images reviewed: Labs reviewed by me, Image(s) reviewed by me Problem List/Assessment/Plan Problem List/Assessment/Plan NEUROLOGY Acute hypoxic/metabolic encephalopathy likely due to sepsis/malignancy - patient is sedated and mechanically ventilated - CT head and MRI brain unremarkable for acute intracranial pathology CARDIOVASCULAR Septic shock secondary to probable metastatic lung cancer Prolonged QTC-resolved - blood culture prelim unremarkable - off Levophed since 11/07 RESPIRATORY Sepsis due to probable Postobstructive pneumonia, Gram-positive and Gram- negative Metastatic lung lung adenocarcinoma Acute hypoxic respiratory failure Left upper lobe mass Left-sided pleural effusion Likely underlying COPD Ruled out PE Mediastinal lymphadenopathy Basilar atelectasis and consolidation Chronic nicotine dependence - CT angio chest completed 11/02 showed masslike consolidation in the left upper lung. Patchy nodular consolidation in both lungs,. Mediastinal lymphadenopathy. superimposed infection is not excluded. Small left pleural effusion with associated left basilar atelectasis and consolidation - respiratory culture shows ESBL E coli. G stain shows rare Gram-negative rods, Gram-positive cocci in pair, Gram-positive rods. - increased Solu-Medrol to 40 mg b.i.d. 11/07, switched to prednisolone 40 mg p.o. daily starting 11/14 - discontinued IV cefepime, increased to 2 g b.i.d on 11/08 -started IV Invanz 11/08 and started p.o. Diflucan 11/16 - continue acetylcysteine 200 mg Q 8 hour - continue albuterol and ipratropium q.4 hours - patient has a history of 50+ pack-year smoking - therapeutic bronchoscopy with bronchoalveolar lavage performed by Dr. Sim on November 04 - pathology reports confirm moderately differentiated adenocarcinoma of the lung -CPAP trial in AM completed, patient extubated 12:10 p.m. on 11/09. Currently on 3 L O2 supplementation - lidocaine patch and discontinued IV Dilaudid 0.5 mg q.4 p.r.n, switched to p.o. morphine - ultrasound chest completed, shows trace pleural effusion. - heme Onc consulted-outpatient workup - chest percussions and flutter valve ordered - nicotine patch 21 mg daily GI History of perforated sigmoid diverticulosis diverticulitis with Doroteo's procedure and sigmoid resection and colectomy in January, Metastatic liver disease - CT angio shows multiple hypodense liver masses, largest measuring up to 35 mm. - lactulose 30 mL p.o. daily starting 11/10 /KIDNEY PETE, likely VMN-creatinine trending down MUSCULOSKELETAL Bone metastasis Degenerative joint disease - Cervical spine CT completed 11/01 shows mild bony spondylosis and degenerative disc changes at C5-C6 and C7 - CT angio completed, shows multiple osseous metastatic lesions. - bone scan completed 11/03, shows focal areas of increased uptake in the manubrium, sternum, thoracic vertebra, may be due to metastatic disease. Additional lytic lesion seen on recent CTA chest exam are not correlated on wounds likely due to the lytic nature. ID Septic shock - Continue as above HEM-ONCO - Oncologist consulted, recommended bone scan and CT-guided needle biopsy of the liver METABOLIC Hypokalemia Hypomagnesemia -keep Mag above 2 and K above 4 ENDO Left adrenal nodularity Diabetes mellitus - hemoglobin A1c 7.1 - continue Lantus 10 units SC daily in the a.m. - target blood glucose 140-180 mg/dL - Mild sliding scale LINES Intubated on 11/04 till 11/09 Right IJ central venous catheter placed on 11/04 till 11/10 Alonso catheter discontinued on 11/14 DRIPS Propofol of since 11/09 Levophed off since 11/07 Fentanyl of since 11/09 Diet: Passed swallow eval. Pureed diet since 11/10 dinner Physical therapy consulted-home health services and DME walker Rollator requested Patient transferred to med surg unit. End of note Goals of care/advance care planning; FULL CODE; discussed on for 24 minutes. PUD prophylaxis: Pantoprazole 40 mg p.o. daily DVT prophylaxis: Lovenox 40 mg daily SC Case discussed with Dr Chambers Plan discussed with granddaughter over the phone, in which all questions have been answered code status full code. family is considering hospice at this time. Critical care time including chart review, discussion with the patient's family excluding procedures: 46 minutes Plan discussed with: Patient, Other (Nurse, granddaughter) My Orders My Orders Orders - FRANCA BARBOZA RESIDENT Procedure Category Date Status Time Fluconazole Tablet PHA 11/17/24 In Process (Diflucan Tablet) 10:00 Transfer Orders XFER 11/16/24 Transmitted 12:00 Dietary Evaluation Review Comments: 1) If GI is accessible consider Glucerna 1.2 @ 40 ml/hr x 24 hrs goal rate as tolerated 2) If pt remains NPO >7 days consider TPN to meet at least 75% of estimated needs 3) Advance pt diet when medically feasible to a CCHO 45g diet 4) Continue current plan of care Expected Outcomes/Goals: 1) Pt to receive adequate nutrition support within 7 days of NPO status 2) Pt diet to advance 3) P labs to improve 4) F/U in 2-3 days Date of Service: Nov 16, 2024 Billing Provider: HARSH CHAMBERS MD Common Visit Codes: [id number] CARE 30-74 MIN FRANCA BARBOZA RESIDENT Nov 16, 2024 13:39 HARSH CHAMBERS MD Nov 16, 2024 22:27
[2024-11-17] VITALS (16 sets, daily range): BP systolic 131–168; BP diastolic 68–91; PULSE 82–119; RESP 14–22; TEMP 97.6–98.8; O2SAT 91–99
[2024-11-17 06:35] LABS: Anion Gap 5 (5-15); Calcium 9.2 mg/dL (8.7-10.4); Chloride 101 mmol/L (98-107); Sodium 140 mmol/L (136-145)
[2024-11-17 06:40] LABS: BUN/Creatinine Ratio 19.2 (10.0-20.0); Blood Urea Nitrogen 10 mg/dL (9-23); Glucose 87 mg/dL (74-106)
[2024-11-17 06:44] LABS: Carbon Dioxide 34 mmol/L (20-31)
[2024-11-17 07:07] LABS: Basophils # (auto) 0.1 10 ^3/uL (0-0.2); Basophils % (auto) 0.4 % (0.0-2.0); Eosinophils # (auto) 0.7 10 ^3/uL (0-0.8); Eosinophils % (auto) 4.3 % (0.0-7.0); Hematocrit 39.5 % (36.0-46.0); Hemoglobin 12.9 g/dL (12.2-16.2); Lymphocytes # (auto) 1.6 10 ^3/uL (0.4-5.4); Lymphocytes % (auto) 10.2 % (10.0-50.0); Mean Corpuscular Hemoglobin 30.8 pg (28.0-32.0); Mean Corpuscular Hgb Conc. 32.7 g/dL (32.0-36.0); Monocytes # (auto) 1.3 10 ^3/uL (0-1.3); Monocytes % (auto) 8.8 % (0.0-12.0); Neutrophils # (auto) 11.7 10 ^3/uL (1.6-8.6); Neutrophils % (auto) 76.3 % (37.0-80.0); Nucleated Red Blood Cells % 0.1 %; Platelet Count (auto) 288 10^3/uL (140-450); Red Cell Distribution Width 13.7 % (11.8-14.3); White Blood Cell 15.3 10^3/uL (4.4-10.8)
[2024-11-17] MEDS: FLUCONAZOLE 100 MG TAB PO SCH (10:00)
--- NOTE | 2024-11-17 16:32 | DVHPNRES ---
Progress Note Date Seen: Nov 17, 2024 Resident Creating Document: FRANCA BARBOZA RESIDENT Medical Necessity Reason Pt with a Central, PICC or Fol: No Reason for alonso catheter: Strict I&O Subjective Review of Systems This is a 69-year-old with a past medical history of left lower extremity DVT in 2020, COPD, GERD, history of methamphetamine use, chronic nicotine dependence, hypertension, type 2 diabetes mellitus, left lung nodule, anxiety who presented to the ED with the chief complaint of shortness of breath and chest pain with cough for the pat 3 weeks. According to the patient she has been using her nebulizer at home but she did not really receive any relief from that and she continued to have shortness of breath. Thus, she presented to the ED for evaluation. Patient also mentioned having cough with the yellowish sputum production. however, she denies any fever or chills just headache. Patient has been previously admitted in this facility over the period of 2016 to 2020 4 multiple acute hypoxic respiratory failure episode secondary due to COPD. Patient has been admitted in this hospital in January in February this year secondary to SBO and underwent sigmoid resection with a Doroteo's procedure and colostomy placement secondary to sigmoid diverticulosis vitals diverticulitis. 11/07-Patient seen and examined at bedside. She is intubated and mechanically ventilated. DC gabapentin, DC Zofran. Increased cefepime to 2 g b.i.d.. 11/08-overnight no events noted, patient is saturating 99 on 30% FiO2. He has been off Levophed since 11/07. On propofol 35 and fentanyl 25, sedation was turned on later this morning her CPAP trial. Patient tolerated CPAP trial from 11:00 a.m. to 2:00 p.m.. Sputum culture resulted as ESBL E coli. Sensitive to ertapenem, meropenem, Victoza, TMP SMX. Discontinued cefepime and started ertapenem IV. CPAP trial in AM 11/09 - patient seen and examined at bedside. Overnight patient made 500 mL of urine and 675 mL in the daytime. She is saturating 98 and FiO2 of 30%. CPAP trial started at 9:30 a.m and patient continued it till 12:00 p.m.. CPAP ABG showed pH 7.39, pCO2 45, bicarb 27, PO2 83. Florian was 20, vital capacity 877. Consequently patient was extubated at 12:10 p.m. she is currently satting 91% on 6 L of oxygen supplementation. Patient complaining of back pain and moaning in pain therefore IV Dilaudid 0.5 mg q.4 p.r.n. along with lidocaine patch started. Creatinine clearance 60 mL/minute. 11/10-patient seen and examined at bedside. She is A&O x4, ran low-grade fever overnight 99.8 and intermittently tachypneic at 20, otherwise she is saturating 95 on 3 L NC. Overnight 700 mL of urine but no bowel movement, lactulose 30 mL p.o. started. Central line discontinued. Patient tolerated clear liquid diet well. Swallow eval completed, patient can tolerate pureed diet with thin liquids. Pureed Diet started. Chest x-ray completed shows left-sided opacity probably atelectasis. Mild ISS. Patient transferred to telemetry unit. 11/11 - patient A&O x4 this morning. Overnight she complaint of pain and was agitated, Ativan started 0.5 IV changed to Q 8 p.r.n. chest x-ray shows worsening left-sided infiltrate. Ultrasound ordered shows trace pleural effusion. 11/14 -seen and examined at the bedside. She is A&O x4. . Recommended home health services. Methylprednisolone 40 mg b.i.d. switched to prednisolone 40 mg p.o. daily. Continue IV ertapenem. DC Dilaudid. Switch to IV morphine. WBC trending up. Chest x-ray in the a.m.. Chest percussions ordered. KYLAH Alonso. 11/15-overnight patient went to smoke. She had A&O x4. Ambulating in the room. Reports no acute complaint. Undergoing chest percussions. Started nicotine patch 21 mg daily. Chest x-ray shows left upper opacity and left lower atelectasis. Overnight 450 mL of urine. Flutter valve ordered. K and Mag replenished 11/16 -Patient seen and examined at the bedside. p.o. Diflucan 400 mg once and then 200 mg daily started. Downgraded to med surge unit. 11/17 - patient seen and examined at the bedside. WBC count trending down. Patient and family opted for home hospice. Ertapenem discontinued. Objective vital signs Vital Sign Date Time Temp Pulse Resp B/P (MAP) Pulse Ox O2 Delivery O2 Flow Rate FiO2 12/26/24 15:40 66 18 137/67 11/17/24 14:54 97 11/17/24 14:46 Nasal Cannula 4.0 11/17/24 14:46 36 11/17/24 13:00 98.4 98.4 Total Intake and Output 11/16/24 11/16/24 11/17/24 14:59 22:59 06:59 Intake Total 715 ml 400 ml Output Total 600 ml Balance 715 ml -200 ml medications Current Medications Medications Dose Ordered Sig/Natacha Route Start Time Stop Time Status Last Admin Dose Admin Docusate Sodium 100 mg BIDPRN PRN PO 11/01/24 19:30 Acetaminophen 650 mg Q6HP PRN PO 11/01/24 19:30 Albuterol 2.5 mg Q2HPRN PRN NEB 11/04/24 10:15 Ipratropium [place] 0.5 mg Q4HWA [facility] 11/04/24 14:00 11/17/24 14:46 0.5 MG Albuterol 2.5 mg Q4HWA [facility] 11/04/24 14:00 11/17/24 14:46 2.5 MG Enoxaparin Sodium 40 mg DAILY SC 11/05/24 10:00 11/17/24 10:01 40 MG Ertapenem 1 gm/ Sodium Chloride 50 ml @ 100 mls/hr DAILY@1700 IV 11/09/24 17:00 11/16/24 16:52 100 MLS/HR Lidocaine 1 patch DAILY TOP 11/10/24 10:00 11/17/24 10:01 1 PATCH Diagnostic Test (Pha) 1 strip Q6HR 11/10/24 12:00 11/17/24 12:08 1 STRIP Insulin Human Regular Q6HR SC 11/10/24 12:00 11/17/24 12:13 3 UNITS Dextrose 50 ml UD PRN IV 11/10/24 12:00 Lactulose 30 ml DAILY PO 11/11/24 10:00 11/17/24 10:01 30 ML Melatonin 10 mg HS PO 11/10/24 22:00 11/16/24 21:56 10 MG Lorazepam 0.5 mg Q8HP PRN IV 11/11/24 14:30 11/17/24 12:18 0.5 MG Prednisone 40 mg DAILY PO 11/15/24 10:00 11/17/24 10:01 40 MG Pantoprazole Sodium 40 mg DAILY@0600 PO 11/15/24 06:00 11/17/24 06:02 40 MG Morphine Sulfate 1 mg Q4HP PRN IV 11/14/24 16:00 11/17/24 15:40 1 MG Nicotine 1 patch DAILY TD 11/16/24 10:00 11/17/24 10:00 1 PATCH Fluconazole 200 mg DAILY PO 11/17/24 10:00 11/17/24 10:00 200 MG Examination Female patient lying in bed, in no acute distress General: Afebrile, palor, mucosae are moist, pupils are reactive Cardiovascular: Regular S1 and S2. No murmurs, gallops or rubs. No JVD elevation. No pedal edema Respiratory: Decreased breath sounds in the left lower lobe. no wheezing or crackles heard, saturating 95 on 2 L NC Abdomen: Soft, nontender, nondistended, hypoactive bowel sounds, no rebound tenderness, no organomegaly, no masses. Colostomy bag seen with 50ml dark brown soft stool. Stoma looks pink and moist. Genitourinary: Deferred MSK/skin: Skin is dry and warm Neurological: A&O x4. Patient is seen mobilizing her all 4 extremities. Pupils are isocoric and reactive. laboratory and microbiology Laboratory Tests 11/17/24 05:19 Test 11/17/24 05:19 Range/Units Serum Glucose 87 74-106 mg/dL Microbiology Date/Time Source Procedure Growth Status 11/06/24 18:32 Blood Blood Culture - Final NO GROWTH AFTER 5 DAYS OF INCUBATION. Complete 11/06/24 14:00 Urine - Catheterized Urine Culture - Final Yeast, not Laura albicans Complete 11/04/24 17:25 Lung Pending Resulted 11/04/24 17:25 Lung Pending Resulted 11/04/24 17:25 Lung Pending Resulted 11/04/24 17:25 Lung Pending Resulted 11/04/24 17:25 Lung - Final See Separate Report... Resulted 11/04/24 12:25 Sputum Gram Stain - Final Complete 11/04/24 12:25 Respiratory Culture - Final Escherichia coli - ESBL Complete Labs and/or images reviewed: Labs reviewed by me, Image(s) reviewed by me Problem List/Assessment/Plan Problem List/Assessment/Plan NEUROLOGY Acute hypoxic/metabolic encephalopathy likely due to sepsis/malignancy - patient is sedated and mechanically ventilated - CT head and MRI brain unremarkable for acute intracranial pathology CARDIOVASCULAR Septic shock secondary to probable metastatic lung cancer Prolonged QTC-resolved - blood culture prelim unremarkable - off Levophed since 11/07 RESPIRATORY Sepsis due to probable Postobstructive pneumonia, Gram-positive and Gram- negative Metastatic lung lung adenocarcinoma Acute hypoxic respiratory failure Left upper lobe mass Left-sided pleural effusion Likely underlying COPD Ruled out PE Mediastinal lymphadenopathy Basilar atelectasis and consolidation Chronic nicotine dependence - CT angio chest completed 11/02 showed masslike consolidation in the left upper lung. Patchy nodular consolidation in both lungs,. Mediastinal lymphadenopathy. superimposed infection is not excluded. Small left pleural effusion with associated left basilar atelectasis and consolidation - respiratory culture shows ESBL E coli. G stain shows rare Gram-negative rods, Gram-positive cocci in pair, Gram-positive rods. - increased Solu-Medrol to 40 mg b.i.d. 11/07, switched to prednisolone 40 mg p.o. daily starting 11/14 - discontinued IV cefepime, increased to 2 g b.i.d on 11/08 -discontinued IV Invanz 11/08 until 11/17 and started p.o. Diflucan 11/16 - continue acetylcysteine 200 mg Q 8 hour - continue albuterol and ipratropium q.4 hours - patient has a history of 50+ pack-year smoking - therapeutic bronchoscopy with bronchoalveolar lavage performed by Dr. Sim on November 04 - pathology reports confirm moderately differentiated adenocarcinoma of the lung -CPAP trial in AM completed, patient extubated 12:10 p.m. on 11/09. Currently on 3 L O2 supplementation - lidocaine patch and discontinued IV Dilaudid 0.5 mg q.4 p.r.n, switched to p.o. morphine - ultrasound chest completed, shows trace pleural effusion. - heme Onc consulted-outpatient workup - chest percussions and flutter valve ordered - nicotine patch 21 mg daily -opted hospice GI History of perforated sigmoid diverticulosis diverticulitis with Doroteo's procedure and sigmoid resection and colectomy in January, Metastatic liver disease - CT angio shows multiple hypodense liver masses, largest measuring up to 35 mm. - lactulose 30 mL p.o. daily starting 11/10 /KIDNEY PETE, likely VMN-creatinine trending down MUSCULOSKELETAL Bone metastasis Degenerative joint disease - Cervical spine CT completed 11/01 shows mild bony spondylosis and degenerative disc changes at C5-C6 and C7 - CT angio completed, shows multiple osseous metastatic lesions. - bone scan completed 11/03, shows focal areas of increased uptake in the manubrium, sternum, thoracic vertebra, may be due to metastatic disease. Additional lytic lesion seen on recent CTA chest exam are not correlated on wounds likely due to the lytic nature. ID Septic shock - Continue as above HEM-ONCO - Oncologist consulted, recommended bone scan and CT-guided needle biopsy of the liver METABOLIC Hypokalemia Hypomagnesemia -keep Mag above 2 and K above 4 ENDO Left adrenal nodularity Diabetes mellitus - hemoglobin A1c 7.1 - continue Lantus 10 units SC daily in the a.m. - target blood glucose 140-180 mg/dL - Mild sliding scale LINES Intubated on 11/04 till 11/09 Right IJ central venous catheter placed on 11/04 till 11/10 Alonso catheter discontinued on 11/14 DRIPS Propofol of since 11/09 Levophed off since 11/07 Fentanyl of since 11/09 Diet: Passed swallow eval. Pureed diet since 11/10 dinner Physical therapy consulted-home health services and DOMO kelly Rollator requested Patient transferred to med surg unit. Hospice consulted. Discontinued Invanz End of note Goals of care/advance care planning; FULL CODE; discussed on for 24 minutes. PUD prophylaxis: Pantoprazole 40 mg p.o. daily DVT prophylaxis: Lovenox 40 mg daily SC Case discussed with Dr Pop Plan discussed with granddaughter over the phone, in which all questions have been answered code status full code. family is considering hospice at this time. Plan discussed with: Patient, Other (Granddaughter Danielle over the phone call) My Orders My Orders Orders - FRANCA BARBOZA RESIDENT Procedure Category Date Status Time * [employer] CONS 11/17/24 Transmitted Consult 15:39 Dietary Evaluation Review Comments: 1) If GI is accessible consider Glucerna 1.2 @ 40 ml/hr x 24 hrs goal rate as tolerated 2) If pt remains NPO >7 days consider TPN to meet at least 75% of estimated needs 3) Advance pt diet when medically feasible to a CCHO 45g diet 4) Continue current plan of care Expected Outcomes/Goals: 1) Pt to receive adequate nutrition support within 7 days of NPO status 2) Pt diet to advance 3) P labs to improve 4) F/U in 2-3 days Date of Service: Nov 17, 2024 Billing Provider: JACKELINE POP MD Common Visit Codes: [id number] INP/OBS CARE(HIGH) Secondary Visit Codes: [id number] CARE PLAN 30 MINUTES FRANCA BARBOZA RESIDENT Nov 17, 2024 16:32 JACKELINE POP MD Nov 18, 2024 15:01
[2024-11-18] VITALS (11 sets, daily range): BP systolic 135–154; BP diastolic 68–79; PULSE 59–118; RESP 16–20; TEMP 97.6–98.3; O2SAT 94–99
[2024-11-18 06:50] LABS: Basophils # (auto) 0.1 10 ^3/uL (0-0.2); Basophils % (auto) 0.3 % (0.0-2.0); Eosinophils # (auto) 0.4 10 ^3/uL (0-0.8); Eosinophils % (auto) 2.7 % (0.0-7.0); Hematocrit 41.5 % (36.0-46.0); Hemoglobin 13.1 g/dL (12.2-16.2); Lymphocytes # (auto) 1.5 10 ^3/uL (0.4-5.4); Mean Corpuscular Hgb Conc. 31.6 g/dL (32.0-36.0); Monocytes # (auto) 1.4 10 ^3/uL (0-1.3); Monocytes % (auto) 8.9 % (0.0-12.0); Neutrophils # (auto) 12.8 10 ^3/uL (1.6-8.6); Neutrophils % (auto) 79.1 % (37.0-80.0); Platelet Count (auto) 320 10^3/uL (140-450); Red Blood Cells 4.37 10^6/uL (4.0-5.20); Red Cell Distribution Width 13.7 % (11.8-14.3); White Blood Cell 16.2 10^3/uL (4.4-10.8)
--- NOTE | 2024-11-18 18:12 | DVHDSRES ---
Discharge Summary Date of Admission Resident Creating Document: FRANCA BARBOZA RESIDENT Nov 01, 2024 at 19:23 Date of Discharge: Nov 18, 2024 Labs/Diagnostic Data: Laboratory Results Test 11/18/24 05:48 11/17/24 23:56 11/17/24 05:19 11/16/24 05:06 White Blood Count 16.2 10^3/uL (4.4-10.8) Red Blood Count 4.37 10^6/uL (4.0-5.20) Hemoglobin 13.1 g/dL (12.2-16.2) Hematocrit 41.5 % (36.0-46.0) Mean Corpuscular Volume 95.0 fL (80.0-100.0) Mean Corpuscular Hemoglobin 30.0 pg (28.0-32.0) Mean Corpuscular Hemoglobin Concent 31.6 g/dL (32.0-36.0) Red Cell Distribution Width 13.7 % (11.8-14.3) Platelet Count 320 10^3/uL (140-450) Mean Platelet Volume 8.3 fL (6.9-10.8) Neutrophils (%) (Auto) 79.1 % (37.0-80.0) Lymphocytes (%) (Auto) 9.0 % (10.0-50.0) Monocytes (%) (Auto) 8.9 % (0.0-12.0) Eosinophils (%) (Auto) 2.7 % (0.0-7.0) Basophils (%) (Auto) 0.3 % (0.0-2.0) Neutrophils # (Auto) 12.8 10 ^3/uL (1.6-8.6) Lymphocytes # (Auto) 1.5 10 ^3/uL (0.4-5.4) Monocytes # (Auto) 1.4 10 ^3/uL (0-1.3) Eosinophils # (Auto) 0.4 10 ^3/uL (0-0.8) Basophils # (Auto) 0.1 10 ^3/uL (0-0.2) Nucleated Red Blood Cells 0.0 % POC Glucose 225 mg/dl (70-106) Sodium Level 140 mmol/L (136-145) Potassium Level 4.0 mmol/L (3.5-5.1) Chloride Level 101 mmol/L (98-107) Carbon Dioxide Level 34 mmol/L (20-31) Anion Gap 5 (5-15) Blood Urea Nitrogen 10 mg/dL (9-23) Creatinine 0.52 mg/dL (0.550-1.02) Glomerular Filtration Rate Calc 100 mL/min (>90) BUN/Creatinine Ratio 19.2 (10.0-20.0) Serum Glucose 87 mg/dL (74-106) Calcium Level 9.2 mg/dL (8.7-10.4) Magnesium Level 1.9 mg/dL (1.6-2.6) Test 11/12/24 06:30 11/09/24 10:38 11/09/24 07:47 11/04/24 13:30 Total Bilirubin 0.4 mg/dL (0.2-1.0) Aspartate Amino Transferase (AST) 33 U/L (13-40) Alanine Aminotransferase (ALT) 27 U/L (7-40) Alkaline Phosphatase 99 U/L (46-116) Total Protein 5.9 g/dL (5.7-8.2) Albumin 3.3 g/dL (3.2-4.8) Blood Gas Specimen Type Arterial Blood Gas Sample Site Right radial Blood Gas Patient Temperature 37.0 Arterial Blood Date Drawn [id number] Arterial Blood pH 7.390 (7.350-7.450) Arterial Blood Partial Pressure CO2 45.8 mmHg (32.0-45.0) Arterial Blood Partial Pressure O2 83.0 mmHg (83.0-108.0) Arterial Blood HCO3 27.1 mmol/L (21.0-28.0) Arterial Blood Oxygen Saturation 95.5 % (94.0-98.0) Arterial Blood Base Excess 1.6 mmol/L (-2.0-3.0) Arterial Blood Oxyhemoglobin 95.1 % (94.0-98.0) Arterial Blood Carboxyhemoglobin 0.1 % (0.5-1.5) Arterial Blood Methemoglobin 0.3 % (0.0-1.5) Louis Test Modified Blood Gas Total Hemoglobin 13.60 g/dL (12.0-16.0) Blood Gas Modality Vent - cpap FiO2 % 30.0 Blood Gas Pressure Support 7 Blood Gas PEEP or CPAP 5.0 Blood Gas Set Respiration Rate 18.0 Blood Gas Tidal Volume 450.0 Prothrombin Time 11.5 sec (9.3-11.8) Prothrombin Time INR 1.09 (0.9-1.15) Activated Partial Thromboplast Time 26.5 SEC (24.5-34.5) Test 11/04/24 10:10 11/02/24 15:24 11/02/24 11:29 11/02/24 04:44 Blood Gas Liter Flow 10.00 Urine Color Light-yellow (Yellow) Urine Clarity Clear (Clear) Urine pH 5.5 (5.0-9.0) Urine Specific [place] > 1.050 (1.001-1.035) Urine Protein Trace (Negative) Urine Ketones Negative (Negative) Urine Blood Negative /uL (Negative) Urine Nitrite Negative (Negative) Urine Bilirubin Negative (Negative) Urine Urobilinogen Normal mg/dL (Negative) Urine Leukocyte Esterase Negative /uL (Negative) Urine RBC 1 /hpf (0 - 4) Urine WBC 1 /hpf (0 - 5) Urine Squamous Epithelial Cells Few /hpf (<5) Urine Calcium Oxalate Crystals Few (None Seen) Urine Bacteria None seen /hpf (None Seen) Urine Glucose Normal mg/dL (Normal) Influenza Type A Antigen Negative (Negative) Influenza Type B Antigen Negative (Negative) Hemoglobin A1c 7.1 % A1C (<5.7) Test 11/02/24 00:35 11/01/24 20:58 11/01/24 18:17 SARS-CoV-2 Antigen (Rapid) Negative (NEGATIVE) Troponin I High Sensitivity 8 ng/L (</=34) D-Dimer, Quantitative 0.84 mg/L FEU (0.0-0.49) Lactic Acid Level 1.9 mmol/L (0.4-2.0) B-Type Natriuretic Peptide 29.85 pg/mL (0-100) Other Laboratory Tests 11/18/24 05:48 11/17/24 05:19 Brief Hx & Hospital Course: This is a 69-year-old with a past medical history of left lower extremity DVT in 2020, COPD, GERD, history of methamphetamine use, chronic nicotine dependence, hypertension, type 2 diabetes mellitus, left lung nodule, anxiety who presented to the ED with the chief complaint of shortness of breath and chest pain with cough for the pat 3 weeks. According to the patient she has been using her nebulizer at home but she did not really receive any relief from that and she continued to have shortness of breath. Thus, she presented to the ED for evaluation. Patient also mentioned having cough with the yellowish sputum production. however, she denies any fever or chills just headache. Patient has been previously admitted in this facility over the period of 2016 to 2020 4 multiple acute hypoxic respiratory failure episode secondary due to COPD. Patient has been admitted in this hospital in January in February this year secondary to SBO and underwent sigmoid resection with a Doroteo's procedure and colostomy placement secondary to sigmoid diverticulosis vitals diverticulitis. During the hospitalization, patient was intubated and mechanically ventilated on 11/04, she required pressor support and was diagnosed with sepsis secondary to postobstructive pneumonia. A right IJ CVC catheter was placed on 11/04 till 11/09. CT angio chest completed 11/02 showed masslike consolidation in the left upper lung. Patchy nodular consolidation in both lungs,. Mediastinal lymphadenopathy. superimposed infection is not excluded. Small left pleural effusion with associated left basilar atelectasis and consolidation. 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 Respiratory culture shows ESBL E coli. G stain shows rare Gram-negative rods, Gram-positive cocci in pair, Gram-positive rods. She received IV cefepime and later IV ertapenem from 11/08 until 11/17. Patient underwent CPAP trial 11/09 and later was extubated on the same day. Swallow eval was completed and patient was started on . Diet. She developed left-sided lower lobar atelectasis for which chest percussions were started. She also had trace pleural effusion. Gomez was discontinued on 11/14. Patient underwent physical therapy which recommended home health services. Given her metastatic adeno carcinoma, patient opted for home hospice hospice and therefore she was discharged with hospice on 11/18. At the day of discharge patient was hemodynamically stable, clinically stable, saturating 99 on 2 L NC. time spent in discharge planning was 41 mins Consults/Reason for consult Procedure - Bronchoscopy procedure note: Indications: Left upper lobe mass/consolidation, Possible mucous plugging. Medicines: See rotoprinter notes. Complications: None Time out 1715 pm Procedure: Patient medications and allergies reviewed. The risks and benefits of the procedure and the sedation options and risk were discussed with the patient's healthcare proxy. All questions were answered and informed consent was obtained. Patient identification and proposed procedure were verified prior to the procedure by the physician, and a nurse, and the respiratory therapist in ICU room. The heart rate, respiratory rate, oxygen saturations, blood pressure, adequacy of pulmonary ventilation, and response to care were monitored throughout the procedure. The physical status of the patient was reassessed after the procedure. After obtaining informed consent, the bronchoscope was introduced through the endotracheal tube and advanced into the trachea bronchial tree of both lungs. The procedure was accomplished without difficulty. The patient tolerated the procedure well. Findings: The trachea is in normal caliber. The lori is sharp. The tracheobronchial tree of the right lung was examined to at least the first subsegmental level. The bronchial mucosa and anatomy in the right lung are normal. There are no endobronchial lesions. There was copious whitish secretions from right main stem bronchus onward throughout R1-R10. The left upper lobe, lingula, and left lower lobe were examined to at least the first subsegmental level. Bronchial mucosa and anatomy in the left upper lobe and lingula are normal. There were no endobronchial lesions. There was copious whitish secretions from left main stem bronchus onward throughout L1-L3. Mucous plugging removed from L1-L3. LEFT UPPER lobe (KEY) Bronchoalveolar lavage (BAL) obtained. KEY BAL sent for gram stain and culture, viral culture, fungal culture. KEY Brushings and biopsy were also obtained. There was no active bleeding at the completion of the procedure. Estimated blood loss: Less than 5 mL. Impression: Left upper lobe atelectasis due to mucous plugging Mucous plugging from L1-L3 KEY BAL performed KEY brushings and biopsy Recommendation: Follow-up KEY BAL results. Procedure codes: 59821, bronchoscopy, rigid and flexible, including fluoroscopic guidance, one performed; with bronchial endobronchial biopsy, single or multiple sites NIKO GUERRA MD Nov 04, 2024 18:01 Procedure - Procedure: Endotracheal Intubation INDICATION: Acute hypoxic respiratory failure, accessory muscle usage Physician: Niko Guerra MD Grout Machine Tender Dr Navas PGY2 CONSENT: The risks and benefits of the procedure and the sedation options and risk were discussed with the patient's healthcare proxy. All questions were answered and informed consent was obtained. Time out time: 1201 pm Patient medications and allergies reviewed. Patient identification and proposed procedure were verified prior to the procedure by the physician, and a nurse in the patient's room. The heart rate, respiratory rate, oxygen saturations, blood pressure, adequacy of pulmonary ventilation, and response to care were monitored throughout the procedure. The physical status of the patient was reassessed after the procedure. PROCEDURE SUMMARY: A time out was performed. My hands were washed immediately prior to the procedure. I wore a surgical cap, mask with protective eyewear, gown and gloves throughout the procedure. The patient was placed on a teletypesetter monitor including continuous pulse oximetry. The patient received 16 mg Etomidate and 50 mg rocuronium for induction. Cricoid pressure was maintained from time induction agent was given to time of cuff balloon inflation. Using a MAC 4 GlideoScope and a size 8.0 endotracheal tube with stylet, the patient was intubated on the 1 attempt. The stylet was removed and cuff balloon was inflated. Appropriate endotracheal tube position was confirmed by direct visualization of vocal cord passage, fogging of the tube, CO2 colorimetric indicator and symmetric breath sounds. The tube was secured at 23 cm at the lips. Post intubation chest x-ray is pending. ET tube was confirmed with emergent therapeutic bronchoscopy to clear mucous plugging in left mainstem bronchus onward in L1-L10. See separate procedure note. CPT Code: 27904 NIKO GUERRA MD Nov 04, 2024 12:20 Procedure - ULTRASOUND-GUIDED RIGHT INTERNAL JUGULAR CENTRAL VENOUS CANNULATION CPT Codes: 41882 (ultrasound guidance) 52867 (insertion of non-tunneled centrally inserted central venous catheter) 30812 (CXR interpretation) Time out time:1235 pm Emergent procedure. Medically necessary for venous access. Patient medications and allergies reviewed. Patient identification and proposed procedure were verified prior to the procedure by the physician, and a nurse in the patient's room. The heart rate, respiratory rate, oxygen saturations, blood pressure, adequacy of pulmonary ventilation, and response to care were monitored throughout the procedure. The physical status of the patient was reassessed after the procedure. DATE: 11/04/2024 PHYSICIAN: Niko Guerra Grout Machine Tender: Dr Navas, PGY 2 PREOPERATIVE DIAGNOSIS: Hypotension, in need of venous access POSTOPERATIVE DIAGNOSIS: Same PROCEDURE PERFORMED: Limited Ultrasound-guided Right internal jugular central line placement. ANESTHESIA: 2 mL of 1% lidocaine plain. ESTIMATED BLOOD LOSS: less than 5 mL. SPECIMENS: None. COMPLICATIONS: None. INDICATIONS FOR PROCEDURE: The patient is in need of large bore IV access for administration of fluids, including blood products and vasoactive drugs, possible transvenous cardiac pacing and CVP monitoring for hemodynamic instability. DESCRIPTION OF PROCEDURE IN DETAIL: The patient was lying in the Trendelenburg position with head turned 30 degrees away from the insertion site. The skin was thoroughly sponged with chlorhexidine and allowed to dry. All persons involved were shielded with hair nets, face masks and sterile gowns. With sterile-gloved hands the right neck area was draped with the large disposable sterile field provided in the pre-manufactured kit. The skin and subcutaneous tissues superficial to the RIGHT internal jugular vein were anesthetized with 2 mL of 1% lidocaine. The RIGHT internal jugular vein was identified on ultrasound from the angle of the mandible down into the supraclavicular fossa using the linear ultrasound probe in the transverse orientation. The carotid artery was identified and avoided utilizing color-flow. The internal jugular vein was then placed in the center of the ultrasound field and compressed for patency. A movement artifact was identified as the needle was advanced through the skin and advanced toward the vessel. A real time hyperechoic signal revealed visualization of vascular needle entry into the lumen as blood was noted to flashback in the syringe. The needle was then held in place while the guide wire was advanced. The needle was then removed. Direct visualization of guide wire location within the vein was noted on ultrasound indicating proper placement and was document in the electronic medical record chart. A skin dilator was advanced over the guidewire and removed, and the triple-lumen catheter was then advanced over the guide wire into proper position. The guide wire was removed and discarded. The ports were aspirated which showed good blood return and then carefully flushed with normal saline. The catheter was stabilized and sutured to the skin with 2-0 silk at 2 anchor points. A sterile bio-patch and dressing was placed over the catheter, including the insertion site. The patient tolerated the procedure well. A chest x-ray was ordered for position confirmation. Awaiting post-procedure CXR for confirmation of placement NIKO GUERRA MD Nov 04, 2024 13:02 Condition at Discharge: Poor Final Diagnosis/Problems List Sepsis due to probable Postobstructive pneumonia, Gram-positive and Gram-negative Acute hypoxic/metabolic encephalopathy likely due to sepsis/malignancy Metastatic lung adenocarcinoma Acute hypoxic respiratory failure Left upper lobe mass Left-sided pleural effusion COPD Ruled out PE Mediastinal lymphadenopathy Basilar atelectasis and consolidation Chronic nicotine dependence Prolonged QTC-resolved History of perforated sigmoid diverticulosis diverticulitis with Doroteo's procedure and sigmoid resection and colectomy in January, Metastatic liver disease PETE, likely VMN-creatinine trending down Bone metastasis Degenerative joint disease Left adrenal nodularity Diabetes mellitus - hemoglobin A1c 7.1 Discharge Disposition: Hospice - Home Discharge Instruct/Medications Diet: Consistent carbohydrate, Cardiac 2g Na,low cholest Activity: No Restrictions, As Tolerated Follow Up/Referral: FU WITH HOSPICE Medications: PER HOSPICE Discharge Statement: "Patient was advised to return to the ER or call 911 if any headaches, dizziness, shortness of breath, chest pain, abdominal pain, bleeding, fevers, or worsening of medical condition. Patient was counseled about treatment plan, medications, possible side effects, patientverbalized understanding. All questions were answered to the best of my ability. This discharge took greater then 30 minutes in planning, reviewing documentation, counseling the patient, and discussing with other team members." ASSESSMENT ASSESSMENT Assessment Lung cancer Date of Service: Nov 18, 2024 Billing Provider: JACKELINE POP MD Common Visit Codes: 28404-TFS/OBS DISCH DAY >30min FRANCA BARBOZA RESIDENT Nov 18, 2024 18:12 JACKELINE POP MD Nov 20, 2024 12:34
--- NOTE | 2024-11-23 11:54 | ECG ---
[facility] Test Date: 2024-11-03 Test Time: 16:51:07 Pat Name: KATHRYN LUQUE Department: Respiratoy Room: 0232 A Gender: F Bearing Maker: : [id number] Requested By: SANA LEGER Order Number: [id number] Reading MD: Jakob Lambert Measurements Intervals [place] Rate: 87 P: 75 MN: 144 QRS: 104 QRSD: 132 T: 9 QT: 379 QTc: 456 Interpretive Statements Sinus rhythm RBBB and LPFB Electronically Signed On 11-23-2024 17:52:49 PST by Jakob Lambert Please click the below link to view image of tracing.
== END 2024-11-18 15:15 | disposition hospice, home (50) | DRG 720 ==
LOC: ER 17:03 → OVERFLOW 19:23 → CENTRAL 11-02 02:55 → ICU WEST 11-04 14:18 → TELE-EAST 11-10 15:56 → EAST 11-16 12:04
PROVIDERS: ADMIT Internal Medicine; ATTEND Internal Medicine
PROC: 0BH17EZ Insertion of Endotracheal Airway into Trachea, Via Natural or Artificial Opening (ICD-10-PCS; 2024-11-04)
PROC: 0BJ08ZZ Inspection of Tracheobronchial Tree, Via Natural or Artificial Opening Endoscopic (ICD-10-PCS; 2024-11-04)
PROC: 0B978ZZ Drainage of Left Main Bronchus, Via Natural or Artificial Opening Endoscopic (ICD-10-PCS; 2024-11-04)
PROC: 02HV33Z Insertion of Infusion Device into Superior Vena Cava, Percutaneous Approach (ICD-10-PCS; 2024-11-04)
PROC: B548ZZA Ultrasonography of Superior Vena Cava, Guidance (ICD-10-PCS; 2024-11-04)
PROC: 0B9G8ZX Drainage of Left Upper Lung Lobe, Via Natural or Artificial Opening Endoscopic, Diagnostic (ICD-10-PCS; 2024-11-04)
PROC: 0BDG8ZX Extraction of Left Upper Lung Lobe, Via Natural or Artificial Opening Endoscopic, Diagnostic (ICD-10-PCS; 2024-11-04)
PROC: 0BC78ZZ Extirpation of Matter from Left Main Bronchus, Via Natural or Artificial Opening Endoscopic (ICD-10-PCS; 2024-11-04)
PROC: 5A1955Z Respiratory Ventilation, Greater than 96 Consecutive Hours (ICD-10-PCS; principal; 2024-11-04 16:00)
DX: A41.59 Other Gram-negative sepsis (principal); J96.01 Acute respiratory failure with hypoxia; N17.0 Acute kidney failure with tubular necrosis; R65.21 Severe sepsis with septic shock; G93.41 Metabolic encephalopathy; J15.69 Pneumonia due to other Gram-negative bacteria; E43 Unspecified severe protein-calorie malnutrition; J15.9 Unspecified bacterial pneumonia; C34.92 Malignant neoplasm of unspecified part of left bronchus or lung; C79.51 Secondary malignant neoplasm of bone; Z51.5 Encounter for palliative care; J90 Pleural effusion, not elsewhere classified; C78.7 Secondary malignant neoplasm of liver and intrahepatic bile duct; Z20.822 Contact with and (suspected) exposure to COVID-19; F41.9 Anxiety disorder, unspecified; F17.210 Nicotine dependence, cigarettes, uncomplicated; I10 Essential (primary) hypertension; B96.20 Unspecified Escherichia coli [E. coli] as the cause of diseases classified elsewhere; M47.892 Other spondylosis, cervical region; E83.42 Hypomagnesemia; E11.9 Type 2 diabetes mellitus without complications; E87.6 Hypokalemia; Z88.0 Allergy status to penicillin; Z68.20 Body mass index [BMI] 20.0-20.9, adult; Z82.49 Family history of ischemic heart disease and other diseases of the circulatory system; Z79.4 Long term (current) use of insulin; Z82.5 Family history of asthma and other chronic lower respiratory diseases; Z93.3 Colostomy status
CPT/HCPCS: 36415; 36556; 36600; 70450; 70553; 71045; 71275; 72125; 76604; 78306; 80048; 80053; 81001; 82805; 82962; 83036; 83605; 83735; 83880; 84484; 85025; 85379; 85610; 85730; 87040; 87070; 87077; 87081; 87086; 87088; 87186; 87205; 87426; 87804; 92610; 93005; 93970; 94002; 94003; 94640; 94660; 94667; 94668; 97110; 97116; 97163; 97530; G0378; J0171; J0692; J1100; J1335; J1815; J2250; J2470; J2704; J7060